=== PATIENT | female | born 1970 | race Caucasian/White ===

== ENCOUNTER 2023-03-05 09:24 | Outpatient (OUT) | payer OTHER, SELFPAY ==
--- NOTE | 2023-03-05 09:29 | US_ITS ---
The [address] [address] Patient Name: MIRIAM DERAS MRN: [id number] date: 1970 Sex: F Assigned Patient Location: US Current Patient Location: US Accession/Order Number: [id number] Exam Date: 03/05/2023 09:30 Report Date: 03/05/2023 10:25 At the request of: DIOGO LUX Procedure: US thyroid EXAMINATION: US thyroid HISTORY: papillary microcarcinoma of thyroid C73 COMPARISON: No relevant comparison available. TECHNIQUE: Sonographic images of the thyroid gland were obtained. FINDINGS: No residual or recurrent thyroid tissue is observed in the right thyroid fossa consistent with the patient's prior thyroidectomy. Area of soft tissue in the left thyroid fossa measuring 0.8 0.9 x 0.6 cm possibly residual or recurrent thyroid tissue Identified in the right thyroid fossa is a normal size normal morphology lymph node measuring 1.9 x 1.1 x 0.5 cm Identified in the left thyroid fossa is a normal size normal morphology lymph node measuring 1.3 x 0.7 x 0.5 cm. US/US thyroid IMPRESSION: No significant nodule or mass. Likely recurrent/residual left thyroid tissue Electronically authenticated by: JEMMA ARAUZ Date: 03/05/2023 10:25
== END 2023-03-05 09:25 | disposition home or self-care (01) ==
LOC: US 09:24
PROVIDERS: Visit Provider Otolaryngology
DX: C73 Malignant neoplasm of thyroid gland (principal)
CPT/HCPCS: 76536

== ENCOUNTER 2023-03-12 10:29 | Outpatient (OUT) | payer OTHER, SELFPAY ==
--- OUTSIDE RECORDS SUMMARY | 2023-03-12 10:36 | XMS_ITS | CCD ---
Author Name Unknown Address [address] [place] [address] Organization [facility] Care Team Providers Care Solutions Engineer Name Role Phone House DO, Sr Selvin Julien Primary Care Provider FREDERICK, DR HERNÁNDEZ Primary Care Unavailable DIAB, SHIRA Admitting Unavailable DIAB, SHIRA Attending Unavailable ROSALBA, DEMETRIA Consulting Unavailable DIAB, SHIRA Consulting Unavailable TIMMIS, DR LIND Admitting Unavailable TIMMIS, DR LIND Attending Unavailable HOUSE, DR HERNÁNDEZ Primary Care Unavailable TIMMIS, DR LIND Consulting Unavailable WEST, DR JEMMA De Souza Consulting Unavailable TIMMIS, DR LIND Admitting Unavailable TIMMIS, DR LIND Attending Unavailable HOUSE, DR HERNÁNDEZ Primary Care Unavailable TIMMIS, DR LIND Consulting Unavailable TIMMIS, DR LIND Admitting Unavailable TIMMIS, DR LIND Attending Unavailable HOUSE, DR HERNÁNDEZ Primary Care Unavailable TIMMIS, DR LIND Consulting Unavailable WEST, DR JEMMA De Souza Consulting Unavailable TIMMIS, DR LIND Admitting Unavailable TIMMIS, DR LIND Attending Unavailable HOUSE, DR HERNÁNDEZ Primary Care Unavailable TIMMIS, DR LIND Consulting Unavailable TIMMIS, DR LIND Admitting Unavailable TIMMIS, DR LIND Attending Unavailable HOUSE, DR HERNÁNDEZ Primary Care Unavailable TIMMIS, DR LIND Consulting Unavailable WEST, DR JEMMA De Souza Consulting Unavailable TIMMIS, DR LIND Admitting Unavailable TIMMIS, DR LIND Attending Unavailable HOUSE, DR HERNÁNDEZ Primary Care Unavailable TIMMIS, DR LIND Consulting Unavailable House Sr., Selvin SMITH Primary Care Provider BRIAN COTTRELL Referring Unavailable HOUSE SELVIN MARTINEZ Primary Care Unavailable VIGESAABRIAN Referring Unavailable HOUSE SELVIN MARTINEZ Primary Care Unavailable HOUSE SRSELVIN Primary Care Unavailable KITTY HAIRSTON Attending Unavailable Allergies Allergy Classification Reported Allergen(s) Allergy Type Date of Onset Reaction(s) Facility (1 source) Acetaminophen / oxyCODONE Drug Allergy 10-20-19 17 [facility] (1 source) Adhesive bandage Drug allergy (disorder) 07-31-19 21 [facility] (1 source) bee venom Drug allergy (disorder) [facility] (1 source) Lymecycline Drug Allergy [facility] (1 source) Penicillin Drug Allergy [facility] (3 sources) Acetaminophen / oxyCODONE Drug Allergy 10-20-19 17 Nausea And Vomiting [facility] [employer] (3 sources) Penicillins Propensity to adverse reactions to drug 03-29-19 19 Rash [facility] [employer] Work Phone: (3 sources) Sulfamethoxazole / Trimethoprim Drug Allergy 03-29-19 19 Hives [facility] [employer] Phone: Medications Current Medications Medication Drug Class(es) Dates Sig (Normalized) Sig (Original) acetaminophen 250 mg / aspirin 250 mg / caffeine 65 mg oral tablet (4 sources) Platelet Aggregation Inhibitor, Nonsteroidal Anti-inflammatory Drug, Central Nervous System Stimulant, Methylxanthine take 1 tablet by mouth every six hours as needed for headache aspirin-acetaminop hen-caffeine (EXCEDRIN MIGRAINE) 250-250-65 MG per tablet Take 1 tablet by mouth every 6 hours as needed for Headaches 0 Active ascorbic acid 500 mg oral capsule (3 sources) Vitamin C take 1 capsule by mouth once daily Ascorbic Acid (VITAMIN C) 500 MG CAPS Take 500 mg by mouth daily 0 Active famotidine 20 mg oral tablet (2 sources) Histamine-2 Receptor Antagonist End: 06-12-2022 take 1 tablet by mouth twice daily famotidine (PEPCID) 20 MG tablet Take 20 mg by mouth 2 times daily 0 06/12/2022 Discontinued (LIST CLEANUP) levothyroxine sodium 0.088 mg oral tablet (1 source) l-Thyroxine End: 06-12-2022 take 1 tablet by mouth once daily levothyroxine (SYNTHROID) 88 MCG tablet Take 1 tablet by mouth Daily 0 06/12/2022 Discontinued (LIST CLEANUP) loratadine 10 mg oral capsule (3 sources) take 1 capsule by mouth once daily loratadine (CLARITIN) 10 MG capsule Take 1 capsule by mouth daily 0 Active LORazepam 0.5 mg oral tablet (3 sources) Benzodiazepine take 1 tablet by mouth three times daily as needed LORazepam (ATIVAN) 0.5 MG tablet Take 1 tablet by mouth 3 times daily as needed. 0 Active Completed/Discontinued Medications Medication Drug Class(es) Dates Sig (Normalized) Sig (Original) iopamidol (ISOVUE-370) 76 % injection 100 mL (1 source) Start: 06-08-2020 End: 06-08-2020 iopamidol (ISOVUE-370) 76 % injection 100 mL potassium chloride 10 meq extended release oral tablet (1 source) Start: 06-12-2022 End: 06-12-2022 potassium chloride (KLOR-CON) extended release tablet 40 mEq Start: 06-12-2022 End: 06-12-2022 potassium chloride (KLOR-CON ) extended release tablet 40 mEq Problems Problem Classification Problem Date Documented Date Episodic/Chronic Anxiety disorders (2 sources) Anxiety state; 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: [Generalized anxiety disorder] Onset: 03-21-2022 Chronic Cancer of thyroid (4 sources) Malignant neoplasm of thyroid gland; 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: [MALIGNANT NEOPLASM OF THYROID GLAND] Onset: 12-05-2021 Chronic Cardiac dysrhythmias (3 sources) Palpitations; 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: [Palpitations] Onset: 07-13-2022 Episodic Complications of surgical procedures or medical care (5 sources) Postprocedural hypothyroidism; 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: [POSTPROCEDURAL HYPOTHYROIDISM] Onset: 09-30-2021 Chronic E Codes: Natural/environment (1 source) Exposure to other specified factors, initial encounter; 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: [EXPOSURE OTHER SPEC FACTORS INITIAL] Onset: 03-21-2022 Episodic Essential hypertension (1 source) Essential hypertension; 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: [Essential (primary) hypertension] Chronic Menopausal disorders (1 source) Hormone replacement therapy; 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: [HORMONE REPLACEMENT THERAPY] Onset: 03-21-2022 Episodic Nonspecific chest pain (5 sources) Atypical chest pain; 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: [Other chest pain] Onset: 06-12-2022 Episodic Other aftercare (1 source) Other correction (current) drug therapy; 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: [OTH GROUP HOME CURRENT DRUG THERAPY] Onset: 03-21-2022 Episodic Other diseases of kidney and ureters (1 source) Cyst of kidney; 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: [Cyst of kidney, acquired] Episodic Other infections; including parasitic (1 source) Personal history of other infectious and parasitic diseases; 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: [History of 2019 novel coronavirus disease (COVID-19)] Episodic Other lower respiratory disease (3 sources) Dyspnea; 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: [Dyspnea, unspecified] Episodic Other lower respiratory disease (1 source) Shortness of breath; 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: [Shortness of breath] Onset: 07-13-2022 Episodic Other non-traumatic joint disorders (3 sources) Pain in left knee; 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: [PAIN IN LEFT KNEE] Onset: 03-19-2022 Episodic Sprains and strains (1 source) Sprain of unspecified site of left knee, initial encounter; 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: [SPRAIN UNS SITE LT KNEE INITIAL] Onset: 03-21-2022 Episodic Thyroid disorders (2 sources) Multinodular goiter; 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: [Nontoxic multinodular goiter] Chronic Results Test Name Value Interpretation Reference Range Facility CARDIAC STRESS TESTon 2022 [place] [address] CARDIAC STRESS TEST PATIENT NAME: JUDY MISHRA : 1970 MED REC NO: [id number] ROOM: ACCOUNT NO: [id number] ADMIT DATE: 07/13/2022 PROVIDER: Jabier Cottrell MD DATE OF STUDY: 07/13/2022 TREADMILL STRESS TEST INDICATION: Chest pain. She exercised 6 minutes and 45 seconds accelerated Bonilla protocol. Her peak heart rate 141, which is 85% maximum heart rate. She achieved 10.5 METs. She had no chest pain or ST depression, no arrhythmias. This was a negative or normal cardiac stress test with no indication of ischemia or angina. JABIER COTTRELL MD [id number] Doc#: [id number] CC: Normal [facility] Brain Natri. Peptideon 06-12 Pro-BNP <36 Normal <300 [facility] Comment on above: Result Comment: An age-independent cutoff point of 300 pg/ml has a 98% negative predictive value excluding acute heart failure. Performed By: #### B MIXER DRIVER, CP, TSHX, TROPI, LIP, CDP, DIME #### [facility] [address] [place] [address] [employer] Operator: Jemma Pierre MD Brain Natriuretic Peptideon 06-12-2022 Natriuretic peptide B (Bld) [Mass/Vol] pg/mL NINF - 300 pg/mL [facility] Comment on above: An age-independent cutoff point of 300 pg/ml has a 98% negative predictive value excluding acute heart failure. CBC with Auto Differentialon 06-12-2022 Absolute Eos # 0.20 [place] [facility] Absolute Lymph # 1.60 [facility] SECO URS [facility] Absolute [place] # 0.40 [facility] RS [facility] Basophils (Bld) [#/Vol] 0.00 10*3/uL [facility] Basophils/100 WBC (Bld) 1 % 0 - 2 % [facility] Differential Type YES [facility] Eosinophils/100 WBC (Bld) 4 % 0 - 5 % [facility] Hematocrit (Bld) [Volume fraction] 44.2 % 36 - 46 % [facility] Hemoglobin (Bld) [Mass/Vol] 14.8 g/dL 12.0 - 16.0 g/dL [facility] Lymphocytes/100 WBC (Bld) 26 % 15 - 40 % [facility] MCH (RBC) [Entitic mass] 29.9 pg 26 - 34 pg [facility] MCHC (RBC) [Mass/Vol] 33.6 g/dL 31 - 37 g/dL [facility] MCV (RBC) [Entitic vol] 89.1 fL 80 - 100 fL [facility] Monocytes/100 WBC (Bld) 6 % 4 - 8 % [facility] Platelet distribution width (Bld) [Ratio] 12.7 % 12.1 - 15.2 % [facility] Platelets (Bld) [#/Vol] 210 10*3/uL [facility] RBC (Bld) [#/Vol] 4.96 10*6/uL 4.0 - 5.2 m/uL [facility] Segmented neutrophils/100 WBC (Bld) 63 % 47 - 75 % [facility] Segs Absolute 3.90 [facility] WBC (Bld) [#/Vol] 6.2 10*3/uL [facility] CBC with Diffon 06-12-2022 Abs. Basophil 0.00 k/uL Normal 0.0-0.2 [facility] Comment on above: Performed By: #### B MIXER DRIVER, CP, TSHX, TROPI, LIP, CDP, DIME #### [facility] [address] [place] [address] [employer] Operator: Jemma Pierre MD Abs.Neutrophil (Seg) 3.90 k/uL Normal 2.5-7.0 [facility] Comment on above: Performed By: #### B MIXER DRIVER, CP, TSHX, TROPI, LIP, CDP, DIME #### [facility] [address] [place] [address] [employer] Operator: Jemma Pierre MD Auto Diff Performed YES Normal [facility] Comment on above: Performed By: #### B MIXER DRIVER, CP, TSHX, TROPI, LIP, CDP, DIME #### [facility] [address] [place] [address] [employer] Operator: Jemma Pierre MD Basophils/100 WBC (Bld) 1 % Normal 0-2 [facility] Comment on above: Performed By: #### B MIXER DRIVER, CP, TSHX, TROPI, LIP, CDP, DIME #### [facility] [address] [place] [id number] [employer] Operator: Jemma Pierre MD Eosinophils (Bld) [#/Vol] 0.20 10*3/uL Normal 0.0-0.4 [facility] Comment on above: Performed By: #### B MIXER DRIVER, CP, TSHX, TROPI, LIP, CDP, DIME #### [facility] [address] [place] [phone] [employer] Operator: Jemma Pierre MD Eosinophils/100 WBC (Bld) 4 % Normal 0-5 [facility] Comment on above: Performed By: #### B MIXER DRIVER, CP, TSHX, TROPI, LIP, CDP, DIME #### [facility] [address] [place] [phone] [employer] Operator: Jemma Pierre MD Erythrocyte distribution width (RBC) [Ratio] 12.7 % Normal 12.1-15.2 [facility] Comment on above: Performed By: #### B MIXER DRIVER, CP, TSHX, TROPI, LIP, CDP, DIME #### [facility] [address] [place] [address] [employer] Operator: Jemma Pierre MD Hematocrit (Bld) [Volume fraction] 44.2 % Normal 36-46 [facility] Comment on above: Performed By: #### B MIXER DRIVER, CP, TSHX, TROPI, LIP, CDP, DIME #### [facility] [address] [place] [phone] [employer] Operator: Jemma Pierre MD Hemoglobin (Bld) [Mass/Vol] 14.8 g/dL Normal 12.0-16.0 [facility] Comment on above: Performed By: #### B MIXER DRIVER, CP, TSHX, TROPI, LIP, CDP, DIME #### [facility] [address] [place] [phone] [employer] Operator: Jemma Pierre MD Lymphocytes (Bld) [#/Vol] 1.60 10*3/uL Normal 1.0-4.8 [facility] Comment on above: Performed By: #### B MIXER DRIVER, CP, TSHX, TROPI, LIP, CDP, DIME #### [facility] [address] [place] [address] [employer] Operator: Jemma Pierre MD Lymphocytes/100 WBC (Bld) 26 % Normal 15-40 [facility] Comment on above: Performed By: #### B MIXER DRIVER, CP, TSHX, TROPI, LIP, CDP, DIME #### [facility] [address] [place] [address] [employer] Operator: Jemma Pierre MD MCH (RBC) [Entitic mass] 29.9 pg Normal 26-34 [facility] Comment on above: Performed By: #### B MIXER DRIVER, CP, TSHX, TROPI, LIP, CDP, DIME #### [facility] [address] [place] [address] [employer] Operator: Jemma Pierre MD MCHC (RBC) [Mass/Vol] 33.6 g/dL Normal 31-37 [facility] Comment on above: Performed By: #### B MIXER DRIVER, CP, TSHX, TROPI, LIP, CDP, DIME #### [facility] [address] [place] [address] [employer] Operator: Jemma Pierre MD MCV (RBC) [Entitic vol] 89.1 fL Normal 80-100 [facility] Comment on above: Performed By: #### B MIXER DRIVER, CP, TSHX, TROPI, LIP, CDP, DIME #### [facility] [address] [place] [address] [employer] Operator: Jemma Pierre MD Monocytes (Bld) [#/Vol] 0.40 10*3/uL Normal 0.0-1.0 [facility] Comment on above: Performed By: #### B MIXER DRIVER, CP, TSHX, TROPI, LIP, CDP, DIME #### [facility] [address] [place] [address] [employer] Operator: Jemma Pierre MD Monocytes/100 WBC (Bld) 6 % Normal 4-8 [facility] Comment on above: Performed By: #### B MIXER DRIVER, CP, TSHX, TROPI, LIP, CDP, DIME #### [facility] [address] [place] [address] [employer] Operator: Jemma Pierre MD Neutrophil (Seg) 63 % Normal 47-75 [facility] Comment on above: Performed By: #### B MIXER DRIVER, CP, TSHX, TROPI, LIP, CDP, DIME #### [facility] [address] [place], [place] [id number] [employer] Operator: Jemma Pierre MD Platelets (Bld) [#/Vol] 210 10*3/uL Normal 140-450 [facility] Comment on above: Performed By: #### B MIXER DRIVER, CP, TSHX, TROPI, LIP, CDP, DIME #### [facility] [address] [place] [address] [employer] Operator: Jemma Pierre MD RBC (Bld) [#/Vol] 4.96 10*6/uL Normal 4.0-5.2 [facility] Comment on above: Performed By: #### B MIXER DRIVER, CP, TSHX, TROPI, LIP, CDP, DIME #### [facility] [address] [place] [address] [employer] Operator: Jemma Pierre MD WBC (Bld) [#/Vol] 6.2 10*3/uL Normal 3.5-11.0 [facility] Comment on above: Performed By: #### B MIXER DRIVER, CP, TSHX, TROPI, LIP, CDP, DIME #### [facility] [address] [place] [address] [employer] Operator: Jemma Pierre MD Comp Metabolic Profon 2022 Albumin [Mass/Vol] 4.5 g/dL Normal 3.5-5.2 [facility] Comment on above: Performed By: #### B MIXER DRIVER, CP, TSHX, TROPI, LIP, CDP, DIME #### [facility] [address] [place] [address] [employer] Operator: Jemma Pierre MD Alkaline Phos 73 U/L Normal 35-104 [facility] Comment on above: Performed By: #### B MIXER DRIVER, CP, TSHX, TROPI, LIP, CDP, DIME #### [facility] [address] [place], [place] [phone] [employer] Operator: Jemma Pierre MD ALT [Catalytic activity/Vol] 17 U/L Normal 5-33 [facility] Comment on above: Performed By: #### B MIXER DRIVER, CP, TSHX, TROPI, LIP, CDP, DIME #### [facility] [address] [place], [place] [phone] [employer] Operator: Jemma Pierre MD Anion gap [Moles/Vol] 10 mmol/L Normal 9-17 [facility] Comment on above: Performed By: #### B MIXER DRIVER, CP, TSHX, TROPI, LIP, CDP, DIME #### [facility] [address] [place], [place] [phone] [employer] Operator: Jemma Pierre MD AST [Catalytic activity/Vol] 16 U/L Normal <32 [facility] Comment on above: Performed By: #### B MIXER DRIVER, CP, TSHX, TROPI, LIP, CDP, DIME #### [facility] [address] [place], [place] [phone] [employer] Operator: Jemma Pierre MD Bilirubin [Mass/Vol] 0.4 mg/dL Normal 0.3-1.2 [facility] Comment on above: Performed By: #### B MIXER DRIVER, CP, TSHX, TROPI, LIP, CDP, DIME #### [facility] [address] [place], [place] [phone] [employer] Operator: Jemma Pierre MD BUN/CRE Ratio 14 Normal 9-20 [facility] Comment on above: Performed By: #### B MIXER DRIVER, CP, TSHX, TROPI, LIP, CDP, DIME #### [facility] [address] [place], [place] [id number] [employer] Operator: Jemma Pierre MD Calcium [Mass/Vol] 9.7 mg/dL Normal 8.6-10.4 [facility] Comment on above: Performed By: #### B MIXER DRIVER, CP, TSHX, TROPI, LIP, CDP, DIME #### [facility] [address] [place] [address] [employer] Operator: Jemma Pierre MD Chloride [Moles/Vol] 103 mmol/L Normal 98-107 [facility] Comment on above: Performed By: #### B MIXER DRIVER, CP, TSHX, TROPI, LIP, CDP, DIME #### [facility] [address] [place] [address] [employer] Operator: Jemma Pierre MD CO2 [Moles/Vol] 27 mmol/L Normal 20-31 [facility] Comment on above: Performed By: #### B MIXER DRIVER, CP, TSHX, TROPI, LIP, CDP, DIME #### [facility] [address] [place] [address] [employer] Operator: Jemma Pierre MD Creatinine [Mass/Vol] 0.69 mg/dL Normal 0.50-0.90 [facility] Comment on above: Performed By: #### B MIXER DRIVER, CP, TSHX, TROPI, LIP, CDP, DIME #### [facility] [address] [place] [address] [employer] Operator: Jemma Pierre MD GFR/1.73 sq M.predicted among non-blacks MDRD (S/P/Bld) [Vol rate/Area] mL/min/{1.73_m2} Normal >60 [facility] Comment on above: Result Comment: These results are not intended for use in patients <18 years of age. eGFR results are calculated without a race factor using the 2020 CKD-EPI equation. Careful clinical correlation is recommended, particularly when comparing to results calculated using previous equations. The CKD-EPI equation is less accurate in patients with extremes of muscle mass, extra-renal metabolism of creatine, excessive creatine ingestion, or following therapy that affects renal tubular secretion. Performed By: #### B MIXER DRIVER, CP, TSHX, TROPI, LIP, CDP, DIME #### [facility] [address] [place] [address] [employer] Operator: Jemma Pierre MD Glucose [Mass/Vol] 92 mg/dL Normal 70-99 [facility] Comment on above: Performed By: #### B MIXER DRIVER, CP, TSHX, TROPI, LIP, CDP, DIME #### [facility] [address] [place], [place] [phone] [employer] Operator: Jemma Pierre MD Potassium [Moles/Vol] 3.4 mmol/L Low 3.7-5.3 [facility] Comment on above: Performed By: #### B MIXER DRIVER, CP, TSHX, TROPI, LIP, CDP, DIME #### [facility] [address] [place] [address] [employer] Operator: Jemma Pierre MD Protein [Mass/Vol] 7.1 g/dL Normal 6.4-8.3 [facility] Comment on above: Performed By: #### B MIXER DRIVER, CP, TSHX, TROPI, LIP, CDP, DIME #### [facility] [address] [place] [address] [employer] Operator: Jemma Pierre MD Sodium [Moles/Vol] 140 mmol/L Normal 135-144 [facility] Comment on above: Performed By: #### B MIXER DRIVER, CP, TSHX, TROPI, LIP, CDP, DIME #### [facility] [address] [place] [address] [employer] Operator: Jemma Pierre MD Urea nitrogen [Mass/Vol] 10 mg/dL Normal 6-20 [facility] Comment on above: Performed By: #### B MIXER DRIVER, CP, TSHX, TROPI, LIP, CDP, DIME #### [facility] [address] [place] [address] [employer] Operator: Jemma Pierre MD Comprehensive Metabolic [facility] 06-12-2022 Albumin [Mass/Vol] 4.5 g/dL 3.5 - 5.2 g/dL [facility] ALP [Catalytic activity/Vol] 73 U/L 35 - 104 U/L [facility] ALT [Catalytic activity/Vol] 17 U/L 5 - 33 U/L [facility] Anion gap [Moles/Vol] 10 mmol/L 9 - 17 mmol/L [facility] AST [Catalytic activity/Vol] 16 U/L NINF - 32 U/L [facility] Bilirubin [Mass/Vol] 0.4 mg/dL 0.3 - 1 .2 mg/dL [facility] Calcium [Mass/Vol] 9.7 mg/dL 8.6 - 10. 4 mg/dL [facility] Chloride [Moles/Vol] 103 mmol/L 98 - 10 7 mmol/L [facility] CO2 [Moles/Vol] 27 mmol/L 20 - 31 mmol/L [facility] Creatinine [Mass/Vol] 0.69 mg/dL 0.50 - 0.90 mg/dL [facility] GFR/1.73 sq M.predicted MDRD (S/P/Bld) [Vol rate/Area] - PINF [facility] Comment on above: These results are not intended for use in patients <18 years of age. eGFR results are calculated without a race factor using the 2020 CKD-EPI equation. Careful clinical correlation is recommended, particularly when comparing to results calculated using previous equations. The CKD-EPI equation is less accurate in patients with extremes of muscle mass, extra-renal metabolism of creatine, excessive creatine ingestion, or following therapy that affects renal tubular secretion. Glucose [Mass/Vol] 92 mg/dL 70 - 99 mg/dL [facility] Interpretation and review of laboratory results Abnormal [facility] Potassium [Moles/Vol] 3.4 mmol/L Low 3.7 - 5.3 mmol/L [facility] Protein [Mass/Vol] 7.1 g/dL 6.4 - 8.3 g/dL [facility] Sodium [Moles/Vol] 140 mmol/L 135 - 144 mmol/L [facility] Urea nitrogen [Mass/Vol] 10 mg/dL 6 - 20 mg/dL [facility] Urea nitrogen/Creatinine (Bld) [Mass ratio] 14 9 - 20 [facility] D-Dimer Teston 06-12-2022 D-Dimer Test 0.40 ug/mL FEU Normal 0.00-0.59 [facility] Comment on above: Result Comment: When combined with a low clinical probability, a D dimer value of <0.50 ug/mL FEU is considered negative for DVT and PE (negative predictive value of 98%, sensitivity of 97%). If this test is not being used to help rule out DVT and PE, then the following reference range should be utilized: 0.00 - 0.59 ug/mL FEU. The D-Dimer assay is intended for use as an aid in the diagnosis of venous thromboembolism (DVT and PE) and the results should be interpreted in conjunction with the patient's medical history, clinical presentation, and other findings. Elevated levels of D-dimer activity can be seen in any state of coagulation activation and is not recommended in patients with therapeutic dose anticoagulant therapy for >24 hours, fibrinolytic therapy within the previous 7 days, trauma or surgery within the previous 4 weeks, disseminated malignancies, aortic aneurysm, sepsis, severe infections, pneumonia, severe skin infections, liver cirrhosis, advanced age, coronary disease, diabetes, and . A very low percentage of patients with DVT may yield D-dimer results below the cutoff of 0.5 ug/mL FEU. This is known to be more prevalent in patients with distal DVT. Performed By: #### B MIXER DRIVER, CP, TSHX, TROPI, LIP, CDP, DIME #### [facility] [address] [place] [address] Timber Sizer Operator: Jemma Pierre MD D-Dimer, Quantitativeon Fibrin D-dimer FEU IA (Bld) [Mass/Vol] 0.40 ug/mL [facility] Comment on above: When combined with a low clinical probability, a D dimer value of <0.50 ug/mL FEU is considered negative for DVT and PE (negative predictive value of 98%, sensitivity of 97%). If this test is not being used to help rule out DVT and PE, then the following reference range should be utilized: 0.00 - 0.59 ug/mL FEU. The D-Dimer assay is intended for use as an aid in the diagnosis of venous thromboembolism (DVT and PE) and the results should be interpreted in conjunction with the patient's medical history, clinical presentation, and other findings. Elevated levels of D-dimer activity can be seen in any state of coagulation activation and is not recommended in patients with therapeutic dose anticoagulant therapy for >24 hours, fibrinolytic therapy within the previous 7 days, trauma or surgery within the previous 4 weeks, disseminated malignancies, aortic aneurysm, sepsis, severe infections, pneumonia, severe skin infections, liver cirrhosis, advanced age, coronary disease, diabetes, and . A very low percentage of patients with DVT may yield D-dimer results below the cutoff of 0.5 ug/mL FEU. This is known to be more prevalent in patients with distal DVT. [facility] Lipaseon 06-12-2022 Lipase [Catalytic activity/Vol] 25 U/L Normal 13-60 [facility] Comment on above: Performed By: #### B MIXER DRIVER, CP, TSHX, TROPI, LIP, CDP, DIME #### [facility] [address] [place] [address] Timber Sizer Operator: Jemma Pierre MD Lipase [Catalytic activity/Vol] 25 U/L 13 - 60 U/L [facility] No Panel Informationon 06-12 [facility] TSH w/reflex to FT4on 2022 Thyroid Stim. Horm. 2.81 uIU/mL Normal 0.30-5.00 [facility] Comment on above: Performed By: #### B MIXER DRIVER, CP, TSHX, TROPI, LIP, CDP, DIME #### [facility] [address] [place] [address] Timber Sizer Operator: Jemma Pierre MD TSH with Reflexon 06-12-2022 TSH Qn 2.81 m[IU]/L [facility] Troponinon 06-12-2022 Troponin, High Sens <6 Normal 0-14 [facility] Comment on above: Result Comment: High Sensitivity Troponin values cannot be compared with other Troponin methodologies. Performed By: #### B MIXER DRIVER, CP, TSHX, TROPI, LIP, CDP, DIME #### [facility] [address] [place] [address] Timber Sizer Operator: Jemma Pierre MD Troponin I.cardiac DL <= 0.01 ng/mL [Mass/Vol] ng/L 0 - 14 ng/L [facility] Comment on above: High Sensitivity Tro ponin values cannot be compared with other Troponin methodologies. [facility] XR CHEST (2 VW)on 06-12-2022 XR CHEST (2 VW) EXAM: Chest x-ray HISTORY: Chest pain COMPARISON: None. TECHNIQUE: Frontal and lateral chest FINDINGS: Vascularity are unremarkable. Lungs are expanded and free of focal infiltrates. There is a linear density in the lingula consistent with platelike atelectasis or scarring. No acute bony abnormality is appreciated. IMPRESSION: 1. Linear area of platelike atelectasis versus scarring in the lingula. 2. Remainder of lung piña are unremarkable. Interpreted by: Jemma Boyd MD Signed by: Jemma Boyd MD 06/12/22 Final result Normal [facility] 1. Linear area of platelike atelectasis versus scarring in the lingula. 2. Remainder of lung piña are unremarkable. [facility] EXAM: Chest x-ray HISTORY: Chest pain COMPARISON: None. TECHNIQUE: Frontal and lateral chest FINDINGS: Vascularity are unremarkable. Lungs are expanded and free of focal infiltrates. There is a linear density in the lingula consistent with platelike atelectasis or scarring. No acute bony abnormality is appreciated. [facility] Jemma Boyd MD - 06/12/2022 EXAM: Chest x-ray HISTORY: Chest pain COMPARISON: None. TECHNIQUE: Frontal and lateral chest FINDINGS: Vascularity are unremarkable. Lungs are expanded and free of focal infiltrates. There is a linear density in the lingula consistent with platelike atelectasis or scarring. No acute bony abnormality is appreciated. IMPRESSION: 1. Linear area of platelike atelectasis versus scarring in the lingula. 2. Remainder of lung piña are unremarkable. [employer] Phone: Radiology Study observation (narrative) [employer] Phone: XR CHEST (2 VW)Ordered By: Sohail Boyd on 06-12-2022 [facility] [employer] Phone: CBC AUTO DIFFon 03-19-2022 BASO # 0.1 103/ul Normal 0.0-0.1 [facility] Comment on above: Performed By: #### C BC #### [facility] [address] [address] [address] Lupillo [place] Basophils/100 WBC (Bld) 0.8 % Normal 0.2-2.0 [facility] Comment on above: Performed By: #### C BC #### [facility] [address] [place] [address] Dr. Lupillo [place] EO # 0.4 103/ul Normal 0.0-0.7 [facility] Comment on above: Performed By: #### C BC #### [facility] [address] [place] [address] Dr. Lupillo [place] Eosinophils/100 WBC (Bld) 5.5 % Normal 0.9-7.0 [facility] Comment on above: Performed By: #### C BC #### [facility] [address] [place] [address] Dr. Lupillo [place] Erythrocyte distribution width (RBC) [Ratio] 13.2 % Normal 11.0-15.0 [facility] Comment on above: Performed By: #### C BC #### [facility] [address] [place] [address] Dr. Lupillo [place] Hematocrit (Bld) [Volume fraction] 45.3 % Normal 36.0-48.0 [facility] Comment on above: Performed By: #### C BC #### [facility] [address] [place] [address] Dr. Lupillo [place] Hemoglobin (Bld) [Mass/Vol] 14.8 g/dL Normal 12.0-16.0 [facility] Comment on above: Performed By: #### C BC #### [facility] [address] [place] [address] Dr. Lupillo [place] IG # 0.02 10e3/ul Normal 0.00-0.03 [facility] Comment on above: Performed By: #### C BC #### [facility] [address] [place] [address] Dr. Lupillo [place] IG % 0.3 % Normal 0.0-0.5 [facility] Comment on above: Performed By: #### C BC #### [facility] [address] [place] [address] Dr. Lupillo [place] LYMPH # 1.4 103/ul Normal 1.2-3.8 [facility] Comment on above: Performed By: #### C BC #### [facility] [address] [place] [address] Dr. Lupillo [place] Lymphocytes/100 WBC (Bld) 22.5 % Normal 20.5-60.0 [facility] Comment on above: Performed By: #### C BC #### [facility] [address] [place] [address] Dr. Lupillo [place] MANUAL DIFF REQ NO Normal [facility] Comment on above: Performed By: #### C BC #### [facility] [address] [place] [address] Dr. Lupillo [place] MCH (RBC) [Entitic mass] 30.0 pg Normal 26.7-34.0 [facility] Comment on above: Performed By: #### C BC #### [facility] [address] [place] [address] Dr. Lupillo [place] MCHC (RBC) [Mass/Vol] 32.7 g/dL Normal 29.9-35.2 [facility] Comment on above: Performed By: #### C BC #### [facility] [address] [place] [address] Dr. Lupillo [place] MCV (RBC) [Entitic vol] 91.9 fL Normal 81.0-99.0 [facility] Comment on above: Performed By: #### C BC #### [facility] [address] [place] [address] Dr. Lupillo [place] MONO # 0.4 103/ul Normal 0.3-0.8 [facility] Comment on above: Performed By: #### C BC #### [facility] [address] [place] [address] Dr. Lupillo [place] Monocytes/100 WBC (Bld) 6.5 % Normal 1.7-12.0 [facility] Comment on above: Performed By: #### C BC #### [facility] [address] [place] [address] Dr. Lupillo [place] NEUT # 4.1 103/ul Normal 1.4-6.5 [facility] Comment on above: Performed By: #### C BC #### [facility] [address] [place] [address] Dr. Lupillo [place] Neutrophils/100 WBC (Bld) 64.4 % Normal 43.0-75.0 [facility] Comment on above: Performed By: #### C BC #### [facility] [address] [place] [address] Dr. Lupillo [place] Platelet mean volume (Bld) [Entitic vol] 12.0 fL Normal 9.5-13.5 [facility] Comment on above: Performed By: #### C BC #### [facility] [address] [place] [address] Dr. Lupillo Birmingham PLT 235 103/ul Normal 150-450 [facility] Comment on above: Performed By: #### C BC #### [facility] [address] [place] [address] Dr. Lupillo [place] RBC 4.93 106/ul Normal 4.20-5.40 [facility] Comment on above: Performed By: #### C BC #### [facility] [address] [place] [address] Dr. Lupillo [place] WBC 6.4 103/ul Normal 4.0-11.0 [facility] Comment on above: Performed By: #### C BC #### [facility] [address] [place] [address] Dr. Lupillo [place] PROF CHEM 8 (BAS METB)on Anion gap [Moles/Vol] 13.9 mmol/L Normal Th e [facility] Comment on above: Performed By: #### B MP #### [facility] [address] [address] [address] Lupillo [place] Calcium [Mass/Vol] 9.4 mg/dL Normal 8.5-10.1 [facility] Comment on above: Performed By: #### B MP #### [facility] [address] [address] [address] Lupillo [place] Chloride [Moles/Vol] 105 mmol/L Normal 98-107 [facility] Comment on above: Performed By: #### B MP #### [facility] [address] [address] [address] Lupillo [place] CO2 [Moles/Vol] 28.2 mmol/L Normal 21.0-32.0 [facility] Comment on above: Performed By: #### B MP #### [facility] [address] [address] [address] Lupillo [place] Creatinine [Mass/Vol] 0.66 mg/dL Normal 0.55-1.02 [facility] Comment on above: Performed By: #### B MP #### [facility] [address] [place] [address] Dr. Lupillo [place] EGFR-AF BOTSWANAN >60 Normal >=60 The [facility] Comment on above: Performed By: #### B MP #### [facility] [address] [address] [address] Lupillo [place] EGFR-NON AF BOTSWANAN >60 Normal >=60 [facility] Comment on above: Performed By: #### B MP #### [facility] [address] [address] [address] Lupillo [place] Glucose [Mass/Vol] 101 mg/dL Normal 74-106 [facility] Comment on above: Performed By: #### B MP #### [facility] [address] [place] [address] Dr. Lupillo [place] Potassium [Moles/Vol] 4.1 mmol/L Normal 3.5-5.1 [facility] Comment on above: Performed By: #### B MP #### [facility] [address] [address] [address] Lupillo [place] Sodium [Moles/Vol] 143 mmol/L Normal 136-145 [facility] Comment on above: Performed By: #### B MP #### [facility] [id number] Lupillo [place] Urea nitrogen [Mass/Vol] 13.0 mg/dL Normal 7.0-18.0 [facility] Comment on above: Performed By: #### B MP #### [facility] [address] [address] [address] Lupillo [place] Urea nitrogen/Creatinine [Mass ratio] 19.7 mg/mg Normal [facility] Comment on above: Performed By: #### B MP #### [facility] [address] [address] [address] Lupillo [place] TSHon 03-19-2022 TSH 1.514 uIU/mL Normal 0.358-3.740 [facility] Comment on above: Performed By: #### T SH #### [facility] [address] [address] [address] Lupillo [place] XR KNEE LT 4V or >on 023 XR KNEE LT 4V or > EXAM: XR KNEE LT 4V or > INDICATION: Pain of joint of knee. COMPARISON: None. TECHNIQUE: Left knee, 4 views FINDINGS: No acute fracture or dislocation. The knee joint spaces are intact. No suprapatellar joint effusion. Unremarkable soft tissues. IMPRESSION: No acute left knee abnormality. Electronically authenticated by: DEMETRIA NAVARRETE Date: 2022-03-19 08:31 Normal [facility] US THYROIDon 12-05-2021 US THYROID EXAMINATION: US THYROID HISTORY: Primary malignant neoplasm of thyroid gland COMPARISON: 08/23/2021 TECHNIQUE: Sonographic images of the thyroid gland were obtained. FINDINGS: Remote thyroidectomy No residual right thyroid tissue. 1.5 x 1.2 x 0.6 cm normal size normal morphology lymph node. Remote left thyroidectomy Soft tissue echogenicity in the left thyroid bed measuring 0.8 x 0.7 x 0.7 cm, residual thyroid tissue is favored, stable. Stable normal sized normal morphology lymph node measuring 1.0 x 0.8 x 0.4 cm. IMPRESSION: Bilateral normal sized lymph nodes No new mass Electronically authenticated by: JEMMA ARAUZ Date: 2021-12-05 10:49 Normal [facility] TSHon 09-30-2021 TSH 3.645 uIU/mL Normal 0.358-3.740 [facility] Comment on above: Performed By: #### T SH #### [facility] [address] [place], [place] [address] Dr. Lupillo Birmingham US THYROIDon 08-23-2021 US THYROID EXAMINATION: US THYROID HISTORY: Primary malignant neoplasm of thyroid gland COMPARISON: 04/25/2021 TECHNIQUE: Sonographic images of the thyroid gland were obtained. FINDINGS: No recurrent or residual thyroid tissue identified in the right thyroid fossa Small amount of soft tissue identified in the left thyroid fossa measuring 0.7 x 0.5 to 0.7 cm, grossly stable. Bilateral cervical lymph nodes the largest on the right at the carotid bulb measures 1.9 x 1.1 x 0.5 cm per the largest on the left measures 1.3 x 0.0 0.5 cm. Normal in size and morphology with thickened cortices and hyperechogenic hypervascular hilum IMPRESSION: Stable recurrent or residual thyroid tissue in the left thyroid fossa Bilateral normal sized normal morphology cervical lymph nodes Electronically authenticated by: JEMMA ARAUZ Date: 2021-08-23 13:03 Normal [facility] T3 UPTAKEon 08-19-2021 T3U 31.0 % Normal 30.0-39.0 [facility] Comment on above: Performed By: #### T 3UP, TSH, T4 ####[facility] [id number] [place], [place] [address]NwDr. Lupillo Birmingham T4on 08-19-2021 T4 [Mass/Vol] 11.10 ug/dL Normal 4.80-13.90 [facility] Comment on above: Performed By: #### T 3UP, TSH, T4 #### [facility] [address] [place], [place] [address] Dr. Lupillo Birmingham TSHon 08-19-2021 TSH 6.669 uIU/mL Critically high 0.358-3.740 [facility] Comment on above: Performed By: #### T 3UP, TSH, T4 ####[facility] [address] [place], [place] [address]OuDr. Lupillo Birmingham US THYROIDon 04-25-2021 US THYROID EXAMINATION: US THYROID HISTORY: Primary malignant neoplasm of thyroid gland COMPARISON: 07/30/2020 TECHNIQUE: Sonographic images of the thyroid gland were obtained. FINDINGS: The right thyroid lobe is surgically absent. No focal recurrent or residual tissue The thyroid isthmus is surgically absent. No focal recurrent or residual tissue The left thyroid lobe is surgically absent. 0.7 x 0.6 x 0.9 cm area of hypoechogenicity identified in the left thyroid fossa. IMPRESSION: Soft tissue attenuation in the left thyroid fossa possibly residual or recurrent tissue. The differential diagnosis would include postsurgical change or atypical lymph node Electronically authenticated by: JEMMA ARAUZ Date: 2021-04-25 14:04 Normal [facility] TSHon 04-11-2021 TSH 2.911 uIU/mL Normal 0.470-4.680 [facility] Comment on above: Performed By: #### T SH #### [facility] [address] [place], [place] [address] Dr. Lupillo [place] TSH RANGE SEE BELOW Normal [facility] Comment on above: Result Comment: <0.3 4 UIU/ml HYPERTHYROID 0.34-5.60 UIU/ml EUTHYROID >5.60 UIU/ml HYPOTHYROID Performed By: #### T SH #### [facility] [address] [place], [place] [address] Dr. Lupillo Birmingham Basic Metabolic Panel w/ Ref johnna to MGOrdered By: Stephie Iverson on 06-08-2020 Anion gap [Moles/Vol] 8 mmol/L Low 9 - 17 mmol/L [employer] Phone: Calcium [Mass/Vol] 9.0 mg/dL 8.6 - 10. 4 mg/dL [employer] Phone: Chloride [Moles/Vol] 105 mmol/L 98 - 10 7 mmol/L [employer] Phone: CO2 [Moles/Vol] 24 mmol/L 20 - 31 mmol/L [employer] Phone: Creatinine [Mass/Vol] 0.49 mg/dL Low 0.50 - 0.90 mg/dL [employer] Phone: GFR >60 >60 mL/min [employer] Phone: GFR Non- >60 >60 mL/min [employer] Phone: GFR/1.73 sq M.predicted MDRD (S/P/Bld) [Vol rate/Area] [employer] Phone: Comment on above: Average GFR for 40-4 9 years old: 99 mL/min/1.73sq m Chronic Kidney Disease: <60 mL/min/1.73sq m Kidney failure: <15 mL/min/1.73sq m eGFR calculated using average adult body mass. Additional eGFR calculator available at: http://www.[employer]/multiple_crcl_2012.htm GFR/1.73 sq M.predicted MDRD (S/P/Bld) [Vol rate/Area] NOT REPORTED [employer] Phone: Glucose [Mass/Vol] 107 mg/dL High 70 - 99 mg/dL [employer] Phone: Interpretation and review of laboratory results Abnormal [employer] Phone: Potassium [Moles/Vol] 3.7 mmol/L 3.7 - 5.3 mmol/L [employer] Phone: Sodium [Moles/Vol] 137 mmol/L 135 - 144 mmol/L [employer] Phone: Urea nitrogen (BldV) [Mass/Vol] 11 mg/dL 6 - 20 mg/dL [employer] Phone: Urea nitrogen/Creatinine (Bld) [Mass ratio] 22 High [employer] Phone: CBC Auto DifferentialOrdered By: Stephie Iverson on 06-08-2020 [employer] Eos # 0.30 [employer] [facility] Work Phone: Absolute Immature Granulocyte NOT REPORTED [employer] Work Phone: Absolute Lymph # 1.80 [employer] [facility] Work Phone: Absolute [place] # 0.50 [employer] Work Phone: Basophils (Bld) [#/Vol] 0.00 10*3/uL [employer] Work Phone: Basophils/100 WBC (Bld) 1 % 0 - 2 % [employer] Work Phone: Differential Type YES [employer] Work Phone: Eosinophils/100 WBC (Bld) 5 % 0 - 5 % [employer] Phone: Hematocrit (Bld) [Volume fraction] 42.6 % 36 - 46 % [employer] Work Phone: Hemoglobin.gastrointes tinal spec 1 Ql (Stl) 14.4 g/dL 12.0 - 16.0 g/dL [employer] Work Phone: Immature Granulocytes NOT REPORTED 0 % [employer] Work Phone: Lymphocytes/100 WBC (Bld) 26 % 15 - 40 % [employer] Phone: MCH (RBC) [Entitic mass] 29.6 pg 26 - 34 pg [employer] Work Phone: MCHC (RBC) [Mass/Vol] 33.8 g/dL 31 - 37 g/dL [employer] Work Phone: MCV (RBC) [Entitic vol] 87.6 fL 80 - 100 fL [employer] Work Phone: Monocytes/100 WBC (Bld) 7 % 4 - 8 % [employer] Work Phone: NRBC Automated NOT REPORTED per 100 WBC [employer] Work Phone: Platelet distribution width (Bld) [Ratio] 13.3 % 12.1 - 15.2 % [employer] Phone: Platelet Estimate NOT REPORTED [employer] Phone: Platelet mean volume (Bld) [Entitic vol] NOT REPORTED 6.0 - 12.0 fL [employer] Phone: Platelets (Bld) [#/Vol] 252 10*3/uL [employer] Phone: RBC (Bld) [#/Vol] 4.87 10*6/uL 4.0 - 5.2 m/uL [employer] Phone: RBC (Bld) [#/Vol] NOT REPORTED [employer] Phone: Segmented neutrophils/100 WBC (Bld) 61 % 47 - 75 % [employer] Phone: Segs [employer] 4.40 [employer] Work Phone: WBC (Bld) [#/Vol] 7.0 10*3/uL [employer] Phone: WBC (Bld) [#/Vol] NOT REPORTED [employer] Phone: CTA CHEST W CONTRASTOrdered By: Stephie Iverson on 06-08-2020 1. Negative for pulmonary embolus. 2. Lungs clear. 3. Consider a 6 month follow-up renal ultrasound to evaluate for stability of a 1.7 cm lesion left kidney which overall has a benign appearance, but the Hounsfield attenuation does not allow it to be called a simple cyst on this study alone. It is not highly suspicious. It can be evaluated for stability and echogenicity at the time of a follow-up. 4. Bilateral thyroid nodules and thyromegaly. Consider outpatient thyroid ultrasound. [employer] Phone: EXAMINATION: CTA CHEST W CONTRAST HISTORY: Reason for exam:->shortness of breath COMPARISON: None. TECHNIQUE: CT angiography of the pulmonary arteries following the administration of intravenous contrast. Coronal and sagittal MIP (maximum intensity projection) images were performed. Dose reduction techniques were achieved by using automated exposure control and/or adjustment of mA and/or kV according to patient size and/or use of iterative reconstruction technique. FINDINGS: Good opacification of pulmonary arteries and the aorta. Negative for pulmonary embolus or aortic dissection. The lungs are clear. There is a 2 cm nodule posterior inferior right thyroid lobe and a rim calcified 1.8 cm nodule in the left thyroid lobe. The gland is diffusely mildly enlarged in the portion that is included. A 1.7 cm partially exophytic lesion from the posterior left kidney, superior third, medially has Hounsfield attenuation of 30 Hounsfield units. This cannot be called a simple cyst with certainty on this study alone. The bone windows are normal. Cholecystectomy. [employer] Work Phone: [place], [facility] Incoming Radiant Results From [employer] - 06/08/2020 4:28 PM EDT EXAMINATION: CTA CHEST W CONTRAST HISTORY: Reason for exam:->shortness of breath COMPARISON: None. TECHNIQUE: CT angiography of the pulmonary arteries following the administration of intravenous contrast. Coronal and sagittal MIP (maximum intensity projection) images were performed. Dose reduction techniques were achieved by using automated exposure control and/or adjustment of mA and/or kV according to patient size and/or use of iterative reconstruction technique. FINDINGS: Good opacification of pulmonary arteries and the aorta. Negative for pulmonary embolus or aortic dissection. The lungs are clear. There is a 2 cm nodule posterior inferior right thyroid lobe and a rim calcified 1.8 cm nodule in the left thyroid lobe. The gland is diffusely mildly enlarged in the portion that is included. A 1.7 cm partially exophytic lesion from the posterior left kidney, superior third, medially has Hounsfield attenuation of 30 Hounsfield units. This cannot be called a simple cyst with certainty on this study alone. The bone windows are normal. Cholecystectomy. IMPRESSION: 1. Negative for pulmonary embolus. 2. Lungs clear. 3. Consider a 6 month follow-up renal ultrasound to evaluate for stability of a 1.7 cm lesion left kidney which overall has a benign appearance, but the Hounsfield attenuation does not allow it to be called a simple cyst on this study alone. It is not highly suspicious. It can be evaluated for stability and echogenicity at the time of a follow-up. 4. Bilateral thyroid nodules and thyromegaly. Consider outpatient thyroid ultrasound. [employer] Phone: D-Dimer, QuantitativeOrdered By: Stephie Iverson on 06-08-2020 D-Dimer, Quant 0.61 [employer] Work Phone: Comment on above: When combined with a low clinical probability, a D dimer value of <0.50 mg/L FEU is considered negative for DVT and PE (negative predictive value of 98%, sensitivity of 97%). If this test is not being used to help rule out DVT and PE, then the following reference range should be utilized: 0.00 - 0.59 mg/L FEU. The D-Dimer assay is intended for use as an aid in the diagnosis of venous thromboembolism (DVT and PE) and the results should be interpreted in conjunction with the patient's medical history, clinical presentation, and other findings. Elevated levels of D-dimer activity can be seen in any state of coagulation activation and is not recommended in patients with therapeutic dose anticoagulant therapy for >24 hours, fibrinolytic therapy within the previous 7 days, trauma or surgery within the previous 4 weeks, disseminated malignancies, aortic aneurysm, sepsis, severe infections, pneumonia, severe skin infections, liver cirrhosis, advanced age, coronary disease, diabetes, and . A very low percentage of patients with DVT may yield D-dimer results below the cutoff of 0.5 mg/L FEU. This is known to be more prevalent in patients with distal DVT. Interpretation and review of laboratory results Abnormal Imperator Phone: VL DUP LOWER EXTREMITY VENOU S LEFTOrdered By: Stephie Iverson on 06-08-2020 Paolo, Mhpn Incoming Cardio Results From [facility]/ - 06/08/2020 3:35 PM EDT [facility] Vascular Lower Extremities DVT Study Procedure Patient Name MISHRA Date of Study 06/08/2020 JUDY Yoon Date of 1970 Gender Female Age 50 year(s) Race Room Number 06 Height: 63 inch, 160.02 cm Corporate ID [id number] Weight: 200 pounds, 90.7 kg # Patient Acct [id number] BSA: 1.93 m^2 BMI: 35.43 kg/m^2 # MR # [id number] Project Technician RT Prosper Interpreting Physician Gian Braga Referring Referring Physician Stephie Iverson Nurse Practitioner Procedure Type of Study: Veins: Lower Extremities DVT Study, DUP LOWER EXTREMITY VENOUS LEFT. Indications for Study:Leg Swelling. Patient Status:STAT. Comments:Left leg pain, no injury, since hx of covid 03/2020. Conclusions Summary Negative for DVT left lower extremity and right groin. Signature ---- Electronically signed by RT Prosper(Becky)(M)(CT)([facility])(S onographer) on 06/08/2020 03:09 PM ---- ---- ---- Findings: Right Impression: Left Impression: Right groin scanned for The common femoral, superficial femoral, comparison appears normal. popliteal, tibials, and greater saphenous Duplex scan using B-mode, [place] veins, profunda are patent, compressible scale imaging. Spectral doppler with normal doppler responses. analysis and color flow No evidence for DVT in today's exam. throughout the exam. Duplex scan using B-mode, Worthington scale imaging. Spectral doppler analysis and color flow throughout the exam. Velocities are measured in cm/s ; Diameters are measured in cm Right Lower Extremities DVT Study Measurements Right 2D Measurements + +-- --------+ ----+ + !Location !Visualized!Compress ibility!Thrombosis! + +-- --------+ ----+ + !Common Femoral !Yes !Yes !None ! + +-- --------+ ----+ + Left Lower Extremities DVT Study Measurements Left 2D Measurements + +-- --------+ ----+ + !Location !Visualized!Compress ibility!Thrombosis! + +-- --------+ ----+ + !Common Femoral !Yes !Yes !None ! + +-- --------+ ----+ + !Prox Femoral !Yes !Yes !None ! + +-- --------+ ----+ + !Mid Femoral !Yes !Yes !None ! + +-- --------+ ----+ + !Dist Femoral !Yes !Yes !None ! + +-- --------+ ----+ + !Deep Femoral !Yes !Yes !None ! + +-- --------+ ----+ + !Popliteal !Yes !Yes !None ! + +-- --------+ ----+ + !Sapheno Femoral Junction !Yes !Yes !None ! + +-- --------+ ----+ + !PTV !Yes !Yes !None ! + +-- --------+ ----+ + !Peroneal !Yes !Yes !None ! + +-- --------+ ----+ + !Gastroc !Yes !Yes !None ! + +-- --------+ ----+ + !GSV Thigh !Yes !Yes !None ! + +-- --------+ ----+ + !GSV Knee !Yes !Yes !None ! + +-- --------+ ----+ + !GSV Ankle !Yes !Yes !None ! + +-- --------+ ----+ + !SSV !Yes !Yes !None ! + +-- --------+ ----+ + Left Doppler Measurements + --------+------+---- --+ + !Location !Signal!Reflux!Reflu x (msec) ! + --------+------+---- --+ + !Common Femoral !Phasic!No ! ! + --------+------+---- --+ + !Prox Femoral !Phasic!No ! ! + --------+------+---- --+ + !Popliteal !Phasic!No ! ! + --------+------+---- --+ + Imperator Phone: [email or web address] 05-27-2018 OVS Visit (SP) Office ([place]) JUDY MISHRA ([id number]) 1970 F Date Time Provider Department 05/27/18 8:20 AM RISA YOON During your visit today, we recorded the following information about you: Pulse Respiration Blood pressure Weight 71/minute 18/minute 117/58 89 kg Height 1.626 m Risa Yoon MD 05/27/2018 7:46 PM Signed Gynecologic Oncology [facility] Post-Op Visit Re: Judy Mishra [facility]#: [id number] 05/27/2018 PROBLEM: Judy Mishra returns to the office today for postop visit. SURGERY AND DATE: 05/09/2018 - Dilation and curettage, exam under anasthsia?and diagnostic hysteroscopy PATHOLOGY: FINAL DIAGNOSIS Endometrium, curettings - Disordered proliferative endometrium suggestive of benign endometrial polyp. SUBJECTIVE/INTERVAL HISTORY: Judy Mishra reports that she feels well. No fever or chills. No shortness of breath, cough, or chest pain. No incisional redness, swelling, or drainage. Patient reports that her appetite is good. No abdominal pain, nausea, vomiting, diarrhea, or constipation. No dysuria, gross hematuria, urinary frequency, urinary urgency, or incontinence. Her ECOG performance status is zero (fully active, able to carry on all pre-disease performance without restriction). OBJECTIVE: VITALS: BP 117/58 Pulse 71 Resp 18 Ht 5' 4 (1.63m) Wt 196 lb 4.8 oz (89.0kg) SpO2 99% BMI 33.68 kg/(m2). HEENT: Normocephalic, atraumatic, mucus membranes moist and no lesions LUNGS: Normal efforts. ASSESSMENT: 48 yr old woman s/p D/C who is here follow up PLAN: - Pathology benign - Follow up with benign for management of heavy cycle - RTC as needed Risa Yoon MD A letter and a copy of this office note were sent to: Noah Woods, [address] [place] [address] CC: Selvin Mack Sr, MD (PCP) Referring Provider: SELF [200] Allergies As of Date: 05/27/2018 Noted Allergy Reaction BACTRIM (SULFAMETHOXAZOLE-TR IMETH*03/29/2018 4 - Hives PENICILLINS 03/29/2018 16 - Unknown PERCOCET (OXYCODONE-ACETAMINO PHEN)03/29/2018 11 - Vomiting Date Reviewed: 05/27/2018 Reviewed by: Risa Yoon - Fully Assessed Reason for Visit: Surgical Followup [104] Primary Visit Diagnosis:Postoperat layo state [Z98.890] Prescriptions as of 05/27/2018 Sig: IBUPROFEN 600 MG TABLET Take 1 tablet by mouth every * ACETAMINOPHEN 325 MG TABLET Take 2 tablets by mouth every* LORAZEPAM 0.5 MG TABLET Take by mouth three times nunu* VITAMIN C ORAL Take by mouth. SURGICAL LUBRICANT JELLY TOPI* For MRI Female Pelvis, MRI de* VENTOLIN HFA 90 MCG/ACTUATION* PANTOPRAZOLE 40 MG TABLET,DEL* DICYCLOMINE 20 MG TABLET Take 20 mg by mouth as needed. Problem List As Of Date: 05/27/2018 (None) Encounter Status:Closed by RISA YOON MD on 05/27/18 Normal [facility] PROGRESSon 05-23-2018 PROGRESS HNO ID: [id number] Author: Risa Yoon Service: ? Author Type: Physician Type: Progress Notes Filed: 05/27/2018 7:46 PM Note Text: Gynecologic Oncology [facility] Post-Op Visit Re: Judy Mishra [facility]#: [id number] 05/27/2018 PROBLEM: Judy Mishra returns to the office today for postop visit. SURGERY AND DATE: 05/09/2018 - Dilation and curettage, exam under anasthsia?and diagnostic hysteroscopy PATHOLOGY: FINAL DIAGNOSIS Endometrium, curettings - Disordered proliferative endometrium suggestive of benign endometrial polyp. SUBJECTIVE/INTERVAL HISTORY: Judy Mishra reports that she feels well. No fever or chills. No shortness of breath, cough, or chest pain. No incisional redness, swelling, or drainage. Patient reports that her appetite is good. No abdominal pain, nausea, vomiting, diarrhea, or constipation. No dysuria, gross hematuria, urinary frequency, urinary urgency, or incontinence. Her ECOG performance status is zero (fully active, able to carry on all pre-disease performance without restriction). OBJECTIVE: VITALS: BP 117/58 Pulse 71 Resp 18 Ht 5' 4 (1.63m) Wt 196 lb 4.8 oz (89.0kg) SpO2 99% BMI 33.68 kg/(m2). HEENT: Normocephalic, atraumatic, mucus membranes moist and no lesions LUNGS: Normal efforts. ASSESSMENT: 48 yr old woman s/p D/C who is here follow up PLAN: - Pathology benign - Follow up with benign for management of heavy cycle - RTC as needed Risa Yoon MD A letter and a copy of this office note were sent to: Noah Woods, DO [address] [place] [address] [place] [address] CC: Selvin Mack Sr, MD (PCP) Normal [facility] ANES Kj 05-09-2018 ANES POST HNO ID: [id number] Author: Constantin Gomez Service: Anesthesiology Author Type: Anesthesiologist Type: Anesthesia PostOp Filed: 05/09/2018 11:50 AM Note Text: POST ANESTHESIA EVALUATION NOTE SERVICE DATE: 05/09/2018 SERVICE TIME: 1030 : 1970 Vitals: 05/09/18 0608 05/09/18 0851 05/09/18 0930 05/09/18 1010 Temp: 36.7 ?C (98.1 ?F) 36.1 ?C (97 ?F) 36.3 ?C (97.3 ?F) 36.4 ?C (97.5 ?F) 05/09/18 0915 05/09/18 0930 05/09/18 0945 05/09/18 1010 BP: 112/67 110/68 107/65 107/58 05/09/18 0915 05/09/18 0930 05/09/18 0945 05/09/18 1010 Pulse: 74 85 71 70 05/09/18 0915 05/09/18 0930 05/09/18 0945 05/09/18 1010 Resp: 14 20 14 16 05/09/18 0915 05/09/18 0930 05/09/18 0945 05/09/18 1010 SpO2: 97% 96% 96% 97% Validated Vital Signs: Yes POST ANES STATUS: No apparent anesthetic complications. The patient is appropriately hydrated with stable respiratory and cardiovascular status. Patient has safe and adequate airway control. The patient has appropriate pain relief and no significant post operative nausea or vomiting. The patient has achieved baseline mental status. Intra-Operative Events: No Significant Anesthesia Events Further assessment by Anesthesia Service: None Other Remarks: SIGNATURE: Constantin Gomez MD PATIENT NAME: Judy Mishra DATE: May 09, 2018 TIME: 11:50 AM PAGER/CONTACT #: [phone] [facility] BRIEF OP NOTon 05-09-2018 BRIEF OP NOT HNO ID: [id number] Author: Carissa Liang (Fel) Service: Gynecology Oncology Author Type: Fellow Type: Brief Op Note Filed: 05/09/2018 8:29 AM Note Text: BRIEF OP NOTE LOG ID: [id number] Surgery/Procedure Date: 05/09/2018 Incision/Procedure Start Time: 8:11 AM Incision Close/Procedure End Time: 8:26 AM Surgeon(s)/Procedura list(s) and Cane Weigher Helper(s): Surgeon(s) and Role: * Risa Yoon - Primary * Krys Mueller - Resident - Assisting * Carissa Liang (Fel) - Fellow Procedure(s): Hysteroscopy and DANDC Anesthesia: Choice - Anesthesia Consult Findings: Polypoid tissue removed. Posterior uterine fibroid, submucosal Estimated Blood Loss: 5 mls Specimens: Specimen ID Type Site Comments Sent To [address] Pathology Routine Complications: None Pre-Op/Pre-Procedure Diagnosis: Endometrial mass Post-Op/Post-Procedu re Diagnosis: Endometrial mass SIGNATURE: Carissa Liang MD PATIENT NAME: Judy Mishra DATE: May 09, 2018 TIME: 8:28 AM PAGER/CONTACT #: [phone] [facility] NURSING PROGon 05-09-2018 NURSING PROG HNO ID: [id number] Author: Opal Oswald (Wheel Braider) Service: Pharmacy Author Type: ? Type: Nursing Progress Note Filed: 05/09/2018 9:20 AM Note Text: ELECTRICAL ELECTRONICS TECHNICIAN BEDSIDE DELIVERY SURVEY 1. Patient to use [facility] Bedside Delivery - NO prefer own pharmacy 2. If fax, patient would like us to fax prescriptions to Pharmacy of choice a. Pharmacy: b. Location: c. Phone: 3. Insurance card on file - NO 4. Credit card for payment - NO PRESCRIPTIONS WERE E-SCRIPTED TO LOCAL [facility]. [facility] NURSING PROG HNO ID: [id number] Author: Pallavi BatesRn) Jodee RN Service: ? Author Type: Registered Nurse Type: Nursing Progress Note Filed: 05/09/2018 6:13 AM Note Text: PRE OP LEARNING ASSESSMENT PROCEDURE/SURGERY: DANDC, hyseteroscopy READINESS TO LEARN COGNITIVE ABILITY: Alert and oriented MOTIVATION TO LEARN: Eager Interested FAMILY SUPPORT: High - Very involved in pt care PATIENT LEARNS BEST BY: Multiple Methods FACTORS AFFECTING LEARNING: None PHYSICAL LIMITATIONS AFFECTING LEARNING: None Electronically Signed By: Pallavi Ellsworth RN In Department: HOSP MAIN M023 [facility] NURSING PROG HNO ID: [id number] Author: Pallavi BatesRn) MERY Ellsworth Service: ? Author Type: Registered Nurse Type: Nursing Progress Note Filed: 05/09/2018 5:46 AM Note Text: Dr. Yoon paged for updated HANDP - [id number], OR 8, Judy Mishra, patient's HANDP needs heart and lung sounds. Thank you, Trudy [phone] [facility] OPERATIVE NOon 05-09-2018 OPERATIVE NO HNO ID: [id number] Author: Risa Yoon Service: Gynecology Oncology Author Type: Physician Type: Operative Report Filed: 05/12/2018 10:21 PM Note Text: OPERATIVE/PROCEDURE REPORT LOG ID: [id number] SURGERY/PROCEDURE DATE: 05/09/2018 INCISION/PROCEDURE START TIME: 8:11 AM INCISION CLOSE/PROCEDURE END TIME: 8:29 AM SURGEON(S)/PROCEDURA LIST(S) AND VICE PRESIDENT NETWORK(S): Surgeon(s) and Role: * Risa Yoon - Primary * Krys Mueller - Resident - Assisting * Carissa Liang (Fel) - Fellow No Additional Staff SURGEON(S)/PROCEDURA LIST(S) AND VICE PRESIDENT NETWORK(S): Surgeon(s) and Role: * Risa Yoon - Primary * Yudi Copeland MD - Resident - Assisting No Additional Staff ? SURGERY/PROCEDURE(S) : Dilation and curettage, exam under anasthsia?and diagnostic hysteroscopy ? ANESTHESIA: General ? FINDINGS:? Normal vagina and cervix. Hysteroscopic findings c/w posterior fibroid and no polyp after the D/C ? ? Operative Procedure: The patient was taken to the operating room and was placed on the operating room table, general anesthesia with endotracheal intubation was initiated, and oral gastric tube was placed, she was then placed in dorsal lithotomy position, attention was made to avoid any pressure injuries, I evaluated the ankle and hip joints bilaterally after positioning the lower extremity, there was adequate mobility of the joints and no evidence of pressure on the femoral or common peroneal nerves. She was then prepped and draped in a normal sterile fashion and a combs catheter was inserted. Exam under anesthesia was performed?with above findings.?Then the attention was directed to the [facility]. A speculum was placed in the vagina, the cervix was identified, and?the anterior lip was?grasped with single tooth tenaculum. Then?then the os was dilated and?the cervix was dilated and the endometrial curette was used to sample and obtained endometrial curette. Polyp forceps was used and small polyp was removed. Hemostasis was excellent. The a diagnostic hysteroscopy was done using flexible hysteroscope, no polyp was noted and posterior fibroid was noted. Then the?tenaculum was removed, hemostasis was secured and speculum was removed. ? The patient tolerated the procedure well and was transferred to the recovery room after extubation. ?? Pre-Op/Pre-Procedure Diagnosis: ?Endometrial polyp vs fibroid and irregular vaginal bleeding ?? Post-Op/Post-Procedu re Diagnosis: Same ? Estimated Blood Loss:?20 mls ?? SPECIMENS: Endometrial curette ?? Implantable Devices:?None ?? Drains:?None ?? Complications: None ? PARTICIPATION IN SURGERY/PROCEDURE: I performed the procedure with assistance.? SIGNATURE: Risa Yoon MD PATIENT NAME: Judy Mishra DATE: May 12, 2018 TIME: 10:18 PM PAGER/CONTACT #: [facility] PT EDon 05-09-2018 PT ED HNO ID: [id number] Author: Marissa (Rn) MERY Ferreira Service: Nursing Author Type: Registered Nurse Type: Patient Education Filed: 05/09/2018 10:16 AM Note Text: PATIENT EDUCATION TOPIC: PROCEDURE / SURGERY: Procedure/Surgery: PATIENT NAME: Judy Mishra PATIENT LOCATION: [place] [address] READINESS TO LEARN COGNITIVE ABILITY: Alert and oriented MOTIVATION TO LEARN: Eager FAMILY SUPPORT: High - Very involved in pt care INSTRUCTION PROVIDED TO: Patient and family member PATIENT LEARNS BEST BY: Multiple methods FACTORS AFFECTING LEARNING: None PHYSICAL LIMITATIONS AFFECTING LEARNING: None LEARNING RESPONSE DIAGNOSIS: ADULT: Well Adult PATIENT/FAMILY RESPONSE: Verbalizes understanding of: MEDICAL REGIMEN-Importance of following prescribed medical regimen POST-OPERATIVE INSTRUCTIONS-Correct actions to take to reduce postoperative complications POST-PROCEDURE INSTRUCTIONS-Correct actions to take to reduce post procedure complications METHOD OF INSTRUCTION: Written instruction - handouts Verbal instruction FOLLOW-UP PLAN: Patient instructed to call with any further issues Follow-up with Primary Care Contact information given. INSTRUCTIONAL AIDS USED: NA SUPPLEMENTAL MATERIAL PROVIDED TO PATIENT: None REFERRAL (RECOMMENDATION): None Electronically Signed By: Marissa Ferreira RN [facility] SURGICAL PATHOLOGYon 019 SURGICAL PATHOLOGY Specimen originated from [facility] Specimen #: [id number] Submitting Physician: RISA YOON MD FINAL DIAGNOSIS Endometrium, curettings - Disordered proliferative endometrium suggestive of benign endometrial polyp. ACV/dss 05/13/2018 Niles Geller M.D. (Electronic Signature) SPECIMEN SUBMITTED A: [facility] CLINICAL DATA ENDOMETRIAL MASS UTERINE BLEEDING GROSS DESCRIPTION A. Received in formalin on Telfa gauze are multiple red-brown, soft feathery segments of tissue aggregating to 2.5 x 2.0 x 0.3 cm. Totally submitted in one cassette. Gross examination performed at [facility], [address] [place] [address] 05/09/2018 4:54:51 PM Date of Report: 05/14/2018 Date of Procedure: 05/09/2018 Date of Receipt: 05/09/2018 Submitted by: RISA YOON MD Location: 2 Diagnostic interpretation performed at [facility], [address] [place] [address]. CLIA Number: [id number] Normal [facility] CNNURSEon 05-08-2018 CNNURSE Nurse Visit (REAGAN) JUDY MISHRA ([id number]) 1970 F Date Time Provider Department 05/08/18 8:00 AM ANIMAL CYTOLOGIST ONC NURSE DIPTI KIRK During your visit today, we recorded the following information about you: Tono Giraldo LPN, KEARA 05/09/2018 4:47 PM Signed DATE OF SERVICE: 05/08/2018 PROBLEM: Judy Mishra presents for pre-op teaching. PRE-OP DIAGNOSIS: Abnormal uterine bleeding SCHEDULED SURGERY AND DATE: 05/09/2018 - DANDC and possible hysteroscopy PRIMARY SURGEON: Risa Yoon MD NURSING PREOP ASSESSMENT: Fevers, chills, cough, or nasal congestion: No Vaginal itching, burning, discharge, or odor: No Pain with urination, frequency, urgency, cloudy or foul smelling urine: No If yes to any of the above then MD notified: Not Applicable ADVANCED CARE PLANNING: Does the patient have an advanced directive: No Does [facility] have a copy of the patient's advanced directive: No Was advanced directive given to the patient: Yes PATIENT LEARNING ASSESSMENT: Individual patient/family learning needs evaluated and addressed: Yes Cognitive ability: Alert and oriented Motivation to learn: Eager Factors affecting learning: None Physical limitations affecting learning: None Patient learns best by: Individual Instruction Written Instruction - Hand-outs Verbal Instruction Multiple Methods Method of instruction: Individual instruction Written instruction - handouts Verbal instruction Instructions provided to: Patient via telephone. Written material provided prior to education appointment. Family support: Unable to assess - Family not present PRE- AND POST-OPERATIVE TEACHING Pre-operative teaching and supplemental material provided and reviewed with patient: Your Surgical Guide Book Map Written pre-op and post-op instructions Hibiclens soap: given to patient prior to preop teaching appointment Pre-operative instructions provided and reviewed with patient/family: No eating, drinking, or smoking after midnight prior to surgery unless otherwise directed No alcohol the day before surgery Medications as prescribed by anesthesia, internal medicine, surgeon, or MIXER DRIVER Stop NSAIDs, Aspirin (ASA), vitamins, herbal supplements, herbal teas, and diet pills 7-10 days prior to surgery OK to take tylenol prn pain unless otherwise directed by physician Call surgery coordinators if any other questions about surgery date or pre-op appointments Bowel prep instructions: None needed Day of surgery instructions provided and reviewed with patient/family: Arrival time (call surgical coordinators on the office day prior to surgery for verification) No jewelry, body piercing, makeup, contacts, lotions, nail cymraes on fingers, or anything in hair on arrival to surgery Wear low healed shoes and loose fitting clothing Leave all valuables at home or with a family member Directions to [facility] and the [facility] Parking/parking validation on the day prior to surgery Admission/check in (desk P-20 or J1-1) Holding area Placement of IV Surgical positioning Family waiting area Surgical recovery room Post-operative instructions provided and reviewed with patient/family: SEE PATIENT INSTRUCTION SECTION FOR DETAILS. ACTIVITY - No heavy lifting (>5-10 lbs), no pushing/pulling, OK to climb stairs DRIVING - No driving for 3 weeks unless prior approval from MD, OK to ride in a car. DIET - Advance diet as tolerated and as ordered by MD, drink 8 glasses of water a day, eat a diet high in protein and fiber unless otherwise directed by MD. CATHETER - Will be inserted during surgery, you may go home with a catheter for 7-10 days and will have to come back to the office for a voiding trial, UTI symptoms reviewed and patient instructed to notify MD of any of these symptoms. INCISION CARE - Keep incision clean and dry, viral to be removed 7-10 days after surgery, steristrips do not need to be removed by MD BATHING - OK to shower after surgery unless otherwise directed by MD, no tub baths. PAIN MEDICATION - IV pain medication after surgery, IV HVAC MECHANICAL ENGINEER if ordered by MD, discharged home with a prescription for PO pain medication, pain management after surgery, side effects of pain medication (including constipation, dizziness, drowsiness, and medication interactions). VAGINAL CARE - Pelvic rest x6 weeks unless otherwise directed by MD. DVT PROPHYLAXIS - Early ambulation, SCDs, injectable anticoagulants (heparin, lovenox, etc) RESPIRATORY - Incentive spirometer, coughing/deep breathing exercises, ambulation. RETURN TO WORK - As directed by physician, please send any FMLA papers to physician's receptionist secretary. SYMPTOMS TO NOTIFY MD - Fever, chills, nausea, vomiting, increased or severe pain, heavy vaginal bleeding, foul smelling vaginal drainage, pain or swelling in extremities. URGENT SYMPTOMS - Call 911 or go to ER if any shortness of breath, difficulty breathing, or chest pain. HOW TO CONTACT PHYSICIAN - Physician's office phone number given to patient, if after hours patient instructed to call profiler operator and ask for information support project manager ham facer onc resident. SEAN program offered to patient: Yes Additional teaching as indicated by patient/family learning needs. PATIENT LEARNING EVALUATION AND FOLLOW UP PLAN: Patient and/or family express understanding of upcoming surgery, pre-operative preparation, the operative process, and post-operative instructions. Follow up plan: Complete - No need for follow-up Patient has a post-op appointment scheduled: Yes Referral (recommentation): None Educator: Tono Giraldo LPN [facility] Tono Giraldo LPN, KEARA 05/08/2018 7:38 AM Signed GYNECOLOGY PHYSICIAN CONTACT INFORMATION Surgery Scheduling Office General Gynecology Gynecologic Oncology Dr. Kenia Long Dr. Shira Jackson Dr. Girma Moon Dr. Osman Yoon Dr. Shayy Landry Dr. Dimitris Nazario Dr. Helene Arias Dr. Judy Garcia Dr. Matthias Zeng Gynecology Nurse Practitioner Yudi Mejía, FAISAL Air Quality Engineer Oncology Nurse Practitioners: Opal Delcid, FAISAL Phan, SUPERSONIC ENGINEER Yolanda Momin, SUPERSONIC ENGINEER Nithya Terrell, SUPERSONIC ENGINEER Urogynecology Nighat Burr, FAISAL Mcdonnell Kiesha Curry, FAISAL Callahan Dr. Tavo Ortega Dr. Ashley Martínez Fertility Dr. Girma Llamas Dr. Annia Wang Dr. Etienne Tatum Urogynecology Nurse Practitioner: Dr. Natalie Jeter Bruna Lester, FAISAL Zelaya, FAISAL [place], SUPERSONIC ENGINEER Fertility Nurse Practitioners: Yudi Higuera, FAISAL Post, FAISAL After 4:30 pm or on holidays or weekends, call: or . Ask the profiler operator to page the ?ham facer information support project manager.' PRE-OPERATIVE CHECKLIST: PATIENT INSTRUCTIONS PRIOR TO SURGERYOur guidelines have changed, so please read these instructions carefully. Your surgery may be cancelled if you do not follow these instructions. MY ARRIVAL TIME IS: _ PATIENTS WITH DELAYED STOMACH EMPTYING: I have been instructed not to have anything to eat or drink after midnight prior to my surgery (this includes no gum, mints, smoking). No alcohol the day before or day of surgery. PATIENTS WITHOUT DELAYED STOMACH EMPTYING: I have been instructed not to have any solid food to eat after midnight prior to my surgery (this includes no gum, mints, smoking). I am allowed to drink small amounts (up to 12 oz) of clear liquids up until 2 hours prior to my ARRIVAL TIME. Clear liquids include water, fruit juices without pulp, carbonated beverages (i.e. scotty shreya), electrolyte beverages (i.e. Gatorade), clear tea and black coffee, clear broth, popsicles and jello. (No milk). No alcohol the day before or day of surgery. I will bring this binder to all pre and post-operative appointments AND day of surgery. MEDICATION STOPPAGE: I will not wear jewelry, body piercing(s), makeup, nail cymraes, hairpins, or contacts on the day of surgery. I am to leave valuables and money at home or with family members. Unless my surgeon tells me differently, I will STOP THESE MEDICATIONS 7 DAYS PRIOR TO SURGERY: (Motrin/Ibuprofen/Na proxen/Aleve/Advil), Aspirin, vitamin E, herbal medications, diet pills, and nlya-hdj-lwyrqjh medications. Tylenol (acetaminophen) is okay. If I am prescribed inhalers for breathing, I will use them and bring them to the hospital. Medication(s) to be taken on the morning of surgery with a few sips of water: If I am taking any of the following blood thinning medications ? Aspirin, clopidogrel (Plavix), ticagrelor (Brilinta), prasugrel (Efficient), ticlodipine (Ticlid), warfarin (Coumadin), dibigatran (Pradaxa) or rivaroxaban (Xarelto) - I will discuss whether or not I should stop them before surgery with my Surgeon. Discuss medication changes with your manager epic or primary care physician as well. If I stopped taking my blood-thinning medication, I will ask the surgeon when to resume taking it. If I am an outpatient, a responsible person will drive me home and it was suggested that someone stay with me for 24 hours. I understand that a agribusiness internship or cabdriver is NOT a responsible caregiver. Patients with diabetes, I will not take my morning diabetes medication (pills) on the morning of surgery. If I am on insulin, someone has gone over those instructions with me for the morning of surgery. I understand if my surgery is delayed, I will notify the check in desk that I have diabetes. See the ?Diabetic Guidelines Before Surgery? in the patient education section. If I have Obstructive Sleep Apnea and am on a CPAP/BiPAP machine, I will bring my mask, tubing and machine with me on the day of surgery. To find out my arrival time for surgery, I must call my surgical supply assistant after 2pm the day before surgery. Pain management education material found in Your Surgical Guide was reviewed with me. Preoperative instructions given by: ANIMAL CYTOLOGIST PREOP INSTRUCTIONS PRE-OPERATIVE CHECKLIST ? See Pre-Operative Checklist (either attached or in Your Surgical Guide Book) THE DAY OF SURGERY/CHECK IN ? Report to DESK P20 located in the surgery center (unless otherwise instructed to go to J1-1). A map is located in Your Surgical Guide Book. INFECTION PREVENTION ? Please notify your doctor if you have any signs of an infection (i.e. fever, severe cough, nasal congestion, pain with urination, abnormal vaginal discharge, etc). ? Your surgeon will let you know if a bowel prep is needed before your surgery. If so, please see the attached instructions. ? Shower the night before surgery AND the morning of surgery with Hibiclens (provided by your surgeon). If you are allergic to Hibiclens or unable to obtain the Hibiclens, please wash with antibacterial soap. Wash your body from the neck down, focusing on your abdomen, belly button and external genitalia. Do not forget to scrub any skin folds and creases. ? No lotions, oils, creams, or powders after your shower. Underarm deodorant is okay. ? No shaving (abdominal or pubic hair) or douching the day before surgery. ? You may be asked to apply an antiseptic solution called Chlorhexidine Gluconate (CHG) which will be provided to you on arrival to the preop area. ? Hand washing is extremely important in preventing infection (for both you as the patient and for the caregivers). HOSPITALIZATION ? Before you leave the hospital, you typically need to be able to eat/drink, urinate, and have your pain controlled with oral medication. Your surgeon or other members of your surgeon?s team will discuss any other specific medical issues related to your discharge with you. ? See Your Surgical Guide Book for information on pain management. ? Your surgeon may order intermittent compression sleeves. These are ?massaging leg pumps? to help prevent blood clots after surgery. See Your Surgical Guide Book for more information. ? It is also very important that you walk as soon as possible and as frequently as possible after surgery. This will help decrease your risk of blood clots, exercise your lungs and speed up your recovery after surgery. ? If you are admitted to the hospital overnight, you will be given an incentive spirometer, which is a breathing machine that will help make sure that you are taking deep breaths and expanding your lungs while in the hospital. See Your Surgical Guide Book for more information. [facility] ? At the [facility], we have a multidisciplinary team of caregivers that includes fellows, residents, nurse practitioners (oxygen therapist), physician assistants (PAs), clinical nurse specialists (CNSs), nurses, medical assistants (MAs), patient care nursing assistants (PCNAs), social workers, embedded case manager and many others. We all have different roles and responsibilities but we are all here to help you. OUTPATIENT SURGERY POST-OP INSTRUCTIONS POST-OP INSTRUCTIONS ? You must have a responsible adult drive you home and stay with you for the first 24 hours. ? Do not drive a car or drink any alcohol for 24 hours after surgery. ? You may have mild nausea, a sore throat or raspy voice for a few days. ? Do not put anything in the vagina for 4 weeks after surgery unless otherwise advised by your doctor. ? It is normal to have some drainage or a small amount of vaginal bleeding after surgery which may last for several weeks following your surgery. ? Wash your hands frequently, especially before touching your incision (if you have one), after using the restroom, and before eating. WHEN TO CALL YOUR DOCTOR: ? Fever (>100.4?F or 38.0?C) or chills. ? Incision problems such as redness, warmth, swelling, or foul smelling drainage. ? Severe nausea or persistent vomiting. ? Bright red vaginal bleeding (soaking >1 pad/hour) or foul smelling vaginal drainage. ? Severe pain not relieved with pain medication. ? Pain and swelling in your legs, especially if it is only on one side and not the other. ? Pain with urination, cloudy urine, or foul smelling urine. ? Or if you have any other problems or questions. ? CALL 911 or go to the ED if any shortness of breath, difficulty breathing, or chest pain. HYSTEROSCOPY PREOP INSTRUCTIONS PREOP ? Medications to stop at least 7 days before surgery: Aspirin, over the counter pain medications (i.e. motrin, aleve, advil, etc), vitamins, supplements, herbal medications. ? If you are taking any control pills, hormones or blood thinners (i.e. coumadin, plavix, etc) please discuss with your doctor to see if these need to be stopped before surgery. ? You may take Tylenol (aka acetaminophen) for pain. ? Please notify your doctor if you have any signs of an infection (i.e. fever, severe cough, nasal congestion, pain with urination, abnormal vaginal discharge, etc). THE DAY BEFORE SURGERY ? Please call for your arrival time between 2:00 - 4:00pm on the prior to surgery. Phone number: or ext [phone]. ? No alcohol on the day before surgery. ? Please take a shower the night before surgery and the morning of surgery. Use an antibacterial soap (i.e. Dial) and wash your entire body with special emphasis on your abdomen, belly button, and external genitalia. ? Do not shave the day before your surgery. THE DAY OF SURGERY ? Report to DESK P20 (unless instructed to go to J1-1). Map in surgical guide book. ? If you were instructed to take your medication on the day of surgery you may do so with a small sip of water. ? Do not wear any jewelry, nail cymraes, makeup, lotions, contact lenses, or anything in your hair. POST-OP INSTRUCTIONS ? You must have a responsible adult drive you home and stay with you for the first 24 hours. ? Do not drive a car or drink any alcohol for 24 hours after surgery. ? You may have mild nausea, a sore throat or raspy voice for a few days. ? Nothing in the vagina for 1 week after surgery unless otherwise instructed by your doctor. ? You may shower and/or take a bath after surgery unless otherwise instructed by your doctor. ? You may resume exercise 48 hours after surgery as tolerated. WHEN TO CALL YOUR DOCTOR: ? Fever (>100.4?F) or chills. ? Incision redness or foul smelling drainage. ? Severe nausea or persistent vomiting. ? Bright red vaginal bleeding heavier than a normal period or foul smelling vaginal drainage. ? Severe pain not relieved with pain medication. ? Pain and swelling in your legs, especially if it is only on one side and not the other. ? Pain with urination, cloudy urine, or foul smelling urine. ? Or if you have any other problems or questions. CALL 911 OR GO TO THE ER IF YOU HAVE: Any shortness of breath or chest pain. Referring Provider: SELF [[id number]] Allergies As of Date: 05/08/2018 Noted Allergy Reaction BACTRIM (SULFAMETHOXAZOLE-TR IMETH*03/29/2018 4 - Hives PENICILLINS 03/29/2018 16 - Unknown PERCOCET (OXYCODONE-ACETAMINO PHEN)03/29/2018 11 - Vomiting Date Reviewed: 05/08/2018 Reviewed by: Risa Yoon - Fully Assessed Reason for Visit: Pre-Op Teaching [134] Primary Visit Diagnosis:Educationa l circumstances [Z55.9] Prescriptions as of 05/08/2018 Sig: LORAZEPAM 0.5 MG TABLET Take by mouth three times nunu* VITAMIN C ORAL Take by mouth. VENTOLIN HFA 90 MCG/ACTUATION* PANTOPRAZOLE 40 MG TABLET,DEL* SURGICAL LUBRICANT JELLY TOPI* For MRI Female Pelvis, MRI de* DICYCLOMINE 20 MG TABLET Take 20 mg by mouth as needed. Problem List As Of Date: 05/08/2018 (None) Other instructions from your clinician: GYNECOLOGY PHYSICIAN CONTACT INFORMATION Surgery Scheduling Office General Gynecology Gynecologic Oncology Dr. Kenia Long Dr. Shira Jackson Dr. Girma Moon Dr. Osman Yoon Dr. Shayy Landry Dr. Dimitris Nazario Dr. Helene Arias Dr. Judy Garcia Dr. Matthias Zeng Gynecology Nurse Practitioner Yudi Mejía, SUPERSONIC ENGINEER Air Quality Engineer Oncology Nurse Practitioners: Opal Delcid, FAISAL Phan, FAISAL Momin, FAISAL Terrell, SUPERSONIC ENGINEER Urogynecology Nighat Burr, [facility] Dr. Stephie Mcdonnell Kiesha Curry, [facility] Dr. Trudy Callahan Dr. Tavo Ortega Dr. Ashley Mart[facility] Dr. Girma Llamas Dr. Annia Wang Dr. Etienne Tatum Urogynecology Nurse Practitioner: Dr. Natalie Jeter Bruna Lester, FAISAL Zelaya, FAISAL [place], SUPERSONIC ENGINEER Fertility Nurse Practitioners: Yudi Higuera, FAISAL Post, SUPERSONIC ENGINEER After 4:30 pm or on holidays or weekends, call: or . Ask the profiler operator to page the ?ham facer information support project manager.' PRE-OPERATIVE CHECKLIST: PATIENT INSTRUCTIONS PRIOR TO SURGERYOur guidelines have changed, so please read these instructions carefully. Your surgery may be cancelled if you do not follow these instructions. MY ARRIVAL TIME IS: _ PATIENTS WITH DELAYED STOMACH EMPTYING: I have been instructed not to have anything to eat or drink after midnight prior to my surgery (this includes no gum, mints, smoking). No alcohol the day before or day of surgery. PATIENTS WITHOUT DELAYED STOMACH EMPTYING: I have been instructed not to have any solid food to eat after midnight prior to my surgery (this includes no gum, mints, smoking). I am allowed to drink small amounts (up to 12 oz) of clear liquids up until 2 hours prior to my ARRIVAL TIME. Clear liquids include water, fruit juices without pulp, carbonated beverages (i.e. scotty shreya), electrolyte beverages (i.e. Gatorade), clear tea and black coffee, clear broth, popsicles and jello. (No milk). No alcohol the day before or day of surgery. I will bring this binder to all pre and post-operative appointments AND day of surgery. MEDICATION STOPPAGE: I will not wear jewelry, body piercing(s), makeup, nail cymraes, hairpins, or contacts on the day of surgery. I am to leave valuables and money at home or with family members. Unless my surgeon tells me differently, I will STOP THESE MEDICATIONS 7 DAYS PRIOR TO SURGERY: (Motrin/Ibuprofen/Na proxen/Aleve/Advil), Aspirin, vitamin E, herbal medications, diet pills, and lptm-ows-oatvcpz medications. Tylenol (acetaminophen) is okay. If I am prescribed inhalers for breathing, I will use them and bring them to the hospital. Medication(s) to be taken on the morning of surgery with a few sips of water: If I am taking any of the following blood thinning medications ? Aspirin, clopidogrel (Plavix), ticagrelor (Brilinta), prasugrel (Efficient), ticlodipine (Ticlid), warfarin (Coumadin), dibigatran (Pradaxa) or rivaroxaban (Xarelto) - I will discuss whether or not I should stop them before surgery with my Surgeon. Discuss medication changes with your manager epic or primary care physician as well. If I stopped taking my blood-thinning medication, I will ask the surgeon when to resume taking it. If I am an outpatient, a responsible person will drive me home and it was suggested that someone stay with me for 24 hours. I understand that a agribusiness internship or cabdriver is NOT a responsible caregiver. Patients with diabetes, I will not take my morning diabetes medication (pills) on the morning of surgery. If I am on insulin, someone has gone over those instructions with me for the morning of surgery. I understand if my surgery is delayed, I will notify the check in desk that I have diabetes. See the ?Diabetic Guidelines Before Surgery? in the patient education section. If I have Obstructive Sleep Apnea and am on a CPAP/BiPAP machine, I will bring my mask, tubing and machine with me on the day of surgery. To find out my arrival time for surgery, I must call my surgical supply assistant after 2pm the day before surgery. Pain management education material found in Your Surgical Guide was reviewed with me. Preoperative instructions given by: ANIMAL CYTOLOGIST PREOP INSTRUCTIONS PRE-OPERATIVE CHECKLIST ? See Pre-Operative Checklist (either attached or in Your Surgical Guide Book) THE DAY OF SURGERY/CHECK IN ? Report to DESK P20 located in the surgery center (unless otherwise instructed to go to J-1). A map is located in Your Surgical Guide Book. INFECTION PREVENTION ? Please notify your doctor if you have any signs of an infection (i.e. fever, severe cough, nasal congestion, pain with urination, abnormal vaginal discharge, etc). ? Your surgeon will let you know if a bowel prep is needed before your surgery. If so, please see the attached instructions. ? Shower the night before surgery AND the morning of surgery with Hibiclens (provided by your surgeon). If you are allergic to Hibiclens or unable to obtain the Hibiclens, please wash with antibacterial soap. Wash your body from the neck down, focusing on your abdomen, belly button and external genitalia. Do not forget to scrub any skin folds and creases. ? No lotions, oils, creams, or powders after your shower. Underarm deodorant is okay. ? No shaving (abdominal or pubic hair) or douching the day before surgery. ? You may be asked to apply an antiseptic solution called Chlorhexidine Gluconate (CHG) which will be provided to you on arrival to the preop area. ? Hand washing is extremely important in preventing infection (for both you as the patient and for the caregivers). HOSPITALIZATION ? Before you leave the hospital, you typically need to be able to eat/drink, urinate, and have your pain controlled with oral medication. Your surgeon or other members of your surgeon?s team will discuss any other specific medical issues related to your discharge with you. ? See Your Surgical Guide Book for information on pain management. ? Your surgeon may order intermittent compression sleeves. These are ?massaging leg pumps? to help prevent blood clots after surgery. See Your Surgical Guide Book for more information. ? It is also very important that you walk as soon as possible and as frequently as possible after surgery. This will help decrease your risk of blood clots, exercise your lungs and speed up your recovery after surgery. ? If you are admitted to the hospital overnight, you will be given an incentive spirometer, which is a breathing machine that will help make sure that you are taking deep breaths and expanding your lungs while in the hospital. See Your Surgical Guide Book for more information. [facility] ? At the [facility], we have a multidisciplinary team of caregivers that includes fellows, residents, nurse practitioners (oxygen therapist), physician assistants (PAs), clinical nurse specialists (CNSs), nurses, medical assistants (MAs), patient care nursing assistants (PCNAs), social workers, embedded case manager and many others. We all have different roles and responsibilities but we are all here to help you. OUTPATIENT SURGERY POST-OP INSTRUCTIONS POST-OP INSTRUCTIONS ? You must have a responsible adult drive you home and stay with you for the first 24 hours. ? Do not drive a car or drink any alcohol for 24 hours after surgery. ? You may have mild nausea, a sore throat or raspy voice for a few days. ? Do not put anything in the vagina for 4 weeks after surgery unless otherwise advised by your doctor. ? It is normal to have some drainage or a small amount of vaginal bleeding after surgery which may last for several weeks following your surgery. ? Wash your hands frequently, especially before touching your incision (if you have one), after using the restroom, and before eating. WHEN TO CALL YOUR DOCTOR: ? Fever (>100.4?F or 38.0?C) or chills. ? Incision problems such as redness, warmth, swelling, or foul smelling drainage. ? Severe nausea or persistent vomiting. ? Bright red vaginal bleeding (soaking >1 pad/hour) or foul smelling vaginal drainage. ? Severe pain not relieved with pain medication. ? Pain and swelling in your legs, especially if it is only on one side and not the other. ? Pain with urination, cloudy urine, or foul smelling urine. ? Or if you have any other problems or questions. ? CALL 911 or go to the ED if any shortness of breath, difficulty breathing, or chest pain. HYSTEROSCOPY PREOP INSTRUCTIONS PREOP ? Medications to stop at least 7 days before surgery: Aspirin, over the counter pain medications (i.e. motrin, aleve, advil, etc), vitamins, supplements, herbal medications. ? If you are taking any control pills, hormones or blood thinners (i.e. coumadin, plavix, etc) please discuss with your doctor to see if these need to be stopped before surgery. ? You may take Tylenol (aka acetaminophen) for pain. ? Please notify your doctor if you have any signs of an infection (i.e. fever, severe cough, nasal congestion, pain with urination, abnormal vaginal discharge, etc). THE DAY BEFORE SURGERY ? Please call for your arrival time between 2:00 - 4:00pm on the prior to surgery. Phone number: or ext [phone]. ? No alcohol on the day before surgery. ? Please take a shower the night before surgery and the morning of surgery. Use an antibacterial soap (i.e. Dial) and wash your entire body with special emphasis on your abdomen, belly button, and external genitalia. ? Do not shave the day before your surgery. THE DAY OF SURGERY ? Report to DESK P20 (unless instructed to go to J1-1). Map in surgical guide book. ? If you were instructed to take your medication on the day of surgery you may do so with a small sip of water. ? Do not wear any jewelry, nail cymraes, makeup, lotions, contact lenses, or anything in your hair. POST-OP INSTRUCTIONS ? You must have a responsible adult drive you home and stay with you for the first 24 hours. ? Do not drive a car or drink any alcohol for 24 hours after surgery. ? You may have mild nausea, a sore throat or raspy voice for a few days. ? Nothing in the vagina for 1 week after surgery unless otherwise instructed by your doctor. ? You may shower and/or take a bath after surgery unless otherwise instructed by your doctor. ? You may resume exercise 48 hours after surgery as tolerated. WHEN TO CALL YOUR DOCTOR: ? Fever (>100.4?F) or chills. ? Incision redness or foul smelling drainage. ? Severe nausea or persistent vomiting. ? Bright red vaginal bleeding heavier than a normal period or foul smelling vaginal drainage. ? Severe pain not relieved with pain medication. ? Pain and swelling in your legs, especially if it is only on one side and not the other. ? Pain with urination, cloudy urine, or foul smelling urine. ? Or if you have any other problems or questions. CALL 911 OR GO TO THE ER IF YOU HAVE: Any shortness of breath or chest pain. Encounter Status:Closed by TONO GIRALDO on 05/09/18 [facility] PROGRESSon 05-08-2018 PROGRESS HNO ID: [id number] Author: Tono Hernandez (Photoengraving Machine Operator/Tender) KEARA Giradlo Service: ? Author Type: LICENSED NURSE Type: Progress Notes Filed: 05/09/2018 4:47 PM Note Text: DATE OF SERVICE: 05/08/2018 PROBLEM: Judy Mishra presents for pre-op teaching. PRE-OP DIAGNOSIS: Abnormal uterine bleeding SCHEDULED SURGERY AND DATE: 05/09/2018 - [facility] and possible hysteroscopy PRIMARY SURGEON: Risa Yoon MD NURSING PREOP ASSESSMENT: Fevers, chills, cough, or nasal congestion: No Vaginal itching, burning, discharge, or odor: No Pain with urination, frequency, urgency, cloudy or foul smelling urine: No If yes to any of the above then MD notified: Not Applicable ADVANCED CARE PLANNING: Does the patient have an advanced directive: No Does [facility] have a copy of the patient's advanced directive: No Was advanced directive given to the patient: Yes PATIENT LEARNING ASSESSMENT: Individual patient/family learning needs evaluated and addressed: Yes Cognitive ability: Alert and oriented Motivation to learn: Eager Factors affecting learning: None Physical limitations affecting learning: None Patient learns best by: Individual Instruction Written Instruction - Hand-outs Verbal Instruction Multiple Methods Method of instruction: Individual instruction Written instruction - handouts Verbal instruction Instructions provided to: Patient via telephone. Written material provided prior to education appointment. Family support: Unable to assess - Family not present PRE- AND POST-OPERATIVE TEACHING Pre-operative teaching and supplemental material provided and reviewed with patient: Your Surgical Guide Book Map Written pre-op and post-op instructions Hibiclens soap: given to patient prior to preop teaching appointment Pre-operative instructions provided and reviewed with patient/family: No eating, drinking, or smoking after midnight prior to surgery unless otherwise directed No alcohol the day before surgery Medications as prescribed by anesthesia, internal medicine, surgeon, or MIXER DRIVER Stop NSAIDs, Aspirin (ASA), vitamins, herbal supplements, herbal teas, and diet pills 7-10 days prior to surgery OK to take tylenol prn pain unless otherwise directed by physician Call surgery coordinators if any other questions about surgery date or pre-op appointments Bowel prep instructions: None needed Day of surgery instructions provided and reviewed with patient/family: Arrival time (call surgical coordinators on the office day prior to surgery for verification) No jewelry, body piercing, makeup, contacts, lotions, nail cymraes on fingers, or anything in hair on arrival to surgery Wear low healed shoes and loose fitting clothing Leave all valuables at home or with a family member Directions to [facility] [place] [facility] and the [facility] Parking/parking validation on the day prior to surgery Admission/check in (desk P-20 or J1-1) Holding area Placement of IV Surgical positioning Family waiting area Surgical recovery room Post-operative instructions provided and reviewed with patient/family: SEE PATIENT INSTRUCTION SECTION FOR DETAILS. ACTIVITY - No heavy lifting (>5-10 lbs), no pushing/pulling, OK to climb stairs DRIVING - No driving for 3 weeks unless prior approval from , OK to ride in a car. DIET - Advance diet as tolerated and as ordered by MD, drink 8 glasses of water a day, eat a diet high in protein and fiber unless otherwise directed by MD. CATHETER - Will be inserted during surgery, you may go home with a catheter for 7-10 days and will have to come back to the office for a voiding trial, UTI symptoms reviewed and patient instructed to notify MD of any of these symptoms. INCISION CARE - Keep incision clean and dry, viral to be removed 7-10 days after surgery, steristrips do not need to be removed by MD BATHING - OK to shower after surgery unless otherwise directed by MD, no tub baths. PAIN MEDICATION - IV pain medication after surgery, IV HVAC MECHANICAL ENGINEER if ordered by MD, discharged home with a prescription for PO pain medication, pain management after surgery, side effects of pain medication (including constipation, dizziness, drowsiness, and medication interactions). VAGINAL CARE - Pelvic rest x6 weeks unless otherwise directed by MD. DVT PROPHYLAXIS - Early ambulation, SCDs, injectable anticoagulants (heparin, lovenox, etc) RESPIRATORY - Incentive spirometer, coughing/deep breathing exercises, ambulation. RETURN TO WORK - As directed by physician, please send any FMLA papers to physician's receptionist secretary. SYMPTOMS TO NOTIFY MD - Fever, chills, nausea, vomiting, increased or severe pain, heavy vaginal bleeding, foul smelling vaginal drainage, pain or swelling in extremities. URGENT SYMPTOMS - Call 911 or go to ER if any shortness of breath, difficulty breathing, or chest pain. HOW TO CONTACT PHYSICIAN - Physician's office phone number given to patient, if after hours patient instructed to call profiler operator and ask for information support project manager ham facer onc resident. SEAN program offered to patient: Yes Additional teaching as indicated by patient/family learning needs. PATIENT LEARNING EVALUATION AND FOLLOW UP PLAN: Patient and/or family express understanding of upcoming surgery, pre-operative preparation, the operative process, and post-operative instructions. Follow up plan: Complete - No need for follow-up Patient has a post-op appointment scheduled: Yes Referral (recommentation): None Educator: Tono Giraldo LPN [facility] [place] Normal [facility] Basic Metabolic Panlon 05-06 Anion gap [Moles/Vol] 7 mmol/L Low 9-18 [facility] Comment on above: Performed By: #### C BCDIF, BMP #### [facility] [place] [facility] [address] [place], [place] [address] Calcium [Mass/Vol] 8.7 mg/dL Normal 8.5-10.2 [facility] Comment on above: Performed By: #### C BCDIF, BMP #### [facility] [place] [facility] [address] [place], [place] [address] Chloride [Moles/Vol] 107 mmol/L High 97-105 [facility] Comment on above: Performed By: #### C BCDIF, BMP #### [facility] [address] [place] [address] CO2 [Moles/Vol] 28 mmol/L Normal 22-30 [facility] Comment on above: Performed By: #### C BCDIF, BMP #### [facility] [address] [place] [phone] Creatinine [Mass/Vol] 0.68 mg/dL Normal 0.58-0.96 [facility] Comment on above: Performed By: #### C BCDIF, BMP #### [place] [address] [place] [phone] eGFR- Amer. >60 Normal [facility] Comment on above: Performed By: #### C BCDIF, BMP #### [place] [address] [place] [phone] GFR/1.73 sq M predicted among non-blacks MDRD (S/P/Bld) [Vol rate/Area] mL/min/{1.73_m2} Normal [facility] Comment on above: Result Comment: eGFR (Estimated GFR) Units of measure: mL/min/1.73 meters squared eGFR is derived from the reexpressed MDRD Study equation using the following parameters: serum creatinine, age, gender and race. The creatinine assay has been calibrated to be traceable to IDMS. An eGFR <60 mL/min/1.73m2 for >3 months is consistent with chronic kidney disease. Refer to KDOQI guidelines for clinical interpretation. In patients with unstable renal function, e.g. those with acute kidney injury, the eGFR may not accurately reflect actual GFR. Performed By: #### C BCDIF, BMP #### [facility] [address] [place] [phone] Glucose [Mass/Vol] 105 mg/dL High 74-99 [facility] Comment on above: Result Comment: The [place] Diabetes Association (ADA) provides guidance for cutoff values for fasting glucose and random glucose. The ADA defines fasting as no caloric intake for at least 8 hours. Fasting plasma glucose results between 100 to 125 mg/dL indicate increased risk for diabetes (prediabetes). Fasting plasma glucose results greater than or equal to 126 mg/dL meet the criteria for diagnosis of diabetes. In the absence of unequivocal hyperglycemia, results should be confirmed by repeat testing. In a patient with classic symptoms of hyperglycemia or hyperglycemic crisis, random plasma glucose results greater than or equal to 200 mg/dL meet the criteria for diagnosis of diabetes. Reference: Standards of Medical Care in Diabetes 2016, [place] [employer] Association. Diabetes Care. 2016.39(Suppl 1). Performed By: #### Naldo IBARRA BMP #### [place] [address] [place] [address] Potassium [Moles/Vol] 4.1 mmol/L Normal 3.7-5.1 [facility] Comment on above: Performed By: #### Naldo IBARRA BMP #### [place] [phone] Sodium [Moles/Vol] 142 mmol/L Normal 136-144 [facility] Comment on above: Performed By: #### Naldo IBARRA BMP #### [place] [address] Urea nitrogen [Mass/Vol] 7 mg/dL Normal 7-21 [facility] Comment on above: Performed By: #### Naldo IBARRA BMP #### [place] [address] CBC and Differentialon 05-06 Abs Baso 0.04 k/uL Normal <0.11 [facility] Comment on above: Performed By: #### Naldo IBARRA BMP #### [place] [address] Abs P[place] 0.47 k/uL Normal <0.87 [facility] Comment on above: Performed By: #### Naldo IBARRA BMP #### [address], [place] [address] Abs Neut 3.78 k/uL Normal 1.45-7.50 [facility] Comment on above: Performed By: #### C FRED, BMP #### [place] [address] [place], [place] [address] Absolute nRBC <0.01 Normal <0.01 [facility] Comment on above: Performed By: #### C FRED, BMP #### [place] [address] Basophils/100 WBC (Bld) 0.6 % Normal [facility] Comment on above: Performed By: #### C FRED, BMP #### [place] [address] DTYPE Auto Diff Normal [facility] Comment on above: Performed By: #### C FRED, BMP #### [place] [address] Eosinophils (Bld) [#/Vol] 0.25 10*3/uL Normal <0.46 [facility] Comment on above: Performed By: #### C FRED, BMP #### [address] [address] Eosinophils/100 WBC (Bld) 3.9 % Normal [facility] Comment on above: Performed By: #### C FRED, BMP #### [address] [address] Erythrocyte distribution width (RBC) [Ratio] 12.7 % Normal 11.5-15.0 [facility] Comment on above: Performed By: #### C BCCYNTHIA, BMP #### [address] [address] Hematocrit (Bld) [Volume fraction] 40.6 % Normal 36.0-46.0 [facility] Comment on above: Performed By: #### C BCDIF, BMP #### [place] [address] [place], [place] [address] Hemoglobin (Bld) [Mass/Vol] 13.6 g/dL Normal 11.5-15.5 [facility] Comment on above: Performed By: #### C BCDIF, BMP #### [place] [address] [place], [place] [address] Lymphocytes (Bld) [#/Vol] 1.78 10*3/uL Normal 1.00-4.00 [facility] Comment on above: Performed By: #### C BCDIF, BMP #### [address] [address] Lymphocytes/100 WBC (Bld) 28.1 % Normal [facility] Comment on above: Performed By: #### C BCDIF, BMP #### [place] [address] MCH (RBC) [Entitic mass] 28.6 pG Normal 26.0-34.0 [facility] Comment on above: Performed By: #### C BCDIF, BMP #### [address] [address] MCHC (RBC) [Mass/Vol] 33.5 g/dL Normal 30.5-36.0 [facility] Comment on above: Performed By: #### C BCDIF, BMP #### [place] [address] [place], [place] [address] MCV (RBC) [Entitic vol] 85.3 fL Normal 80.0-100.0 [facility] Comment on above: Performed By: #### C BCDIF, BMP #### [place] [address] [place], [place] [address] Monocytes/100 WBC (Bld) 7.4 % Normal [facility] Comment on above: Performed By: #### C BCDIF, BMP #### [place] [address] [place], [place] [address] Neutrophils/100 WBC (Bld) 60.0 % Normal [facility] Comment on above: Performed By: #### Naldo IBARRA, BMP #### [place] [address] [place], [place] [address] NRBCs 0.0 /100 WBC Normal 0 [facility] Comment on above: Performed By: #### Naldo IBARRA, BMP #### [place] [address] [place] [address] Platelet mean volume (Bld) [Entitic vol] 12.3 fL Normal 9.0-12.7 [facility] Comment on above: Performed By: #### Naldo IBARRA, BMP #### [place] [address] Platelets (Bld) [#/Vol] 217 10*3/uL Normal 150-400 [facility] Comment on above: Performed By: #### Naldo IBARRA, BMP #### [place] [address] [place] [address] RBC (Bld) [#/Vol] 4.76 10*6/uL Normal 3.90-5.20 [facility] Comment on above: Performed By: #### Naldo IBARRA, BMP #### [place] [address] [place] [address] WBC (Bld) [#/Vol] 6.33 10*3/uL Normal 3.70-11.00 [facility] Comment on above: Performed By: #### Naldo IBARRA, BMP #### [place] [address] [place] [id number] CNOVSPon 05-06-2018 CNOVSP Visit (SP) Office ([place]) JUDY MISHRA ([id number]) 1970 F Date Time Provider Department 05/06/18 9:45 AM RISA YOON During your visit today, we recorded the following information about you: Pulse Respiration Blood pressure Weight 70/minute 18/minute 128/64 88.7 kg Height 1.6 m Risa Yoon MD 05/08/2018 4:15 PM Signed Gynecologic Oncology [facility] Follow up Re: Judy Mishra [facility]#: [id number] 05/06/2018 Gynecologic Oncology [facility] Follow up visit Re: Judy Mishra [facility]#: [id number] 05/06/2018 PROBLEM: Judy Mishra returns to the office today to review workup for uterine mass/polyp and AUB. IMAGIN04/29/2018 - MRI PELVIS IMPRESSION IMPRESSION: 1.3 x 1 x 1.1 cm soft tissue mass protruding into the endometrial cavity at the fundus on the right side suggestive of polyp or tumor. Further clinical correlation/evaluati on is recommended. Adenomyosis of the uterus. Numerous nabothian cysts. PROCEDURE: 03/08/2018 - OP REPORT PATHOLOGY: 03/08/2018 - REPORT PRIOR IMAGIN01/24/2018 - PELVIC US 01/17/2018 - CT A/P LABS: No results found for: CA125 HEALTH MAINTENANCE: Last pap: 02/2018 - negative Last mammogram: 2013 approx Last colonoscopy: NA SUBJECTIVE/INTERVAL HISTORY: Judy Mishra reports that she feels well. No vaginal bleeding or discharge. No shortness of breath, cough, or chest pain. No abdominal pain, nausea, vomiting, diarrhea, or constipation. No dysuria, gross hematuria, urinary frequency, urinary urgency, or incontinence. Her ECOG performance status is zero (fully active, able to carry on all pre-disease performance without restriction). OBJECTIVE: VITALS: BP 128/64 Pulse 70 Resp 18 Ht 160 cm (5' 3 ) Wt 88.7 kg (195 lb 9.6 oz) BMI 34.65 kg/m? GENERAL: alert, oriented, pleasant and cooperative. HEENT: Normocephalic, atraumatic, mucus membranes moist and no lesions. LUNGS: Normal efforts ASSESSMENT: 48 yr old woman with endometrial mass/polyp, irregular menses s/p D/C c/w benign polyp and scant non-poyp PLAN: We discussed the result of her MRI, the plan was made to proceed with D/C, possible hysteroscopy, we discussed rationale, risks and benefits, she elected to proceed and consent signed - will schedule for surgery Total face to face time 25 minutes and more that 50% spent on counseling the patient and coordinating her care. Risa Yoon MD A letter and a copy of this office note were sent to: [facility] [address] [place] [address] CC: Selvin Mack Sr, MD (PCP) Risa Yoon MD 05/08/2018 4:15 PM Signed PREOP CLEARANCE Date of Surgery: TBD Planned Surgery/Procedure: DANDC with possible hysteroscopy Indication for Planned Surgery / Procedure: thickened endometrium, endometrial mass See HANDP above. Patient is Able to Perform the Following Physical Activity: Climb a flight of stairs or walk up a hill (5.50 METs) Do heavy work around the house, such as scrubbing floors, lifting or moving heavy furniture (8.00 METs) Patient's functional class is I based on self-reported physical activity. Significant Anesthesia Considerations: Postop nausea/vomiting and used scopalmine patch and that was helpful. Patient has the following medical comorbidities which might affect the perioperative course: - No medical conditions. CARDIAC: Patient is at optimal cardiac condition for scheduled surgery / procedure. PULMONARY: Patient is at optimal Pulmonary status for scheduled surgery / procedure. Patient is optimally prepared for surgery pending labs Patient Instructions: As per patient instructions section. General Preoperative/Medicat ion/Fasting Instructions I have discussed the above recommendations with the patient in detail, in jaclyn and lay terms, and provided a written summary of instructions as needed. We have discussed that no surgery is without risk, but that the goal of preoperative assessment is to optimize that risk, and that was clearly understood by the patient. I have given ample opportunity for the patient to ask questions, and answered all questions to their stated satisfaction. Yolanda Momin APRN.SUPERSONIC ENGINEER 05/06/2018 11:04 AM Signed GYNECOLOGY PHYSICIAN CONTACT INFORMATION Surgery Scheduling Office General Gynecology Gynecologic Oncology Dr. Kenia Long Dr. Shira Jackson Dr. Girma Moon Dr. Osman Yoon Dr. Shayy Landry Dr. Dimitris Nazario Dr. Helene Arias Dr. Judy Garcia Dr. Matthias Zeng Gynecology Nurse Practitioner Yudi Mejía, SUPERSONIC ENGINEER Air Quality Engineer Oncology Nurse Practitioners: Opal Delcid, FAISAL Phan, FAISAL Momin, FAISAL Terrell, SUPERSONIC ENGINEER Urogynecology Nighat Burr, [facility] Dr. Stephie Mcdonnell Kiesha Curry, [facility] Dr. Trudy Callahan Dr. Tavo Orteag Dr. Ashley Martínez Fertility Dr. Giram Llamas Dr. Annia Wang Dr. Etienne Tatum Urogynecology Nurse Practitioner: Dr. Natalie Jeter Bruna Lester, FAISAL Zelaya, FAISAL [place], SUPERSONIC ENGINEER Fertility Nurse Practitioners: Yudi Higuera, FAISAL Post, SUPERSONIC ENGINEER After 4:30 pm or on holidays or weekends, call: or . Ask the profiler operator to page the ?ham facer information support project manager.' PRE-OPERATIVE CHECKLIST: PATIENT INSTRUCTIONS PRIOR TO SURGERYOur guidelines have changed, so please read these instructions carefully. Your surgery may be cancelled if you do not follow these instructions. MY ARRIVAL TIME IS: _ PATIENTS WITH DELAYED STOMACH EMPTYING: I have been instructed not to have anything to eat or drink after midnight prior to my surgery (this includes no gum, mints, smoking). No alcohol the day before or day of surgery. PATIENTS WITHOUT DELAYED STOMACH EMPTYING: I have been instructed not to have any solid food to eat after midnight prior to my surgery (this includes no gum, mints, smoking). I am allowed to drink small amounts (up to 12 oz) of clear liquids up until 2 hours prior to my ARRIVAL TIME. Clear liquids include water, fruit juices without pulp, carbonated beverages (i.e. scotty shreya), electrolyte beverages (i.e. Gatorade), clear tea and black coffee, clear broth, popsicles and jello. (No milk). No alcohol the day before or day of surgery. I will bring this binder to all pre and post-operative appointments AND day of surgery. MEDICATION STOPPAGE: I will not wear jewelry, body piercing(s), makeup, nail cymraes, hairpins, or contacts on the day of surgery. I am to leave valuables and money at home or with family members. Unless my surgeon tells me differently, I will STOP THESE MEDICATIONS 7 DAYS PRIOR TO SURGERY: (Motrin/Ibuprofen/Na proxen/Aleve/Advil), Aspirin, vitamin E, herbal medications, diet pills, and wbrb-qnz-nkykrip medications. Tylenol (acetaminophen) is okay. If I am prescribed inhalers for breathing, I will use them and bring them to the hospital. Medication(s) to be taken on the morning of surgery with a few sips of water: If I am taking any of the following blood thinning medications ? Aspirin, clopidogrel (Plavix), ticagrelor (Brilinta), prasugrel (Efficient), ticlodipine (Ticlid), warfarin (Coumadin), dibigatran (Pradaxa) or rivaroxaban (Xarelto) - I will discuss whether or not I should stop them before surgery with my Surgeon. Discuss medication changes with your manager epic or primary care physician as well. If I stopped taking my blood-thinning medication, I will ask the surgeon when to resume taking it. If I am an outpatient, a responsible person will drive me home and it was suggested that someone stay with me for 24 hours. I understand that a agribusiness internship or cabdriver is NOT a responsible caregiver. Patients with diabetes, I will not take my morning diabetes medication (pills) on the morning of surgery. If I am on insulin, someone has gone over those instructions with me for the morning of surgery. I understand if my surgery is delayed, I will notify the check in desk that I have diabetes. See the ?Diabetic Guidelines Before Surgery? in the patient education section. If I have Obstructive Sleep Apnea and am on a CPAP/BiPAP machine, I will bring my mask, tubing and machine with me on the day of surgery. To find out my arrival time for surgery, I must call my surgical supply assistant after 2pm the day before surgery. Pain management education material found in Your Surgical Guide was reviewed with me. Preoperative instructions given by: ANIMAL CYTOLOGIST PREOP INSTRUCTIONS PRE-OPERATIVE CHECKLIST ? See Pre-Operative Checklist (either attached or in Your Surgical Guide Book) THE DAY OF SURGERY/CHECK IN ? Report to DESK P20 located in the surgery center (unless otherwise instructed to go to J1-1). A map is located in Your Surgical Guide Book. INFECTION PREVENTION ? Please notify your doctor if you have any signs of an infection (i.e. fever, severe cough, nasal congestion, pain with urination, abnormal vaginal discharge, etc). ? Your surgeon will let you know if a bowel prep is needed before your surgery. If so, please see the attached instructions. ? Shower the night before surgery AND the morning of surgery with Hibiclens (provided by your surgeon). If you are allergic to Hibiclens or unable to obtain the Hibiclens, please wash with antibacterial soap. Wash your body from the neck down, focusing on your abdomen, belly button and external genitalia. Do not forget to scrub any skin folds and creases. ? No lotions, oils, creams, or powders after your shower. Underarm deodorant is okay. ? No shaving (abdominal or pubic hair) or douching the day before surgery. ? You may be asked to apply an antiseptic solution called Chlorhexidine Gluconate (CHG) which will be provided to you on arrival to the preop area. ? Hand washing is extremely important in preventing infection (for both you as the patient and for the caregivers). HOSPITALIZATION ? Before you leave the hospital, you typically need to be able to eat/drink, urinate, and have your pain controlled with oral medication. Your surgeon or other members of your surgeon?s team will discuss any other specific medical issues related to your discharge with you. ? See Your Surgical Guide Book for information on pain management. ? Your surgeon may order intermittent compression sleeves. These are ?massaging leg pumps? to help prevent blood clots after surgery. See Your Surgical Guide Book for more information. ? It is also very important that you walk as soon as possible and as frequently as possible after surgery. This will help decrease your risk of blood clots, exercise your lungs and speed up your recovery after surgery. ? If you are admitted to the hospital overnight, you will be given an incentive spirometer, which is a breathing machine that will help make sure that you are taking deep breaths and expanding your lungs while in the hospital. See Your Surgical Guide Book for more information. [facility] ? At the [facility] [place] [facility], we have a multidisciplinary team of caregivers that includes fellows, residents, nurse practitioners (oxygen therapist), physician assistants (PAs), clinical nurse specialists (CNSs), nurses, medical assistants (MAs), patient care nursing assistants (PCNAs), social workers, embedded case manager and many others. We all have different roles and responsibilities but we are all here to help you. Referring Provider: RISA YOON [[id number]] Allergies As of Date: 05/06/2018 Noted Allergy Reaction BACTRIM (SULFAMETHOXAZOLE-TR IMETH*03/29/2018 4 - Hives PENICILLINS 03/29/2018 16 - Unknown PERCOCET (OXYCODONE-ACETAMINO PHEN)03/29/2018 11 - Vomiting Date Reviewed: 05/06/2018 Reviewed by: Calista Marquez - Fully Assessed Reason for Visit: Follow Up [171] Primary Visit Diagnosis:Abnormal uterine bleeding [N93.9] Other Visit Diagnoses:Endometria l mass [N94.89] Preoperative examination [Z01.818] Preop examination [Z01.818] Order(s):SURGICAL REQUEST - ELECTIVE [[id number]] Order #: [id number]: 1 BASIC METABOLIC PNL [SQBMP] Order #: [id number] FUTURE CBC + DIFF [SQCBCDIF] Order #: [id number] FUTURE REFER FOR ADMIT INTERVIEW [[id number]] Order #: [id number] [facility] [[id number]] Order #: [id number] CONSULT TO PATIENT EDUCATION [[id number]] Order #: [id number]: 1 Prescriptions as of 05/06/2018 Sig: LORAZEPAM 0.5 MG TABLET Take by mouth three times nunu* VITAMIN C ORAL Take by mouth. VENTOLIN HFA 90 MCG/ACTUATION* PANTOPRAZOLE 40 MG TABLET,DEL* DICYCLOMINE 20 MG TABLET Take 20 mg by mouth as needed. SURGICAL LUBRICANT JELLY TOPI* For MRI Female Pelvis, MRI de* Problem List As Of Date: 05/06/2018 (None) Other instructions from your clinician: GYNECOLOGY PHYSICIAN CONTACT INFORMATION Surgery Scheduling Office General Gynecology Gynecologic Oncology Dr. Kenia Long Dr. Shira Jackson Dr. Girma Moon Dr. Osman Yoon Dr. Shayy Landry Dr. Dimitris Nazario Dr. Helene Arias Dr. Judy Garcia Dr. Matthias Zeng Gynecology Nurse Practitioner Yudi Mejía, FAISAL Air Quality Engineer Oncology Nurse Practitioners: Opal Delcid, FAISAL Phan, SUPERSONIC ENGINEER Yolanda Momin, SUPERSONIC ENGINEER Nithya Terrell, SUPERSONIC ENGINEER Urogynecology Nighat Burr, SUPERSONIC ENGINEER Dr. Stephie Mcdonnell Kiesha Curry, FAISAL Callahan Dr. Tavo Ortega Dr. Ashley Martínez Fertility Dr. Girma Llamas Dr. Annia Wang Dr. Etienne Tatum Urogynecology Nurse Practitioner: Dr. Natalie Jeter Bruna Lester, FAISAL Zelaya, FAISAL [place], FAISAL Fertility Nurse Practitioners: Yudi Higuera, FAISAL Post, FAISAL After 4:30 pm or on holidays or weekends, call: or . Ask the profiler operator to page the ?ham facer information support project manager.' PRE-OPERATIVE CHECKLIST: PATIENT INSTRUCTIONS PRIOR TO SURGERYOur guidelines have changed, so please read these instructions carefully. Your surgery may be cancelled if you do not follow these instructions. MY ARRIVAL TIME IS: _ PATIENTS WITH DELAYED STOMACH EMPTYING: I have been instructed not to have anything to eat or drink after midnight prior to my surgery (this includes no gum, mints, smoking). No alcohol the day before or day of surgery. PATIENTS WITHOUT DELAYED STOMACH EMPTYING: I have been instructed not to have any solid food to eat after midnight prior to my surgery (this includes no gum, mints, smoking). I am allowed to drink small amounts (up to 12 oz) of clear liquids up until 2 hours prior to my ARRIVAL TIME. Clear liquids include water, fruit juices without pulp, carbonated beverages (i.e. scotty shreya), electrolyte beverages (i.e. Gatorade), clear tea and black coffee, clear broth, popsicles and jello. (No milk). No alcohol the day before or day of surgery. I will bring this binder to all pre and post-operative appointments AND day of surgery. MEDICATION STOPPAGE: I will not wear jewelry, body piercing(s), makeup, nail cymraes, hairpins, or contacts on the day of surgery. I am to leave valuables and money at home or with family members. Unless my surgeon tells me differently, I will STOP THESE MEDICATIONS 7 DAYS PRIOR TO SURGERY: (Motrin/Ibuprofen/Na proxen/Aleve/Advil), Aspirin, vitamin E, herbal medications, diet pills, and iuhr-vou-dqucalp medications. Tylenol (acetaminophen) is okay. If I am prescribed inhalers for breathing, I will use them and bring them to the hospital. Medication(s) to be taken on the morning of surgery with a few sips of water: If I am taking any of the following blood thinning medications ? Aspirin, clopidogrel (Plavix), ticagrelor (Brilinta), prasugrel (Efficient), ticlodipine (Ticlid), warfarin (Coumadin), dibigatran (Pradaxa) or rivaroxaban (Xarelto) - I will discuss whether or not I should stop them before surgery with my Surgeon. Discuss medication changes with your manager epic or primary care physician as well. If I stopped taking my blood-thinning medication, I will ask the surgeon when to resume taking it. If I am an outpatient, a responsible person will drive me home and it was suggested that someone stay with me for 24 hours. I understand that a agribusiness internship or cabdriver is NOT a responsible caregiver. Patients with diabetes, I will not take my morning diabetes medication (pills) on the morning of surgery. If I am on insulin, someone has gone over those instructions with me for the morning of surgery. I understand if my surgery is delayed, I will notify the check in desk that I have diabetes. See the ?Diabetic Guidelines Before Surgery? in the patient education section. If I have Obstructive Sleep Apnea and am on a CPAP/BiPAP machine, I will bring my mask, tubing and machine with me on the day of surgery. To find out my arrival time for surgery, I must call my surgical supply assistant after 2pm the day before surgery. Pain management education material found in Your Surgical Guide was reviewed with me. Preoperative instructions given by: ANIMAL CYTOLOGIST PREOP INSTRUCTIONS PRE-OPERATIVE CHECKLIST ? See Pre-Operative Checklist (either attached or in Your Surgical Guide Book) THE DAY OF SURGERY/CHECK IN ? Report to DESK P20 located in the surgery center (unless otherwise instructed to go to J1-1). A map is located in Your Surgical Guide Book. INFECTION PREVENTION ? Please notify your doctor if you have any signs of an infection (i.e. fever, severe cough, nasal congestion, pain with urination, abnormal vaginal discharge, etc). ? Your surgeon will let you know if a bowel prep is needed before your surgery. If so, please see the attached instructions. ? Shower the night before surgery AND the morning of surgery with Hibiclens (provided by your surgeon). If you are allergic to Hibiclens or unable to obtain the Hibiclens, please wash with antibacterial soap. Wash your body from the neck down, focusing on your abdomen, belly button and external genitalia. Do not forget to scrub any skin folds and creases. ? No lotions, oils, creams, or powders after your shower. Underarm deodorant is okay. ? No shaving (abdominal or pubic hair) or douching the day before surgery. ? You may be asked to apply an antiseptic solution called Chlorhexidine Gluconate (CHG) which will be provided to you on arrival to the preop area. ? Hand washing is extremely important in preventing infection (for both you as the patient and for the caregivers). HOSPITALIZATION ? Before you leave the hospital, you typically need to be able to eat/drink, urinate, and have your pain controlled with oral medication. Your surgeon or other members of your surgeon?s team will discuss any other specific medical issues related to your discharge with you. ? See Your Surgical Guide Book for information on pain management. ? Your surgeon may order intermittent compression sleeves. These are ?massaging leg pumps? to help prevent blood clots after surgery. See Your Surgical Guide Book for more information. ? It is also very important that you walk as soon as possible and as frequently as possible after surgery. This will help decrease your risk of blood clots, exercise your lungs and speed up your recovery after surgery. ? If you are admitted to the hospital overnight, you will be given an incentive spirometer, which is a breathing machine that will help make sure that you are taking deep breaths and expanding your lungs while in the hospital. See Your Surgical Guide Book for more information. [facility] TEAM ? At the [facility], we have a multidisciplinary team of caregivers that includes fellows, residents, nurse practitioners (oxygen therapist), physician assistants (PAs), clinical nurse specialists (CNSs), nurses, medical assistants (MAs), patient care nursing assistants (PCNAs), social workers, embedded case manager and many others. We all have different roles and responsibilities but we are all here to help you. Encounter Status:Closed by RISA YOON MD on 05/08/18 [facility] HOSP 05-06-2018 HOSP Patient:Lacie Mishra MRN: Height:5' 3 (1.6 m) Weight:190 lb (86.183 kg) Outpatient Medications as of 05/09/18: LORazepam (ATIVAN) 0.5 mg tab ascorbic acid (VITAMIN C ORAL) Surgical Lubricant Jelly gel VENTOLIN HFA 90 mcg/actuation inhaler pantoprazole DR (PROTONIX) 40 mg tablet dicyclomine (BENTYL) 20 mg tablet Admission/Clinic Administered Medications as of 05/09/18: lidocaine (PF) 10 mg/mL (1 %) 1-2 mg injection (XYLOCAINE) lactated ringers infusion Problem List: No problem list on file for this patient. Allergies: Bactrim [Sulfamethoxazole-Tr imethoprim] Penicillins Percocet [Oxycodone-Acetamino phen] Date Verified: 05/09/18 Lab Values Lab Value Units Date High Low POTA* 4.1 mmol/L 05/06/2018 5.1 3.7 MARICRUZ* 40.6 % 05/06/2018 46.0 36.0 Progress Notes (ANIMAL CYTOLOGIST ONC MAIN CA 4): Tono Giraldo LPN, RUBBER GOODS ASSEMBLER 05/08/2018 8:38 AM Sign at close encounter DATE OF SERVICE: 05/08/2018 PROBLEM: Judy Mishra presents for pre-op teaching. PRE-OP DIAGNOSIS: Abnormal uterine bleeding SCHEDULED SURGERY AND DATE: 05/09/2018 - [facility] and possible hysteroscopy PRIMARY SURGEON: Risa Yoon MD NURSING PREOP ASSESSMENT: Fevers, chills, cough, or nasal congestion: No Vaginal itching, burning, discharge, or odor: No Pain with urination, frequency, urgency, cloudy or foul smelling urine: No If yes to any of the above then MD notified: Not Applicable ADVANCED CARE PLANNING: Does the patient have an advanced directive: No Does [facility] have a copy of the patient's advanced directive: No Was advanced directive given to the patient: Yes PATIENT LEARNING ASSESSMENT: Individual patient/family learning needs evaluated and addressed: Yes Cognitive ability: Alert and oriented Motivation to learn: Eager Factors affecting learning: None Physical limitations affecting learning: None Patient learns best by: Individual Instruction Written Instruction - Hand-outs Verbal Instruction Multiple Methods Method of instruction: Individual instruction Written instruction - handouts Verbal instruction Instructions provided to: Patient via telephone. Written material provided prior to education appointment. Family support: Unable to assess - Family not present PRE- AND POST-OPERATIVE TEACHING Pre-operative teaching and supplemental material provided and reviewed with patient: Your Surgical Guide Book Map Written pre-op and post-op instructions Hibiclens soap: given to patient prior to preop teaching appointment Pre-operative instructions provided and reviewed with patient/family: No eating, drinking, or smoking after midnight prior to surgery unless otherwise directed No alcohol the day before surgery Medications as prescribed by anesthesia, internal medicine, surgeon, or MIXER DRIVER Stop NSAIDs, Aspirin (ASA), vitamins, herbal supplements, herbal teas, and diet pills 7-10 days prior to surgery OK to take tylenol prn pain unless otherwise directed by physician Call surgery coordinators if any other questions about surgery date or pre-op appointments Bowel prep instructions: None needed Day of surgery instructions provided and reviewed with patient/family: Arrival time (call surgical coordinators on the office day prior to surgery for verification) No jewelry, body piercing, makeup, contacts, lotions, nail cymraes on fingers, or anything in hair on arrival to surgery Wear low healed shoes and loose fitting clothing Leave all valuables at home or with a family member Directions to [facility] and the [facility] Parking/parking validation on the day prior to surgery Admission/check in (desk P-20 or J1-1) Holding area Placement of IV Surgical positioning Family waiting area Surgical recovery room Post-operative instructions provided and reviewed with patient/family: SEE PATIENT INSTRUCTION SECTION FOR DETAILS. ACTIVITY - No heavy lifting (>5-10 lbs), no pushing/pulling, OK to climb stairs DRIVING - No driving for 3 weeks unless prior approval from MD, OK to ride in a car. DIET - Advance diet as tolerated and as ordered by MD, drink 8 glasses of water a day, eat a diet high in protein and fiber unless otherwise directed by MD. CATHETER - Will be inserted during surgery, you may go home with a catheter for 7-10 days and will have to come back to the office for a voiding trial, UTI symptoms reviewed and patient instructed to notify MD of any of these symptoms. INCISION CARE - Keep incision clean and dry, viral to be removed 7-10 days after surgery, steristrips do not need to be removed by MD BATHING - OK to shower after surgery unless otherwise directed by MD, no tub baths. PAIN MEDICATION - IV pain medication after surgery, IV HVAC MECHANICAL ENGINEER if ordered by MD, discharged home with a prescription for PO pain medication, pain management after surgery, side effects of pain medication (including constipation, dizziness, drowsiness, and medication interactions). VAGINAL CARE - Pelvic rest x6 weeks unless otherwise directed by MD. DVT PROPHYLAXIS - Early ambulation, SCDs, injectable anticoagulants (heparin, lovenox, etc) RESPIRATORY - Incentive spirometer, coughing/deep breathing exercises, ambulation. RETURN TO WORK - As directed by physician, please send any FMLA papers to physician's receptionist secretary. SYMPTOMS TO NOTIFY MD - Fever, chills, nausea, vomiting, increased or severe pain, heavy vaginal bleeding, foul smelling vaginal drainage, pain or swelling in extremities. URGENT SYMPTOMS - Call 911 or go to ER if any shortness of breath, difficulty breathing, or chest pain. HOW TO CONTACT PHYSICIAN - Physician's office phone number given to patient, if after hours patient instructed to call profiler operator and ask for information support project manager ham facer onc resident. SEAN program offered to patient: Yes Additional teaching as indicated by patient/family learning needs. PATIENT LEARNING EVALUATION AND FOLLOW UP PLAN: Patient and/or family express understanding of upcoming surgery, pre-operative preparation, the operative process, and post-operative instructions. Follow up plan: Complete - No need for follow-up Patient has a post-op appointment scheduled: Yes Referral (recommentation): None Educator: Tono Giraldo LPN [facility] Tono Giraldo LPN, KEARA 05/08/2018 7:38 AM Signed GYNECOLOGY PHYSICIAN CONTACT INFORMATION Surgery Scheduling Office General Gynecology Gynecologic Oncology Dr. Kenia Long Dr. Shira Jackson Dr. Girma Moon Dr. Osman Yoon Dr. Shayy Landry Dr. Dimitris Nazario Dr. Helene Arias Dr. Judy Garcia Dr. Matthias Zeng Gynecology Nurse Practitioner Yudi Mejía, SUPERSONIC ENGINEER Air Quality Engineer Oncology Nurse Practitioners: Opal Delcid, SUPERSONIC ENGINEER Gertrude Phan, SUPERSONIC ENGINEER Yolanda Momin, SUPERSONIC ENGINEER Nithya Terrell, [facility] Urogynecology Nighat Burr, [facility] Dr. Stephie Mcdonnell Kiesha Curry, [facility] Dr. Trudy Callahan Dr. Tavo Ortega Dr. Ashley Martínez Fertility Dr. Girma Llamas Dr. Annia Wang Dr. Etienne Tatum Urogynecology Nurse Practitioner: Dr. Natalie Jeter Bruna Lester, SUPERSONIC ENGINEER Lizeth Zelaya, SUPERSONIC ENGINEER Madison Canada, [facility] Fertility Nurse Practitioners: Yudi Higuera, FAISAL Post, SUPERSONIC ENGINEER After 4:30 pm or on holidays or weekends, call: or . Ask the profiler operator to page the ?ham facer information support project manager.' PRE-OPERATIVE CHECKLIST: PATIENT INSTRUCTIONS PRIOR TO SURGERYOur guidelines have changed, so please read these instructions carefully. Your surgery may be cancelled if you do not follow these instructions. MY ARRIVAL TIME IS: _ PATIENTS WITH DELAYED STOMACH EMPTYING: I have been instructed not to have anything to eat or drink after midnight prior to my surgery (this includes no gum, mints, smoking). No alcohol the day before or day of surgery. PATIENTS WITHOUT DELAYED STOMACH EMPTYING: I have been instructed not to have any solid food to eat after midnight prior to my surgery (this includes no gum, mints, smoking). I am allowed to drink small amounts (up to 12 oz) of clear liquids up until 2 hours prior to my ARRIVAL TIME. Clear liquids include water, fruit juices without pulp, carbonated beverages (i.e. scotty shreya), electrolyte beverages (i.e. Gatorade), clear tea and black coffee, clear broth, popsicles and jello. (No milk). No alcohol the day before or day of surgery. I will bring this binder to all pre and post-operative appointments AND day of surgery. MEDICATION STOPPAGE: I will not wear jewelry, body piercing(s), makeup, nail cymraes, hairpins, or contacts on the day of surgery. I am to leave valuables and money at home or with family members. Unless my surgeon tells me differently, I will STOP THESE MEDICATIONS 7 DAYS PRIOR TO SURGERY: (Motrin/Ibuprofen/Na proxen/Aleve/Advil), Aspirin, vitamin E, herbal medications, diet pills, and [id number] medications. Tylenol (acetaminophen) is okay. If I am prescribed inhalers for breathing, I will use them and bring them to the hospital. Medication(s) to be taken on the morning of surgery with a few sips of water: If I am taking any of the following blood thinning medications ? Aspirin, clopidogrel (Plavix), ticagrelor (Brilinta), prasugrel (Efficient), ticlodipine (Ticlid), warfarin (Coumadin), dibigatran (Pradaxa) or rivaroxaban (Xarelto) - I will discuss whether or not I should stop them before surgery with my Surgeon. Discuss medication changes with your manager epic or primary care physician as well. If I stopped taking my blood-thinning medication, I will ask the surgeon when to resume taking it. If I am an outpatient, a responsible person will drive me home and it was suggested that someone stay with me for 24 hours. I understand that a agribusiness internship or cabdriver is NOT a responsible caregiver. Patients with diabetes, I will not take my morning diabetes medication (pills) on the morning of surgery. If I am on insulin, someone has gone over those instructions with me for the morning of surgery. I understand if my surgery is delayed, I will notify the check in desk that I have diabetes. See the ?Diabetic Guidelines Before Surgery? in the patient education section. If I have Obstructive Sleep Apnea and am on a CPAP/BiPAP machine, I will bring my mask, tubing and machine with me on the day of surgery. To find out my arrival time for surgery, I must call my surgical supply assistant after 2pm the day before surgery. Pain management education material found in Your Surgical Guide was reviewed with me. Preoperative instructions given by: ANIMAL CYTOLOGIST PREOP INSTRUCTIONS PRE-OPERATIVE CHECKLIST ? See Pre-Operative Checklist (either attached or in Your Surgical Guide Book) THE DAY OF SURGERY/CHECK IN ? Report to DESK P20 located in the surgery center (unless otherwise instructed to go to J1-1). A map is located in Your Surgical Guide Book. INFECTION PREVENTION ? Please notify your doctor if you have any signs of an infection (i.e. fever, severe cough, nasal congestion, pain with urination, abnormal vaginal discharge, etc). ? Your surgeon will let you know if a bowel prep is needed before your surgery. If so, please see the attached instructions. ? Shower the night before surgery AND the morning of surgery with Hibiclens (provided by your surgeon). If you are allergic to Hibiclens or unable to obtain the Hibiclens, please wash with antibacterial soap. Wash your body from the neck down, focusing on your abdomen, belly button and external genitalia. Do not forget to scrub any skin folds and creases. ? No lotions, oils, creams, or powders after your shower. Underarm deodorant is okay. ? No shaving (abdominal or pubic hair) or douching the day before surgery. ? You may be asked to apply an antiseptic solution called Chlorhexidine Gluconate (CHG) which will be provided to you on arrival to the preop area. ? Hand washing is extremely important in preventing infection (for both you as the patient and for the caregivers). HOSPITALIZATION ? Before you leave the hospital, you typically need to be able to eat/drink, urinate, and have your pain controlled with oral medication. Your surgeon or other members of your surgeon?s team will discuss any other specific medical issues related to your discharge with you. ? See Your Surgical Guide Book for information on pain management. ? Your surgeon may order intermittent compression sleeves. These are ?massaging leg pumps? to help prevent blood clots after surgery. See Your Surgical Guide Book for more information. ? It is also very important that you walk as soon as possible and as frequently as possible after surgery. This will help decrease your risk of blood clots, exercise your lungs and speed up your recovery after surgery. ? If you are admitted to the hospital overnight, you will be given an incentive spirometer, which is a breathing machine that will help make sure that you are taking deep breaths and expanding your lungs while in the hospital. See Your Surgical Guide Book for more information. [facility] ? At the [facility], we have a multidisciplinary team of caregivers that includes fellows, residents, nurse practitioners (oxygen therapist), physician assistants (PAs), clinical nurse specialists (CNSs), nurses, medical assistants (MAs), patient care nursing assistants (PCNAs), social workers, embedded case manager and many others. We all have different roles and responsibilities but we are all here to help you. OUTPATIENT SURGERY POST-OP INSTRUCTIONS POST-OP INSTRUCTIONS ? You must have a responsible adult drive you home and stay with you for the first 24 hours. ? Do not drive a car or drink any alcohol for 24 hours after surgery. ? You may have mild nausea, a sore throat or raspy voice for a few days. ? Do not put anything in the vagina for 4 weeks after surgery unless otherwise advised by your doctor. ? It is normal to have some drainage or a small amount of vaginal bleeding after surgery which may last for several weeks following your surgery. ? Wash your hands frequently, especially before touching your incision (if you have one), after using the restroom, and before eating. WHEN TO CALL YOUR DOCTOR: ? Fever (>100.4?F or 38.0?C) or chills. ? Incision problems such as redness, warmth, swelling, or foul smelling drainage. ? Severe nausea or persistent vomiting. ? Bright red vaginal bleeding (soaking >1 pad/hour) or foul smelling vaginal drainage. ? Severe pain not relieved with pain medication. ? Pain and swelling in your legs, especially if it is only on one side and not the other. ? Pain with urination, cloudy urine, or foul smelling urine. ? Or if you have any other problems or questions. ? CALL 911 or go to the ED if any shortness of breath, difficulty breathing, or chest pain. HYSTEROSCOPY PREOP INSTRUCTIONS PREOP ? Medications to stop at least 7 days before surgery: Aspirin, over the counter pain medications (i.e. motrin, aleve, advil, etc), vitamins, supplements, herbal medications. ? If you are taking any control pills, hormones or blood thinners (i.e. coumadin, plavix, etc) please discuss with your doctor to see if these need to be stopped before surgery. ? You may take Tylenol (aka acetaminophen) for pain. ? Please notify your doctor if you have any signs of an infection (i.e. fever, severe cough, nasal congestion, pain with urination, abnormal vaginal discharge, etc). THE DAY BEFORE SURGERY ? Please call for your arrival time between 2:00 - 4:00pm on the day prior to surgery. Phone number: or ext [phone]. ? No alcohol on the day before surgery. ? Please take a shower the night before surgery and the morning of surgery. Use an antibacterial soap (i.e. Dial) and wash your entire body with special emphasis on your abdomen, belly button, and external genitalia. ? Do not shave the day before your surgery. THE DAY OF SURGERY ? Report to DESK P20 (unless instructed to go to J1-1). Map in surgical guide book. ? If you were instructed to take your medication on the day of surgery you may do so with a small sip of water. ? Do not wear any jewelry, nail cymraes, makeup, lotions, contact lenses, or anything in your hair. POST-OP INSTRUCTIONS ? You must have a responsible adult drive you home and stay with you for the first 24 hours. ? Do not drive a car or drink any alcohol for 24 hours after surgery. ? You may have mild nausea, a sore throat or raspy voice for a few days. ? Nothing in the vagina for 1 week after surgery unless otherwise instructed by your doctor. ? You may shower and/or take a bath after surgery unless otherwise instructed by your doctor. ? You may resume exercise 48 hours after surgery as tolerated. WHEN TO CALL YOUR DOCTOR: ? Fever (>100.4?F) or chills. ? Incision redness or foul smelling drainage. ? Severe nausea or persistent vomiting. ? Bright red vaginal bleeding heavier than a normal period or foul smelling vaginal drainage. ? Severe pain not relieved with pain medication. ? Pain and swelling in your legs, especially if it is only on one side and not the other. ? Pain with urination, cloudy urine, or foul smelling urine. ? Or if you have any other problems or questions. CALL 911 OR GO TO THE ER IF YOU HAVE: Any shortness of breath or chest pain. Progress Notes ([facility] DEPT): [facility] Hq Provider 05/06/2018 10:42 AM Unsigned Crab Fisherman [employer] ONLINE PATIENT REPORT Special Client Bus Driver: Pati Kaur Completion Time: 00:08 Location: [facility] Surgical Service: OIL TANKER CAPTAIN Age: 48 yrs Height: 160 cm Weight: 86 kgs Body Mass Index : 34, moderate obesity HealthQuest Score: 3 CARDIOVASCULAR SYSTEM METS = 5 to 7 Moderately decreased functional class (HQS:2) Past cardiac studies performed - EKG PULMONARY SYSTEM No pulmonary disease type Excessive fatigue despite adequate sleep Consider low risk of DEEP (HQS:2) ENDOCRINE SYSTEM No concerns noted in this section. NEUROLOGICAL SYSTEM No concerns noted in this section. URINARY AND REPRODUCTION SYSTEM Rule out possible (HQS:3) GASTROINTESTINAL SYSTEM History of GERD (HQS:2) BLOOD AND COAGULATION Daily ASA/NSAID use ANESTHETIC ISSUES Patient has: - Dentures History of previous anesthesia History of significant nausea and/or vomiting with anesthesia History of motion sickness Moderate risk of PONV Patient states that they have an allergy to penicillin or a penicillin-like drug Inadequate post-operative pain control in the past at home - Consider Acute Pain Management Consult (HQS:2) End of Report Yolanda Momin APRN.CNP 05/06/2018 2:38 PM Signed [facility] reviewed. There are no changes, cleared at OV today Yolanda Momin APRN.CNP [facility] PROGRESSon 05-06-2018 PROGRESS HNO ID: [id number] Author: Yolanda Momin Service: ? Author Type: Nurse Practitioner Type: Progress Notes Filed: 05/06/2018 2:38 PM Note Text: [facility] reviewed. There are no changes, cleared at OV today Yolanda Momin APRN.CNP [facility] PROGRESS HNO ID: [id number] Author: Risa Yoon Service: ? Author Type: Physician Type: Progress Notes Filed: 05/08/2018 4:15 PM Note Text: PREOP CLEARANCE Date of Surgery: TBD Planned Surgery/Procedure: DANDC with possible hysteroscopy Indication for Planned Surgery / Procedure: thickened endometrium, endometrial mass See HANDP above. Patient is Able to Perform the Following Physical Activity: Climb a flight of stairs or walk up a hill (5.50 METs) Do heavy work around the house, such as scrubbing floors, lifting or moving heavy furniture (8.00 METs) Patient's functional class is I based on self-reported physical activity. Significant Anesthesia Considerations: Postop nausea/vomiting and used scopalmine patch and that was helpful. Patient has the following medical comorbidities which might affect the perioperative course: - No medical conditions. CARDIAC: Patient is at optimal cardiac condition for scheduled surgery / procedure. PULMONARY: Patient is at optimal Pulmonary status for scheduled surgery / procedure. Patient is optimally prepared for surgery pending labs Patient Instructions: As per patient instructions section. General Preoperative/Medicat ion/Fasting Instructions I have discussed the above recommendations with the patient in detail, in jaclyn and lay terms, and provided a written summary of instructions as needed. We have discussed that no surgery is without risk, but that the goal of preoperative assessment is to optimize that risk, and that was clearly understood by the patient. I have given ample opportunity for the patient to ask questions, and answered all questions to their stated satisfaction. [facility] MRI FEMALE PELVIS WO/W IVCON on 04-29-2018 MRI FEMALE PELVIS WO/W IVCON * * *Final Report* * * DATE OF EXAM: Apr 29 2018 9:21AM BRM [id number] - MRI FEMALE PELVIS WO/W IVCON / PROCEDURE REASON: Abnormal uterine bleeding * * * * Physician Interpretation * * * * HISTORY: abnormal uterine bleeding, fibroids vs mass outside c 01/17/18, outside us 01/24/18 MRI of the PELVIS: TECHNIQUE: Fast spin echo T2 weighted pulse sequences are performed in axial, coronal, and sagittal planes. T2 weighted pulse sequences with 3-D volume acquisition in thin axial plane are also performed. Additional diffusion-weighted, in and out of phases T1 weighted axial images are also obtained. VIBE pulse sequences are also performed prior to and after intravenous administration of 19 cc Dotarem gadolinium contrast at 0 second and 180 seconds in axial and sagittal planes. RESULTS: Uterus: Size: 11.2 x 5.2 x 6.6 cm Orientation: Anteverted Configuration: conventional Endometrium: Maximum width measures 10 mm. 1.3 x 1 x 1.1 cm in the endometrial cavity, series 601:19 and 801: 22. Following intravenous contrast, there is homogeneous enhancement suggestive of polyp or tumor. Junctional zone: Maximum thickness: 14 mm. Homogeneous T2 hypointense signal. Tiny cystic area at the thickened junctional zone, series 801:23, compatible with adenomyosis Cervix: Numerous nabothian cysts, largest cyst 1.6 cm Leiomyomas: none Adenomyomas: None Ovaries: - Right ovary: 2.6 x 2.2 x 2.6 cm with tiny follicles and 1.6 cm dominant follicle. - Left ovary: 2 x 1.8 x 2.1 cm. Endometriosis: None Pelvis free fluid: None Lymph nodes: No lymph nodes enlarged by size criteria Bones:Normal marrow signal. Urinary tract: No hydronephrosis in the visualized kidneys. The visualized urinary bladder and urethra show no obvious abnormality. Other: No obvious abnormality in the visualized bowel loops. IMPRESSION: 1.3 x 1 x 1.1 cm soft tissue mass protruding into the endometrial cavity at the fundus on the right side suggestive of polyp or tumor. Further clinical correlation/evaluati on is recommended. Adenomyosis of the uterus. Numerous nabothian cysts. Rubber Engraver: SHAVONNE Transcribe Date/Time: Apr 29 2018 9:56A Dictated by : JEFFREY DUNN MD This examination was interpreted and the report reviewed and electronically signed by: JEFFREY DUNN MD on Apr 29 2018 2:47PM EST [id number] [facility] PROGRESSon 04-29-2018 PROGRESS HNO ID: [id number] Author: Lavonne Garcia Rt Service: ? Author Type: ? Type: Progress Notes Filed: 04/29/2018 9:53 AM Note Text: Radiology Service Progress Note DATE OF SERVICE: April 29, 2018 TIME: 9:50 AM PATIENT IDENTITY VERIFICATION COMPLETED USING TWO (2) METHODS: Patient confirmed name verbally and Date of . PATIENT GENDER DATA: Female. status: : No status: NO. PATIENT RELEVANT IMPLANT DATA REVIEWED: Yes dentures, contacts ALLERGIES: Reviewed and unchanged CONTRAST ALLERGY: NO. EXAM: MRI - CONTRAST TYPE: GROUP II PERIPHERAL IV DATA: Ambulatory: A peripheral IV was started in the Right antecubital site with a Angio cath: 22 gauge. RADIOLOGY DEPARTMENT: MR; Exam(s) Completed: Body: Female Pelvis 19cc dotarem SIGNATURE:Lavonne Garcia A.A.S.,RT (R) (CT)(MR) PATIENT NAME: Judy Mishra DATE: April 29, 2018 TIME: 9:50 AM [facility] PROGRESSon 04-24-2018 PROGRESS HNO ID: [id number] Author: Risa Yoon Service: ? Author Type: Physician Type: Progress Notes Filed: 05/08/2018 4:15 PM Note Text: Gynecologic Oncology [facility] Follow up Re: Judy Mishra CCF#: [id number] 05/06/2018 Gynecologic Oncology [facility] Follow up visit Re: Judy Mishra CCF#: [id number] 05/06/2018 PROBLEM: Judy Mishra returns to the office today to review workup for uterine mass/polyp and AUB. IMAGIN04/29/2018 - MRI PELVIS IMPRESSION IMPRESSION: 1.3 x 1 x 1.1 cm soft tissue mass protruding into the endometrial cavity at the fundus on the right side suggestive of polyp or tumor. Further clinical correlation/evaluati on is recommended. Adenomyosis of the uterus. Numerous nabothian cysts. PROCEDURE: 03/08/2018 - OP REPORT PATHOLOGY: 03/08/2018 - REPORT PRIOR IMAGIN01/24/2018 - PELVIC US 01/17/2018 - CT A/P LABS: No results found for: CA125 HEALTH MAINTENANCE: Last pap: 02/2018 - negative Last mammogram: 2013 approx Last colonoscopy: NA SUBJECTIVE/INTERVAL HISTORY: Judy Mishra reports that she feels well. No vaginal bleeding or discharge. No shortness of breath, cough, or chest pain. No abdominal pain, nausea, vomiting, diarrhea, or constipation. No dysuria, gross hematuria, urinary frequency, urinary urgency, or incontinence. Her ECOG performance status is zero (fully active, able to carry on all pre-disease performance without restriction). OBJECTIVE: VITALS: BP 128/64 Pulse 70 Resp 18 Ht 160 cm (5' 3 ) Wt 88.7 kg (195 lb 9.6 oz) BMI 34.65 kg/m? GENERAL: alert, oriented, pleasant and cooperative. HEENT: Normocephalic, atraumatic, mucus membranes moist and no lesions. LUNGS: Normal efforts ASSESSMENT: 48 yr old woman with endometrial mass/polyp, irregular menses s/p D/C c/w benign polyp and scant non-poyp PLAN: We discussed the result of her MRI, the plan was made to proceed with D/C, possible hysteroscopy, we discussed rationale, risks and benefits, she elected to proceed and consent signed - will schedule for surgery Total face to face time 25 minutes and more that 50% spent on counseling the patient and coordinating her care. Risa Yoon MD A letter and a copy of this office note were sent to: Noah Woods, [address] [place] [address] CC: Selvin Mack Sr, MD (PCP) [facility] SURGICAL PATHOLOGYon 019 SURGICAL PATHOLOGY Specimen #: [id number]* Submitting Physician: RISA YOON MD FINAL DIAGNOSIS Consultation from [facility], [place], [place] ([id number], 8 H&E-stained slides labeled A, B, C, 03/11/2018): Endometrium, curettings (A) - Benign endometrial polyp of the isthmus type. Endometrium, curettings (B) - Benign endometrial and endocervical epithelium. Umbilical hernia sac, excision (C) - Benign fibroadipose tissue with focal mesothelial lining, consistent with hernia sac. BY/dcr 04/03/2018 Kaushik Benavides M.D. Ph.D. (Electronic Signature) SPECIMEN SUBMITTED A: 8 SLIDES ([id number]) CLINICAL DATA None provided. Date of Report: 04/04/2018 Date of Procedure: 04/01/2018 Date of Receipt: 04/02/2018 Submitted by: RISA YOON MD Location: [facility] Diagnostic interpretation performed at [facility], [address] [place] [address]. [facility] CNOVSPon 03-29-2018 CNOVSP Visit (SP) Office ([facility]) RENEE MISHRAHANIE ([id number]) 1970 F Date Time Provider Department 03/29/18 10:00 AM RISA YOON During your visit today, we recorded the following information about you: Temperature Pulse Respiration Blood pressure 98 degrees 70/minute 16/minute 141/78 Weight Height 86.2 kg 1.62 m Risa Yoon MD 04/05/2018 1:47 PM Signed Gynecologic Oncology [facility] [place] Consultation Re: Judy Mishra F#: [id number] 03/29/[address] Woods for an opinion regarding uterine mass. My final recommendations will be communicated back to the requesting physician by way of shared Medical record or letter to requesting physician via US mail. Dear Noah Woods: Thank you for referring Judy for consultation. Briefly, she is a 48 year old female who has a past medical history of Abdominal fullness; Abdominal hernia; Acute pain in female pelvis; Endometrial mass; Enlarged uterus; Irregular menses; and Thickened endometrium. She has a past surgical history that includes dANDc (03/18/2018); cholecystectomy hx (11/04/2017); anesth, section (1995, 1996); and laproscopy, biopsy small intestine. She presents today for evaluation and management of uterine mass, patient sent d/t desire of definitve treatment with hysterectomy. PROCEDURE: 03/08/2018 - OP REPORT PATHOLOGY: 03/08/2018 - REPORT IMAGIN01/24/2018 - PELVIC US 01/17/2018 - CT A/P LABS: No results found for: CA125 HEALTH MAINTENANCE: Last pap: 02/2018 - negative Last mammogram: Last colonoscopy: HISTORIES: PAST GYNECOLOGIC HISTORY: Obstetric History T0 L0 SAB0 TAB0 Ectopic0 Multiple0 Live Births0 LMP: No LMP recorded. Hormonal contraceptives: History of abnormal pap: No. PAST MEDICAL HISTORY Diagnosis Date - Abdominal fullness - Abdominal hernia - Acute pain in female pelvis - Endometrial mass - Enlarged uterus - Irregular menses - Thickened endometrium PAST SURGICAL HISTORY Procedure Laterality Date - ANESTH, SECTION 1995, 1996 - CHOLECYSTECTOMY HX 11/04/2017 - DANDC 03/18/2018 S/P, hysterscopy w/ myosure - LAPROSCOPY, BIOPSY SMALL INTESTINE FAMILY HISTORY Problem Relation Age of Onset - Stroke Father Family history of breast, ovarian, uterine or colon cancer: No Family history of VTE: No SOCIAL HISTORY Social History Substance Use Topics - Smoking status: Never Smoker - Smokeless tobacco: Not on file - Alcohol use Not on file Marital Status: REVIEW OF SYSTEMS: GENERAL: No recent weight loss, fever, chills, malaise or fatigue. HEENT: No changes in hearing or vision, frequent or severe headaches, nose bleeds or other nasal problems. NECK: No lumps, goiter, pain, significant neck swelling, or difficulty swallowing. RESPIRATORY: No shortness of breath, cough, wheezing, recent pneumonia (within last 6 weeks) or recent URI (within 2 weeks). CARDIOVASCULAR: No angina with activity or at rest, lower extremity edema, or palpitations. No recent MO (within 6 months), cardiac stent, cardiac surgery, gangrene, or PVD. No history of hypertension. BREAST: No breast lumps, skin changes, nipple discharge, or adenopathy. GI: No abdominal pain, nausea, vomiting, diarrhea, or constipation. No prior history of esophageal varicies or ascites. Patient denies drinking >2 alcoholic beverages a day. : No dysuria, gross hematuria, urinary frequency, urinary urgency, or incontinence. No history of renal failure, dialysis, or recent UTI (<6 weeks). MUSCULOSKELETAL: No muscle weakness or joint pain. SKIN: No skin lesions, rashes, or itching. PSYCH: No sleep disturbances, depression, bipolar disorder, drug dependency/history of drug dependency, or recent psychosocial stressors. HEMATOLOGY/LYMPHOLOG Y: No prolonged bleeding, bruising easily, swollen nodes, or anemia. No prior history of a blood clot or clotting disorder. No prior history of a bleeding disorder. Not on chronic anticoagulant/platel et medications. ENDOCRINE: No cold or heat intolerance, polyuria, polydipsia, polyphagia, goiter, hot flashes or night sweats. No prior diagnosis of diabetes or thyroid disorder. No chronic steroid use. NEURO: No history of paralysis, stroke/TIA, seizures, tremors, syncope, or paresthesias. ECOG performance status is zero (fully active, able to carry on all pre-disease performance without restriction) OBJECTIVE: VITALS: There were no vitals taken for this visit. GENERAL: Patient is a well developed, well nourished female. She is alert, oriented, pleasant and cooperative. SKIN: Color, texture, turgor normal. No rashes or lesions. HEENT: Normocephalic, atraumatic, mucus membranes moist and no lesions NECK: Supple, no adenopathy; thyroid symmetric, normal size, no bruits LUNGS: Clear to auscultation bilaterally. HEART: Regular rate and rhythm, no murmurs. BACK: No CVA tenderness or gross deformities. BREAST: deferred exam ABDOMEN: Abdomen soft, non-tender, no hepatosplenomegaly. Senior Hr Business Partner for exam: Was present PROCEDURES: None ASSESSMENT: 48 yr old woman with endometrial mass/polyp, irregular menses s/p D/C c/w benign polyp and scant non-poyp PLAN: We discussed the result of her scans and pathology. Her pathology showed benign polyp but scant non-polyp endometrial tissue - Will obtain pelvic MRI - See me after the MRI Total face to face time 60 minutes and more that 50% spent on counseling the patient and coordinating her care. Thank you for referring her for gynecologic oncology consultation. I will be in touch with you regarding her findings. Sincerely, Risa Yoon MD A letter and a copy of this office note were sent to: Noah Woods DO [address] [place] [address] [place] [address] CC: Selvin Mack Sr, MD (PCP) Referring Provider: NOAH WOODS [[id number]] Allergies As of Date: 03/29/2018 Noted Allergy Reaction BACTRIM (SULFAMETHOXAZOLE-TR IMETH*03/29/2018 4 - Hives PENICILLINS 03/29/2018 16 - Unknown PERCOCET (OXYCODONE-ACETAMINO PHEN)03/29/2018 11 - Vomiting Date Reviewed: 03/29/2018 Reviewed by: Angela Guallpa - Fully Assessed Reason for Visit: Uterine mass [Other] Cmt: New patient consultation Primary Visit Diagnosis:Abnormal uterine bleeding [N93.9] Other Visit Diagnosis:Endometria l mass [N94.89] Order(s):OUTSIDE SURG PATH SLIDE REVIEW [[id number]] Order #: [id number] MRI FEMALE PELVIS WO/W IVCON [[id number]] Order #: [id number] FUTURE [] iv contrast (will be provided with radiology test)MRI Female Pelvis Inject, intravenously, once for 1 dose. No IV access, insert saline lock prior to the beginning of sedation, infusion, injection of imaging exam. Discontinue saline lock post exam. If Pt has a central line or IVAD, may access for administration according to line specific nursing protocol. Once exam is complete flush line and de-access according to line specific nursing protocol in the MR contrast administration guidelines link.Disp: 1 EachRfl: 0 Surgical Lubricant Jelly gelFor MRI Female Pelvis, MRI department to provide. Administer intra-vaginal Surgilube immediately prior the MRI procedure (total amount to patient toleranace).Disp: 1 gRfl: 0 Follow-up and Disposition History Recorded Prescriptions as of 03/29/2018 Sig: TYLENOL COLD DAY-NIGHT PACK O* Take by mouth. LORAZEPAM 0.5 MG TABLET Take by mouth three times nunu* VITAMIN C ORAL Take by mouth. VENTOLIN HFA 90 MCG/ACTUATION* PANTOPRAZOLE 40 MG TABLET,DEL* IV CONTRAST (RADIOLOGY PROCED* MRI Female Pelvis Inject, int* SURGICAL LUBRICANT JELLY TOPI* For MRI Female Pelvis, MRI de* TRAMADOL 50 MG TABLET DICYCLOMINE 20 MG TABLET Take 20 mg by mouth as needed. Problem List As Of Date: 03/29/2018 (None) Encounter Status:Closed by RISA YOON MD on 04/05/18 [facility] PROGRESSon 03-28-2018 PROGRESS HNO ID: [id number] Author: hCristi Terrell Service: (none) Author Type: Nurse Practitioner Type: Progress Notes Filed: 03/28/2018 3:02 PM Note Text: Chart prepped for upcoming appt with Dr. Yoon. Christi Terrell APRN.SUPERSONIC ENGINEER [facility] PROGRESS HNO ID: [id number] Author: Risa Yoon Service: (none) Author Type: Physician Type: Progress Notes Filed: 04/05/2018 1:47 PM Note Text: Gynecologic Oncology [facility] [place] Consultation Re: Judy Mishra CCF#: [id number] 03/29/[address] Woods for an opinion regarding uterine mass. My final recommendations will be communicated back to the requesting physician by way of shared Medical record or letter to requesting physician via US mail. Dear Noah Woods: Thank you for referring Judy for consultation. Briefly, she is a 48 year old female who has a past medical history of Abdominal fullness; Abdominal hernia; Acute pain in female pelvis; Endometrial mass; Enlarged uterus; Irregular menses; and Thickened endometrium. She has a past surgical history that includes dANDc (03/18/2018); cholecystectomy hx (11/04/2017); anesth, section (1996); and laproscopy, biopsy small intestine. She presents today for evaluation and management of uterine mass, patient sent d/t desire of definitve treatment with hysterectomy. PROCEDURE: 03/08/2018 - OP REPORT PATHOLOGY: 03/08/2018 - REPORT IMAGIN01/24/2018 - PELVIC US 01/17/2018 - CT A/P LABS: No results found for: CA125 HEALTH MAINTENANCE: Last pap: 02/2018 - negative Last mammogram: Last colonoscopy: HISTORIES: PAST GYNECOLOGIC HISTORY: Obstetric History T0 L0 SAB0 TAB0 Ectopic0 Multiple0 Live Births0 LMP: No LMP recorded. Hormonal contraceptives: History of abnormal pap: No. PAST MEDICAL HISTORY Diagnosis Date - Abdominal fullness - Abdominal hernia - Acute pain in female pelvis - Endometrial mass - Enlarged uterus - Irregular menses - Thickened endometrium PAST SURGICAL HISTORY Procedure Laterality Date - ANESTH, SECTION 1995, 1996 - CHOLECYSTECTOMY HX 11/04/2017 - DANDC 03/18/2018 S/P, hysterscopy w/ myosure - LAPROSCOPY, BIOPSY SMALL INTESTINE FAMILY HISTORY Problem Relation Age of Onset - Stroke Father Family history of breast, ovarian, uterine or colon cancer: No Family history of VTE: No SOCIAL HISTORY Social History Substance Use Topics - Smoking status: Never Smoker - Smokeless tobacco: Not on file - Alcohol use Not on file Marital Status: REVIEW OF SYSTEMS: GENERAL: No recent weight loss, fever, chills, malaise or fatigue. HEENT: No changes in hearing or vision, frequent or severe headaches, nose bleeds or other nasal problems. NECK: No lumps, goiter, pain, significant neck swelling, or difficulty swallowing. RESPIRATORY: No shortness of breath, cough, wheezing, recent pneumonia (within last 6 weeks) or recent URI (within 2 weeks). CARDIOVASCULAR: No angina with activity or at rest, lower extremity edema, or palpitations. No recent MO (within 6 months), cardiac stent, cardiac surgery, gangrene, or PVD. No history of hypertension. BREAST: No breast lumps, skin changes, nipple discharge, or adenopathy. GI: No abdominal pain, nausea, vomiting, diarrhea, or constipation. No prior history of esophageal varicies or ascites. Patient denies drinking >2 alcoholic beverages a day. : No dysuria, gross hematuria, urinary frequency, urinary urgency, or incontinence. No history of renal failure, dialysis, or recent UTI (<6 weeks). MUSCULOSKELETAL: No muscle weakness or joint pain. SKIN: No skin lesions, rashes, or itching. PSYCH: No sleep disturbances, depression, bipolar disorder, drug dependency/history of drug dependency, or recent psychosocial stressors. HEMATOLOGY/LYMPHOLOG Y: No prolonged bleeding, bruising easily, swollen nodes, or anemia. No prior history of a blood clot or clotting disorder. No prior history of a bleeding disorder. Not on chronic anticoagulant/platel et medications. ENDOCRINE: No cold or heat intolerance, polyuria, polydipsia, polyphagia, goiter, hot flashes or night sweats. No prior diagnosis of diabetes or thyroid disorder. No chronic steroid use. NEURO: No history of paralysis, stroke/TIA, seizures, tremors, syncope, or paresthesias. ECOG performance status is zero (fully active, able to carry on all pre-disease performance without restriction) OBJECTIVE: VITALS: There were no vitals taken for this visit. GENERAL: Patient is a well developed, well nourished female. She is alert, oriented, pleasant and cooperative. SKIN: Color, texture, turgor normal. No rashes or lesions. HEENT: Normocephalic, atraumatic, mucus membranes moist and no lesions NECK: Supple, no adenopathy; thyroid symmetric, normal size, no bruits LUNGS: Clear to auscultation bilaterally. HEART: Regular rate and rhythm, no murmurs. BACK: No CVA tenderness or gross deformities. BREAST: deferred exam ABDOMEN: Abdomen soft, non-tender, no hepatosplenomegaly. Senior Hr Business Partner for exam: Was present PROCEDURES: None ASSESSMENT: 48 yr old woman with endometrial mass/polyp, irregular menses s/p D/C c/w benign polyp and scant non-poyp PLAN: We discussed the result of her scans and pathology. Her pathology showed benign polyp but scant non-polyp endometrial tissue - Will obtain pelvic MRI - See me after the MRI Total face to face time 60 minutes and more that 50% spent on counseling the patient and coordinating her care. Thank you for referring her for gynecologic oncology consultation. I will be in touch with you regarding her findings. Sincerely, Risa Yoon MD A letter and a copy of this office note were sent to: Noah Woods, [address] [place] [address] CC: Selvin Mack Sr, MD (PCP) [facility] US-US PELVIS TRANSVAG IMPORT on 01-24-2018 US-US PELVIS TRANSVAG IMPORT Images were obtained outside of [facility] [id number] CN [facility] CT-CT ABD/PELVIS W CON IMPOR Ton 01-17-2018 CT-CT ABD/PELVIS W CON IMPORT Images were obtained outside of [facility] [id number] [facility] Vital Signs Date Time Vital Sign Value Performing Clinician Faci jose 06-12-2022 11:17-0400 Diastolic blood pressure 88 mm[Hg] Kitty Hairston MD Work Phone: [facility] 06-12-2022 11:17-0400 Heart rate 71 /min Kitty Hairston MD Work Phone: [facility] 06-12-2022 11:17-0400 Respiratory rate 23 /min Kitty [facility]irston MD [facility] 06-12-2022 11:17-0400 SaO2% (BldA) [Mass fraction] 97 % Kitty Hairston MD Work [facility] 06-12-2022 11:17-0400 Systolic blood pressure 110 mm[Hg] Kitty Hairston MD [facility] 06-12-2022 10:17-0400 Body height 160 cm Kitty Hairston MD [facility] 06-12-2022 10:17-0400 Body mass index (BMI) [Ratio] 34.37 kg/m2 Kitty Hairston MD Work [facility] 06-12-2022 10:17-0400 Body temperature 98.4 [degF] Kitty Hairston MD [facility] 06-12-2022 10:17-0400 Body weight 88 kg Kitty Hairston MD [facility] 06-08-2020 13:52-0400 Body temperature 98.01 [degF] Stephie Iverson MD Work Phone: [employer] Work Phone: 06-08-2020 13:52-0400 Body weight 90.49 kg Stephie Iverson MD Work Phone: [employer] Work Phone: 06-08-2020 13:52-0400 Diastolic blood pressure 71 mm[Hg] Stephie Iverson MD Work Phone: [facility] Work Phone: 06-08-2020 13:52-0400 Heart rate 85 /min Stephie Iverson MD Work Phone: [facility] Work Phone: 06-08-2020 13:52-0400 Respiratory rate 16 /min Stephie Iverson MD Work Phone: [facility] Work Phone: 06-08-2020 13:52-0400 SaO2% (BldA) [Mass fraction] 98 % Stephie Iverson MD Work Phone: [facility] Work Phone: 06-08-2020 13:52-0400 Systolic blood pressure 154 mm[Hg] Stephie Iverson MD Work Phone: [facility] Work Phone: Encounters Encounter Date Encounter Type Care Provider Facility Start: 07-13-2022 End: 07[facility]14[facility] [facility] Start: 07-13-2022 End: 07-13-2022 Subsequent hospital visit by physician [facility] Comment on above: SOB (shortness of br eath); Palpitations; Chest pain, unspecified type Start: 06-12-2022 End: 06-12-2022 Emergency department patient visit SELVIN MACK [facility] Start: 06-12-2022 End: 06-12-2022 Emergency department patient visit Kitty Hairston MD Work Phone: [facility] ED Comment on above: Atypical chest pain (Primary Dx) Start: 03-19-2022 End: 03-19-[address] SELVIN MACK Facility:[facility] Start: 12-05-2021 End: 12-06-[address] DIOGO LUX Facility:[facility] Start: 09-30-2021 End: 10-01-[address] DIOGO LUX Facility:[facility] Start: 08-23-2021 End: 08-24-[address] DIOGO LUX Facility:[facility] Start: 08-19-2021 End: 08-20-[address] DIOGO LUX Facility:[facility] Start: 04-25-2021 End: 04-26-[address] DIOGO LUX Facility:[facility] Start: 04-11-2021 End: 04-12-[address] DIOGO LUX Facility:[facility] Start: 06-08-2020 End: 06-08-2020 Emergency department patient visit Stephie Iverson MD Work Phone: [facility] ED Comment on above: Dyspnea, unspecified type (Primary Dx); Anxiety state; History of 2019 novel coronavirus disease (COVID-19); Multiple thyroid nodules; Renal cyst, left; Essential hypertension; Thyromegaly Procedures Date Procedure Procedure Detail Performing Clinician Start: 06-12-2022 Radiologic exam ches t 2 views Kitty Hairston MD Work Phone: Start: 06-12-2022 Comprehensive metabo lic panel Kitty Hairston MD Work Phone: Start: 06-12-2022 Ecg routine ecg w/le ast 12 lds w/i&r Kitty Hairston MD Work Phone: Start: 06-08-2020 Ct angiography chest w/contrast/noncontrast Stephie Iverson MD Work Phone: Start: 06-08-2020 Dup-scan xtr veins unilateral/limited study Stephie Iverson MD Work Phone: Start: 06-08-2020 BASIC METABOLIC PANE L W/ REFLEX TO MG FOR LOW K Stephie Iverson MD Work Phone: Start: 06-08-2020 Fibrin dgradj produc ts d-dimer quantitative Stephie Iverson MD Work Phone: Plan of Treatment Date Care Activity Detail Author Start: 09-12-2022 Influenza vaccination Flu vaccine (S sunil Ended) [facility] [employer] Start: 02-22-2022 Screening for malignant neoplasm of breast Breast cancer screen [facility] Start: 02-22-2022 Shingles vaccine (1 of 2) Shingles vaccine (1 of 2) [facility] [employer] Start: 10-13-2020 Influenza vaccination Flu vaccine (S sunil Ended) [facility] Work Phone: Start: 02-22-2017 Screening for malignant neoplasm of colon [facility] Start: [facility]: 02-22-1993 Screening for malignant neoplasm of cervix Cervical cancer screen [employer] Phone: Start: 02-22-1991 DTaP/Tdap/Td vaccine (1 - Tdap) DTaP/Tdap/Td vaccine (1 - Tdap) [facility] [employer] Start: 02-22-1990 Hepatitis C screening Hepatitis C sc reen [facility] [employer] Start: 1988 COVID-19 Vaccine (1) COVID-19 Vaccin e (1) [employer] Phone: Start: 02-22-1987 HIV screening HIV screen [facility] Start: 1984 Depression Screen Depression Screen [facility] Start: 1972 COVID-19 Vaccine (#1) COVID-19 Vacci ne (#1) [facility] Start: 1972 Hepatitis C screening Hepatitis C [facility] [place] [facility] Phone: Dup-scan xtr veins complete bilateral study [facility] Ordered: 06/08/2020 [facility] Phone: Comment on above: Ordered: 06/08/2020 End: 07-13-2022 ECHO Complete 2D W Doppler W Color ECHO Complete 2D W Doppler W Color Echocardiography Routine SOB (shortness of breath) Palpitations Chest pain, unspecified type 1 Occurrences starting 07/13/2022 until 07/13/2022 [facility] Phone: Comment on above: 1 Occurrences starti ng 07/13/2022 until 07/13/2022 EKG 12 Lead EKG 12 Lead ECG Routine 06/12/2022 10:27 AM EDT [facility] Phone: End: 07-13-2022 Exercise stress test study CARDIAC STRESS TEST EXERCISE ONLY [facility] Routine SOB (shortness of breath) Palpitations Chest pain, unspecified type 1 Occurrences starting 07/13/2022 until 07/13/2022 [facility] Phone: Comment on above: 1 Occurrences starti ng 07/13/2022 until 07/13/2022 Payers Date Payer Category Payer Unknown [id number] 2.16.84 [id number] 1972 Unknown [id number] 2.16.84 [id number] 1972 Unknown [id number] 2.16.84 [id number] 1972 Unknown [id number] 2.16.84 [id number] 1972 Unknown [id number] 2.16.84 [id number] 1972 Unknown [id number] 2.16.84 [id number] 1972 Unknown [id number] 2.16.84 [id number] 1972 Unknown [id number] 2.16.8 [id number] 1972 Unknown [id number] 2.16.8 [id number] 1972 Unknown [id number] 2.16.8 [id number] 1959 Unknown [id number]. [id number] Social History Date Type Detail Facility Start: 06-08-2020 Tobacco smoking status INIS Never sm oker [facility] Start: 06-08-2020 Tobacco use and exposure Never used [facility] Start: 1970 Sex Assigned At Not on file [employer] Phone: Exposure to SARS-CoV -2 (event) Not sure [facility] Start: 06-12-2022 History SDOH Alcohol Frequency 1 [facility] Phone: Start: 06-12-2022 History SDOH Alcohol Std Drinks 0 [facility] Phone: Hospital Discharge instructions 06-12-2022 Discharge InstructionsAttachments Note Date & Type Note Facility 06-12-2022 Hospital Discharg e instructions Kitty Hairston MD - 06/12/2022 11:50 AM EDT Monitor for worsening pain shortness of breath or other problems. Call your primary care doctor for close follow-up. Referred to cardiology for further evaluation. The following attachments cannot be sent through Care Everywhere.Chest Pain (Citizen Of [place])documented in this encounter SHIRA RADFORD [employer] Phone: Clinical Note 06-08-2020 Note Date & Type Note Facility [facility] Procedure Patient Name MISHRA Date of Study 06/08/2020 JUDY Yoon Date of 1970 Gender Female Age 50 year(s) Race Room Number 06 Height: 63 inch, 160.02 cm Corporate ID [id number] Weight: 200 pounds, 90.7 kg # Patient Acct [id number] BSA: 1.93 m^2 BMI: 35.43 kg/m^2 # MR # [id number] Project Technician RT Prosper Interpreting Physician Gian Braga Referring Referring Physician Stephie Iverson Nurse Practitioner Procedure Type of Study: Veins: Lower Extremities DVT Study, DUP LOWER EXTREMITY VENOUS LEFT. Indications for Study:Leg Swelling. Patient Status:STAT. Comments:Left leg pain, no injury, since hx of covid 03/2020. Conclusions Summary Negative for DVT left lower extremity and right groin. Signature Findings: Right Impression: Left Impression: Right groin scanned for The common femoral, superficial femoral, comparison appears normal. popliteal, tibials, and greater saphenous Duplex scan using B-mode, [place] veins, profunda are patent, compressible scale imaging. Spectral doppler with normal doppler responses. analysis and color flow No evidence for DVT in today's exam. throughout the exam. Duplex scan using B-mode, [place] scale imaging. Spectral doppler analysis and color flow throughout the exam. Velocities are measured in cm/s ; Diameters are measured in cm Right Lower Extremities DVT Study Measurements Right 2D Measurements + +- ---------+ + + !Location !Visualized!Compressibility!Thrombosis! + +- ---------+ + + !Common Femoral !Yes !Yes !None ! + +- ---------+ + + Left Lower Extremities DVT Study Measurements Left 2D Measurements + +- ---------+ + + !Location !Visualized!Compressibility!Thrombosis! + +- ---------+ + + !Common Femoral !Yes !Yes !None ! + +- ---------+ + + !Prox Femoral !Yes !Yes !None ! + +- ---------+ + + !Mid Femoral !Yes !Yes !None ! + +- ---------+ + + !Dist Femoral !Yes !Yes !None ! + +- ---------+ + + !Deep Femoral !Yes !Yes !None ! + +- ---------+ + + !Popliteal !Yes !Yes !None ! + +- ---------+ + + !Sapheno Femoral Junction !Yes !Yes !None ! + +- ---------+ + + !PTV !Yes !Yes !None ! + +- ---------+ + + !Peroneal !Yes !Yes !None ! + +- ---------+ + + !Gastroc !Yes !Yes !None ! + +- ---------+ + + !GSV Thigh !Yes !Yes !None ! + +- ---------+ + + !GSV Knee !Yes !Yes !None ! + +- ---------+ + + !GSV Ankle !Yes !Yes !None ! + +- ---------+ + + !SSV !Yes !Yes !None ! + (more content not included)... [facility] Work Phone: Evaluation note Note Date & Type Note Facility Evaluation note Diagnosis Dyspnea, unspecified type- Primary Anxiety state Anxiety state, unspecified History of 2019 novel coronavirus disease (COVID-19) Multiple thyroid nodules Nontoxic multinodular goiter Renal cyst, left Unspecified congenital cystic kidney disease Essential hypertension Unspecified essential hypertension Thyromegaly Goiter, unspecified documented in this encounter [employer] Phone: Evaluation note Note Date & Type Note Facility Evaluation note Diagnosis Atypical chest pain- Primary Other chest pain documented in this encounter [facility] Phone: Evaluation note Note Date & Type Note Facility Evaluation note Diagnosis SOB (shortness of breath) Shortness of breath Palpitations Chest pain, unspecified type documented in this encounter [facility] Phone: Hospital Discharge instructions Attachments Note Date & Type Note Facility Hospital Discharge instructions The following attachments cannot be sent through Care Everywhere.Anxiety Disorders: General Info (Citizen Of [place])SOB (Shortness of Breath) (Citizen Of [place])Thyroid Nodules (Citizen Of [place])Hypertension: General Info (Citizen Of [place])Goiter (Citizen Of [place])documented in this encounter [employer] Phone: Summary Purpose Family History No Family History Records FoundNo Family History Records FoundNo Family History Records Found Advance Directives No Advanced Directives Records FoundNo Advanced Directives Records FoundNo Advanced Directives Records Found Reason for Referral Specialty Diagnoses / Procedures Referred By Contac t Referred To Contact Cardiology Diagnoses SOB (shortness of breath) Palpitations Chest pain, unspecified type Procedures CARDIAC STRESS TEST EXERCISE ONLY Brian Cottrell MD [address] [place] [id number] Referral ID Status Reason Start Date Expiration Date V isits Requested Visits Authorized [id number] Not Required - RTA 06/13/2022 06/13/2023 1 1 Specialty Diagnoses / Procedures Referred By Contac t Referred To Contact Cardiology Diagnoses SOB (shortness of breath) Palpitations Chest pain, unspecified type Procedures ECHO Complete 2D W Doppler W Color Brian Cottrell MD [address] [place] [id number] Referral ID Status Reason Start Date Expiration Date V isits Requested Visits Authorized [id number] Not Required - RTA 06/13/2022 06/13/2023 1 1 Additional Source Comments INFORMATION SOURCE (unrecogn ized section and content) DATE CREATED AUTHOR 11/23/2018 [facility] DATE CREATED AUTHOR AUTHOR'S ORGANIZ ATION 03/21/2022 [facility] DATE CREATED AUTHOR AUTHOR'S ORGANIZ ATION 07/22/2022 Angela stanton Reason for Visit (unrecogniz ed section and content) Reason Comments Shortness of Breath Pt states that she h as been SOB, episodes of heart racing , and left leg pain since having COVID in Mar. Reason Comments Chest Pain Pt has been having c hest pain for months Specialty Diagnoses / Procedures Referred By Contac t Referred To Contact Cardiology Diagnoses SOB (shortness of breath) Palpitations Chest pain, unspecified type Procedures CARDIAC STRESS TEST EXERCISE ONLY Brian Cottrell MD [address] [place] [address] Referral ID Status Reason Start Date Expiration Date V isits Requested Visits Authorized [id number] Not Required - RTA 06/13/2022 06/13/2023 1 1 Specialty Diagnoses / Procedures Referred By Contac t Referred To Contact Cardiology Diagnoses SOB (shortness of breath) Palpitations Chest pain, unspecified type Procedures ECHO Complete 2D W Doppler W Color Brian Cottrell MD [address] [place] [address] Referral ID Status Reason Start Date Expiration Date V isits Requested Visits Authorized [id number] Not Required - RTA 06/13/2022 06/13/2023 1 1 Scheduled Active and Recently Administ ered Medications (unrecognized section and content) Medication Order 06/10/2022 06/11/2022 06/12/2022 potassium chloride (KLOR-CON) extended release tablet 40 mEq (COMPLETED) 40 mEq, Oral, ONCE, 1 dose, On 06/12/22 at 1115, Do not crush or break. 1111 (Given - Provid er: Richard Pires RN) Care Teams (unrecognized sec tion and content) Solutions Engineer Relationship Specialty Start Date End Date Selvin Mack Sr., DO [address] [place] [address] PCP - General Family Medicine 06/08/20 Solutions Engineer Relationship Specialty Start Date End Date Selvin Mack Sr., DO [address] [place] [address] PCP - General Family Medicine 06/08/20 FOR RECORDS PERTAINING TO PATIENTS WHO ARE OR HAVE BEEN ENROLLED IN A CHEMICAL DEPENDENCY/SUBSTANCEABUSE PROGRAM, SOME INFORMATION MAY BE OMITTED. This clinical summary was aggregated from multiple sources. Caution should be exercised in using it in the provision of clinical care. This summary normalizes information from multiple sources, and as a consequence, information in this document may materially change the coding, format and clinical context of patient data. In addition, data may be omitted in some cases. CLINICAL DECISIONS SHOULD BE BASED ON THE PRIMARY CLINICAL RECORDS. [employer] provides no warranty or guarantee of the accuracy or completeness of information in this document.
[2023-03-23 04:07] LABS: Thyroglobulin (TG-RIA) <2.0 ng/mL (.)
== END 2023-03-12 10:30 | disposition home or self-care (01) ==
LOC: LAB 10:33
PROVIDERS: Visit Provider Otolaryngology
DX: C73 Malignant neoplasm of thyroid gland (principal)
CPT/HCPCS: 36415; 84432; 84443

== ENCOUNTER 2023-09-19 12:36 | Outpatient (OUT) | payer OTHER, SELFPAY ==
--- OUTSIDE RECORDS SUMMARY | 2023-09-19 12:45 | XMS_ITS | CCD ---
Author Organization [facility] Care Team Providers Care Bible Teacher Name Role Phone House , Sr Selvin Julien Primary Care Provider FREDERICK, [...] Care Unavailable TIMMIS, DR LIND Consulting Unavailable [place] Sr., Selvin SMITH Primary Care Provider Unavailable Primary Care Provider Unavailabl e ZHENMISDIOGO Attending Unavailable TIMMIS, DIOGO Andrade Attending Unavailable Augustina WARRENN - SURVEY RESEARCHERJosé Miguel Primary Care Provide r Augustina PALMA - José Miguel MALONE Primary Care Provide r HOUSE SR, SELVIN P Primary Care Unavailable VIGESAA, BRIAN S Referring Unavailable AUGUSTINA, JOSÉ MIGUEL Primary Care Unavailable SARAH FREY Attending Unavailable DIAB Otf [id number] JARRED Attendi ng Unavailable HOUSE SR, SELVIN P Primary Care Unavailable VIGESAA, BRIAN S Referring Unavailable HOUSE SR, SELVIN P Primary Care Unavailable AUGUSTINA, JOSÉ MIGUEL Referring Unavailable AUGUSTINA, JOSÉ MIGUEL Primary Care Unavailable AUGUSTINA, JOSÉ MIGUEL Referring Unavailable AUGUSTINA, JOSÉ MIGUEL Attending Unavailable AUGUSTINA, JOSÉ MIGUEL Primary Care Unavailable MARKELL SOTO Attending Unavailable AUGUSTINA, JOSÉ MIGUEL Primary Care Unavailable Allergies Allergy Classification Reported Allergen(s) Allergy Type Date of Onset Reaction(s) Facility (1 source) Acetaminophen / oxyCODONE Drug Allergy 10-20-19 17 [facility] (1 source) Adhesive bandage Drug allergy (disorder) 07-31-19 21 [facility] (1 source) bee venom Drug allergy (disorder) [facility] (4 sources) Lymecycline Drug Allergy 10-20-19 23 Rash [facility] (1 source) Penicillin Drug Allergy [facility] (9 sources) Acetaminophen / oxyCODONE Drug Allergy 10-20-19 17 Nausea And [facility]iting, GI [facility] Penicillins Propensity to adverse reactions to drug 03-29-19 19 [facility] Work Phone: (9 sources) Sulfamethoxazole / Trimethoprim Drug Allergy 03-29-19 19 Hives [facility] Work Phone: (3 sources) Honey bee venom Propensity to adverse reactions 10-20-19 23 [facility] Work Phone: (3 sources) Lymecycline Propensity to adverse reactions 10-20-19 23 [facility] (3 sources) Penicillins Drug Intolerance 03-29-19 19 Rash, Unknown [facility] (6 sources) Wound Dressing Adhesive Drug Intolerance 07-31-19 21 Other (See Comments) [facility] (3 sources) bee venom Propensity to adverse reactions to drug 10-20-19 23 Anaphylaxis [facility] Work Phone: (3 sources) Penicillin G Drug Allergy 10-20-19 23 Rash [facility] Work Phone: (3 sources) Silicone adhesive tape Propensity to adverse reactions to drug 07-31-19 21 Other (See Comments) [facility] Medications Current Medications Medication Drug Class(es) Dates Sig (Normalized) Sig (Original) acetaminophen 250 mg / aspirin 250 mg / caffeine 65 mg oral tablet (4 sources) Platelet Aggregation Inhibitor, Nonsteroidal Anti-inflammatory Drug, Central Nervous System Stimulant, Methylxanthine take 1 tablet by mouth every six hours as needed for headache aspirin-acetaminoph en-caffeine (EXCEDRIN MIGRAINE) 250-250-65 MG per tablet Take 1 tablet by mouth every 6 hours as needed for Headaches 0 Active ascorbic acid 500 mg oral capsule (9 sources) Vitamin C take 1 capsule by mouth once daily Ascorbic Acid (VITAMIN C) 500 MG CAPS Take 500 mg by mouth daily 0 Active cholecalciferol 0.05 mg oral tablet (3 sources) Vitamin D Cholecalciferol (VITAMIN D3) 50 MCG (1999 UT) TABS Take by mouth 0 Active Choline (3 sources) take 550 mg by mouth once daily CHOLINE BITARTRATE PO Take 550 mg by mouth daily 0 Active [id number] 0.3 ml EPINEPHrine 1 mg/ml auto-injector (3 sources) alpha-Adrenergic Agonist, beta-Adrenergic Agonist, Catecholamine Start: 03-19-2023 EPINEPHrine (EPIPEN) 0.3 MG/0.3ML SOAJ injection Indications: Allergy to honey bee venom Use as directed for allergic reaction 2 each 2 03/19/2023 Active famotidine 20 mg oral tablet (2 sources) Histamine-2 Receptor Antagonist End: 06-12-2022 take 1 tablet by mouth twice daily famotidine (PEPCID) 20 MG tablet Take 20 mg by mouth 2 times daily 0 06/12/2022 Discontinued (LIST CLEANUP) levothyroxine sodium 0.088 mg oral tablet (7 sources) l-Thyroxine Start: 10-02-2022 take 1 tablet by mouth once daily in the morning levothyroxine (SYNTHROID) 88 MCG tablet TAKE ONE TABLET BY MOUTH ONCE DAILY ON AN EMPTY STOMACH IN THE MORNING 0 10/02/2022 Active End: 06-12-2022 take 1 tablet by mouth once daily levothyroxine (SYNTHROID) 88 MCG tablet Take 1 tablet by mouth Daily 0 06/12/2022 Discontinued (LIST CLEANUP) loratadine 10 mg oral capsule (6 sources) take 1 capsule by mouth in the morning Loratadine 10 MG capsule Take 1 capsule by mouth in the morning. 0 Active LORazepam 0.5 mg oral tablet (8 sources) Benzodiazepine Start: 03-19-2023 End: 04-03-2023 take 1 tablet by mouth every eight hours as needed for anxiety LORazepam (ATIVAN) 0.5 MG tablet Indications: Other mixed anxiety disorders Take 1 tablet by mouth every 8 hours as needed for Anxiety for up to 15 days. Max Daily Amount: 1.5 mg 45 tablet 0 03/19/2023 04/03/2023 Active take 1 tablet by marianna th three times daily as needed LORazepam (Ativan) 0.5 MG tablet Take 1 tablet by mouth 3 (three) times a day as needed 0 Active Magnesium (1 source) magnesium (MAGNESIUM-OXIDE) 250 MG TABS tablet Take 480 mg by mouth daily 0 Active magnesium oxide 250 mg oral tablet (2 sources) magnesium (MAGNESIUM-OXIDE) 250 MG TABS tablet Take 480 mg by mouth daily 0 Active 2 ml ondansetron 2 mg/ml injection (1 source) Serotonin-3 Receptor Antagonist Start: 07-01-19 24 ondansetron (ZOFRAN) injection 4 mg pantoprazole 40 mg delayed release oral tablet (3 sources) Proton Pump Inhibitor Start: 10-20-19 23 take 1 tablet by mouth before mealtime pantoprazole (ProtoNix) 40 MG EC tablet Take 40 mg by mouth in the morning. Take before meals. 0 10/19/2022 Active Probiotic Product (PROBIOTIC ADVANCED PO) (3 sources) Probiotic Produc t (PROBIOTIC ADVANCED PO) Probiotic 0 Active Probiotic Product (PROBIOTIC BLEND PO) (3 sources) Probiotic Produc t (PROBIOTIC BLEND PO) Probiotic 0 Active valerian root extract 250 mg oral capsule (3 sources) VALERIAN ROOT PO Take 250 mg by mouth 0 Active Zinc Sulfate (3 sources) Zinc Sulfate (ZI NC 15 PO) Take by mouth Calcium 120mg, zinc 15mg 0 Active Completed/Discontinued Medications Medication Drug Class(es) Dates Sig (Normalized) Sig (Original) cefdinir 300 mg oral capsule (3 sources) Cephalosporin Antibacterial End: 03-20-2023 take 1 capsule by mouth in the morning cefdinir (Omnicef) 300 MG capsule Take 300 mg by mouth in the morning and 300 mg before bedtime. 0 03/20/2023 Discontinued (Therapy completed) iopamidol (ISOVUE-370) 76 % injection 100 mL (1 source) Start: 06-08-2020 End: 06-08-2020 iopamidol (ISOVUE-370) 76 % injection 100 mL iopamidol (ISOVUE-370) 76 % injection 75 mL (1 source) Start: 07-01-2023 End: 07-01-2023 iopamidol (ISOVUE-370) 76 % injection 75 mL potassium chloride 10 meq extended release oral tablet (1 source) Start: 06-12-2022 End: 06-12-2022 potassium chloride (KLOR-CON) extended release tablet 40 mEq Start: 06-12-2022 End: 06-12-2022 potassium chloride (KLOR-CON ) extended release tablet 40 mEq 50 ml sodium chloride 9 mg/m l injection (1 source) Start: 07-01-2023 End: 07-02-2023 sodium chloride 0.9 % bolus 500 mL Problems Active Problems Problem Classification Problem Date Documented Date Episodic/Chronic Anxiety disorders (5 sources) Anxiety state; 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: [Generalized anxiety disorder] Onset: 03-21-2022 Chronic Cancer of thyroid (15 sources) Malignant neoplasm of thyroid gland; 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] Onset: 12-05-2021 Chronic Complications of surgical procedures or medical care (11 sources) Postprocedural hypothyroidism; 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: [Postoperative hypothyroidism] Onset: 09-30-2021 Resolved: 03-06-2023 Chronic E Codes: Fall (2 sources) Fall; 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: [Unspecified fall, initial encounter] Onset: 07-02-2023 07-02-2023 Episodic E Codes: Natural/environment (1 source) Exposure to other specified factors, initial encounter; 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: [EXPOSURE OTHER SPEC FACTORS INITIAL] Onset: 03-21-2022 Episodic Esophageal disorders (6 sources) Laryngopharyngeal reflux; 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: [Gastro-esophageal reflux disease without esophagitis] Onset: 03-06-2023 03-06-2023 Chronic Essential hypertension (1 source) Essential hypertension; 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: [Essential (primary) hypertension] Chronic Inflammation; infection of eye (except that caused by tuberculosis or sexually transmitteddisease) (1 source) Unspecified acute conjunctivitis, unspecified eye; 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: [Unspecified acute conjunctivitis, unspecified eye] Onset: 08-31-2023 Episodic Other aftercare (1 source) Other terminal make up operator (current) drug therapy; 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: [OTH RESIDENTIAL CURRENT DRUG THERAPY] Onset: 03-21-2022 Episodic Other diseases of kidney and ureters (1 source) Cyst of kidney; 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: [Cyst of kidney, acquired] Episodic Other infections; including parasitic (1 source) Personal history of other infectious and parasitic diseases; 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: [History of 2019 novel coronavirus disease (COVID-19)] Episodic Sprains and strains (6 sources) Sprain of unspecified site of left knee, initial encounter; 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: [Sprain of left knee] Onset: 03-21-2022 03-19-2023 Episodic Thyroid disorders (11 sources) Multinodular goiter; 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: [Nontoxic multinodular goiter] Onset: 03-06-2023 Resolved: 03-06-2023 Chronic Past or Other Problems Problem Classification Problem Date Documented Da te Episodic/Chronic Abdominal pain (2 sources) Right upper quadrant pain; 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: [Right upper quadrant pain] Onset: 03-21-2023 03-21-2023 Episodic Cardiac dysrhythmias (6 sources) Palpitations; 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: [Palpitations] Onset: 07-13-2022 Episodic Gastritis and duodenitis (1 source) Acute gastritis without bleeding; 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: [Acute gastritis without bleeding] Onset: 10-19-2022 Episodic Menopausal disorders (4 sources) Hormone replacement therapy; 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: [Drug therapy status] Onset: 03-21-2022 03-19-2023 Episodic Nonspecific chest pain (7 sources) Atypical chest pain; 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: [Other chest pain] Onset: 07-13-2022 Episodic Other aftercare (3 sources) Long-term current use of drug therapy; 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: [Other group home (current) drug therapy] Onset: 03-21-2022 03-19-2023 Episodic Other lower respiratory disease (6 sources) Dyspnea; 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: [Dyspnea, unspecified] Onset: 03-19-2023 Episodic Other lower respiratory disease (1 source) Shortness of breath; 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: [Shortness of breath] Onset: 07-13-2022 Episodic Other non-traumatic joint disorders (6 sources) Pain in left knee; 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: [Pain in joint, lower leg] Onset: 03-19-2022 Episodic Results Test Name Value Interpretation Reference Range Facility CT COMPARISON OF OUTSIDE KEMAL MSon 07-05-2023 CT COMPARISON OF OUTSIDE FILMS RADRPT There is no result for this study. This is a placeholder for comparison films only. Final result Normal [facility] CT COMPARISON OF OUTSIDE FILMS RADRPT There is no result for this study. This is a placeholder for comparison films only. Final result Normal [facility] CT ABDOMEN PELVIS W IV CONTR Cindy 07-02-2023 CT ABDOMEN PELVIS W IV CONTRAST EXAMINATION: CT ABDOMEN PELVIS W IV CONTRAST, 07/01/2023 11:04 PM EDT HISTORY: trauma . Fall off of a swing yesterday. Increasing back pain. COMPARISON: CT lumbar spine, 07/01/[address] abdomen pelvis, 01/17/2018. TECHNIQUE: CT scan of the abdomen and pelvis was performed using IV contrast. Sagittal and coronal reconstructions are provided. CT dose reduction technique was used, including Automated Exposure Control. FINDINGS: CT ABDOMEN: There is mild left basilar linear atelectasis. The lung bases are otherwise clear. Imaged heart is unremarkable. Cholecystectomy clips are noted with no biliary ductal dilatation. No acute solid organ injury is seen. The liver, pancreas, spleen, adrenal glands and right kidney are unremarkable. There is a 3.8 cm cortical cyst in the posterior left kidney. The left kidney is otherwise unremarkable. The stomach, small bowel, aorta and IVC appear normal. There is a fat-containing midline supraumbilical ventral hernia with a fat-containing umbilical hernia. CT PELVIS: No acute pelvic organ injury is seen. The appendix, pelvic small bowel loops, colon and urinary bladder are unremarkable. Prior hysterectomy is noted. No inflammatory fat stranding, free fluid, loculated fluid or free air is seen in the abdomen or pelvis. No acute osseous abnormality or suspicious bony lesion is seen. IMPRESSION: 1. No acute traumatic change or other acute diagnostic abnormality in the abdomen or pelvis. 2. Prior cholecystectomy and hysterectomy. 3. Fat-containing midline supraumbilical and umbilical hernias. Interpreted by: Rc Ramos MD Signed by: Rc Ramos MD 07/02/23 Final result Normal [facility] CT Abdomen and Pelvis W cont rast Parminder 07-02-2023 1. No acute traumatic change or other acute diagnostic abnormality in the abdomen or pelvis. 2. Prior cholecystectomy and hysterectomy. 3. Fat-containing midline supraumbilical and umbilical hernias. [facility] RIS CONSOL[facility] EXAMINATION: CT ABDOMEN PELVIS W IV CONTRAST, 07/01/2023 11:04 PM EDT HISTORY: trauma . Fall off of a swing yesterday. Increasing back pain. COMPARISON: CT lumbar spine, 07/01/[address] abdomen pelvis, 01/17/2018. TECHNIQUE: CT scan of the abdomen and pelvis was performed using IV contrast. Sagittal and coronal reconstructions are provided. CT dose reduction technique was used, including Automated Exposure Control. FINDINGS: CT ABDOMEN: There is mild left basilar linear atelectasis. The lung bases are otherwise clear. Imaged heart is unremarkable. Cholecystectomy clips are noted with no biliary ductal dilatation. No acute solid organ injury is seen. The liver, pancreas, spleen, adrenal glands and right kidney are unremarkable. There is a 3.8 cm cortical cyst in the posterior left kidney. The left kidney is otherwise unremarkable. The stomach, small bowel, aorta and IVC appear normal. There is a fat-containing midline supraumbilical ventral hernia with a fat-containing umbilical hernia. CT PELVIS: No acute pelvic organ injury is seen. The appendix, pelvic small bowel loops, colon and urinary bladder are unremarkable. Prior hysterectomy is noted. No inflammatory fat stranding, free fluid, loculated fluid or free air is seen in the abdomen or pelvis. No acute osseous abnormality or suspicious bony lesion is seen. [facility] Rc Ramos MD - 07/02/2023 EXAMINATION: CT ABDOMEN PELVIS W IV CONTRAST, 07/01/2023 11:04 PM EDT HISTORY: trauma . Fall off of a swing yesterday. Increasing back pain. COMPARISON: CT lumbar spine, 07/01/[address] abdomen pelvis, 01/17/2018. TECHNIQUE: CT scan of the abdomen and pelvis was performed using IV contrast. Sagittal and coronal reconstructions are provided. CT dose reduction technique was used, including Automated Exposure Control. FINDINGS: CT ABDOMEN: There is mild left basilar linear atelectasis. The lung bases are otherwise clear. Imaged heart is unremarkable. Cholecystectomy clips are noted with no biliary ductal dilatation. No acute solid organ injury is seen. The liver, pancreas, spleen, adrenal glands and right kidney are unremarkable. There is a 3.8 cm cortical cyst in the posterior left kidney. The left kidney is otherwise unremarkable. The stomach, small bowel, aorta and IVC appear normal. There is a fat-containing midline supraumbilical ventral hernia with a fat-containing umbilical hernia. CT PELVIS: No acute pelvic organ injury is seen. The appendix, pelvic small bowel loops, colon and urinary bladder are unremarkable. Prior hysterectomy is noted. No inflammatory fat stranding, free fluid, loculated fluid or free air is seen in the abdomen or pelvis. No acute osseous abnormality or suspicious bony lesion is seen. IMPRESSION: 1. No acute traumatic change or other acute diagnostic abnormality in the abdomen or pelvis. 2. Prior cholecystectomy and hysterectomy. 3. Fat-containing midline supraumbilical and umbilical hernias. [facility] Abdomen and Pelvis W cont rast IVOrdered By: Rc Ramos on 07-02-2023 [facility] Work Phone: CT LUMBAR SPINE WO CONTRASTo n 07-02-2023 CT LUMBAR SPINE WO CONTRAST EXAMINATION: CT LUMBAR SPINE WO CONTRAST, 07/01/2023 11:08 PM EDT HISTORY: The patient is a 53-year-old female, fall COMPARISON: None. TECHNIQUE: CT images were obtained through the lumbar spine without intravenous contrast and reformatted in 2 dimensions. Dose reduction techniques were achieved by using automated exposure control and/or adjustment of mA and/or kV according to patient size and/or use of iterative reconstruction technique. FINDINGS: The axial images demonstrate no fractures or cortical discontinuities throughout the lumbar spine. The sacroiliac joints are maintained. Incidentally noted is a left renal cyst. The coronal and sagittal reformatted images demonstrate no fractures or loss of vertebral body height throughout the lumbar spine. There is no malalignment or disc space narrowing. The soft tissue images demonstrate no evidence of disc herniations or central canal stenosis throughout the lumbar spine. IMPRESSION: This is a negative CT scan of the lumbar spine with no fractures or loss of vertebral body height. Interpreted by: Carter Suggs MD Signed by: Carter Suggs MD 07/02/23 Final result Normal [facility] CT Lumbar spine WO contrasto n 07-02-2023 This is a negative CT scan of the lumbar spine with no fractures or loss of vertebral body height. [facility] CONSOLID[facility] EXAMINATION: CT LUMBAR SPINE WO CONTRAST, 07/01/2023 11:08 PM EDT HISTORY: The patient is a 53-year-old female, fall COMPARISON: None. TECHNIQUE: CT images were obtained through the lumbar spine without intravenous contrast and reformatted in 2 dimensions. Dose reduction techniques were achieved by using automated exposure control and/or adjustment of mA and/or kV according to patient size and/or use of iterative reconstruction technique. FINDINGS: The axial images demonstrate no fractures or cortical discontinuities throughout the lumbar spine. The sacroiliac joints are maintained. Incidentally noted is a left renal cyst. The coronal and sagittal reformatted images demonstrate no fractures or loss of vertebral body height throughout the lumbar spine. There is no malalignment or disc space narrowing. The soft tissue images demonstrate no evidence of disc herniations or central canal stenosis throughout the lumbar spine. [facility] Carter Suggs MD - 07/02/2023 EXAMINATION: CT LUMBAR SPINE WO CONTRAST, 07/01/2023 11:08 PM EDT HISTORY: The patient is a 53-year-old female, fall COMPARISON: None. TECHNIQUE: CT images were obtained through the lumbar spine without intravenous contrast and reformatted in 2 dimensions. Dose reduction techniques were achieved by using automated exposure control and/or adjustment of mA and/or kV according to patient size and/or use of iterative reconstruction technique. FINDINGS: The axial images demonstrate no fractures or cortical discontinuities throughout the lumbar spine. The sacroiliac joints are maintained. Incidentally noted is a left renal cyst. The coronal and sagittal reformatted images demonstrate no fractures or loss of vertebral body height throughout the lumbar spine. There is no malalignment or disc space narrowing. The soft tissue images demonstrate no evidence of disc herniations or central canal stenosis throughout the lumbar spine. IMPRESSION: This is a negative CT scan of the lumbar spine with no fractures or loss of vertebral body height. [facility] CT Lumbar spine WO contrastO rdered By: Carter Suggs on 07-02-2023 [facility] Work Phone: CT Abdomen and Pelvis W cont rast Parminder 07-01-2023 Radiology Study observation (narrative) [facility] CT Lumbar spine WO contrasto n 07-01-2023 Radiology Study observation (narrative) [facility] CBC with Auto Differentialon 03-21-2023 Basophils (Bld) [#/Vol] 0.0 10*3/uL [facility] Basophils/100 WBC (Bld) 1 % 0 - 1 % [facility] Eosinophils Absolute 0.1 [facility] Eosinophils/100 WBC (Bld) 3 % 0 - 5 % [facility] Erythrocyte distribution width (RBC) [Ratio] 12.5 % 11.5 - 14.5 % [facility] Hematocrit (Bld) [Volume fraction] 44.9 % 36.0 - 47.0 % [facility] Hemoglobin (Bld) [Mass/Vol] 15.0 g/dL 12.0 - 16.0 g/dL [facility] Interpretation and review of laboratory results Abnormal [facility] Lymphocytes Absolute 1.5 [facility] Lymphocytes/100 WBC (Bld) 30 % 20 - 40 % [facility] MCH (RBC) [Entitic mass] 29.6 pg 27.0 - 35.0 pg [place] MCHC (RBC) [Mass/Vol] 33.4 g/dL 32.0 - 36.0 g/dL [facility] MCV (RBC) [Entitic vol] 88.6 fL 80.0 - 100.0 fL [facility] Monocytes Absolute 0.3 [facility] T Monocytes/100 WBC (Bld) 6 % 1 - 15 % [facility] Neutrophils Absolute 3.1 [facility] Neutrophils/100 WBC (Bld) 60 % 50 - 70 % [facility] Platelet mean volume (Bld) [Entitic vol] 12.9 fL High 9.4 - 12.3 fL [facility] Platelets (Bld) [#/Vol] 201 10*3/uL [place] RBC (Bld) [#/Vol] 5.07 10*6/uL [facility] WBC (Bld) [#/Vol] 5.2 10*3/uL [place] T [facility] Complete Blood Count with Au to Diffon 03-21-2023 BASO# BASO#: 0.0 Normal 0.0-0.1 [facility] Comment on above: Performed By: #### C BCAD, A1C #### [place] [address] Ph. [phone] Basophils/100 WBC (Bld) 1 % Normal 0-1 [facility] Comment on above: Performed By: #### C BCAD, A1C #### [place] [address] Ph. [phone] Eosinophils (Bld) [#/Vol] 0.1 10*3/uL Normal 0.0-0.5 [facility] Comment on above: Performed By: #### C BCAD, A1C #### [place] [address] Ph. [phone] Eosinophils/100 WBC (Bld) 3 % Normal 0-5 [facility] Comment on above: Performed By: #### C BCAD, A1C #### [place] [address] Ph. [phone] Erythrocyte distribution width (RBC) [Ratio] 12.5 % Normal 11.5-14.5 [facility] Comment on above: Performed By: #### C BCAD, A1C #### [place] [address] Ph. [phone] Hematocrit (Bld) [Volume fraction] 44.9 % Normal 36.0-47.0 [facility] Comment on above: Performed By: #### C BCAD, A1C #### [place] [address] Ph. [phone] Hemoglobin (Bld) [Mass/Vol] 15 g/dL Normal 12.0-16.0 [facility] Comment on above: Performed By: #### C BCAD, A1C #### [place] [address] Ph. [phone] Lymphocytes (Bld) [#/Vol] 1.5 10*3/uL Normal 1.0-4.0 [facility] Comment on above: Performed By: #### C BCAD, A1C #### [place] [id number] Ph. [phone] Lymphocytes/100 WBC (Bld) 30 % Normal 20-40 [facility] Comment on above: Performed By: #### C BCAD, A1C #### [address] [address] Ph. [phone] MCH (RBC) [Entitic mass] 29.6 pg Normal 27.0-35.0 [facility] Comment on above: Performed By: #### C BCAD, A1C #### [place] [id number] Ph. [phone] MCHC (RBC) [Mass/Vol] 33.4 g/dL Normal 32.0-36.0 [facility] Comment on above: Performed By: #### C BCAD, A1C #### [place] [address] Ph. [phone] MCV (RBC) [Entitic vol] 88.6 fL Normal 80.0-100.0 [facility] Comment on above: Performed By: #### C BCAD, A1C #### [address] [address] Ph. [phone] Monocytes (Bld) [#/Vol] 0.3 10*3/uL Normal 0.3-1.0 [facility] Comment on above: Performed By: #### C BCAD, A1C #### [place] [id number] Ph. [phone] Monocytes/100 WBC (Bld) 6 % Normal 1-15 [facility] [facility] Comment on above: Performed By: #### C BCAD, A1C #### [address] [address] Ph. [phone] Neutrophils (Bld) [#/Vol] 3.1 10*3/uL Normal 1.8-7.7 [facility] Comment on above: Performed By: #### C BCAD, A1C #### [address] [address] Ph. [phone] Neutrophils/100 WBC (Bld) 60 % Normal 50-70 [facility] Comment on above: Performed By: #### C BCAD, A1C #### [address] [address] Ph. [phone] Platelet mean volume (Bld) [Entitic vol] 12.9 fL High 9.4-12.3 [facility] Comment on above: Performed By: #### C BCAD, A1C #### [address] [address] Ph. [phone] Platelets (Bld) [#/Vol] 201 10*3/uL Normal 150-450 [facility] Comment on above: Performed By: #### C BCAD, A1C #### [address] [address] Ph. [phone] RBC (Bld) [#/Vol] 5.07 10*6/uL Normal 4.20-5.40 [facility] Comment on above: Performed By: #### C BCAD, A1C #### [address] [address] Ph. [phone] WBC (Bld) [#/Vol] 5.2 10*3/uL Normal 3.7-11.0 [facility] Comment on above: Performed By: #### C BCAD, A1C #### [address] [address] Ph. [phone] Comprehensive Metabolic Pane simba 03-21-2023 Albumin [Mass/Vol] 4.3 g/dL Normal 3.5-5.0 [facility] Comment on above: Performed By: #### L IPD, PHOS, CMP #### [address] [address] Ph. [phone] ALP [Catalytic activity/Vol] 72 U/L Normal 38-126 [facility] Comment on above: Performed By: #### L IPD, PHOS, CMP #### [address] [address] Ph. [phone] ALT [Catalytic activity/Vol] 40 U/L High 0-35 [facility] Comment on above: Performed By: #### L IPD, PHOS, CMP #### [place] [address] Ph. [phone] AST [Catalytic activity/Vol] 30 U/L Normal 14-36 [facility] Comment on above: Performed By: #### L IPD, PHOS, CMP #### [place] [id number] Ph. [phone] Bilirubin [Mass/Vol] 0.8 mg/dL Normal 0.2-1.3 [facility] Comment on above: Performed By: #### L IPD, PHOS, CMP #### [place] [address] Ph. [phone] Calcium [Mass/Vol] 9.5 mg/dL Normal 8.4-10.2 [facility] Comment on above: Performed By: #### L IPD, PHOS, CMP #### [place] [address] Ph. [phone] Chloride [Moles/Vol] 108 mmol/L High 98-107 [facility] Comment on above: Performed By: #### L IPD, PHOS, CMP #### [place] [id number] Ph. [phone] CO2 [Moles/Vol] 22 mmol/L Normal 22-32 [facility] Comment on above: Performed By: #### L IPD, PHOS, CMP #### [place] [address] Ph. [phone] Creatinine [Mass/Vol] 0.62 mg/dL Normal 0.52-1.04 [facility] Comment on above: Performed By: #### L KAREEN LUU CMP #### [place] [id number] Ph. [phone] GFR/1.73 sq M.predicted among non-blacks MDRD (S/P/Bld) [Vol rate/Area] 108 mL/min/{1.73_m2} Normal >60 [facility] Comment on above: Result Comment: GFR calculated using CKD-EPI (2020) formula.\X0D0A\Stage 1 Kidney damage (e.g., protein in the urine) with normal GFR >=90\X0D0A\Stage 2 Kidney damage with mild decrease in GFR 60-89\X0D0A\Stage 3a Moderate decrease in GFR 45-59\X0D0A\Stage 3b Moderate decrease in GFR 30-44\X0D0A\Stage 4 Severe reduction in GFR 15-29\X0D0A\Stage 5 Kidney failure <15 Performed By: #### L KAREEN LUU CMP #### [place] [address] Ph. [phone] Glucose [Mass/Vol] 92 mg/dL Normal 65-100 [facility] Comment on above: Performed By: #### L KAREEN LUU CMP #### [place] [address] Ph. [phone] Potassium [Moles/Vol] 3.9 mmol/L Normal 3.6-5.0 [facility] Comment on above: Performed By: #### L KAREEN LUU, CMP #### [place] [address] Ph. [phone] Protein [Mass/Vol] 7.8 g/dL Normal 6.3-8.2 [facility] Comment on above: Performed By: #### L KAREEN LUU, CMP #### [facility] [address] [place] [address] Ph. [phone] Sodium [Moles/Vol] 141 mmol/L Normal 135-145 [facility] Comment on above: Performed By: #### L IPD PHOS, CMP #### [address] [address] Ph. [phone] Urea nitrogen [Mass/Vol] 10 mg/dL Normal 7-17 [facility] Comment on above: Performed By: #### L IPD, PHOS, CMP #### [address] [address] Ph. [phone] Albumin [Mass/Vol] 4.3 g/dL 3.5 - 5.0 g/dL [facility] ALP (Bld) [Catalytic activity/Vol] 72 U/L 38 - 126 U/L [facility] ALT [Catalytic activity/Vol] 40 U/L High 0 - 35 U/L [facility] AST [Catalytic activity/Vol] 30 U/L 14 - 36 U/L [facility] Bilirubin [Mass/Vol] 0.8 mg/dL 0.2 - 1 .3 mg/dL [facility] Calcium [Mass/Vol] 9.5 mg/dL 8.4 - 10. 2 mg/dL [facility] Chloride [Moles/Vol] 108 mmol/L High [facility] CO2 [Moles/Vol] 22 mmol/L [facility] Creatinine [Mass/Vol] 0.62 mg/dL 0.52 - 1.04 mg/dL [facility] GFR, Estimated 108 - PINF [facility] Comment on above: GFR calculated using CKD-EPI (2020) formula. Stage 1 Kidney damage (e.g., protein in the urine) with normal GFR >=90 Stage 2 Kidney damage with mild decrease in GFR 60-89 Stage 3a Moderate decrease in GFR 45-59 Stage 3b Moderate decrease in GFR 30-44 Stage 4 Severe reduction in GFR 15-29 Stage 5 Kidney failure <15 Glucose [Mass/Vol] 92 mg/dL 65 - 100 mg/dL [facility] Potassium [Moles/Vol] 3.9 mmol/L [facility] Protein [Mass/Vol] 7.8 g/dL 6.3 - 8.2 g/dL [facility] Sodium [Moles/Vol] 141 mmol/L [facility] Urea nitrogen (BldV) [Mass/Vol] 10 mg/dL 7 - 17 mg/dL [facility] Hemoglobin A1Con 03-21-2023 EAG 113 mg/dL Normal [facility] Comment on above: Result Comment: Pascale mated Average Glucose is a caluculated value from Hemoglobin A1C and is key account representative of the average blood glucose level in the last 2-3 month period. Performed By: #### C BCAD, A1C #### [place] [address] Ph. [phone] HbA1c (Bld) [Mass fraction] 5.6 % Normal 4.0-5.6 [facility] Comment on above: Result Comment: [place] Diabetes Association guidelines indicate that patients with HgbA1C in the range of 5.7-6.4% are at increased risk for development of diabetes, and intervention by lifestyle modification may be beneficial. HgbA1C greater than or equal to 6.5% is considered diagnostic of diabetes.\X0D0A\X0D0A\Hemoglobin A1c should not be used in patients with homozygous sickle cell trait, hemolytic anemia, or other hemolytic diseases and recent significant or chronic blood loss or blood transfusions. Alternative forms of testing such as glycated serum protein or glycated albumin should be considered for these patients. Performed By: #### C BCAD, A1C #### [place] [address] Ph. [phone] Glucose [Mass/Vol] 113 mg/dL [facility] Comment on above: Estimated Average Glucose is a caluculated value from Hemoglobin A1C and is key account representative of the average blood glucose level in the last 2-3 month period. HbA1c (Bld) [Mass fraction] 5.6 % 4.0 - 5.6 % [facility] Comment on above: [place] Diabetes Association guidelines indicate that patients with HgbA1C in the range of 5.7-6.4% are at increased risk for development of diabetes, and intervention by lifestyle modification may be beneficial. HgbA1C greater than or equal to 6.5% is considered diagnostic of diabetes. Hemoglobin A1c should not be used in patients with homozygous sickle cell trait, hemolytic anemia, or other hemolytic diseases and recent significant or chronic blood loss or blood transfusions. Alternative forms of testing such as glycated serum protein or glycated albumin should be considered for these patients. [facility] Lipid Panelon 03-21-2023 Cholesterol [Mass/Vol] 196 mg/dL Normal 100-200 [facility] Comment on above: Order Comment: Is Pa tient Fasting?/# of Hours->8 Result Comment: <200 mg/dL is recommended cholesterol level. Performed By: #### L IPD PHOS, CMP #### [place] [address] Ph. [phone] Cholesterol in HDL [Mass/Vol] 55 mg/dL Low >60 [facility] Comment on above: Order Comment: Is Pa tient Fasting?/# of Hours->8 Performed By: #### L IPD, PHOS, CMP #### [place] [address] Ph. [phone] Cholesterol in LDL [Mass/Vol] 127 mg/dL High 20-100 [facility] Comment on above: Order Comment: Is Pa tient Fasting?/# of Hours->8 Performed By: #### L IPD PHOS, CMP #### [address] [address] Ph. [phone] Cholesterol.total/Chol esterol in HDL [Mass ratio] 4 {ratio} Normal 1-5 [facility] Comment on above: Order Comment: Is Pa tient Fasting?/# of Hours->8 Performed By: #### L IPD, PHOS, CMP #### [place] [address] Ph. [phone] Triglyceride [Mass/Vol] 69 mg/dL Normal 10-150 [facility] Comment on above: Order Comment: Is Pa tient Fasting?/# of Hours->8 Performed By: #### L IPD, PHOS, CMP #### [place] [address] Ph. [phone] Cholesterol [Mass/Vol] 196 mg/dL 100 - 200 mg/dL [facility] Comment on above: <200 mg/dL is recommended cholesterol level. Cholesterol in HDL [Mass/Vol] 55 mg/dL Low 60 - PINF mg/dL [facility] Cholesterol in LDL [Mass/Vol] 127 mg/dL High 20 - 100 mg/dL [facility] CHOLESTEROL/HDL RELATIVE RISK 4 [facility] Triglyceride [Mass/Vol] 69 mg/dL 10 - 150 mg/dL [facility] Is Patient Fasting?/# of Hours->[address] [facility] No Panel Informationon 03-21 Interpretation and review of laboratory results Abnormal [facility] Phosphoruson 03-21-2023 Phosphate [Mass/Vol] 3.5 mg/dL Normal 2.5-4.5 [facility] Comment on above: Performed By: #### L BELL, PHOS, CMP #### [address] [phone] Phosphate [Mass/Vol] 3.5 mg/dL 2.5 - 4 .5 mg/dL [facility] US GALLBLADDER RUQon 024 US GALLBLADDER RUQ RADRPT EXAM: US GALLBLADDER RUQ HISTORY: 53 years old Female presenting with right upper quadrant pain. TECHNIQUE: Ultrasound of the right upper quadrant abdomen. COMPARISON: Correlated with CT scan 01/17/2018 FINDINGS: Liver: Liver demonstrates normal size with diffuse increased echogenicity and decreased penetration consistent with hepatic steatosis. No focal suspicious hepatic lesion identified. Gallbladder: The gallbladder surgically absent. Common bile duct: Normal in diameter, measuring 0.5cm. Right kidney: Normal in size and echogenicity measuring 9.8 cm. No hydronephrosis or renal calculus. Miscellaneous:None. Report electronically signed by: Dr. David Bhatt IMPRESSION: 1. Hepatic steatosis without focal suspicious hepatic lesion. 2. Cholecystectomy. Interpreted by: David Bhatt MD Signed by: David Bhatt MD 03/21/23 Final result Normal [facility] US Gallbladderon 03-21-2023 1. Hepatic steatosis without focal suspicious hepatic lesion. 2. Cholecystectomy. [facility] RIS CONSOLIDATED EXAM: US GALLBLADDER RUQ HISTORY: 53 years old Female presenting with right upper quadrant pain. TECHNIQUE: Ultrasound of the right upper quadrant abdomen. COMPARISON: Correlated with CT scan 01/17/2018 FINDINGS: Liver: Liver demonstrates normal size with diffuse increased echogenicity and decreased penetration consistent with hepatic steatosis. No focal suspicious hepatic lesion identified. Gallbladder: The gallbladder surgically absent. Common bile duct: Normal in diameter, measuring 0.5cm. Right kidney: Normal in size and echogenicity measuring 9.8 cm. No hydronephrosis or renal calculus. Miscellaneous:None. Report electronically signed by: Dr. David Bhatt [facility] David Bhatt MD - 03/21/2023 EXAM: US GALLBLADDER RUQ HISTORY: 53 years old Female presenting with right upper quadrant pain. TECHNIQUE: Ultrasound of the right upper quadrant abdomen. COMPARISON: Correlated with CT scan 01/17/2018 FINDINGS: Liver: Liver demonstrates normal size with diffuse increased echogenicity and decreased penetration consistent with hepatic steatosis. No focal suspicious hepatic lesion identified. Gallbladder: The gallbladder surgically absent. Common bile duct: Normal in diameter, measuring 0.5cm. Right kidney: Normal in size and echogenicity measuring 9.8 cm. No hydronephrosis or renal calculus. Miscellaneous:None. Report electronically signed by: Dr. David Bhatt IMPRESSION: 1. Hepatic steatosis without focal suspicious hepatic lesion. 2. Cholecystectomy. [facility] Work Phone: Radiology Study observation (narrative) [facility] Work Phone: GallbladderOrdered By: Paola Bhatt on 03-21-2023 [facility] Work Phone: Urinalysis with Reflex to Cu ltureon 03-21-2023 BACTERIA, URINE Trace [facility] Bilirubin, Urine Negative Negative [facility] Blood, Urine Negative Negative [facility] Clarity, UA Clear [facility] Color (U) Light yellow [facility] Culture Indicated? No [facility] T Glucose, Ur Negative Negative mg/dL [facility] Interpretation and review of laboratory results Abnormal [facility] Ketones Ql (U) Trace Abnormal Negative mg/dL [facility] Leukocyte esterase Test strip Ql (U) Negative Negative [facility] MUCUS, URINE None Seen [facility] Nitrate, UA Negative Negative [facility] pH (U) 7.0 [pH] 5.0 - 7.0 [facility] Protein, Ur (gm/dL) Negative Negative mg/dL [facility] RBC, UA Rare #/HPF [facility] Specific [place], Urine 1.015 1.005 - 1.030 [facility] Squam Epithel, UA None Seen #/LPF [facility] Urobilinogen, Urine 0.2 E.U./dL NINF [facility] WBC, UA None Seen #/HPF [facility] SPECIFY(EX-CATH,MIDS TREAM,CYSTO,ETC)?->m id [facility] Urinalysis, Complete reflex to cultureon 03-21-2023 BACT Trace Normal [facility] Comment on above: Order Comment: SPECI FY(EX-CATH,MIDSTREAM,CYSTO,ETC)?->mid Performed By: #### U COMP/WRCX #### [place] [address] Ph. [phone] CULTIND No Normal [facility] Comment on above: Order Comment: SPECI FY(EX-CATH,MIDSTREAM,CYSTO,ETC)?->mid Performed By: #### U COMP/WRCX #### [place] [address] Ph. [phone] MUCS None Seen Normal [facility] Comment on above: Order Comment: SPECI FY(EX-CATH,MIDSTREAM,CYSTO,ETC)?->mid Performed By: #### U COMP/WRCX #### [place] [address] Ph. [phone] SQEPI None Seen Normal [facility] Comment on above: Order Comment: SPECI FY(EX-CATH,MIDSTREAM,CYSTO,ETC)?->mid Performed By: #### U COMP/WRCX #### [place] [address] Ph. [phone] UBIL Negative Normal Negative [facility] Comment on above: Order Comment: SPECI FY(EX-CATH,MIDSTREAM,CYSTO,ETC)?->mid Performed By: #### U COMP/WRCX #### [place] [address] Ph. [phone] UBLO Negative Normal Negative [facility] Comment on above: Order Comment: SPECI FY(EX-CATH,MIDSTREAM,CYSTO,ETC)?->mid Performed By: #### U COMP/WRCX #### [place] [address] Ph. [phone] UCLAR Clear Normal [facility] Comment on above: Order Comment: SPECI FY(EX-CATH,MIDSTREAM,CYSTO,ETC)?->mid Performed By: #### U COMP/WRCX #### [place] [address] Ph. [phone] UCOL Light yellow Normal [facility] Comment on above: Order Comment: SPECI FY(EX-CATH,MIDSTREAM,CYSTO,ETC)?->mid Performed By: #### U COMP/WRCX #### [place] [address] Ph. [phone] UGLU Negative Normal Negative [facility] Comment on above: Order Comment: SPECI FY(EX-CATH,MIDSTREAM,CYSTO,ETC)?->mid Performed By: #### U COMP/WRCX #### [place] [address] Ph. [phone] UKET Trace Abnormal Negative [facility] Comment on above: Order Comment: SPECI FY(EX-CATH,MIDSTREAM,CYSTO,ETC)?->mid Performed By: #### U COMP/WRCX #### [place] [address] Ph. [phone] ULEU Negative Normal Negative [facility] Comment on above: Order Comment: SPECI FY(EX-CATH,MIDSTREAM,CYSTO,ETC)?->mid Performed By: #### U COMP/WRCX #### [address] [phone] UNIT Negative Normal Negative [facility] Comment on above: Order Comment: SPECI FY(EX-CATH,MIDSTREAM,CYSTO,ETC)?->mid Performed By: #### U COMP/WRCX #### [address] [phone] UPH 7.0 Normal 5.0-7.0 [facility] Comment on above: Order Comment: SPECI FY(EX-CATH,MIDSTREAM,CYSTO,ETC)?->mid Performed By: #### U COMP/WRCX #### [address] [phone] UPRO Negative Normal Negative [facility] Comment on above: Order Comment: SPECI FY(EX-CATH,MIDSTREAM,CYSTO,ETC)?->mid Performed By: #### U COMP/WRCX #### [address] [phone] URBC Rare Normal [facility] Comment on above: Order Comment: SPECI FY(EX-CATH,MIDSTREAM,CYSTO,ETC)?->mid Performed By: #### U COMP/WRCX #### [address] [phone] USG 1.015 Normal 1.005-1.030 [facility] Comment on above: Order Comment: SPECI FY(EX-CATH,MIDSTREAM,CYSTO,ETC)?->mid Performed By: #### U COMP/WRCX #### [place] [address] Ph. [phone] UURO 0.2 E.U./dL Normal <2.0 [facility] Comment on above: Order Comment: SPECI FY(EX-CATH,MIDSTREAM,CYSTO,ETC)?->mid Performed By: #### U COMP/WRCX #### [place] [id number] Ph. [phone] UWBC None Seen Normal [facility] Comment on above: Order Comment: SPECI FY(EX-CATH,MIDSTREAM,CYSTO,ETC)?->mid Performed By: #### U COMP/WRCX #### [place] [id number] Ph. [phone] CBC with Diffon 10-19-2022 Abs. Basophil Normal 0.0-0.2 [facility] Comment on above: Performed By: #### L IP, CP, CDP, TROPI #### [facility] [address] [place] [address] [employer]andy Maker Helper: Jemma Pierre MD Abs.Imm.Granulocyte Normal 0.00-0.[address] [facility] Comment on above: Performed By: #### L IP, CP, CDP, TROPI #### [facility] [address] [place] [address] [employer]andy Maker Helper: Jemma Pierre MD Abs.Neutrophil (Seg) 3.36 k/uL Normal 2.5-7.0 [facility] Comment on above: Performed By: #### L IP, CP, CDP, TROPI #### [facility] [address] [place] [address] [employer]andy Maker Helper: Jemma Pierre MD Basophil Normal 0-[address] [facility] Comment on above: Performed By: #### L IP, CP, CDP, TROPI #### [facility] [address] [place] [address] [employer]andy Maker Helper: Jemma Pierre MD Eosinophils (Bld) [#/Vol] 0.12 10*3/uL Normal 0.0-0.[address] [facility] Comment on above: Performed By: #### L IP, CP, CDP, TROPI #### [facility] [address] [place], [place] [id number] [employer] Helper: Jemma Pierre MD Eosinophils/100 WBC (Bld) 2 % Normal 0-[address] [facility] Comment on above: Performed By: #### L IP, CP, CDP, TROPI #### [facility] [address] [place] [address] [employer]andy Maker Helper: Jemma Pierre MD Immature Granulocyte Normal 0 [facility] Comment on above: Performed By: #### L IP, CP, CDP, TROPI #### [facility] [address] [place] [address] [employer]andy Maker Helper: Jemma Pierre MD Lymphocytes (Bld) [#/Vol] 2.07 10*3/uL Normal 1.0-4.[address] [facility] Comment on above: Performed By: #### L IP, CP, CDP, TROPI #### [facility] [address] [place] [address] [employer]andy Maker Helper: Jemma Pierre MD Lymphocytes/100 WBC (Bld) 34 % Normal 15-[address] [facility] Comment on above: Performed By: #### L IP, CP, CDP, TROPI #### [facility] [address] [place] [address] Candy Maker Helper: Jemma Pierre MD Monocytes (Bld) [#/Vol] 0.55 10*3/uL Normal 0.0-1.[address] [facility] Comment on above: Performed By: #### L IP, CP, CDP, TROPI #### [facility] [address] [place] [address] Candy Maker Helper: Jemma Pierre MD Monocytes/100 WBC (Bld) 9 % High 4-[address] [facility] Comment on above: Performed By: #### L IP, CP, CDP, TROPI #### [facility] [address] [place], [place] [id number] Candy Maker Helper: Jemma Pierre MD Morphology Rodrick (Bld) [Interp] Manual Differential Performed Normal [facility] Comment on above: Performed By: #### L IP, CP, CDP, TROPI #### [facility] [address] [place], [place] [id number] Candy Maker Helper: Jemma Pierre MD Neutrophil (Seg) 55 % Normal 47-75 [facility] Comment on above: Performed By: #### L IP, CP, CDP, TROPI #### [facility] [address] [place] [address] Candy Maker Helper: Jemma Pierre MD Erythrocyte distribution width (RBC) [Ratio] 12.8 % Normal 12.1-15.[address] [facility] Comment on above: Performed By: #### L IP, CP, CDP, TROPI #### [facility] [address] [place], [place] [id number] Candy Maker Helper: Jemma Pierre MD Hematocrit (Bld) [Volume fraction] 42.7 % Normal 36-[address] [facility] Comment on above: Performed By: #### L IP, CP, CDP, TROPI #### [facility] [address] [place], [place] [id number] [employer]andy Maker Helper: Jemma Pierre MD Hemoglobin (Bld) [Mass/Vol] 14.6 g/dL Normal 12.0-16.[address] [facility] Comment on above: Performed By: #### L IP, CP, CDP, TROPI #### [facility] [address] [place], [place] [id number] Candy Maker Helper: Jemma Pierre MD MCH (RBC) [Entitic mass] 30.1 pg Normal 26-[address] [facility] Comment on above: Performed By: #### L IP, CP, CDP, TROPI #### [facility] [address] [place], [place] [id number] [phone] Candy Maker Helper: Jemma Pierre MD MCHC (RBC) [Mass/Vol] 34.1 g/dL Normal 31-37 [facility] Comment on above: Performed By: #### L IP, CP, CDP, TROPI #### [facility] [address] [place] [address] ([phone] Candy Maker Helper: Jemma Pierre MD MCV (RBC) [Entitic vol] 88.4 fL Normal 80-[address] [facility] Comment on above: Performed By: #### L IP, CP, CDP, TROPI #### [facility] [address] [place] [address] ([phone] Candy Maker Helper: Jemma Pierre MD Platelets (Bld) [#/Vol] 209 10*3/uL Normal 140-[address] [facility] Comment on above: Performed By: #### L IP, CP, CDP, TROPI #### [facility] [address] [place] [address] ([phone] Candy Maker Helper: Jemma Pierre MD RBC (Bld) [#/Vol] 4.84 10*6/uL Normal 4.0-5.[address] [facility] Comment on above: Performed By: #### L IP, CP, CDP, TROPI #### [facility] [address] [place] [address] ([phone] Candy Maker Helper: Jemma Pierre MD WBC (Bld) [#/Vol] 6.1 10*3/uL Normal 3.5-11.[address] [facility] Comment on above: Performed By: #### L IP, CP, CDP, TROPI #### [facility] [address] [place] [address] ([phone] Candy Maker Helper: Jemma Pierre MD Comp Metabolic Profon 2022 Albumin [Mass/Vol] 4.4 g/dL Normal 3.5-5.[address] [facility] Comment on above: Performed By: #### L IP, CP, CDP, TROPI #### [facility] [address] [place] [address] Candy Maker Helper: Jemma Pierre MD Alkaline Phos 77 U/L Normal 35-104 [facility] Comment on above: Performed By: #### L IP, CP, CDP, TROPI #### [facility] [address] [place], [place] [id number] Candy Maker Helper: Jemma Pierre MD ALT [Catalytic activity/Vol] 36 U/L High 5-[address] [facility] Comment on above: Performed By: #### L IP, CP, CDP, TROPI #### [facility] [address] [place] [address] Candy Maker Helper: Jemma Pierre MD Anion gap [Moles/Vol] 13 mmol/L Normal 9-17 [facility] Comment on above: Performed By: #### L IP, CP, CDP, TROPI #### [facility] [address] [place], [place] [phone] Candy Maker Helper: Jemma Pierre MD AST [Catalytic activity/Vol] 24 U/L Normal <[address] [facility] Comment on above: Performed By: #### L IP, CP, CDP, TROPI #### [facility] [address] [place] [address] Candy Maker Helper: Jemma Pierre MD Bilirubin [Mass/Vol] 0.6 mg/dL Normal 0.3-1.2 [facility] Comment on above: Performed By: #### L IP, CP, CDP, TROPI #### [facility] [address] [place], [place] [id number] Candy Maker Helper: Jemma Pierre MD BUN/CRE Ratio 20 Normal 9-20 [facility] Comment on above: Performed By: #### L IP, CP, CDP, TROPI #### [facility] [address] [place], [place] [phone] Candy Maker Helper: Jemma Pierre MD Calcium [Mass/Vol] 9.6 mg/dL Normal 8.6-10.[address] [facility] Comment on above: Performed By: #### L IP, CP, CDP, TROPI #### [facility] [address] [place] [address] Candy Maker Helper: Jemma Pierre MD Chloride [Moles/Vol] 106 mmol/L Normal 98-107 [facility] Comment on above: Performed By: #### L IP, CP, CDP, TROPI #### [facility] [address] [place] [address] Candy Maker Helper: Jemma Pierre MD CO2 [Moles/Vol] 22 mmol/L Normal 20-31 [facility] Comment on above: Performed By: #### L IP, CP, CDP, TROPI #### [facility] [address] [place] [address] Candy Maker Helper: Jemma Pierre MD Creatinine [Mass/Vol] 0.6 mg/dL Normal 0.5-0.9 [facility] Comment on above: Performed By: #### L IP, CP, CDP, TROPI #### [facility] [address] [place] [address] Candy Maker Helper: Jemma Pierre MD GFR/1.73 sq M.predicted among non-blacks MDRD (S/P/Bld) [Vol rate/Area] mL/min/{1.73_m2} Normal >[address] [facility] Comment on above: Result Comment: These [...] affects renal tubular secretion. Performed By: #### L IP, CP, CDP, TROPI #### [facility] [address] [place] [address] Candy Maker Helper: Jemma Pierre MD Glucose [Mass/Vol] 98 mg/dL Normal 70-[address] [facility] Comment on above: Performed By: #### L IP, CP, CDP, TROPI #### [facility] [address] [place] [address] Candy Maker Helper: Jemma Pierre MD Potassium [Moles/Vol] 3.9 mmol/L Normal 3.7-5.3 [facility] Comment on above: Performed By: #### L IP, CP, CDP, TROPI #### [facility] [address] [place] [address] Candy Maker Helper: Jemma Pierre MD Protein [Mass/Vol] 7.2 g/dL Normal 6.4-8.[address] [facility] Comment on above: Performed By: #### L IP, CP, CDP, TROPI #### [facility] [address] [place] [address] Candy Maker Helper: Jemma Pierre MD Sodium [Moles/Vol] 141 mmol/L Normal 135-[address] [facility] Comment on above: Performed By: #### L IP, CP, CDP, TROPI #### [facility] [address] [place], [place] [phone] Candy Maker Helper: Jemma Pierre MD Urea nitrogen [Mass/Vol] 12 mg/dL Normal 6-[address] [facility] Comment on above: Performed By: #### L IP, CP, CDP, TROPI #### [facility] [address] [place] [address] Candy Maker Helper: Jemma Pierre MD Lipaseon 10-19-2022 Lipase [Catalytic activity/Vol] 29 U/L Normal 13-[address] [facility] Comment on above: Performed By: #### L IP, CP, CDP, TROPI #### [facility] [address] [place], [place] [id number] Candy Maker Helper: Jemma Pierre MD Troponinon 10-19-2022 Troponin, High Sens <6 Normal 0-[address] [facility] Comment on above: Result Comment: High Sensitivity Troponin values cannot be compared with other Troponin methodologies. Performed By: #### L IP, CP, CDP, TROPI #### [facility] [address] [place], [place] [phone] Candy Maker Helper: Jemma Pierre MD Urinalysis, Routineon 2022 Bilirubin, SemiQt,Ur Negative Normal NEG [facility] Comment on above: Performed By: #### U A #### [facility] [address] [place], [place] [phone] Candy Maker Helper: Jemma Pierre MD Blood, Urine Negative Normal NEG [facility] Comment on above: Performed By: #### U A #### [facility] [address] [place], [place] [phone] Candy Maker Helper: Jemma Pierre MD Clarity (U) Clear Normal CLEAR [facility] Comment on above: Performed By: #### U A #### [facility] [address] [place], [place] [id number] Candy Maker Helper: Jemma Pierre MD Color (U) Yellow Normal YEL [facility] Comment on above: Performed By: #### U A #### [facility] [address] [place], [place] [id number] Candy Maker Helper: Jemma Pierre MD Comment Normal [facility] Comment on above: Performed By: #### U A #### [facility] [address] [place], [place] [phone] Candy Maker Helper: Jemma Pierre MD Glucose Ql (U) Negative Normal NEG [facility] Comment on above: Performed By: #### U A #### [facility] [address] [place] [address] Candy Maker Helper: Jemma Pierre MD Ketones Ql (U) Negative Normal NEG [facility] Comment on above: Performed By: #### U A #### [facility] [address] [place], [place] [id number] Candy Maker Helper: Jemma Pierre MD Leukocyte esterase Test strip Ql (U) Negative Normal NEG [facility] Comment on above: Performed By: #### U A #### [facility] [address] [place], [place] [id number] Candy Maker Helper: Jemma Pierre MD Nitrite,Ur Negative Normal NEG [facility] Comment on above: Performed By: #### U A #### [facility] [address] [place] [address] Candy Maker Helper: Jemma Pierre MD PH,Ur 8.0 Normal 5.0-8.[address] [facility] Comment on above: Performed By: #### U A #### [facility] [address] [place], [place] [phone] Candy Maker Helper: Jemma Pierre MD Protein Ql (U) Negative Normal NEG [facility] Comment on above: Performed By: #### U A #### [facility] [address] [place], [place] [id number] Candy Maker Helper: Jemma Pierre MD Spec. [place],Ur 1.010 Normal 1.005-1.030 [facility] Comment on above: Performed By: #### U A #### [facility] [address] [place] [address] Candy Maker Helper: Jemma Pierre MD Urobilinogen,Ur Normal Normal 0.0-1.0 [facility] Comment on above: Performed By: #### U A #### [facility] [address] [place] [address] Candy Maker Helper: Jemma Pierre MD CARDIAC STRESS TESTon 2022 CARDIAC STRESS TEST [facility] [address] [place] [address] CARDIAC STRESS TEST PATIENT NAME: JUDY MISHRA : 1970 MED REC NO: [id number] ROOM: ACCOUNT NO: [id number] ADMIT DATE: 07/13/2022 PROVIDER: Jabier Cottrell MD [...] of ischemia or angina. JABIER COTTRELL MD /[id number] Doc#: [id number] CC: Normal [facility] Brain Natriuretic Peptideon 06-12-2022 Natriuretic peptide B (Bld) [Mass/Vol] pg/mL NINF - 300 pg/mL [facility] Comment on above: An age-independent cutoff point of 300 pg/ml has a 98% negative predictive value excluding acute heart failure. CBC with Auto Differentialon 06-12-2022 Absolute Eos # 0.20 [place] [facility] Absolute Lymph # 1.60 [facility] URS [facility] Absolute [place] # 0.40 [facility] RS [facility] Basophils (Bld) [#/Vol] 0.00 10*3/uL [facility] Basophils/100 WBC (Bld) 1 % 0 - 2 % [facility] Differential Type YES [facility] Eosinophils/100 WBC (Bld) 4 % 0 - 5 % [facility] Hematocrit (Bld) [Volume fraction] 44.2 % 36 - 46 % [facility] Hemoglobin (Bld) [Mass/Vol] 14.8 g/dL 12.0 - 16.0 g/dL [facility] Lymphocytes/100 WBC (Bld) 26 % 15 - 40 % [facility] MCH (RBC) [Entitic mass] 29.9 pg 26 - 34 pg [facility] MCHC (RBC) [Mass/Vol] 33.6 g/dL 31 - 37 g/dL [facility] MCV (RBC) [Entitic vol] 89.1 fL 80 - 100 fL [facility] Monocytes/100 WBC (Bld) 6 % 4 - 8 % [facility] Platelet distribution width (Bld) [Ratio] 12.7 % 12.1 - 15.2 % [facility] Platelets (Bld) [#/Vol] 210 10*3/uL [facility] RBC (Bld) [#/Vol] 4.96 10*6/uL 4.0 - 5.2 m/uL [facility] Segmented neutrophils/100 WBC (Bld) 63 % 47 - 75 % [facility] Segs Absolute 3.90 [facility] WBC (Bld) [#/Vol] 6.2 10*3/uL [facility] Comprehensive Metabolic Pane simba 06-12-2022 Albumin [Mass/Vol] 4.5 g/dL 3.5 - 5.2 g/dL [facility] ALP [Catalytic activity/Vol] 73 U/L 35 - 104 U/L [facility] ALT [Catalytic activity/Vol] 17 U/L 5 - 33 U/L [facility] Anion gap [Moles/Vol] 10 mmol/L 9 - 17 mmol/L [facility] AST [Catalytic activity/Vol] 16 U/L NINF - 32 U/L [facility] Bilirubin [Mass/Vol] 0.4 mg/dL 0.3 - 1 .2 mg/dL [facility] Calcium [Mass/Vol] 9.7 mg/dL 8.6 - 10. 4 mg/dL [facility] Chloride [Moles/Vol] 103 mmol/L 98 - 10 7 mmol/L [facility] CO2 [Moles/Vol] 27 mmol/L 20 - 31 mmol/L [facility] Creatinine [Mass/Vol] 0.69 mg/dL 0.50 - 0.90 mg/dL [facility] GFR/1.73 sq M.predicted MDRD (S/P/Bld) [Vol rate/Area] - PINF [facility] Comment on above: These results are [...] [Mass/Vol] 92 mg/dL 70 - 99 mg/dL [facility] Interpretation and review of laboratory results Abnormal [facility] Potassium [Moles/Vol] 3.4 mmol/L Low 3.7 - 5.3 mmol/L [facility] [employer] Protein [Mass/Vol] 7.1 g/dL 6.4 - 8.3 g/dL [facility] [employer] Sodium [Moles/Vol] 140 mmol/L 135 - 144 mmol/L [facility] Urea nitrogen [Mass/Vol] 10 mg/dL 6 - 20 mg/dL [facility] Urea nitrogen/Creatinine (Bld) [Mass ratio] 14 9 - 20 [facility] D-Dimer, Quantitativeon 05-0 Fibrin D-dimer FEU IA (Bld) [Mass/Vol] 0.40 ug/mL [facility] Comment on above: When combined with [...] more prevalent in patients with distal DVT. [facility] [employer] Lipaseon 06-12-2022 Lipase [Catalytic activity/Vol] 25 U/L 13 - 60 U/L [facility] No Panel Informationon 06-12 [facility] TSH with Reflexon 06-12-2022 TSH Qn 2.81 m[IU]/L [facility] Troponinon 06-12-2022 Troponin I.cardiac DL <= 0.01 ng/mL [Mass/Vol] ng/L 0 - 14 ng/L [facility] Comment on above: High Sensitivity Tro ponin values cannot be compared with other Troponin methodologies. [facility] XR CHEST (2 VW)on 06-12-2022 1. Linear area of platelike atelectasis versus scarring in the lingula. 2. Remainder of lung piña are unremarkable. [facility] EXAM: Chest x-ray HISTORY: Chest pain COMPARISON: None. TECHNIQUE: Frontal and lateral chest FINDINGS: Vascularity are unremarkable. Lungs are expanded and free of focal infiltrates. There is a linear density in the lingula consistent with platelike atelectasis or scarring. No acute bony abnormality is appreciated. [facility] Jemma Boyd MD - 06/12/2022 EXAM: [...] 2. Remainder of lung piña are unremarkable. [facility] Work Phone: Radiology Study observation (narrative) [facility] Work Phone: XR CHEST (2 VW)Ordered By: Sohail Boyd on 06-12-2022 [employer] Work Phone: CBC AUTO DIFFon 03-19-2022 BASO # 0.1 103/ul Normal 0.0-0.1 [facility] Comment on above: Performed By: #### C BC #### [facility] [address] [address] [address] Lupillo [place] Basophils/100 WBC (Bld) 0.8 % Normal 0.2-2.0 [facility] Comment on above: Performed By: #### C BC #### [facility] [address] [address] [address] Lupillo [place] EO # 0.4 103/ul Normal 0.0-0.7 [facility] Comment on above: Performed By: #### C BC #### [facility] [address] [place] [address] Dr. Lupillo [place] Eosinophils/100 WBC (Bld) 5.5 % Normal 0.9-7.0 [facility] Comment on above: Performed By: #### C BC #### [facility] [address] [address] [address] Lupillo [place] Erythrocyte distribution width (RBC) [Ratio] 13.2 % Normal 11.0-15.0 [facility] Comment on above: Performed By: #### C BC #### [facility] [address] [place] [address] Dr. Lupillo [place] Hematocrit (Bld) [Volume fraction] 45.3 % Normal 36.0-48.0 [facility] Comment on above: Performed By: #### C BC #### [facility] [address] [address] [address] Lupillo [place] Hemoglobin (Bld) [Mass/Vol] 14.8 g/dL Normal 12.0-16.0 [facility] Comment on above: Performed By: #### C BC #### [facility] [address] [place] [address] Dr. Lupillo [place] IG # 0.02 10e3/ul Normal 0.00-0.03 [facility] Comment on above: Performed By: #### C BC #### [facility] [address] [place] [address] Dr. Lupillo [place] IG % 0.3 % Normal 0.0-0.5 [facility] Comment on above: Performed By: #### C BC #### [facility] [address] [place] [address] Dr. Lupillo [place] LYMPH # 1.4 103/ul Normal 1.2-3.8 [facility] Comment on above: Performed By: #### C BC #### [facility] [address] [place] [address] Dr. Lupillo [place] Lymphocytes/100 WBC (Bld) 22.5 % Normal 20.5-60.0 [facility] Comment on above: Performed By: #### C BC #### [facility] [address] [place] [address] Dr. Lupillo [place] MANUAL DIFF REQ NO Normal [facility] Comment on above: Performed By: #### C BC #### [facility] [address] [place] [address] Dr. Lupillo [place] MCH (RBC) [Entitic mass] 30.0 pg Normal 26.7-34.0 [facility] Comment on above: Performed By: #### C BC #### [facility] [address] [place] [address] Dr. Lupillo [place] MCHC (RBC) [Mass/Vol] 32.7 g/dL Normal 29.9-35.2 [facility] Comment on above: Performed By: #### C BC #### [facility] [address] [place] [address] Dr. Lupillo [place] MCV (RBC) [Entitic vol] 91.9 fL Normal 81.0-99.0 [facility] Comment on above: Performed By: #### C BC #### [facility] [address] [place] [address] Dr. Lupillo [place] MONO # 0.4 103/ul Normal 0.3-0.8 [facility] Comment on above: Performed By: #### C BC #### [facility] [address] [place] [address] Dr. Lupillo [place] Monocytes/100 WBC (Bld) 6.5 % Normal 1.7-12.0 [facility] Comment on above: Performed By: #### C BC #### [facility] [address] [place] [address] Dr. Lupillo [place] NEUT # 4.1 103/ul Normal 1.4-6.5 [facility] Comment on above: Performed By: #### C BC #### [facility] [address] [place] [address] Dr. Lupillo [place] Neutrophils/100 WBC (Bld) 64.4 % Normal 43.0-75.0 [facility] Comment on above: Performed By: #### C BC #### [facility] [address] [place] [address] Dr. uLpillo [place] Platelet mean volume (Bld) [Entitic vol] 12.0 fL Normal 9.5-13.5 [facility] Comment on above: Performed By: #### C BC #### [facility] [address] [place] [address] Dr. Lupillo [place] PLT 235 103/ul Normal 150-450 [facility] Comment on above: Performed By: #### C BC #### [facility] [address] [place] [address] Dr. Lupillo [place] RBC 4.93 106/ul Normal 4.20-5.40 [facility] Comment on above: Performed By: #### C BC #### [facility] [address] [place] [address] Dr. Lupillo [place] WBC 6.4 103/ul Normal 4.0-11.0 [facility] Comment on above: Performed By: #### C BC #### [facility] [address] [place] [address] Dr. Lupillo [place] PROF CHEM 8 (BAS METB)on Anion gap [Moles/Vol] 13.9 mmol/L Normal [facility] Comment on above: Performed By: #### B MP #### [facility] [address] [address] [address] Lupillo [place] Calcium [Mass/Vol] 9.4 mg/dL Normal 8.5-10.1 [facility] Comment on above: Performed By: #### B MP #### [facility] [address] [address] [address] Lupillo [place] Chloride [Moles/Vol] 105 mmol/L Normal 98-107 [facility] Comment on above: Performed By: #### B MP #### [facility] [address] [address] [address] Lupillo [place] CO2 [Moles/Vol] 28.2 mmol/L Normal 21.0-32.0 [facility] Comment on above: Performed By: #### B MP #### [facility] [address] [place] [address] Dr. Lupillo [place] Creatinine [Mass/Vol] 0.66 mg/dL Normal 0.55-1.02 [facility] Comment on above: Performed By: #### B MP #### [facility] [address] [address] [address] Lupillo [place] EGFR-AF POLISH >60 Normal >=60 [facility] Comment on above: Performed By: #### B MP #### [facility] [address] [address] [address] Lupillo [place] EGFR-NON AF POLISH >60 Normal >=60 [facility] Comment on above: Performed By: #### B MP #### [facility] [address] [address] [address] Lupillo [place] Glucose [Mass/Vol] 101 mg/dL Normal 74-106 [facility] Comment on above: Performed By: #### B MP #### [facility] [address] [address] [address] Lupillo [place] Potassium [Moles/Vol] 4.1 mmol/L Normal 3.5-5.1 [facility] Comment on above: Performed By: #### B MP #### [facility] [address] [address] [address] Lupillo [place] Sodium [Moles/Vol] 143 mmol/L Normal 136-145 [facility] Comment on above: Performed By: #### B MP #### [facility] [address] [address] [address] Lupillo [place] Urea nitrogen [Mass/Vol] 13.0 mg/dL Normal 7.0-18.0 [facility] Comment on above: Performed By: #### B MP #### [facility] [address] [address] [address] Lupillo [place] Urea nitrogen/Creatinine [Mass ratio] 19.7 mg/mg Normal [facility] Comment on above: Performed By: #### B MP #### [facility] [address] [place] [address] Dr. Lupillo [place] TSHon 03-19-2022 TSH 1.514 uIU/mL Normal 0.358-3.740 [facility] Comment on above: Performed By: #### T SH #### [facility] [address] [place] [address] Dr. Lupillo [place] XR KNEE LT 4V [...] by: DEMETRIA NAVARRETE Date: 2022-03-19 08:31 Normal [facility] US THYROIDon 12-05-2021 US THYROID EXAMINATION: US [...] JEMMA ARAUZ Date: 2021-12-05 10:49 Normal [facility] TSHon 09-30-2021 TSH 3.645 uIU/mL Normal 0.358-3.740 [facility] Comment on above: Performed By: #### T SH #### [facility] [address] [place] [address] Dr. Lupillo [place] US THYROIDon 08-23-2021 US [...] JEMMA ARAUZ Date: 2021-08-23 13:03 Normal [facility] T3 UPTAKEon 08-19-2021 T3U 31.0 % Normal 30.0-39.0 [facility] Comment on above: Performed By: #### T 3UP, TSH, T4 ####[facility] [address] [address]Dr. Lupillo [place] T4on 08-19-2021 T4 [Mass/Vol] 11.10 ug/dL Normal 4.80-13.90 [facility] Comment on above: Performed By: #### T 3UP, TSH, T4 #### [facility] [address] [address] [address] Lupillo [place] TSHon 08-19-2021 TSH 6.669 uIU/mL Critically high 0.358-3.740 [facility] Comment on above: Performed By: #### T 3UP, TSH, T4 ####[facility] [address] [place], [place] [address]BdDr. Lupillo [place] US THYROIDon 04-25-2021 US THYROID [...] JEMMA ARAUZ Date: 2021-04-25 14:04 Normal [facility] TSHon 04-11-2021 TSH 2.911 uIU/mL Normal 0.470-4.680 [facility] Comment on above: Performed By: #### T SH #### [facility] [address] [place] [address] Dr. Lupillo [place] TSH RANGE SEE BELOW Normal [facility] Comment on above: Result Comment: <0.3 4 UIU/ml HYPERTHYROID 0.34-5.60 UIU/ml EUTHYROID >5.60 UIU/ml HYPOTHYROID Performed By: #### T SH #### [facility] [address] [place] [address] Dr. Lupillo [place] Basic Metabolic Panel w/ Ref johnna to MGOrdered By: Stephie Iverson on 06-08-2020 Anion gap [Moles/Vol] 8 mmol/L Low 9 - 17 mmol/L [employer] Phone: Calcium [Mass/Vol] 9.0 mg/dL 8.6 - 10. 4 mg/dL [employer] Phone: Chloride [Moles/Vol] 105 mmol/L 98 - 10 7 mmol/L [employer] Phone: CO2 [Moles/Vol] 24 mmol/L 20 - 31 mmol/L [employer] Phone: Creatinine [Mass/Vol] 0.49 mg/dL Low 0.50 - 0.90 mg/dL [employer] Phone: GFR >60 >60 mL/min [employer] Phone: GFR Non- >60 >60 mL/min [employer] Phone: GFR/1.73 sq M.predicted MDRD (S/P/Bld) [Vol rate/Area] [employer] Phone: Comment on above: Average GFR for 40-4 9 years old: 99 mL/min/1.73sq m Chronic Kidney Disease: <60 mL/min/1.73sq m Kidney failure: <15 mL/min/1.73sq m eGFR calculated using average adult body mass. Additional eGFR calculator available at: http://www.Genius.com/multiple_crcl_2012.htm GFR/1.73 sq M.predicted MDRD (S/P/Bld) [Vol rate/Area] NOT REPORTED [employer] Phone: Glucose [Mass/Vol] 107 mg/dL High 70 - 99 mg/dL [employer] Phone: Interpretation and review of laboratory results Abnormal [employer] Phone: Potassium [Moles/Vol] 3.7 mmol/L 3.7 - 5.3 mmol/L [employer] Phone: Sodium [Moles/Vol] 137 mmol/L 135 - 144 mmol/L [employer] Phone: Urea nitrogen (BldV) [Mass/Vol] 11 mg/dL 6 - 20 mg/dL [employer] Phone: Urea nitrogen/Creatinine (Bld) [Mass ratio] 22 High [employer] Phone: CBC Auto DifferentialOrdered By: Stephie Iverson on 06-08-2020 Absolute Eos # 0.30 [employer] Phone: Absolute Immature Granulocyte NOT REPORTED [employer] Phone: Absolute Lymph # 1.80 [employer] [facility] Work Phone: Absolute [place] # 0.50 [employer] [facility] Work Phone: Basophils (Bld) [#/Vol] 0.00 10*3/uL [employer] Work Phone: Basophils/100 WBC (Bld) 1 % 0 - 2 % [employer] Work Phone: Differential Type YES No.1 [employer] Work Phone: Eosinophils/100 WBC (Bld) 5 % 0 - 5 % [employer] Phone: Hematocrit (Bld) [Volume fraction] 42.6 % 36 - 46 % [employer] Phone: Hemoglobin.gastrointes tinal spec 1 Ql (Stl) 14.4 g/dL 12.0 - 16.0 g/dL [employer] Work Phone: Immature Granulocytes NOT REPORTED 0 % [employer] Work Phone: Lymphocytes/100 WBC (Bld) 26 % 15 - 40 % [employer] Phone: MCH (RBC) [Entitic mass] 29.6 pg 26 - 34 pg [employer] Work Phone: MCHC (RBC) [Mass/Vol] 33.8 g/dL 31 - 37 g/dL [employer] Work Phone: MCV (RBC) [Entitic vol] 87.6 fL 80 - 100 fL [employer] Work Phone: Monocytes/100 WBC (Bld) 7 % 4 - 8 % [employer] Work Phone: NRBC Automated NOT REPORTED per 100 WBC No.1 [employer] Work Phone: Platelet distribution width (Bld) [Ratio] 13.3 % 12.1 - 15.2 % [employer] Phone: Platelet Estimate NOT REPORTED [employer] Phone: Platelet mean volume (Bld) [Entitic vol] NOT REPORTED 6.0 - 12.0 fL [employer] Phone: Platelets (Bld) [#/Vol] 252 10*3/uL [employer] Phone: RBC (Bld) [#/Vol] 4.87 10*6/uL 4.0 - 5.2 m/uL [employer] Phone: RBC (Bld) [#/Vol] NOT REPORTED [employer] Phone: Segmented neutrophils/100 WBC (Bld) 61 % 47 - 75 % [employer] Phone: Segs Absolute 4.40 [employer] Work Phone: WBC (Bld) [#/Vol] 7.0 10*3/uL [employer] Phone: WBC (Bld) [#/Vol] NOT REPORTED [employer] Phone: CTA CHEST W CONTRASTOrdered By: Stephie [...] nodules and thyromegaly. Consider outpatient thyroid ultrasound. [employer] Phone: EXAMINATION: CTA CHEST W CONTRAST HISTORY: [...] alone. The bone windows are normal. Cholecystectomy. [employer] Phone: Paolo, [facility] Incoming Radiant Results From [employer] - 06/08/2020 4:28 PM EDT EXAMINATION: CTA [...] nodules and thyromegaly. Consider outpatient thyroid ultrasound. [facility] [employer] Work Phone: D-Dimer, QuantitativeOrdered By: Stephie Iverson on 06-08-2020 D-Dimer, Quant 0.61 High [facility] [employer] Phone: Comment on above: When combined with [...] Interpretation and review of laboratory results Abnormal [employer] Work Phone: VL DUP LOWER EXTREMITY VENOU S LEFTOrdered By: Stephie Iverson on 06-08-2020 Paolo, pn Incoming Cardio Results From [facility]/ - 06/08/2020 3:35 PM EDT [facility] Vascular Lower Extremities DVT Study Procedure Patient Name MISHRA Date of Study 06/08/2020 JUDY Yoon Date of 1970 Gender Female Age 50 year(s) Race Room Number 06 Height: 63 inch, 160.02 cm Corporate ID [id number] Weight: 200 pounds, 90.7 kg # Patient Acct [id number] BSA: 1.93 m^2 BMI: 35.43 kg/m^2 # MR # [id number] Trust Evaluation Supervisor Carrie Haines, Interpreting Physician Gian Braga Referring Referring Physician Stephie Iverson Nurse Practitioner Procedure Type of Study: Veins: Lower Extremities DVT Study, DUP LOWER EXTREMITY VENOUS LEFT. Indications for Study:Leg Swelling. Patient Status:STAT. Comments:Left leg pain, no injury, since hx of covid 03/2020. Conclusions Summary Negative for DVT left lower extremity and right groin. Signature ---- Electronically signed by RT Prosper(Becky)(Otf)(DEMIAN)([facility])(S onographer) on 06/08/2020 03:09 PM ---- ---- [...] !Phasic!No ! ! + --------+------+---- --+ + [employer] Phone: CNOVSPon 05-27-2018 OVS Visit (SP) Office (EV[place]) JUDY MISHRA ([id number]) 1970 F Date Time Provider Department 05/27/18 8:20 AM RISA YOON During your visit today, we recorded the following information about you: Pulse Respiration Blood pressure Weight 71/minute 18/minute 117/58 89 kg Height 1.626 m Risa Yoon MD 05/27/2018 7:46 PM Signed Gynecologic Oncology [facility] Post-Op Visit Re: Judy Mishra [facility]#: [id number] 05/27/2018 PROBLEM: Judy Mishra returns to the [...] note were sent to: Noah Woods, DO [address] [place] [address] [place] [address] CC: Selvin Mack Sr, MD (PCP) Referring [...] by RISA YOON MD on 05/27/18 Normal [facility] PROGRESSon 05-23-2018 PROGRESS HNO ID: [id number] Author: Risa Yoon Service: ? Author Type: Physician Type: Progress Notes Filed: 05/27/2018 7:46 PM Note Text: Gynecologic Oncology [facility] Post-Op Visit Re: Judy Mishra [facility]#: [id number] 05/27/2018 PROBLEM: Judy Mishra returns to the [...] note were sent to: Noah Woods, DO [address] [place] [address] [place] [address] CC: Selvin Mack Sr, MD (PCP) Normal [facility] ANES Kj 05-09-2018 ANES POST HNO ID: [id number] Author: Constantin Gomez Service: Anesthesiology Author Type: [...] 09, 2018 TIME: 11:50 AM PAGER/CONTACT #: [id number] [facility] BRIEF OP NOTon 05-09-2018 BRIEF OP NOT HNO ID: [id number] Author: Carissa Liang (Fel) Service: Gynecology Oncology Author Type: Fellow Type: Brief Op Note Filed: 05/09/2018 8:29 AM Note Text: BRIEF OP NOTE LOG ID: [id number] Surgery/Procedure Date: 05/09/2018 Incision/Procedure Start Time: 8:11 AM Incision Close/Procedure End Time: 8:26 AM Surgeon(s)/Procedura list(s) and Registered Nurse First Assistant(s): Surgeon(s) and Role: * Risa Yoon - Primary * Krys Mueller - Resident - Assisting * Carissa Liang (Fel) - Fellow Procedure(s): Hysteroscopy and DANDC Anesthesia: Choice - Anesthesia Consult Findings: Polypoid tissue removed. Posterior uterine fibroid, submucosal Estimated Blood Loss: 5 mls Specimens: Specimen ID Type Site Comments Sent To path 1 Tissue [facility] Pathology Routine Complications: None Pre-Op/Pre-Procedure Diagnosis: Endometrial mass Post-Op/Post-Procedu re Diagnosis: Endometrial mass SIGNATURE: Carissa Liang MD PATIENT NAME: Judy Mishra DATE: May 09, 2018 TIME: 8:28 AM PAGER/CONTACT #: [id number] [facility] NURSING PROGon 05-09-2018 NURSING PROG HNO ID: [id number] Author: Opal Oswald (Cotton Expert) Service: Pharmacy Author Type: ? Type: Nursing Progress Note Filed: 05/09/2018 9:20 AM Note Text: ED CASE MANAGER BEDSIDE DELIVERY SURVEY 1. Patient to use [facility] Bedside Delivery - NO prefer own pharmacy 2. If fax, patient would like us to fax prescriptions to Pharmacy of choice a. Pharmacy: b. Location: c. Phone: 3. Insurance card on file - NO 4. Credit card for payment - NO PRESCRIPTIONS WERE E-SCRIPTED TO [facility]. Normal [facility] NURSING PROG HNO ID: [id number] Author: Pallavi Ellsworth RN Service: ? Author Type: Registered Nurse [...] Ellsworth RN In Department: HOSP MAIN M023 Normal [facility] NURSING PROG HNO ID: [id number] Author: Pallavi Ellsworth RN Service: ? Author Type: Registered Nurse Type: Nursing Progress Note Filed: 05/09/2018 5:46 AM Note Text: Dr. Yoon paged for updated HANDP - M23-38, OR 8, Judy Mishra, patient's HANDP needs heart and lung sounds. Thank you, Trudy [phone] [facility] OPERATIVE NOon 05-09-2018 OPERATIVE NO HNO ID: [id number] Author: Risa Yoon Service: Gynecology Oncology Author Type: Physician Type: Operative Report Filed: 05/12/2018 10:21 PM Note Text: OPERATIVE/PROCEDURE REPORT LOG ID: [id number] SURGERY/PROCEDURE DATE: 05/09/2018 INCISION/PROCEDURE START TIME: 8:11 AM INCISION CLOSE/PROCEDURE END TIME: 8:29 AM SURGEON(S)/PROCEDURA LIST(S) AND FUSION ANALYST(S): Surgeon(s) and Role: * Risa Yoon - Primary * Krys (Res) Ervin - Resident - Assisting * Carissa Desir) Garth - Fellow No Additional Staff SURGEON(S)/PROCEDURA LIST(S) AND FUSION ANALYST(S): Surgeon(s) and Role: * Risa Yoon - Primary * Yudi (Res) MD Min - Resident - Assisting No Additional Staff [...] findings.?Then the attention was directed to the [facility]. A speculum was placed in the vagina, [...] 12, 2018 TIME: 10:18 PM PAGER/CONTACT #: [facility] PT EDon 05-09-2018 PT ED HNO ID: [id number] Author: Marissa (Rn) MERY Ferreira Service: Nursing Author Type: Registered Nurse Type: Patient Education Filed: 05/09/2018 10:16 AM Note Text: PATIENT EDUCATION TOPIC: PROCEDURE / SURGERY: Procedure/Surgery: PATIENT NAME: Judy Mishra PATIENT LOCATION: [place] [address] READINESS TO LEARN COGNITIVE ABILITY: Alert and [...] None Electronically Signed By: Marissa Ferreira RN Normal [facility] SURGICAL PATHOLOGYon 019 SURGICAL PATHOLOGY Specimen originated from [facility] Specimen #: [id number] Submitting Physician: RISA YOON MD FINAL DIAGNOSIS Endometrium, curettings - Disordered proliferative endometrium suggestive of benign endometrial polyp. ACV/dss 05/13/2018 Niles Geller M.D. (Electronic Signature) SPECIMEN SUBMITTED A: [facility] CLINICAL DATA ENDOMETRIAL MASS UTERINE BLEEDING GROSS DESCRIPTION A. Received in formalin on Telfa gauze are multiple red-brown, soft feathery segments of tissue aggregating to 2.5 x 2.0 x 0.3 cm. Totally submitted in one cassette. Gross examination performed at [facility], [address] [place] [address] 05/09/2018 4:54:51 PM Date of Report: 05/14/2018 Date of Procedure: 05/09/2018 Date of Receipt: 05/09/2018 Submitted by: RISA YOON MD Location: 2 Diagnostic interpretation performed at [facility], [address] [place] [address]. 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 NURSE DIPTI KIRK During your visit today, we recorded the following information about you: Tono Giraldo LPN, PROGRAM AIDE 05/09/2018 4:47 PM Signed DATE OF SERVICE: [...] patient have an advanced directive: No Does [facility] have a copy of the patient's [...] prescribed by anesthesia, internal medicine, surgeon, or FLAT FINISHER Stop NSAIDs, Aspirin (ASA), vitamins, herbal supplements, [...] jewelry, body piercing, makeup, contacts, lotions, nail bahraini on fingers, or anything in hair on arrival to surgery Wear low healed shoes and loose fitting clothing Leave all valuables at home or with a family member Directions to [facility] and the [facility] Parking/parking validation on the day prior to [...] - IV pain medication after surgery, IV PRIVACY ANALYST if ordered by MD, discharged home with [...] please send any FMLA papers to physician's guidance secretary. SYMPTOMS TO NOTIFY MD - Fever, [...] if after hours patient instructed to call electric freight car operator and ask for aircraft electronics technical officer bass singer onc resident. SEAN program offered to patient: [...] None Educator: Tono Giraldo LPN [facility] Tono Rasheedshane Giraldo LPN, PROGRAM AIDE 05/08/2018 7:38 AM Signed GYNECOLOGY PHYSICIAN CONTACT INFORMATION Surgery Scheduling Office General Gynecology Gynecologic Oncology Dr. Kenia Long Dr. Shira Jackson Dr. Girma Moon Dr. Osman Yoon Dr. Shayy Landry Dr. Dimitris Nazario Dr. Helene Arias Dr. Judy Garcia Dr. Matthias Zeng Gynecology Nurse Practitioner Yudi Mejía, FAISAL Field Test Engineer Oncology Nurse Practitioners: Opal Delcid, FAISAL Phan, FAISAL Momin, FAISAL Terrell, SURVEY RESEARCHER Urogynecology Nighat Burr, FAISAL Mcdonnell Kiesha Curry, FAISAL Callahan Dr. Tavo Ortega Dr. Ashley Martínez Fertility Dr. Girma Llamas Dr. Annia Wang Dr. Etienne Tatum Urogynecology Nurse Practitioner: Dr. Natalie Jeter Bruna Lester, SURVEY RESEARCHER Lizeth Zelaya, SURVEY RESEARCHER Madison [place], SURVEY RESEARCHER Fertility Nurse Practitioners: Yudi Higuera, FAISAL Post, FAISAL After 4:30 pm or on holidays or weekends, call: or . Ask the electric freight car operator to page the ?bass singer aircraft electronics technical officer.' PRE-OPERATIVE CHECKLIST: PATIENT INSTRUCTIONS PRIOR TO SURGERYOur [...] not wear jewelry, body piercing(s), makeup, nail bahraini, hairpins, or contacts on the day of surgery. I am to leave valuables and money at home or with family members. Unless my surgeon tells me differently, I will STOP THESE MEDICATIONS 7 DAYS PRIOR TO SURGERY: (Motrin/Ibuprofen/Na proxen/Aleve/Advil), Aspirin, vitamin E, herbal medications, diet pills, and mgla-zfv-bauvljw medications. Tylenol (acetaminophen) is okay. If I [...] my Surgeon. Discuss medication changes with your electric motor assembler and tester or primary care physician as well. If I stopped taking my blood-thinning medication, I will ask the surgeon when to resume taking it. If I am an outpatient, a responsible person will drive me home and it was suggested that someone stay with me for 24 hours. I understand that a oracle business intelligence developer or cabdriver is NOT a responsible caregiver. [...] time for surgery, I must call my rn medical surgical after 2pm the day before surgery. Pain management education material found in Your Surgical Guide was reviewed with me. Preoperative instructions given by: HAIRSPRING TRUER PREOP INSTRUCTIONS PRE-OPERATIVE CHECKLIST ? See Pre-Operative [...] Your Surgical Guide Book for more information. [facility] TEAM ? At the [facility], we have a multidisciplinary team of caregivers that includes fellows, residents, nurse practitioners (freelance graphic designer), physician assistants (PAs), clinical nurse specialists (CNSs), nurses, medical assistants (MAs), patient care nursing assistants (PCNAs), social workers, rn field case manager and many others. We all [...] prior to surgery. Phone number: or ext [phone]. ? No alcohol on the day before [...] ? Do not wear any jewelry, nail bahraini, makeup, lotions, contact lenses, or anything in [...] Matthias Zeng Gynecology Nurse Practitioner Yudi Mejía, SURVEY RESEARCHER Field Test Engineer Oncology Nurse Practitioners: Opal Delcid, SURVEY RESEARCHER Gertrude Phan, SURVEY RESEARCHER Yolanda Momin, SURVEY RESEARCHER Nithya Terrell, SURVEY RESEARCHER Urogynecology Nighat Burr, [facility] Dr. Stephie Mcdonnell Kiesha Curry, [facility] Dr. Trudy Callahan Dr. Tavo Ortega Dr. Ashley Martínez Fertility Dr. Girma Llamas Dr. Annia Wang Dr. Etienne Tatum Urogynecology Nurse Practitioner: Dr. Natalie Jeter Bruna Lester, SURVEY RESEARCHER Lizeth Zelaya, SURVEY RESEARCHER Madison Canada, [facility] Fertility Nurse Practitioners: Yudi Higuera, FAISAL Post, SURVEY RESEARCHER After 4:30 pm or on holidays or weekends, call: or . Ask the electric freight car operator to page the ?bass singer aircraft electronics technical officer.' PRE-OPERATIVE CHECKLIST: PATIENT INSTRUCTIONS PRIOR TO SURGERYOur [...] juices without pulp, carbonated beverages (i.e. scotty hsreya), electrolyte beverages (i.e. Gatorade), clear tea and black coffee, clear broth, popsicles and jello. (No milk). No alcohol the day before or day of surgery. I will bring this binder to all pre and post-operative appointments AND day of surgery. MEDICATION STOPPAGE: I will not wear jewelry, body piercing(s), makeup, nail bahraini, hairpins, or contacts on the day of surgery. I am to leave valuables and money at home or with family members. Unless my surgeon tells me differently, I will STOP THESE MEDICATIONS 7 DAYS PRIOR TO SURGERY: (Motrin/Ibuprofen/Na proxen/Aleve/Advil), Aspirin, vitamin E, herbal medications, diet pills, and rhfl-rew-jdgfshi medications. Tylenol (acetaminophen) is okay. If I [...] my Surgeon. Discuss medication changes with your electric motor assembler and tester or primary care physician as well. If I stopped taking my blood-thinning medication, I will ask the surgeon when to resume taking it. If I am an outpatient, a responsible person will drive me home and it was suggested that someone stay with me for 24 hours. I understand that a oracle business intelligence developer or cabdriver is NOT a responsible caregiver. [...] time for surgery, I must call my rn medical surgical after 2pm the day before surgery. Pain management education material found in Your Surgical Guide was reviewed with me. Preoperative instructions given by: HAIRSPRING TRUER PREOP INSTRUCTIONS PRE-OPERATIVE CHECKLIST ? See Pre-Operative [...] Your Surgical Guide Book for more information. [facility] TEAM ? At the [facility], we have a multidisciplinary team of caregivers that includes fellows, residents, nurse practitioners (freelance graphic designer), physician assistants (PAs), clinical nurse specialists (CNSs), nurses, medical assistants (MAs), patient care nursing assistants (PCNAs), social workers, rn field case manager and many others. We all [...] ? Do not wear any jewelry, nail bahraini, makeup, lotions, contact lenses, or anything in [...] Encounter Status:Closed by TONO GIRALDO on 05/09/18 Normal [facility] PROGRESSon 05-08-2018 PROGRESS HNO ID: [id number] Author: Tono Hernandez ([facility]) KEARA Giraldo Service: ? Author Type: LICENSED NURSE Type: [...] patient have an advanced directive: No Does [facility] have a copy of the patient's [...] prescribed by anesthesia, internal medicine, surgeon, or FLAT FINISHER Stop NSAIDs, Aspirin (ASA), vitamins, herbal supplements, [...] jewelry, body piercing, makeup, contacts, lotions, nail bahraini on fingers, or anything in hair on arrival to surgery Wear low healed shoes and loose fitting clothing Leave all valuables at home or with a family member Directions to [facility] and the [facility] Parking/parking validation on the day prior to [...] - IV pain medication after surgery, IV PRIVACY ANALYST if ordered by MD, discharged home with [...] please send any FMLA papers to physician's guidance secretary. SYMPTOMS TO NOTIFY MD - Fever, [...] if after hours patient instructed to call electric freight car operator and ask for aircraft electronics technical officer bass singer onc resident. SEAN program offered to patient: [...] None Educator: Tono Giraldo LPN [facility] Normal [facility] Basic Metabolic Panlon 05-06 Anion gap [Moles/Vol] 7 mmol/L Low 9-18 [facility] Comment on above: Performed By: #### C FRED BMP #### [facility] [place] [address] [place], [place] [address] Calcium [Mass/Vol] 8.7 mg/dL Normal 8.5-10.2 [facility] Comment on above: Performed By: #### C FRED BMP #### [facility] [place] [address] [place], [place] [address] Chloride [Moles/Vol] 107 mmol/L High 97-105 [facility] [place] [facility] Comment on above: Performed By: #### C BCCYNTHIA BMP #### [facility] [place] [address] [place] [address] CO2 [Moles/Vol] 28 mmol/L Normal 22-30 [facility] Comment on above: Performed By: #### C FRED, LE #### [facility] [address] [place] [address] Creatinine [Mass/Vol] 0.68 mg/dL Normal 0.58-0.96 [facility] Comment on above: Performed By: #### C FRED, BMP #### [facility] [address] [place] [address] eGFR- Amer. >60 Normal [facility] Comment on above: Performed By: #### C FRED, BMP #### [facility] [address] [place] [address] GFR/1.73 sq M predicted among non-blacks MDRD (S/P/Bld) [Vol rate/Area] mL/min/{1.73_m2} Normal [facility] Comment on above: Result Comment: eGFR (Estimated [...] reflect actual GFR. Performed By: #### C FRED, BMP #### [facility] [address] [place] [id number] Glucose [Mass/Vol] 105 mg/dL High 74-99 [facility] Comment on above: Result Comment: The [place] Diabetes Association (ADA) provides guidance for cutoff [...] Standards of Medical Care in Diabetes 2016, [place] [employer] Association. Diabetes Care. 2016.39(Suppl 1). Performed By: #### C FRED, BMP #### [facility] [address] [place], [place] [address] Potassium [Moles/Vol] 4.1 mmol/L Normal 3.7-5.1 [facility] Comment on above: Performed By: #### Naldo IBARRA, BMP #### [address] [address] Sodium [Moles/Vol] 142 mmol/L Normal 136-144 [facility] Comment on above: Performed By: #### Naldo IBARRA, BMP #### [place] [address] [place], [place] [address] Urea nitrogen [Mass/Vol] 7 mg/dL Normal 7-21 [facility] Comment on above: Performed By: #### Naldo IBARRA, BMP #### [address] [address] CBC and Differentialon 05-06 Abs Baso 0.04 k/uL Normal <0.11 [facility] Comment on above: Performed By: #### C FRED, BMP #### [place] [address] [place], [place] [address] Abs [place] 0.47 k/uL Normal <0.87 [facility] Comment on above: Performed By: #### Naldo IBARRA, BMP #### [place] [address] [place], [place] [address] Abs Neut 3.78 k/uL Normal 1.45-7.50 [facility] Comment on above: Performed By: #### C BCDIF, BMP #### [facility] [place] [address] [place] [address] Absolute nRBC <0.01 Normal <0.01 [facility] Comment on above: Performed By: #### C BCDIF, BMP #### [facility] [place] [place] [id number] Basophils/100 WBC (Bld) 0.6 % Normal [facility] Comment on above: Performed By: #### C BCDIF, BMP #### [facility] [place] [place] [id number] DTYPE Auto Diff Normal [facility] Comment on above: Performed By: #### C BCDIF, BMP #### [place] [address] [place] [phone] Eosinophils (Bld) [#/Vol] 0.25 10*3/uL Normal <0.46 [facility] Comment on above: Performed By: #### C BCDIF, BMP #### [facility] [address] [address] Eosinophils/100 WBC (Bld) 3.9 % Normal [facility] Comment on above: Performed By: #### C BCDIF, BMP #### [facility] [address] [place] [phone] Erythrocyte distribution width (RBC) [Ratio] 12.7 % Normal 11.5-15.0 [facility] Comment on above: Performed By: #### C BCDIF, BMP #### [facility] [address] [place] [phone] Hematocrit (Bld) [Volume fraction] 40.6 % Normal 36.0-46.0 [facility] Comment on above: Performed By: #### C BCDIF, BMP #### [facility] [address] [place], [place] [address] Hemoglobin (Bld) [Mass/Vol] 13.6 g/dL Normal 11.5-15.5 [facility] Comment on above: Performed By: #### C BCDIF, BMP #### [place] [address] [place], [place] [address] Lymphocytes (Bld) [#/Vol] 1.78 10*3/uL Normal 1.00-4.00 [facility] Comment on above: Performed By: #### C BCDIF, BMP #### [place] [address] [place], [place] [address] Lymphocytes/100 WBC (Bld) 28.1 % Normal [facility] Comment on above: Performed By: #### C BCDIF, BMP #### [address] [address] MCH (RBC) [Entitic mass] 28.6 pG Normal 26.0-34.0 [facility] Comment on above: Performed By: #### C BCDIF, BMP #### [address] [address] MCHC (RBC) [Mass/Vol] 33.5 g/dL Normal 30.5-36.0 [facility] Comment on above: Performed By: #### C BCDIF, BMP #### [address] [address] MCV (RBC) [Entitic vol] 85.3 fL Normal 80.0-100.0 [facility] Comment on above: Performed By: #### C BCDIF, BMP #### [place] [address] [place], [place] [address] Monocytes/100 WBC (Bld) 7.4 % Normal [facility] Comment on above: Performed By: #### C BCDIF, BMP #### [place] [address] [place], [place] [address] Neutrophils/100 WBC (Bld) 60.0 % Normal [facility] Comment on above: Performed By: #### Naldo IBARRA BMP #### [place] [address] [place] [address] NRBCs 0.0 /100 WBC Normal 0 [facility] Comment on above: Performed By: #### Naldo IBARRA, BMP #### [place] [address] [place] [address] Platelet mean volume (Bld) [Entitic vol] 12.3 fL Normal 9.0-12.7 [facility] Comment on above: Performed By: #### Naldo IBARRA BMP #### [place] [address] [place] [address] Platelets (Bld) [#/Vol] 217 10*3/uL Normal 150-400 [facility] Comment on above: Performed By: #### Naldo IBARRA, BMP #### [place] [address] RBC (Bld) [#/Vol] 4.76 10*6/uL Normal 3.90-5.20 [facility] Comment on above: Performed By: #### Naldo IBARRA, BMP #### [place] [address] WBC (Bld) [#/Vol] 6.33 10*3/uL Normal 3.70-11.00 [facility] Comment on above: Performed By: #### Naldo IBARRA, BMP #### [place] [id number] CNOVSAdair 05-06-2018 CNOVS Visit (SP) Office (REAGAN) JUDY MISHRA ([id number]) 1970 F Date Time Provider Department 05/06/18 9:45 AM RISA YOON During your visit today, we recorded the following information about you: Pulse Respiration Blood pressure Weight 70/minute 18/minute 128/64 88.7 kg Height 1.6 m Risa Yoon MD 05/08/2018 4:15 PM Signed Gynecologic Oncology [facility] Follow up Re: Judy Mishra [facility]#: [id number] 05/06/2018 Gynecologic Oncology [facility] Follow up visit Re: Judy Mishra [facility]#: [id number] 05/06/2018 PROBLEM: Judy Mishra returns to the [...] office note were sent to: Noah Woods [address] [place] [address] CC: Selvin Mack Sr, MD (PCP) Risa [...] questions to their stated satisfaction. Yolanda Momin APRN.FAISAL 05/06/2018 11:04 AM Signed GYNECOLOGY PHYSICIAN CONTACT INFORMATION Surgery Scheduling Office General Gynecology Gynecologic Oncology Dr. Kenia Long Dr. Shira Jackson Dr. Girma Moon Dr. Osman Yoon Dr. Shayy Landry Dr. Dimitris Nazario Dr. Helene Arias Dr. Judy Garcia Dr. Matthias Zeng Gynecology Nurse Practitioner Yudi Mejía, SURVEY RESEARCHER Field Test Engineer Oncology Nurse Practitioners: Opal Delcid, FAISAL Phan, FAISAL Momin, FAISAL Terrell, SURVEY RESEARCHER Urogynecology Nighat Burr, [facility] Dr. Stephie Mcdonnell Kiesha Curry, [facility] Dr. Trudy Callahan Dr. Tavo Ortega Dr. Ashley Martínez Fertility Dr. Girma Llamas Dr. Annia Wang Dr. Etienne Tatum Urogynecology Nurse Practitioner: Dr. Natalie Jeter Bruna Lester, SURVEY RESEARCHER Lizeth Zelaya, SURVEY RESEARCHER [place], [facility] Fertility Nurse Practitioners: Yudi iHguera, FAISAL Post, SURVEY RESEARCHER After 4:30 pm or on holidays or weekends, call: or . Ask the electric freight car operator to page the ?bass singer aircraft electronics technical officer.' PRE-OPERATIVE CHECKLIST: PATIENT INSTRUCTIONS PRIOR TO SURGERYOur [...] not wear jewelry, body piercing(s), makeup, nail bahraini, hairpins, or contacts on the day of surgery. I am to leave valuables and money at home or with family members. Unless my surgeon tells me differently, I will STOP THESE MEDICATIONS 7 DAYS PRIOR TO SURGERY: (Motrin/Ibuprofen/Na proxen/Aleve/Advil), Aspirin, vitamin E, herbal medications, diet pills, and weap-rqx-dbhsqth medications. Tylenol (acetaminophen) is okay. If I [...] my Surgeon. Discuss medication changes with your electric motor assembler and tester or primary care physician as well. If I stopped taking my blood-thinning medication, I will ask the surgeon when to resume taking it. If I am an outpatient, a responsible person will drive me home and it was suggested that someone stay with me for 24 hours. I understand that a oracle business intelligence developer or cabdriver is NOT a responsible caregiver. [...] time for surgery, I must call my rn medical surgical after 2pm the day before surgery. Pain management education material found in Your Surgical Guide was reviewed with me. Preoperative instructions given by: HAIRSPRING TRUER PREOP INSTRUCTIONS PRE-OPERATIVE CHECKLIST ? See Pre-Operative [...] Your Surgical Guide Book for more information. [facility] TEAM ? At the [facility], we have a multidisciplinary team of caregivers that includes fellows, residents, nurse practitioners (freelance graphic designer), physician assistants (PAs), clinical nurse specialists (CNSs), nurses, medical assistants (MAs), patient care nursing assistants (PCNAs), social workers, rn field case manager and many others. We all have different roles and responsibilities but we are all here to help you. Referring Provider: RISA YOON [[id number]] Allergies As of Date: 05/06/2018 Noted Allergy Reaction BACTRIM (SULFAMETHOXAZOLE-TR IMETH*03/29/2018 4 - Hives PENICILLINS 03/29/2018 16 - Unknown PERCOCET (OXYCODONE-ACETAMINO PHEN)03/29/2018 11 - Vomiting Date Reviewed: 05/06/2018 Reviewed by: Calista Marquez - Fully Assessed Reason for Visit: Follow Up [171] Primary Visit Diagnosis:Abnormal uterine bleeding [N93.9] Other Visit Diagnoses:Endometria l mass [N94.89] Preoperative examination [Z01.818] Preop examination [Z01.818] Order(s):SURGICAL REQUEST - ELECTIVE [[id number]] Order #: [id number]: 1 BASIC METABOLIC PNL [SQBMP] Order #: [id number] FUTURE CBC + DIFF [SQCBCDIF] Order #: [id number] FUTURE REFER FOR ADMIT INTERVIEW [[id number]] Order #: [id number] [facility] [[id number]] Order #: [id number] CONSULT TO PATIENT EDUCATION [[id number]] Order #: [id number]: 1 Prescriptions as of 05/06/2018 Sig: LORAZEPAM [...] Zeng Gynecology Nurse Practitioner Yudi Mejía, FAISAL Field Test Engineer Oncology Nurse Practitioners: Opal Delcid, SURVEY RESEARCHER Gertrude Phan, SURVEY RESEARCHER Yolnada Momin, SURVEY RESEARCHER Nithya Terrell, SURVEY RESEARCHER Urogynecology Nighat Burr, FAISAL Mcdonnell Kiesha Curry, [facility] Dr. Trudy Callahan Dr. Tavo Ortega Dr. Ashley Martínez Fertility Dr. Girma Llamas Dr. Annia Wang Dr. Etienne Tatum Urogynecology Nurse Practitioner: Dr. Natalie Jeter Bruna Lester, FAISAL Zelaya FAISAL [place], FAISAL Fertility Nurse Practitioners: Yudi Higuera, FAISAL Post CNP After 4:30 pm or on holidays or weekends, call: or . Ask the electric freight car operator to page the ?bass singer aircraft electronics technical officer.' PRE-OPERATIVE CHECKLIST: PATIENT INSTRUCTIONS PRIOR TO SURGERYOur [...] not wear jewelry, body piercing(s), makeup, nail bahraini, hairpins, or contacts on the day of surgery. I am to leave valuables and money at home or with family members. Unless my surgeon tells me differently, I will STOP THESE MEDICATIONS 7 DAYS PRIOR TO SURGERY: (Motrin/Ibuprofen/Na proxen/Aleve/Advil), Aspirin, vitamin E, herbal medications, diet pills, and ivfa-dtm-ustjnjc medications. Tylenol (acetaminophen) is okay. If I [...] my Surgeon. Discuss medication changes with your electric motor assembler and tester or primary care physician as well. If I stopped taking my blood-thinning medication, I will ask the surgeon when to resume taking it. If I am an outpatient, a responsible person will drive me home and it was suggested that someone stay with me for 24 hours. I understand that a oracle business intelligence developer or cabdriver is NOT a responsible caregiver. [...] time for surgery, I must call my rn medical surgical after 2pm the day before surgery. Pain management education material found in Your Surgical Guide was reviewed with me. Preoperative instructions given by: HAIRSPRING TRUER PREOP INSTRUCTIONS PRE-OPERATIVE CHECKLIST ? See Pre-Operative [...] Your Surgical Guide Book for more information. [facility] TEAM ? At the [facility], we have a multidisciplinary team of caregivers that includes fellows, residents, nurse practitioners (freelance graphic designer), physician assistants (PAs), clinical nurse specialists (CNSs), nurses, medical assistants (MAs), patient care nursing assistants (PCNAs), social workers, rn field case manager and many others. We all have different roles and responsibilities but we are all here to help you. Encounter Status:Closed by RISA YOON MD on 05/08/18 [facility] HOSP 05-06-2018 HOSP Patient:Lacie Mishra MRN: [...] 40.6 % 05/06/2018 46.0 36.0 Progress Notes (HAIRSPRING TRUER ONC MAIN CA 4): Tono Giraldo LPN, PROGRAM AIDE 05/08/2018 8:38 AM Sign at close encounter DATE OF SERVICE: 05/08/2018 PROBLEM: Judy Mishra presents for pre-op teaching. PRE-OP DIAGNOSIS: Abnormal uterine bleeding SCHEDULED SURGERY AND DATE: 05/09/2018 - [facility] and possible hysteroscopy PRIMARY SURGEON: Risa Yoon MD NURSING PREOP ASSESSMENT: Fevers, chills, cough, or nasal congestion: No Vaginal itching, burning, discharge, or odor: No Pain with urination, frequency, urgency, cloudy or foul smelling urine: No If yes to any of the above then MD notified: Not Applicable ADVANCED CARE PLANNING: Does the patient have an advanced directive: No Does [facility] have a copy of the patient's [...] prescribed by anesthesia, internal medicine, surgeon, or FLAT FINISHER Stop NSAIDs, Aspirin (ASA), vitamins, herbal supplements, [...] jewelry, body piercing, makeup, contacts, lotions, nail bahraini on fingers, or anything in hair on arrival to surgery Wear low healed shoes and loose fitting clothing Leave all valuables at home or with a family member Directions to [facility] and [facility] Parking/parking validation on the day prior to [...] - IV pain medication after surgery, IV PRIVACY ANALYST if ordered by MD, discharged home with [...] please send any FMLA papers to physician's guidance secretary. SYMPTOMS TO NOTIFY MD - Fever, [...] if after hours patient instructed to call electric freight car operator and ask for aircraft electronics technical officer bass singer onc resident. SEAN program offered to patient: [...] None Educator: Tono Giraldo LPN [facility] Tono Giraldo LPN, KEARA 05/08/2018 7:38 AM Signed GYNECOLOGY PHYSICIAN CONTACT INFORMATION Surgery Scheduling Office General Gynecology Gynecologic Oncology Dr. Kenia Long Dr. Shira Jackson Dr. Girma Moon Dr. Osman Yoon Dr. Shayy Landry Dr. Dimitris Nazario Dr. Helene Arias Dr. Judy Garcia Dr. Matthias Zeng Gynecology Nurse Practitioner Yudi Mejía [facility] Field Test Engineer Oncology Nurse Practitioners: Opal Delcid, SURVEY RESEARCHER Gertrude Phan, SURVEY RESEARCHER Yolanda Momin, SURVEY RESEARCHER Nithya Terrell, SURVEY RESEARCHER Urogynecology Nighat Burr, SURVEY RESEARCHER Dr. Stephie Mcdonnell Kiesha Curry, [facility] Dr. Trudy Callahan Dr. Tavo Ortega Dr. Ashley Martínez Fertility Dr. Girma Llamas Dr. Annia Wang Dr. Etienne Tatum Urogynecology Nurse Practitioner: Dr. Natalie Jeter [phone] Bruna Lester, SURVEY RESEARCHER Lizeth Zelaya, SURVEY RESEARCHER [place], SURVEY RESEARCHER Fertility Nurse Practitioners: Yudi Higuera, FAISAL Post, SURVEY RESEARCHER After 4:30 pm or on holidays or weekends, call: or . Ask the electric freight car operator to page the ?bass singer aircraft electronics technical officer.' PRE-OPERATIVE CHECKLIST: PATIENT INSTRUCTIONS PRIOR TO SURGERYOur [...] not wear jewelry, body piercing(s), makeup, nail bahraini, hairpins, or contacts on the day of surgery. I am to leave valuables and money at home or with family members. Unless my surgeon tells me differently, I will STOP THESE MEDICATIONS 7 DAYS PRIOR TO SURGERY: (Motrin/Ibuprofen/Na proxen/Aleve/Advil), Aspirin, vitamin E, herbal medications, diet pills, and rhol-uxl-xqfzfot medications. Tylenol (acetaminophen) is okay. If I [...] my Surgeon. Discuss medication changes with your electric motor assembler and tester or primary care physician as well. If I stopped taking my blood-thinning medication, I will ask the surgeon when to resume taking it. If I am an outpatient, a responsible person will drive me home and it was suggested that someone stay with me for 24 hours. I understand that a oracle business intelligence developer or cabdriver is NOT a responsible caregiver. [...] time for surgery, I must call my rn medical surgical after 2pm the day before surgery. Pain management education material found in Your Surgical Guide was reviewed with me. Preoperative instructions given by: HAIRSPRING TRUER PREOP INSTRUCTIONS PRE-OPERATIVE CHECKLIST ? See Pre-Operative [...] Your Surgical Guide Book for more information. [facility] TEAM ? At the [facility], we have a multidisciplinary team of caregivers that includes fellows, residents, nurse practitioners (freelance graphic designer), physician assistants (PAs), clinical nurse specialists (CNSs), nurses, medical assistants (MAs), patient care nursing assistants (PCNAs), social workers, rn field case manager and many others. We all [...] prior to surgery. Phone number: or ext [phone]. ? No alcohol on the day before [...] ? Do not wear any jewelry, nail bahraini, makeup, lotions, contact lenses, or anything in [...] of breath or chest pain. Progress Notes ([facility] DEPT): Ccf Hq Provider 05/06/2018 10:42 AM Unsigned [employer] ONLINE PATIENT REPORT Pharmacist In Charge: Pati Kaur Completion Time: 00:08 Location: [facility] Surgical Service: DRILL DOCTOR Age: 48 yrs Height: 160 cm Weight: [...] Yolanda Momin APRN.CNP 05/06/2018 2:38 PM Signed [facility] reviewed. There are no changes, cleared at OV today Yolanda Momin APRN.CNP [facility] PROGRESSon 05-06-2018 PROGRESS HNO ID: [id number] Author: Yolanda Momin Service: ? Author Type: Nurse Practitioner Type: Progress Notes Filed: 05/06/2018 2:38 PM Note Text: [facility] reviewed. There are no changes, cleared at OV today Yolanda Momin APRN.CNP [facility] PROGRESS HNO ID: [id number] Author: Risa Yoon Service: ? Author Type: [...] all questions to their stated satisfaction. [facility] MRI FEMALE PELVIS WO/W IVCON on 04-29-2018 [...] Adenomyosis of the uterus. Numerous nabothian cysts. Strip Polisher: SHAVONNE Transcribe Date/Time: Apr 29 2018 9:56A Dictated by : JEFFREY DUNN MD This examination was interpreted and the report reviewed and electronically signed by: JEFFREY DUNN MD on Apr 29 2018 2:47PM EST [id number] [facility] PROGRESSon 04-29-2018 PROGRESS HNO ID: [id number] Author: Lavonne Garcia Rt Service: ? Author [...] April 29, 2018 TIME: 9:50 AM [facility] PROGRESSon 04-24-2018 PROGRESS HNO ID: [id number] Author: Risa Yoon Service: ? Author Type: Physician Type: Progress Notes Filed: 05/08/2018 4:15 PM Note Text: Gynecologic Oncology [facility] Follow up Re: Judy Mishra CCF#: [id number] 05/06/2018 Gynecologic Oncology [facility] Follow up visit Re: Judy Mishra CCF#: [id number] 05/06/2018 PROBLEM: Judy Mishra returns to the [...] office note were sent to: Noah Woods [address] [place] [address] CC: Selvin Mack Sr, MD (PCP) [facility] SURGICAL PATHOLOGYon 019 SURGICAL PATHOLOGY Specimen #: [id number]* Submitting Physician: RISA YOON MD FINAL DIAGNOSIS Consultation from [facility], [place], [place] ([id number], 8 H&E-stained slides labeled A, B, C, 03/11/2018): Endometrium, curettings (A) - Benign endometrial polyp of the isthmus type. Endometrium, curettings (B) - Benign endometrial and endocervical epithelium. Umbilical hernia sac, excision (C) - Benign fibroadipose tissue with focal mesothelial lining, consistent with hernia sac. BY/dcr 04/03/2018 Kaushik Benavides M.D. Ph.D. (Electronic Signature) SPECIMEN SUBMITTED A: 8 SLIDES ([id number]) CLINICAL DATA None provided. Date of Report: 04/04/2018 Date of Procedure: 04/01/2018 Date of Receipt: 04/02/2018 Submitted by: RISA YOON MD Location: [facility] Diagnostic interpretation performed at [facility], [facility] [address], [place] [id number]. [facility] CNOVSPon 03-29-2018 CNOVSP Visit (SP) Office ([facility]) JUDY MISHRA ([id number]) 1970 F Date Time Provider Department 03/29/18 10:00 AM RISA YOON During your visit today, we recorded the following information about you: Temperature Pulse Respiration Blood pressure 98 degrees 70/minute 16/minute 141/78 Weight Height 86.2 kg 1.62 m Risa Yoon MD 04/05/2018 1:47 PM Signed Gynecologic Oncology [facility] [place] Consultation Re: Judy Mishra CCF#: [id number] 03/29/[address] Woods for [...] exam ABDOMEN: Abdomen soft, non-tender, no hepatosplenomegaly. Dry House Wheeler for exam: Was present PROCEDURES: None ASSESSMENT: [...] office note were sent to: Noah Woods [address] [place] [address] CC: Selvin Mack Sr, MD (PCP) Referring Provider: NOAH WOODS [[id number]] Allergies As of Date: 03/29/2018 Noted Allergy Reaction BACTRIM (SULFAMETHOXAZOLE-TR IMETH*03/29/2018 4 - Hives PENICILLINS 03/29/2018 16 - Unknown PERCOCET (OXYCODONE-ACETAMINO PHEN)03/29/2018 11 - Vomiting Date Reviewed: 03/29/2018 Reviewed by: Angela Guallpa - Fully Assessed Reason for Visit: Uterine mass [Other] Cmt: New patient consultation Primary Visit Diagnosis:Abnormal uterine bleeding [N93.9] Other Visit Diagnosis:Endometria l mass [N94.89] Order(s):OUTSIDE SURG PATH SLIDE REVIEW [[id number]] Order #: [id number] MRI FEMALE PELVIS WO/W IVCON [[id number]] Order #: [id number] FUTURE [] iv contrast (will be provided [...] Status:Closed by RISA YOON MD on 04/05/18 [facility] PROGRESSon 03-28-2018 PROGRESS HNO ID: [id number] Author: Christi Terrell Service: (none) Author Type: Nurse Practitioner Type: Progress Notes Filed: 03/28/2018 3:02 PM Note Text: Chart prepped for upcoming appt with Dr. Yoon. Christi Terrell, DIABETES EDUCATOR.SURVEY RESEARCHER [facility] PROGRESS HNO ID: [id number] Author: Risa Yoon Service: (none) Author Type: Physician Type: Progress Notes Filed: 04/05/2018 1:47 PM Note Text: Gynecologic Oncology [facility] Consultation Re: Judy Mishra CCF#: [id number] 03/29/[address] Woods for [...] HISTORY Procedure Laterality Date - ANESTH, SECTION 1996 - CHOLECYSTECTOMY HX 11/04/2017 - DANDC [...] exam ABDOMEN: Abdomen soft, non-tender, no hepatosplenomegaly. Dry House Wheeler for exam: Was present PROCEDURES: None ASSESSMENT: [...] office note were sent to: Noah Woods, [address] [place] [address] CC: Selvin Mack Sr, MD (PCP) [facility] US-US PELVIS TRANSVAG IMPORT on 01-24-2018 US-US PELVIS TRANSVAG IMPORT Images were obtained outside of [facility] [id number] CN [facility] CT-CT ABD/PELVIS W CON IMPOR Ton 01-17-2018 CT-CT ABD/PELVIS W CON IMPORT Images were obtained outside of [facility] [id number] CN [facility] Vital Signs Date Time Vital Sign Value Performing Clinician Facility 07-02-2023 00:34-0400 SaO2% (BldA) [Mass fraction] 99 % Sarah Frey MD Work Phone: [facility] 07-01-2023 22:23-0400 Body height 160 cm Sarah Frey MD Work Phone: [facility] 07-01-2023 22:23-0400 Body mass index (BMI) [Ratio] 36.14 kg/m2 Sarah Frey MD Work Phone: [facility] 07-01-2023 22:23-0400 Body temperature 98.29 [degF] Sarah Frey MD Work Phone: [facility] 07-01-2023 22:23-0400 Body weight 92.53 kg Sarah Frey MD Work Phone: [facility] 07-01-2023 22:23-0400 Diastolic blood pressure 74 mm[Hg] Sarah Frey MD Work Phone: [facility] 07-01-2023 22:23-0400 Heart rate 73 /min Sarah Frey MD Work Phone: [facility] 07-01-2023 22:23-0400 Respiratory rate 20 /min Sarah Frey MD Work Phone: [facility] 07-01-2023 22:23-0400 Systolic blood pressure 122 mm[Hg] Sarah Frey MD Work Phone: [facility] 03-20-2023 15:15-0500 Body height 160 cm Diogo Lux MD Work Phone: [facility] 03-20-2023 15:15-0500 Body mass index (BMI) [Ratio] 35.07 kg/m2 Diogo Lux MD Work Phone: [facility] 03-20-2023 15:15-0500 Body weight 89.81 kg Diogo Lux MD Work Phone: [facility] 03-20-2023 15:15-0500 Diastolic blood pressure 78 mm[Hg] Diogo Lux MD Work Phone: [facility] 03-20-2023 15:15-0500 Systolic blood pressure 123 mm[Hg] Diogo Lux MD Work Phone: [facility] 06-12-2022 11:17-0400 Diastolic blood pressure 88 mm[Hg] Qasim Hairston MD Work Phone: [employer] 06-12-2022 11:17-0400 Heart rate 71 /min Qasim Hairston MD Work Phone: [facility] [employer] 06-12-2022 11:17-0400 Respiratory rate 23 /min Qasim Hairston MD Work Phone: [facility] [employer] 06-12-2022 11:17-0400 SaO2% (BldA) [Mass fraction] 97 % Qasim Hairston MD Work Phone: [facility] [employer] 06-12-2022 11:17-0400 Systolic blood pressure 110 mm[Hg] Qasim Hairston MD Work Phone: [facility] [employer] 06-12-2022 10:17-0400 Body height 160 cm Qasim Hairston MD Work Phone: [facility] [employer] 06-12-2022 10:17-0400 Body mass index (BMI) [Ratio] 34.37 kg/m2 Qasim Hairston MD Work Phone: [facility] [employer] 06-12-2022 10:17-0400 Body temperature 98.4 [degF] Qasim [facility]irston MD [facility] [employer] 06-12-2022 10:17-0400 Body weight 88 kg Qasim Hairston MD Work Phone: [facility] [employer] 06-08-2020 13:52-0400 Body temperature 98.01 [degF] Stephie Iverson MD Work Phone: [employer] Work Phone: 06-08-2020 13:52-0400 Body weight 90.49 kg Stephie Iverson MD Work Phone: [employer] Work Phone: 06-08-2020 13:52-0400 Diastolic blood pressure 71 mm[Hg] Stephie Iverson MD Work Phone: [employer] Work Phone: 06-08-2020 13:52-0400 Heart rate 85 /min Stephie Iverson MD Work Phone: [employer] Work Phone: 06-08-2020 13:52-0400 Respiratory rate 16 /min [facility] Work Phone: 06-08-2020 13:52-0400 SaO2% (BldA) [Mass fraction] 98 % Stephie Iverson MD Work Phone: [facility] [employer] Work Phone: 06-08-2020 13:52-0400 Systolic blood pressure 154 mm[Hg] Stephie Iverson MD Work Phone: [facility] [employer] Work Phone: Encounters Encounter Date Encounter Type Care Provider Facility Start: 08-31-2023 End: 08-31-2023 Emergency department patient visit MARKELL [facility] Start: 07-02-2023 End: 07-02-2023 Emergency department patient visit [facility] Start: 07-01-2023 End: 07-02-2023 Emergency department patient visit Sarah rFey MD Work Phone: [facility] ED Comment on above: Back strain, initial encounter (Primary Dx); Fall, initial encounter Start: 03-21-2023 ambulatory [facility] Start: 03-21-2023 Encounter for genera l adult medical examination with abnormal findings [facility] Start: 03-21-2023 End: 03-21-2023 Patient encounter status José Miguel Augustina DIABETES EDUCATOR - SURVEY RESEARCHER Work Phone: [facility] Start: 03-21-2023 End: 03-23-2023 Subsequent hospital visit by physician José Miguel Jackman DIABETES EDUCATOR - SURVEY RESEARCHER Work Phone: [facility] Comment on above: Encounter for preven tative adult health care exam with abnormal findings Right upper quadrant pain Start: 03-20-2023 End: 03-20-2023 ambulatory [facility] Not Available Start: 03-20-2023 End: 03-20-2023 Office outpatient visit 25 minutes Diogo Lux MD Work Phone: [facility] Comment on above: 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) Start: 03-20-2023 Chart abstracting Diogo wheatley MD Work Phone: [facility] Start: 03-12-2023 End: 03-12-2023 ambulatory [facility] Not Available Start: 10-19-2022 End: 10-19-2022 Emergency department patient visit Otf DAMON~[id number] [facility] Start: 07-13-2022 End: 07-14-2022 ambulatory BRIAN COTTRELL [facility] Start: 07-13-2022 End: 07-13-2022 Subsequent hospital visit by physician [facility] Comment on above: SOB (shortness of br eath); Palpitations; Chest pain, unspecified type Start: 06-12-2022 End: 06-12-2022 Emergency department patient visit Qasim Hairston MD Work Phone: [facility] ED Comment on above: Atypical chest [...] patient visit Stephie Iverson MD Work Phone: [facility] ED Comment on above: Dyspnea, unspecified type (Primary Dx); Anxiety state; History of 2019 novel coronavirus disease (COVID-19); Multiple thyroid nodules; Renal cyst, left; Essential hypertension; Thyromegaly Procedures Date Procedure Procedure Detail Performing Clinician Start: 07-01-2023 Ct lumbar spine w/o contrast material Sarah Frey MD Work Phone: Start: 07-01-2023 Ct abdomen & pelvis w/contrast material Sarah Frey MD Work Phone: Start: 03-21-2023 Us abdominal real ti me w/image limited José Miguel Jackman [facility] Work Phone: Start: 03-21-2023 Urnls dip stick/tabl et rgnt auto w/o microscopy José Miguel Jackman [facility] Work Phone: Start: 03-21-2023 Comprehensive metabo lic panel José Miguel Jackman [facility] Work Phone: Start: 03-21-2023 Lipid panel José Miguel roque [facility] Work Phone: Start: 06-12-2022 Radiologic exam ches t 2 views Qasim Hairston MD Work Phone: Start: 06-12-2022 Comprehensive metabo lic panel Qasim Hairston MD Work Phone: Start: 06-12-2022 Ecg routine ecg w/le ast 12 lds w/i&r Qasim Hairston MD Work Phone: Start: 06-08-2020 Ct [...] Treatment Date Care Activity Detail Author Start: 03-21-2028 Lipid panel Lipids [facility] Start: 10-10-2023 End: 10-10-2023 Patient encounter procedure 10/10/2023 8:00 AM EDT Office Visit [facility] [address] [facility] [address] [place] [id number] Diogo Lux MD [address] [facility] [address] [place] [address] [facility] Start: 09-18-2023 End: 09-18-2023 Patient encounter procedure 09/18/2023 8:00 AM EDT Office Visit [facility] [address] [place] [address] José Miguel Jackman APRN [facility] [address] [place] [address] 6 mo [facility] Comment on above: 6 mo Start: 09-13-2023 Influenza vaccination Flu vaccine (S sunil Ended) [employer] Start: 03-20-2023 End: 03-20-2023 Patient encounter procedure 03/20/2023 3:30 PM EST Office Visit [facility] [address] [facility] [address] [place] [address] Diogo Lux MD [address] [facility] [address] [place] [address] [facility] Start: 09-12-2022 Influenza vaccination [facility] Start: 02-22-2022 Screening for malignant neoplasm of breast Breast cancer screen [facility] Start: 02-22-2022 Shingles vaccine (1 of 2) Shingles vaccine (1 of 2) [facility] Start: 10-13-2020 Influenza vaccination Flu vaccine (S sunil Ended) [employer] Work Phone: Start: 02-22-2017 Screening for malignant neoplasm of colon [facility] Start: 2012 Lipid panel [facility] [employer] Start: 02-22-1993 Screening for malignant neoplasm of cervix Cervical cancer screen [employer] Phone: Start: 02-22-1991 DTaP/Tdap/Td vaccine (1 - Tdap) DTaP/Tdap/Td vaccine (1 - Tdap) [facility] Start: 02-22-1990 Hepatitis C screening Hepatitis C wy tarah [facility] Start: 1988 COVID-19 Vaccine (1) COVID-19 Vaccin e (1) [employer] Phone: Start: 02-22-1987 HIV screening HIV screen [facility] Start: 1984 Depression Screen Depression Screen [facility] Start: 1972 COVID-19 Vaccine (#1) COVID-19 Vacci ne (#1) [facility] Start: 1972 Hepatitis B vaccine (1 of 3 - 3-dose series) Hepatitis B vaccine (1 of 3 - 3-dose series) [facility] Start: 1972 Hepatitis C screening Hepatitis C wy tarah [employer] Phone: Dup-scan xtr veins complete bilateral study VASC[facility] REPORT [facility] Ordered: 06/08/2020 [employer] Phone: Comment on above: Ordered: 06/08/2020 End: 07-13-2022 ECHO Complete 2D W Doppler W Color ECHO Complete 2D W Doppler W Color Echocardiography Routine SOB (shortness of breath) Palpitations Chest pain, unspecified type 1 Occurrences starting 07/13/2022 until 07/13/2022 [employer] Phone: Comment on above: 1 Occurrences starti ng 07/13/2022 until 07/13/2022 EKG 12 Lead EKG 12 Lead ECG Routine 06/12/2022 10:27 AM EDT [employer] Phone: End: 07-13-2022 Exercise stress test study CARDIAC STRESS TEST EXERCISE ONLY [facility] Routine SOB (shortness of breath) Palpitations Chest pain, unspecified type 1 Occurrences starting 07/13/2022 until 07/13/2022 [facility] [employer] Work Phone: Comment on above: 1 Occurrences starti ng 07/13/2022 until 07/13/2022 Payers Date Payer Category Payer Medicaid [facility] MEDICAID [facility] MEDICAID [id number] 2017-Present [address] [place] [address] [id number] 1972 Unknown [id number] [id number] 1972 Unknown [id number] 2.16.840.1.563988.3.579.2.593 1972 Unknown [id number] 2.16.840.1.043702.3.579.2.593 1972 Unknown [id number] 2.16.840.1.266450.3.579.2.593 1972 Unknown [id number] 2.16.840.1.133668.3.579.2.593 1972 Unknown [id number] 2.16.840.1.689384.3.579.2.593 1972 Unknown [id number] 2.16.840.1.583461.3.579.2.593 1972 Unknown [id number] 2.16.840.1.906141.3.579.2.1259 1972 Unknown [id number] 2.16.840.1.946542.3.579.2.1259 1972 Unknown [id number] 2.16.840.1.689412.3.579.2.174 1972 Unknown [id number] 2.16.840.1.803530.3.579.2.174 1972 Unknown [id number] 2.16.840.1.241714.3.579.2.174 1972 Unknown [id number] 2.16.840.1.504603.3.579.2.174 1972 Unknown [id number] 2.16.840.1.160121.3.579.2.754 1972 Unknown [id number] 2.16.840.1.713064.3.579.2.754 1972 Unknown [id number] 2.16.840.1.089999.3.579.2.173 1959 Unknown [id number] [id number].3.6 [id number] Social History Date Type Detail Facility Start: 06-08-2020 End: 10-19-2022 Tobacco smoking status [facility] Never smoker [facility] Start: 06-08-2020 End: 10-19-2022 Tobacco use and exposure Never used [employer] Start: 1970 Sex Assigned At Not on file [employer] Work Phone: Exposure to SARS-CoV -2 (event) Not sure [employer] Start: 06-12-2022 History SDOH Alcohol Frequency 1 [employer] Phone: Start: 06-12-2022 History SDOH Alcohol Std Drinks 0 [employer] Phone: Start: 03-19-2023 End: 03-20-2023 Alcohol intake Ex-drinker (finding) [facility] Start: 03-19-2023 End: 03-20-2023 History of Social function [facility] Start: 03-19-2023 End: 03-20-2023 Tobacco use panel [facility] How often to you hav e a drink containing alcohol? Never [employer] Phone: How many standard dr inks containing alcohol do you have on a typical day? Patient does not drink [employer] Phone: Clinical Notes 06-08-2020 to 03-20-2023 Diogo Lux MD - 03/20/2023 3:30 PM ESTDischarge InstructionsAttachments Note Date & Type Note Facility 03-20-2023 History of Presen t illness Narrative Subjective Patient ID: Judy Mishra is a 53 y.o. female who presents for History Of Thyroidectomy (Lab results). TSH 1.350. Review of Systems All other systems reviewed and are negative. Family History Problem Relation Name Age of Onset No Known Problems Mother Heart failure Father Stroke Father Active Ambulatory Problems Diagnosis Date Noted LPRD (laryngopharyngeal reflux disease) 03/06/2023 Multinodular goiter ([facility]/HCC) 03/06/2023 Papillary microcarcinoma of thyroid ([facility]/HCC) 03/06/2023 Resolved Ambulatory Problems Diagnosis Date Noted Postoperative hypothyroidism ([facility]) 03/06/2023 Thyromegaly ([facility]) 03/06/2023 Past Medical History: Diagnosis Date Anxiety COVID-19 03/2020 Endometriosis Uterine mass Past Surgical History: Procedure Laterality Date SECTION, CLASSIC x 2 CHOLECYSTECTOMY 2016 THYROID SURGERY 08/24/2020 total thyroidectomy, Dr. Lux UMBILICAL HERNIA REPAIR 2016 and 2017 Allergies Allergen Reactions Bee Venom Lymecycline Sulfamethoxazole-Trimethoprim Hives Wound Dressing Adhesive Oxycodone-Acetaminophen Nausea And Vomiting and GI intolerance Other Reaction(s): Unknown Penicillins Rash and Unknown Current Outpatient Medications on File Prior to Visit Medication Sig Dispense Refill Ascorbic Acid (Vitamin C) 500 MG capsule Take 500 mg by mouth in the morning. levothyroxine (Synthroid, Levoxyl) 88 MCG tablet TAKE ONE TABLET BY MOUTH ONCE DAILY ON AN EMPTY STOMACH IN THE MORNING 30 tablet 11 Loratadine 10 MG capsule Take 1 capsule by mouth in the morning. LORazepam (Ativan) 0.5 MG tablet Take 1 tablet by mouth 3 (three) times a day as needed pantoprazole (ProtoNix) 40 MG EC tablet Take 40 mg by mouth in the morning. Take before meals. Probiotic Product (PROBIOTIC BLEND PO) Probiotic [DISCONTINUED] cefdinir (Omnicef) 300 MG capsule Take 300 mg by mouth in the morning and 300 mg before bedtime. No current facility-administered medications on file prior to visit. Objective Last Recorded Vitals Vitals: 03/20/23 1515 BP: 123/78 ENT Physical Exam Constitutional Appearance: patient appears well-developed, well-nourished and well-groomed, Communication/Voice: communication appropriate for developmental age; vocal quality normal; Assessment/Plan Diagnoses and all orders for this visit: Papillary microcarcinoma of thyroid (CMS/HCC) TSH looks good. Thyroglobulin pending. I will contact pt with result, and actions needed, if any. Tentatively plan a repeat US and a thyroglobulin in a year. documented in this encounter [facility] 06-12-2022 Hospital Discharg e instructions Qasim Hairston MD - 06/12/2022 11:50 AM EDT Monitor for worsening pain shortness of breath or other problems. Call your primary care doctor for close follow-up. Referred to cardiology for further evaluation. The following attachments cannot be sent through Care Everywhere.Chest Pain (Bangladeshi)documented in this encounter [employer] Work Phone: 06-08-2020 Note [facility] Lower Extremities DVT Study Procedure Patient Name MISHRA Date of Study 06/08/2020 JUDY Yoon Date of 1970 Gender Female Age 50 year(s) Race Room Number 06 Height: 63 inch, 160.02 cm Corporate ID [id number] Weight: 200 pounds, 90.7 kg # Patient Acct [id number] BSA: 1.93 m^2 BMI: 35.43 kg/m^2 # MR # [id number] Trust Evaluation Supervisor Carrie Haines, RT Interpreting Physician Gian Braga Referring Referring Physician Stephie Iverson Nurse Practitioner Procedure Type of Study: Veins: Lower Extremities DVT Study, DUP LOWER EXTREMITY VENOUS LEFT. Indications for Study:Leg Swelling. Patient Status:STAT. Comments:Left leg pain, no injury, since hx of covid 03/2020. Conclusions Summary Negative for DVT left lower extremity and right groin. Signature ---- Electronically signed by TRELL Cheng (R M))([facility])(Trust Evaluation Supervisor ) on 06/08/2020 03:09 PM ---- ---- ---- [...] DVT Study Measurements Right 2D Measurements + -------+ + ----+ + !Location !Visualized!Compressibility!Th rombosis! + -------+ + ----+ + !Common Femoral !Yes !Yes !None ! + -------+ + ----+ + Left Lower Extremities DVT Study Measurements Left 2D Measurements + -------+ + ----+ + !Location !Visualized!Compressibility!Th rombosis! + -------+ + ----+ + !Common Femoral !Yes !Yes !None ! + -------+ + ----+ + !Prox Femoral !Yes !Yes !None ! + -------+ + ----+ + !Mid Femoral !Yes !Yes !None ! + -------+ + ----+ + !Dist Femoral !Yes !Yes !None ! + -------+ + ----+ + !Deep Femoral !Yes !Yes !None ! + -------+ + ----+ + !Popliteal !Yes !Yes !None ! + -------+ + ----+ + !Sapheno Femoral Junction !Yes !Yes !None ! + -------+ + ----+ + !PTV !Yes !Yes !None ! + -------+ + ----+ + !Peroneal !Yes !Yes !None ! + -------+ + ----+ + !Gastroc !Yes !Yes !None ! + -------+ + ----+ + !GSV Thigh !Yes !Yes !None ! + -------+ + ----+ + !GSV Knee !Yes !Yes !None ! + -------+ + ----+ + !GSV Ankle !Yes !Yes !None ! + -------+ + ----+ + !SSV !Yes !Yes !None ! + (more content not included)... [employer] Phone: Evaluation note Diagnosis Dyspnea, unspecified type- Primary Anxiety state Anxiety state, unspecified History of 2019 novel coronavirus disease (COVID-19) Multiple thyroid nodules Nontoxic multinodular goiter Renal cyst, left Unspecified congenital cystic kidney disease Essential hypertension Unspecified essential hypertension Thyromegaly Goiter, unspecified documented in this encounter [employer] Phone: evaluation note* Diagnosis Atypical chest pain- Primary Other chest pain documented in this encounter [employer] Phone: evaluation note* Diagnosis SOB (shortness of breath) Shortness of breath Palpitations Chest pain, unspecified type documented in this encounter [employer] Phone: evaluation note* Diagnosis Papillary microcarcinoma of thyroid (CMS/HCC)- Primary [facility]* Diagnosis Encounter for preventative adult health care exam with abnormal findings documented in this encounter [employer] Phone: evaluation note* Diagnosis Right upper quadrant pain Abdominal pain, right upper quadrant documented in this encounter [employer] Phone: evaluation note* Diagnosis Back strain, initial encounter- Primary Fall, initial encounter documented in this encounter [facility] Dis[facility]* Attachments The following attachments cannot be sent through Care Everywhere. * Anxiety Disorders: General Info (Bangladeshi) * SOB (Shortness of Breath) (Bangladeshi) * Thyroid Nodules (Bangladeshi) * Hypertension: General Info (Bangladeshi) * Goiter (Bangladeshi) [facility] Phone: Hospital Discharge instructions* Attachments The following attachments cannot be sent through Care Everywhere. * Back: Strain (Bangladeshi) [facility] Purpose Family History No Family History [...] Referral Specialty Diagnoses / Procedures Referred By Kevin t Referred To Contact Cardiology Diagnoses SOB (shortness of breath) Palpitations Chest pain, unspecified type Procedures CARDIAC STRESS TEST EXERCISE ONLY Brian Cottrell MD [address] [place] [address] Referral ID Status Reason Start Date Expiration Date V isits Requested Visits Authorized [id number] Not Required - RTA 06/13/2022 06/13/2023 1 1 Specialty Diagnoses / Procedures Referred By Contac t Referred To Contact Cardiology Diagnoses SOB (shortness of breath) Palpitations Chest pain, unspecified type Procedures ECHO Complete 2D W Doppler W Color Brian Cottrell MD [address] [place] [address] Referral ID Status Reason Start Date Expiration Date V isits Requested Visits Authorized [id number] Not Required - RTA 06/13/2022 06/13/2023 1 1 Specialty Diagnoses / Procedures Referred By Contac t Referred To Contact Radiology Diagnoses Right upper quadrant pain Procedures US GALLBLADDER RUQ José Miguel Jackman, DIABETES EDUCATOR - SURVEY RESEARCHER [address] [place] [address] Referral ID Status Reason Start Date Expiration Date Visits Re quested Visits Authorized [id number] Closed 03/19/2023 03/18/2024 1 1 Additional Source Comments INFORMATION SOURCE (unrecogn ized section and content) DATE CREATED AUTHOR 11/23/2018 [facility] DATE CREATED AUTHOR AUTHOR'S ORGANIZ ATION 03/21/2022 [facility] DATE CREATED AUTHOR AUTHOR'S ORGANIZ ATION 03/21/2023 [facility] DATE CREATED AUTHOR AUTHOR'S ORGANIZ ATION [facility]20[facility] DATE CREATED AUTHOR AUTHOR'S ORGANIZ ATION 07/08/2023 [facility] DATE CREATED AUTHOR AUTHOR'S ORGANIZ ATION [facility]/03/20[facility] Reason for Visit (unrecogniz ed section and [...] STRESS TEST EXERCISE ONLY Brian Cottrell MD [address] [place] [address] Referral ID Status Reason Start Date Expiration Date V isits Requested Visits Authorized [id number] Not Required - RTA 06/13/2022 06/13/2023 1 1 Specialty Diagnoses / Procedures Referred By Contac t Referred To Contact Cardiology Diagnoses SOB (shortness of breath) Palpitations Chest pain, unspecified type Procedures ECHO Complete 2D W Doppler W Color Brian Cottrell MD [address] [place] [address] Referral ID Status Reason Start Date Expiration Date V isits Requested Visits Authorized [id number] Not Required - RTA 06/13/2022 06/13/2023 1 1 Reason Comments History Of Thyroidectomy Lab results Specialty Diagnoses / Procedures Referred By Contac t Referred To Contact Radiology Diagnoses Right upper quadrant pain Procedures US GALLBLADDER RUQ José Miguel Jackman, DIABETES EDUCATOR - SURVEY RESEARCHER [address] [place] [address] Referral ID Status Reason Start Date Expiration Date Visits Re quested Visits Authorized [id number] Closed 03/19/2023 03/18/2024 1 1 Reason Comments Back Pain Fall Pt states she was on a hammock swing when it broke and she fell. Lower back pain and R upper and lower abd pain. Scheduled Active and Recently Administ ered Medications (unrecognized section and content) Medication Order 06/10/2022 06/11/2022 06/12/2022 potassium chloride (KLOR-CON) extended release tablet 40 mEq (COMPLETED) 40 mEq, Oral, ONCE, 1 dose, On Sun06/12/22 at 1115, Do not crush or break. 1111 (Given - Provid er: Richard Pires RN) Scheduled Medication Order 06/30/2023 07/01/2023 07/02/2023 sodium chloride 0.9 % bolus 500 mL (COMPLETED) 500 mL (5.41 mL/kg), IntraVENous, at 1,000 mL/hr, Administer over 0.5 Hours, ONCE, On 07/01/23 at 2245, For 1 dose 2254 (New Bag - Provider: Radha Garcia, RN) 0044 (Stopped - Provider: Analilia Parsons RN) PRN Medication Order 06/30/2023 07/01/2023 07/02/2023 iopamidol (ISOVUE-370) 76 % injection 75 mL (COMPLETED) 75 mL, IntraVENous, IMG ONCE PRN, 1 dose, Starting on 07/01/23 at 2239, Until Discontinued, Other 2303 (Given - Provider: Zoltan Jack) ondansetron (ZOFRAN) injection 4 mg 4 mg, IntraVENous, EVERY 1 HOUR PRN, 2 doses, Starting on 07/01/23 at 2235, Until Discontinued, Nausea, Vomiting 2251 (Given - Provider: Radha Garcia, MERY) Care Teams (unrecognized sec tion and content) Bible Teacher Relationship Specialty Start Date End Date Selvin Mack Sr., DO [address] [place] [address] PCP - General Family Medicine 06/08/20 Bible Teacher Relationship Specialty Start Date End Date Selvin Mack Sr., DO [address] [place] [address] PCP - General Family Medicine 06/08/20 Bible Teacher Relationship Specialty Start Date End Date José Miguel Jackman APRN - SURVEY RESEARCHER [address] [place] [address] PCP - General Nurse Practitioner 03/19/23 Bible Teacher Relationship Specialty Start Date End Date José Miguel Jackman APRN - SURVEY RESEARCHER [address] [place] [address] PCP - General Nurse Practitioner 03/19/23 Bible Teacher Relationship Specialty Start Date End Date José Miguel Jackman APRN - SURVEY RESEARCHER [address] [place] [address] PCP - General Nurse Practitioner 03/19/23 FOR RECORDS PERTAINING TO PATIENTS WHO ARE [...] BE BASED ON THE PRIMARY CLINICAL RECORDS. [employer] [facility]. provides no warranty or guarantee of the accuracy or completeness of information in this document.
--- NOTE | 2023-09-19 12:47 | US_ITS ---
The [address] [address] Patient Name: MIRIAM DERAS MRN: [id number] date: 1970 Sex: F Assigned Patient Location: US Current Patient Location: Accession/Order Number: [id number] Exam Date: 09/19/2023 12:50 Report Date: 09/20/2023 07:23 At the request of: DIOGO LUX Procedure: US thyroid EXAMINATION: US thyroid HISTORY: Thyroid Nodule COMPARISON: 03/05/2023 TECHNIQUE: Sonographic images of the thyroid gland were obtained. FINDINGS: The right thyroid gland is surgically absent. Normal size normal morphology lymph node measuring 1.1 x 1.7 x 0.4 cm. Area of soft tissue identified in the left thyroid bed measuring 0.7 x 0.6 x 0.4 cm, grossly stable. Residual or recurrent tissue favored. Normal size normal morphology lymph node on the left measuring 1.0 x 0.5 x 0.9 cm. US/US thyroid IMPRESSION: Bilateral normal size normal morphology lymph nodes Stable soft tissue in the left thyroid bed, scar versus residual/recurrent thyroid tissue Electronically authenticated by: JEMMA ARAUZ Date: 09/20/2023 07:23
== END 2023-09-19 12:37 | disposition home or self-care (01) ==
LOC: US 12:36
PROVIDERS: Visit Provider Otolaryngology
DX: E04.1 Nontoxic single thyroid nodule (principal); C73 Malignant neoplasm of thyroid gland
CPT/HCPCS: 36415; 76536; 84432; 84443

== ENCOUNTER 2024-02-22 09:09 | Outpatient (OUT) | payer OTHER, SELFPAY ==
--- OUTSIDE RECORDS SUMMARY | 2024-02-22 09:32 | XMS_ITS | CCD ---
Author Organization [facility] ion [facility] Care Team Providers Care Solderer Barrel Ribs Name Role Phone House , Sr Selvin [...] Care Unavailable TIMMIS, DR LIND Consulting Unavailable Elm Mott Sr., Selvin SMITH Primary Care Provider Unavailable Primary Care Provider Unavaildestini Jackman APRN - José Miguel MALONE Primary Care Provide r José Miguel Blanco APRN, CNP Primary Care Provide r SELVIN MACK SR Primary Care Unavailable BRIAN COTTRELL Referring Unavailable AUGUSTINA, JOSÉ MIGUEL Primary Care Unavailable SARAH FREY Attending Unavailable DIAB Otf KAMARA~[id number] JARRED Attendi ng Unavailable HOUSE SR, SELVIN P Primary Care Unavailable FERNANDAESBRIAN OCHOA S Referring Unavailable HOUSE SR, SELVIN P Primary Care Unavailable AUGUSTINA, JOSÉ MIGUEL Referring Unavailable AUGUSTINA, JOSÉ MIGUEL Primary Care Unavailable AUGUSTINA, JOSÉ MIGUEL Referring Unavailable AUGUSTINA, JOSÉ MIGUEL Attending Unavailable AUGUSTINA, JOSÉ MIGUEL Primary Care Unavailable MARKELL SOTO Attending Unavailable AUGUSTINA, JOSÉ MIGUEL Primary Care Unavailable TIMMISDIOGO H Attending Unavailable TIMMIS, DIOGO H Attending Unavailable TIMMIS, DIOGO H Attending Unavailable GOTTERFRIED, JOSÉ MIGUEL Referring Unavailable Allergies Allergy Classification Reported Allergen(s) Allergy Type Date of Onset Reaction(s) Facility (1 source) Acetaminophen / oxyCODONE Drug Allergy 10-20-19 17 [facility] [place] Repository (1 source) Adhesive bandage Drug allergy (disorder) 07-31-19 21 [facility] [place] Repository (1 source) bee venom Drug allergy (disorder) [facility] [place] Repository (4 sources) Lymecycline Drug Allergy 10-20-19 23 Rash [facility] [place] Repository (1 source) Penicillin Drug Allergy [facility] [place] Repository (9 sources) Acetaminophen / oxyCODONE Drug Allergy 10-20-19 17 Nausea And Vomiting, GI intolerance [facility] (6 sources) Penicillins Propensity to adverse reactions to drug 03-29-19 19 Rash [facility] Work Phone: (9 sources) Sulfamethoxazole / Trimethoprim Drug Allergy 03-29-19 19 Hives [facility] Work Phone: (3 sources) Honey bee venom Propensity to adverse reactions 10-20-19 23 [facility] Work Phone: (3 sources) Lymecycline Propensity to adverse reactions 10-20-19 23 [facility] (3 sources) Penicillins Drug Intolerance 03-29-19 19 Rash, Unknown [facility] (6 sources) Wound Dressing Adhesive Drug Intolerance 07-31-19 21 Other (See Comments) [facility] (3 sources) bee venom Propensity to adverse reactions to drug 10-20-19 23 Anaphylaxis [facility] Work Phone: (3 sources) Penicillin G Drug Allergy 10-20-19 23 [facility] Work Phone: (3 sources) Silicone adhesive tape Propensity to adverse reactions to drug 07-31-19 21 Other (See Comments) [facility] Medications Current Medications Medication Drug Class(es) Dates [...] 550 mg by mouth daily 0 Active [id number] 0.3 ml EPINEPHrine 1 mg/ml auto-injector (3 [...] 08-31-2023 Episodic Other aftercare (1 source) Other intermediate project manager (current) drug therapy; 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: [OTH NURSING HOME CURRENT DRUG THERAPY] Onset: 03-21-2022 Episodic [...] current use of drug therapy; 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: [Other [facility] (current) drug therapy] Onset: 03-21-2022 03-19-2023 Episodic Other lower respiratory disease (6 sources) Dyspnea; 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: [Dyspnea, unspecified] Onset: 03-19-2023 Episodic Other lower respiratory disease (1 source) Shortness of breath; 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: [Shortness of breath] Onset: 06-01-2023 Episodic Other non-traumatic joint disorders (6 sources) Pain in left knee; 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: [Pain in joint, lower leg] Onset: 03-19-2022 Episodic Results Test Name Value Interpretation Reference Range Facility CT COMPARISON OF OUTSIDE KEMAL MSon 07-05-2023 CT COMPARISON OF OUTSIDE FILMS RADRPT There is no result for this study. This is a placeholder for comparison films only. Final result Normal [facility] CT COMPARISON OF OUTSIDE FILMS RADRPT There is no result for this study. This is a placeholder for comparison films only. Final result Normal [facility] CT ABDOMEN PELVIS W IV CONTR Cindy [...] Rc Ramos MD 07/02/[address] [facility] CT Abdomen and Pelvis W cont rast Parminder 07-02-2023 1. No acute traumatic change or other acute diagnostic abnormality in the abdomen or pelvis. 2. Prior cholecystectomy and hysterectomy. 3. Fat-containing midline supraumbilical and umbilical hernias. [facility] EXAMINATION: CT ABDOMEN PELVIS W IV [...] abnormality or suspicious bony lesion is seen. [facility] Rc Ramos MD - 07/02/2023 EXAMINATION: [...] 3. Fat-containing midline supraumbilical and umbilical hernias. [facility] CT Abdomen and Pelvis W cont rast IVOrdered By: Rc Ramos on 07-02-2023 [facility] Work Phone: CT LUMBAR SPINE WO CONTRASTo [...] Carter Suggs MD 07/02/[address] [facility] CT Lumbar spine WO contrasto n 07-02-2023 This is a negative CT scan of the lumbar spine with no fractures or loss of vertebral body height. [facility] EXAMINATION: CT LUMBAR SPINE WO CONTRAST, [...] central canal stenosis throughout the lumbar spine. [facility] Carter Suggs MD - 07/02/2023 EXAMINATION: CT [...] fractures or loss of vertebral body height. [facility] CT Lumbar spine WO contrastO rdered By: Carter Suggs on 07-02-2023 [facility] Work Phone: CT Abdomen and Pelvis W cont rast Parminder 07-01-2023 Radiology Study observation (narrative) [facility] CT Lumbar spine WO contrasto n 07-01-2023 Radiology Study observation (narrative) [facility] CBC with Auto Differentialon 03-21-2023 Basophils (Bld) [...] [Mass/Vol] 15.0 g/dL 12.0 - 16.0 g/dL [facility] Interpretation and review of laboratory results [...] Diffon 03-21-2023 BASO# BASO#: 0.0 Normal 0.0-0.1 [facility] Comment on above: Performed By: #### C BCAD, A1C #### [place] [id number] Ph. [phone] Basophils/100 WBC (Bld) 1 % Normal 0-1 [facility] Comment on above: Performed By: #### C BCAD, A1C #### [place] [address] Ph. [phone] Eosinophils (Bld) [#/Vol] 0.1 10*3/uL Normal 0.0-0.5 [facility] Comment on above: Performed By: #### C BCAD, A1C #### [place] [address] Ph. [phone] Eosinophils/100 WBC (Bld) 3 % Normal 0-5 [facility] Comment on above: Performed By: #### C BCAD, A1C #### [place] [address] Ph. [phone] Erythrocyte distribution width (RBC) [Ratio] 12.5 % Normal 11.5-14.5 [facility] Comment on above: Performed By: #### C BCAD, A1C #### [place] [address] Ph. [phone] Hematocrit (Bld) [Volume fraction] 44.9 % Normal 36.0-47.0 [facility] Comment on above: Performed By: #### C BCAD, A1C #### [place] [address] Ph. [phone] Hemoglobin (Bld) [Mass/Vol] 15 g/dL Normal 12.0-16.0 [facility] Comment on above: Performed By: #### C BCAD, A1C #### [place] [address] Ph. [phone] Lymphocytes (Bld) [#/Vol] 1.5 10*3/uL Normal 1.0-4.0 [facility] Comment on above: Performed By: #### C BCAD, A1C #### [address] [address] Ph. [phone] Lymphocytes/100 WBC (Bld) 30 % Normal 20-40 [facility] Comment on above: Performed By: #### C BCAD, A1C #### [address] [address] Ph. [phone] MCH (RBC) [Entitic mass] 29.6 pg Normal 27.0-35.0 [facility] Comment on above: Performed By: #### C BCAD, A1C #### [place] [address] Ph. [phone] MCHC (RBC) [Mass/Vol] 33.4 g/dL Normal 32.0-36.0 [facility] Comment on above: Performed By: #### C BCAD, A1C #### [place] [id number] Ph. [phone] MCV (RBC) [Entitic vol] 88.6 fL Normal 80.0-100.0 [facility] Comment on above: Performed By: #### C BCAD, A1C #### [address] [address] Ph. [phone] Monocytes (Bld) [#/Vol] 0.3 10*3/uL Normal 0.3-1.0 [facility] Comment on above: Performed By: #### C BCAD, A1C #### [address] [address] Ph. [phone] Monocytes/100 WBC (Bld) 6 % Normal 1-15 [facility] Comment on above: Performed By: #### C BCAD, A1C #### [address] [address] Ph. [phone] Neutrophils (Bld) [#/Vol] 3.1 10*3/uL Normal 1.8-7.7 [facility] Comment on above: Performed By: #### C BCAD, A1C #### [address] [address] Ph. [phone] Neutrophils/100 WBC (Bld) 60 % Normal 50-70 [facility] Comment on above: Performed By: #### C BCAD, A1C #### [address] [address] Ph. [phone] Platelet mean volume (Bld) [Entitic vol] 12.9 fL High 9.4-12.3 [facility] Comment on above: Performed By: #### C BCAD, A1C #### [address] [address] Ph. [phone] Platelets (Bld) [#/Vol] 201 10*3/uL Normal 150-450 [facility] Comment on above: Performed By: #### C BCAD, A1C #### [address] [address] Ph. [phone] RBC (Bld) [#/Vol] 5.07 10*6/uL Normal 4.20-5.40 [facility] Comment on above: Performed By: #### C BCAD, A1C #### [address] [address] Ph. [phone] WBC (Bld) [#/Vol] 5.2 10*3/uL Normal 3.7-11.0 [facility] Comment on above: Performed By: #### C BCAD, A1C #### [address] [address] Ph. [phone] Comprehensive Metabolic Pane simba 03-21-2023 Albumin [Mass/Vol] 4.3 g/dL Normal 3.5-5.0 [facility] Comment on above: Performed By: #### L IPD, PHOS, CMP #### [place] [id number] Ph. [phone] ALP [Catalytic activity/Vol] 72 U/L Normal 38-126 [facility] Comment on above: Performed By: #### L IPD, PHOS, CMP #### [place] [id number] Ph. [phone] ALT [Catalytic activity/Vol] 40 U/L High 0-35 [facility] Comment on above: Performed By: #### L IPD, PHOS, CMP #### [place] [address] Ph. [phone] AST [Catalytic activity/Vol] 30 U/L Normal 14-36 [facility] Comment on above: Performed By: #### L IPD, PHOS, CMP #### [place] [address] Ph. [phone] Bilirubin [Mass/Vol] 0.8 mg/dL Normal 0.2-1.3 [facility] Comment on above: Performed By: #### L IPD, PHOS, CMP #### [place] [address] Ph. [phone] Calcium [Mass/Vol] 9.5 mg/dL Normal 8.4-10.2 [facility] Comment on above: Performed By: #### L IPD, PHOS, CMP #### [place] [address] Ph. [phone] Chloride [Moles/Vol] 108 mmol/L High 98-107 [facility] Comment on above: Performed By: #### L IPD, PHOS, CMP #### [place] [id number] Ph. [phone] CO2 [Moles/Vol] 22 mmol/L Normal 22-32 [facility] Comment on above: Performed By: #### L IPD, PHOS, CMP #### [address] [address] Ph. [phone] Creatinine [Mass/Vol] 0.62 mg/dL Normal 0.52-1.04 [facility] Comment on above: Performed By: #### L KAREEN LUU CMP #### [address] [address] Ph. [phone] GFR/1.73 sq M.predicted among non-blacks MDRD (S/P/Bld) [Vol rate/Area] 108 mL/min/{1.73_m2} Normal >60 [facility] Comment on above: Result Comment: GFR calculated using CKD-EPI (2020) formula.\X0D0A\Stage 1 Kidney damage (e.g., protein in the urine) with normal GFR >=90\X0D0A\Stage 2 Kidney damage with mild decrease in GFR 60-89\X0D0A\Stage 3a Moderate decrease in GFR 45-59\X0D0A\Stage 3b Moderate decrease in GFR 30-44\X0D0A\Stage 4 Severe reduction in GFR 15-29\X0D0A\Stage 5 Kidney failure <15 Performed By: #### L KAREEN LUU CMP #### [address] [address] Ph. [phone] Glucose [Mass/Vol] 92 mg/dL Normal 65-100 [facility] Comment on above: Performed By: #### L KAREEN LUU CMP #### [address] [address] Ph. [phone] Potassium [Moles/Vol] 3.9 mmol/L Normal 3.6-5.0 [facility] Comment on above: Performed By: #### L KAREEN LUU CMP #### [address] [address] Ph. [phone] Protein [Mass/Vol] 7.8 g/dL Normal 6.3-8.2 [facility] Comment on above: Performed By: #### L IPD PHOS, CMP #### [place] [address] Ph. [phone] Sodium [Moles/Vol] 141 mmol/L Normal 135-145 [facility] Comment on above: Performed By: #### L IPD, PHOS, CMP #### [place] [address] Ph. [phone] Urea nitrogen [Mass/Vol] 10 mg/dL Normal 7-17 [facility] Comment on above: Performed By: #### L IPD PHOS, CMP #### [place] [address] Ph. [phone] Albumin [Mass/Vol] 4.3 g/dL 3.5 - 5.0 [...] [Mass/Vol] 7.8 g/dL 6.3 - 8.2 g/dL [facility] Sodium [Moles/Vol] 141 mmol/L [facility] Urea nitrogen (BldV) [Mass/Vol] 10 mg/dL 7 - 17 mg/dL [facility] Hemoglobin A1Con 03-21-2023 EAG 113 mg/dL Normal [facility] Comment on above: Result Comment: Pascale mated Average Glucose is a caluculated value from Hemoglobin A1C and is appeals representative of the average blood glucose level in the last 2-3 month period. Performed By: #### C BCAD, A1C #### [place] [address] Ph. [phone] HbA1c (Bld) [Mass fraction] 5.6 % Normal 4.0-5.6 [facility] Comment on above: Result Comment: Amer ican [...] Performed By: #### C BCAD, A1C #### [place] [address] Ph. [phone] Glucose [Mass/Vol] 113 mg/dL [facility] Comment on above: Estimated Average Glucose is a caluculated value from Hemoglobin A1C and is appeals representative of the average blood glucose level in the last 2-3 month period. HbA1c (Bld) [Mass fraction] 5.6 % 4.0 - 5.6 % [facility] Comment on above: [place] [employer] guidelines indicate that patients with [...] albumin should be considered for these patients. [facility] Lipid Panelon 03-21-2023 Cholesterol [Mass/Vol] 196 mg/dL Normal 100-[address] [facility] Comment on above: Order Comment: Is Pa tient Fasting?/# of Hours->8 Result Comment: <200 mg/dL is recommended cholesterol level. Performed By: #### L BELL PHOS, CMP #### [place] [address] Ph. [phone] Cholesterol in HDL [Mass/Vol] 55 mg/dL Low >60 [facility] Comment on above: Order Comment: Is Pa tient Fasting?/# of Hours->8 Performed By: #### L BELL PHOS, CMP #### [place] [address] Ph. [phone] Cholesterol in LDL [Mass/Vol] 127 mg/dL High 20-100 [facility] Comment on above: Order Comment: Is Pa tient Fasting?/# of Hours->8 Performed By: #### L BELL PHOS, CMP #### [place] [address] Ph. [phone] Cholesterol.total/Chol esterol in HDL [Mass ratio] 4 {ratio} Normal 1-5 [facility] Comment on above: Order Comment: Is Pa tient Fasting?/# of Hours->8 Performed By: #### L IPD PHOS, CMP #### [place] [address] Ph. [phone] Triglyceride [Mass/Vol] 69 mg/dL Normal 10-150 [facility] Comment on above: Order Comment: Is Pa tient Fasting?/# of Hours->8 Performed By: #### L IPD PHOS, CMP #### [address] [address] Ph. [phone] Cholesterol [Mass/Vol] 196 mg/dL 100 - 200 mg/dL [facility] Comment on above: <200 mg/dL is recommended cholesterol level. Cholesterol in HDL [Mass/Vol] 55 mg/dL Low 60 - PINF mg/dL [facility] Cholesterol in LDL [Mass/Vol] 127 mg/dL High 20 - 100 mg/dL [facility] CHOLESTEROL/HDL RELATIVE RISK 4 [facility] Triglyceride [Mass/Vol] 69 mg/dL 10 - 150 mg/dL [facility] Is Patient Fasting?/# of Hours->8 [facility] No Panel Informationon 03-21 Interpretation and review of laboratory results Abnormal [facility] Phosphoruson 03-21-2023 Phosphate [Mass/Vol] 3.5 mg/dL Normal 2.5-4.5 [facility] Comment on above: Performed By: #### KAREEN CENTENO, [facility] #### [address] [address] Ph. [phone] Phosphate [Mass/Vol] 3.5 mg/dL 2.5 - 4 .5 mg/dL [facility] US GALLBLADDER RUQon 024 US [...] David Bhatt MD 03/21/23 Final result Normal [facility] US Gallbladderon 03-21-2023 1. Hepatic steatosis without focal suspicious hepatic lesion. 2. Cholecystectomy. [facility] EXAM: US GALLBLADDER RUQ HISTORY: 53 [...] Report electronically signed by: Dr. David Bhatt [facility] David Bhatt MD - 03/21/2023 EXAM: US [...] without focal suspicious hepatic lesion. 2. Cholecystectomy. [facility] Work Phone: Radiology Study observation (narrative) [facility] Work Phone: US GallbladderOrdered By: Paola Bhatt on 03-21-2023 [facility] Work Phone: Urinalysis with Reflex to Cu [...] pH (U) 7.0 [pH] 5.0 - 7.0 [facility] Protein, Ur (gm/dL) Negative Negative mg/dL [facility] RBC, UA Rare #/HPF [facility] Specific [place], Urine 1.015 1.005 - 1.030 [facility] Squam Epithel, UA None Seen #/LPF [facility] Urobilinogen, Urine 0.2 E.U./dL NINF [facility] WBC, UA None Seen #/HPF [facility] SPECIFY(EX-CATH,MIDS TREAM,CYSTO,ETC)?->m id [facility] Urinalysis, Complete reflex to cultureon 03-21-2023 BACT Trace Normal [facility] Comment on above: Order Comment: SPECI FY(EX-CATH,MIDSTREAM,CYSTO,ETC)?->mid Performed By: #### U COMP/WRCX #### [place] [address] Ph. [phone] CULTIND No Normal [facility] Comment on above: Order Comment: SPECI FY(EX-CATH,MIDSTREAM,CYSTO,ETC)?->mid Performed By: #### U COMP/WRCX #### [place] [address] Ph. [phone] MUCS None Seen Normal [facility] Comment on above: Order Comment: SPECI FY(EX-CATH,MIDSTREAM,CYSTO,ETC)?->mid Performed By: #### U COMP/WRCX #### [place] [address] Ph. [phone] SQEPI None Seen Normal [facility] Comment on above: Order Comment: SPECI FY(EX-CATH,MIDSTREAM,CYSTO,ETC)?->mid Performed By: #### U COMP/WRCX #### [place] [address] Ph. [phone] UBIL Negative Normal Negative [facility] Comment on above: Order Comment: SPECI FY(EX-CATH,MIDSTREAM,CYSTO,ETC)?->mid Performed By: #### U COMP/WRCX #### [place] [address] Ph. [phone] UBLO Negative Normal Negative [facility] Comment on above: Order Comment: SPECI FY(EX-CATH,MIDSTREAM,CYSTO,ETC)?->mid Performed By: #### U COMP/WRCX #### [place] [address] Ph. [phone] UCLAR Clear Normal [facility] Comment on above: Order Comment: SPECI FY(EX-CATH,MIDSTREAM,CYSTO,ETC)?->mid Performed By: #### U COMP/WRCX #### [place] [address] Ph. [phone] UCOL Light yellow Normal [facility] Comment on above: Order Comment: SPECI FY(EX-CATH,MIDSTREAM,CYSTO,ETC)?->mid Performed By: #### U COMP/WRCX #### [place] [address] Ph. [phone] UGLU Negative Normal Negative [facility] Comment on above: Order Comment: SPECI FY(EX-CATH,MIDSTREAM,CYSTO,ETC)?->mid Performed By: #### U COMP/WRCX #### [place] [address] Ph. [phone] UKET Trace Abnormal Negative [facility] Comment on above: Order Comment: SPECI FY(EX-CATH,MIDSTREAM,CYSTO,ETC)?->mid Performed By: #### U COMP/WRCX #### [place] [address] Ph. [phone] ULEU Negative Normal Negative [facility] Comment on above: Order Comment: SPECI FY(EX-CATH,MIDSTREAM,CYSTO,ETC)?->mid Performed By: #### U COMP/WRCX #### [place] [address] Ph. [phone] UNIT Negative Normal Negative [facility] Comment on above: Order Comment: SPECI FY(EX-CATH,MIDSTREAM,CYSTO,ETC)?->mid Performed By: #### U COMP/WRCX #### [place] [address] Ph. [phone] UPH 7.0 Normal 5.0-7.0 [facility] Comment on above: Order Comment: SPECI FY(EX-CATH,MIDSTREAM,CYSTO,ETC)?->mid Performed By: #### U COMP/WRCX #### [place] [address] Ph. [phone] UPRO Negative Normal Negative [facility] Comment on above: Order Comment: SPECI FY(EX-CATH,MIDSTREAM,CYSTO,ETC)?->mid Performed By: #### U COMP/WRCX #### [place] [address] Ph. [phone] URBC Rare Normal [facility] Comment on above: Order Comment: SPECI FY(EX-CATH,MIDSTREAM,CYSTO,ETC)?->mid Performed By: #### U COMP/WRCX #### [place] [address] Ph. [phone] USG 1.015 Normal 1.005-1.030 [facility] Comment on above: Order Comment: SPECI FY(EX-CATH,MIDSTREAM,CYSTO,ETC)?->mid Performed By: #### U COMP/WRCX #### [place] [address] Ph. [phone] UURO 0.2 E.U./dL Normal <2.0 [facility] Comment on above: Order Comment: SPECI FY(EX-CATH,MIDSTREAM,CYSTO,ETC)?->mid Performed By: #### U COMP/WRCX #### [address] [address] Ph. [phone] UWBC None Seen Normal [facility] Comment on above: Order Comment: SPECI FY(EX-CATH,MIDSTREAM,CYSTO,ETC)?->mid Performed By: #### U COMP/WRCX #### [address] [address] Ph. [phone] CBC with Diffon 10-19-2022 Abs. Basophil Normal 0.0-0.2 [facility] Comment on above: Performed By: #### L IP, CP, CDP, TROPI #### [facility] [address] [place] [id number] Finished Metal Repairer: Jemma Pierre MD Abs.Imm.Granulocyte Normal 0.00-0.30 [facility] Comment on above: Performed By: #### L IP, CP, CDP, TROPI #### [facility] [address] [place] [id number] Finished Metal Repairer: Jemma Pierre MD Abs.Neutrophil (Seg) 3.36 k/uL Normal 2.5-7.0 [facility] Comment on above: Performed By: #### L IP, CP, CDP, TROPI #### [facility] [address] [place] [id number] Finished Metal Repairer: Jemma Pierre MD Basophil Normal 0-2 [facility] Comment on above: Performed By: #### L IP, CP, CDP, TROPI #### [facility] [address] [place], [place] [phone] Finished Metal Repairer: Jemma Pierre MD Eosinophils (Bld) [#/Vol] 0.12 10*3/uL Normal 0.0-0.4 [facility] Comment on above: Performed By: #### L IP, CP, CDP, TROPI #### [facility] [address] [place], [place] [id number] Finished Metal Repairer: Jemma Pierre MD Eosinophils/100 WBC (Bld) 2 % Normal 0-5 [facility] Comment on above: Performed By: #### L IP, CP, CDP, TROPI #### [facility] [address] [place] [address] Finished Metal Repairer: Jemma Pierre MD Immature Granulocyte Normal 0 [facility] Comment on above: Performed By: #### L IP, CP, CDP, TROPI #### [facility] [address] [place] [address] Finished Metal Repairer: Jemma Pierre MD Lymphocytes (Bld) [#/Vol] 2.07 10*3/uL Normal 1.0-4.8 [facility] Comment on above: Performed By: #### L IP, CP, CDP, TROPI #### [facility] [address] [place] [address] Finished Metal Repairer: Jemma Pierre MD Lymphocytes/100 WBC (Bld) 34 % Normal 15-40 [facility] Comment on above: Performed By: #### L IP, CP, CDP, TROPI #### [facility] [address] [place] [address] Finished Metal Repairer: Jemma Pierre MD Monocytes (Bld) [#/Vol] 0.55 10*3/uL Normal 0.0-1.0 [facility] Comment on above: Performed By: #### L IP, CP, CDP, TROPI #### [facility] [address] [id number] Finished Metal Repairer: Jemma Pierre MD Monocytes/100 WBC (Bld) 9 % High 4-8 [facility] Comment on above: Performed By: #### L IP, CP, CDP, TROPI #### [facility] [address] [place] [address] Finished Metal Repairer: Jemma Pierre MD Morphology Rodrick (Bld) [Interp] Manual Differential Performed Normal [facility] Comment on above: Performed By: #### L IP, CP, CDP, TROPI #### [facility] [address] [place] [address] Finished Metal Repairer: Jemma Pierre MD Neutrophil (Seg) 55 % Normal 47-75 [facility] Comment on above: Performed By: #### L IP, CP, CDP, TROPI #### [facility] [address] [phone] Finished Metal Repairer: Jemma Pierre MD Erythrocyte distribution width (RBC) [Ratio] 12.8 % Normal 12.1-15.2 [facility] Comment on above: Performed By: #### L IP, CP, CDP, TROPI #### [facility] [address] [place] [address] Finished Metal Repairer: Jemma Pierre MD Hematocrit (Bld) [Volume fraction] 42.7 % Normal 36-46 [facility] Comment on above: Performed By: #### L IP, CP, CDP, TROPI #### [facility] [address] [phone] Finished Metal Repairer: Jemma Pierre MD Hemoglobin (Bld) [Mass/Vol] 14.6 g/dL Normal 12.0-16.0 [facility] Comment on above: Performed By: #### L IP, CP, CDP, TROPI #### [facility] [address] [place] [address] Finished Metal Repairer: Jemma Pierre MD MCH (RBC) [Entitic mass] 30.1 pg Normal 26-34 [facility] Comment on above: Performed By: #### L IP, CP, CDP, TROPI #### [facility] [address] [place], [place] [phone] ([phone]) Finished Metal Repairer: Jemma Pierre MD MCHC (RBC) [Mass/Vol] 34.1 g/dL Normal 31-[address] [facility] Comment on above: Performed By: #### L IP, CP, CDP, TROPI #### [facility] [address] [place], [place] [phone] (163) Finished Metal Repairer: Jemma Pierre MD MCV (RBC) [Entitic vol] 88.4 fL Normal 80-100 [facility] Comment on above: Performed By: #### L IP, CP, CDP, TROPI #### [facility] [address] [place], [place] [phone] ([phone]) Finished Metal Repairer: Jemma Pierer MD Platelets (Bld) [#/Vol] 209 10*3/uL Normal 140-450 [facility] Comment on above: Performed By: #### L IP, CP, CDP, TROPI #### [facility] [address] [place] [address] ([phone]) Finished Metal Repairer: Jemma Pierre MD RBC (Bld) [#/Vol] 4.84 10*6/uL Normal 4.0-5.2 [facility] Comment on above: Performed By: #### L IP, CP, CDP, TROPI #### [facility] [address] [place], [place] [phone] ([phone]) Finished Metal Repairer: Jemma Pierre MD WBC (Bld) [#/Vol] 6.1 10*3/uL Normal 3.5-11.0 [facility] Comment on above: Performed By: #### L IP, CP, CDP, TROPI #### [facility] [address] [place], [place] [phone] ([phone]) Finished Metal Repairer: Jemma Pierre MD Comp Metabolic Profon 2022 Albumin [Mass/Vol] 4.4 g/dL Normal 3.5-5.2 [facility] Comment on above: Performed By: #### L IP, CP, CDP, TROPI #### [facility] [address] [place], [place] [phone] Finished Metal Repairer: Jemma Pierre MD Alkaline Phos 77 U/L Normal 35-104 [facility] Comment on above: Performed By: #### L IP, CP, CDP, TROPI #### [facility] [address] [place], [place] [phone] Finished Metal Repairer: Jemma Pierre MD ALT [Catalytic activity/Vol] 36 U/L High 5-33 [facility] Comment on above: Performed By: #### L IP, CP, CDP, TROPI #### [facility] [address] [place], [place] [phone] Finished Metal Repairer: Jemma Pierre MD Anion gap [Moles/Vol] 13 mmol/L Normal 9-[address] [facility] Comment on above: Performed By: #### L IP, CP, CDP, TROPI #### [facility] [address] [place], [place] [phone] Finished Metal Repairer: Jemma Pierre MD AST [Catalytic activity/Vol] 24 U/L Normal <32 [facility] Comment on above: Performed By: #### L IP, CP, CDP, TROPI #### [facility] [address] [place], [place] [phone] Finished Metal Repairer: Jemma Pierre MD Bilirubin [Mass/Vol] 0.6 mg/dL Normal 0.3-1.2 [facility] Comment on above: Performed By: #### L IP, CP, CDP, TROPI #### [facility] [address] [place], [place] [phone] Finished Metal Repairer: Jemma Pierre MD BUN/CRE Ratio 20 Normal 9-20 [facility] Comment on above: Performed By: #### L IP, CP, CDP, TROPI #### [facility] [address] [place] [address] Finished Metal Repairer: Jemma Pierre MD Calcium [Mass/Vol] 9.6 mg/dL Normal 8.6-10.4 [facility] Comment on above: Performed By: #### L IP, CP, CDP, TROPI #### [facility] [address] [place] [address] Finished Metal Repairer: Jemma Pierre MD Chloride [Moles/Vol] 106 mmol/L Normal 98-107 [facility] Comment on above: Performed By: #### L IP, CP, CDP, TROPI #### [facility] [address] [place] [address] Finished Metal Repairer: Jemma Pierre MD CO2 [Moles/Vol] 22 mmol/L Normal 20-31 [facility] Comment on above: Performed By: #### L IP, CP, CDP, TROPI #### [facility] [address] [place] [address] Finished Metal Repairer: Jemma Pierre MD Creatinine [Mass/Vol] 0.6 mg/dL Normal 0.5-0.[address] [facility] Comment on above: Performed By: #### L IP, CP, CDP, TROPI #### [facility] [address] [place] [address] Finished Metal Repairer: Jemma Pierre MD GFR/1.73 sq M.predicted among non-blacks MDRD (S/P/Bld) [Vol rate/Area] mL/min/{1.73_m2} Normal >60 [facility] Comment on above: Result [...] #### L IP, CP, CDP, TROPI #### [facility] [address] [place], [place] [phone] Finished Metal Repairer: Jemma Pierre MD Glucose [Mass/Vol] 98 mg/dL Normal 70-99 [facility] Comment on above: Performed By: #### L IP, CP, CDP, TROPI #### [facility] [address] [place], [place] [phone] Finished Metal Repairer: Jemma Pierre MD Potassium [Moles/Vol] 3.9 mmol/L Normal 3.7-5.[address] [facility] Comment on above: Performed By: #### L IP, CP, CDP, TROPI #### [facility] [address] [place], [place] [phone] Finished Metal Repairer: Jemma Pierre MD Protein [Mass/Vol] 7.2 g/dL Normal 6.4-8.3 [facility] Comment on above: Performed By: #### L IP, CP, CDP, TROPI #### [facility] [address] [place], [place] [phone] Finished Metal Repairer: Jemma Pierre MD Sodium [Moles/Vol] 141 mmol/L Normal 135-144 [facility] Comment on above: Performed By: #### L IP, CP, CDP, TROPI #### [facility] [address] [place] [address] Finished Metal Repairer: Jemma Pierre MD Urea nitrogen [Mass/Vol] 12 mg/dL Normal 6-20 [facility] Comment on above: Performed By: #### L IP, CP, CDP, TROPI #### [facility] [address] [place], [place] [phone] Finished Metal Repairer: Jemma Pierre MD Lipaseon 10-19-2022 Lipase [Catalytic activity/Vol] 29 U/L Normal 13-60 [facility] Comment on above: Performed By: #### L IP, CP, CDP, TROPI #### [facility] [address] [facility] [place] [phone] Finished Metal Repairer: Jemma Pierre MD Troponinon 10-19-2022 Troponin, High Sens <6 Normal 0-14 [facility] Comment on above: Result Comment: High Sensitivity Troponin values cannot be compared with other Troponin methodologies. Performed By: #### L IP, CP, CDP, TROPI #### [facility] [address] [place] [address] Finished Metal Repairer: Jemma Pierre MD Urinalysis, Routineon 2022 Bilirubin, SemiQt,Ur Negative Normal NEG [facility] Comment on above: Performed By: #### U A #### [facility] [address] [place] [address] Finished Metal Repairer: Jemma Pierre MD Blood, Urine Negative Normal NEG [facility] Comment on above: Performed By: #### U A #### [facility] [address] [place], [place] [phone] Finished Metal Repairer: Jemma Pierre MD Clarity (U) Clear Normal CLEAR [facility] Comment on above: Performed By: #### U A #### [facility] [address] [facility] [place] [address] Finished Metal Repairer: Jemma Pierre MD Color (U) Yellow Normal YEL [facility] Comment on above: Performed By: #### U A #### [facility] [address] [facility] [place] [address] Finished Metal Repairer: Jemma Pierre MD Comment Normal [facility] Comment on above: Performed By: #### U A #### [facility] [address] [facility] [place] [address] Finished Metal Repairer: Jemma Pierre MD Glucose Ql (U) Negative Normal NEG [facility] Comment on above: Performed By: #### U A #### [facility] [address] [place], [place] [phone] Finished Metal Repairer: Jemma Pierre MD Ketones Ql (U) Negative Normal NEG [facility] Comment on above: Performed By: #### U A #### [facility] [address] [place] [address] Finished Metal Repairer: Jemma Pierre MD Leukocyte esterase Test strip Ql (U) Negative Normal NEG [facility] Comment on above: Performed By: #### U A #### [facility] [address] [place] [address] Finished Metal Repairer: Jemma Pierre MD Nitrite,Ur Negative Normal NEG [facility] Comment on above: Performed By: #### U A #### [facility] [address] [place] [address] Finished Metal Repairer: Jemma Pierre MD PH,Ur 8.0 Normal 5.0-8.0 [facility] Comment on above: Performed By: #### U A #### [facility] [address] [place] [address] Finished Metal Repairer: Jemma Pierre MD Protein Ql (U) Negative Normal NEG [facility] Comment on above: Performed By: #### U A #### [facility] [address] [place] [address] Finished Metal Repairer: Jemma Pierre MD Spec. [place],Ur 1.010 Normal 1.005-1.030 [facility] Comment on above: Performed By: #### U A #### [facility] [address] [place] [address] Finished Metal Repairer: Jemma Pierre MD Urobilinogen,Ur Normal Normal 0.0-1.0 [facility] Comment on above: Performed By: #### U A #### [facility] [address] [place] [address] Finished Metal Repairer: Jemma Pierre MD CARDIAC STRESS TESTon 2022 CARDIAC STRESS TEST [facility] [address] [place] [address] CARDIAC STRESS TEST PATIENT NAME: JUDY MISHRA : 1970 MED REC NO: [id number] ROOM: ACCOUNT NO: [id number] ADMIT DATE: 07/13/2022 PROVIDER: Jabier Cottrell MD [...] or angina. JABIER COTTRELL MD [id number] Doc#: [id number] CC: Normal [facility] Brain Natriuretic Peptideon 06-12-2022 Natriuretic peptide B (Bld) [Mass/Vol] pg/mL NINF - 300 pg/mL [facility] Comment on above: An age-independent cutoff point of 300 pg/ml has a 98% negative predictive value excluding acute heart failure. CBC with Auto Differentialon 06-12-2022 Absolute Eos # 0.20 [place] [facility] Absolute Lymph # 1.60 [place] [facility] [facility] Absolute Clarke # 0.40 [facility] Basophils (Bld) [#/Vol] 0.00 10*3/uL [facility] Basophils/100 WBC (Bld) 1 % 0 - 2 % [facility] Differential Type YES [facility] Eosinophils/100 WBC (Bld) 4 % 0 - 5 % [facility] Hematocrit (Bld) [Volume fraction] 44.2 % 36 - 46 % [facility] Hemoglobin (Bld) [Mass/Vol] 14.8 g/dL 12.0 - 16.0 g/dL [facility] Lymphocytes/100 WBC (Bld) 26 % 15 - 40 % [facility] MCH (RBC) [Entitic mass] 29.9 pg 26 - 34 pg [facility] MCHC (RBC) [Mass/Vol] 33.6 g/dL 31 - 37 g/dL B ON [facility] MCV (RBC) [Entitic vol] 89.1 fL 80 - 100 fL [facility] Monocytes/100 WBC (Bld) 6 % 4 - 8 % [facility] Platelet distribution width (Bld) [Ratio] 12.7 % 12.1 - 15.2 % [facility] Platelets (Bld) [#/Vol] 210 10*3/uL [facility] RBC (Bld) [#/Vol] 4.96 10*6/uL 4.0 - 5.2 m/uL [facility] Segmented neutrophils/100 WBC (Bld) 63 % 47 - 75 % [facility] Segs Absolute 3.90 [facility] WBC (Bld) [#/Vol] 6.2 10*3/uL [facility] Comprehensive Metabolic Pane simba 06-12-2022 Albumin [Mass/Vol] 4.5 g/dL 3.5 - 5.2 g/dL [facility] ALP [Catalytic activity/Vol] 73 U/L 35 - 104 U/L [facility] ALT [Catalytic activity/Vol] 17 U/L 5 - 33 U/L [facility] Anion gap [Moles/Vol] 10 mmol/L 9 - 17 mmol/L [facility] AST [Catalytic activity/Vol] 16 U/L NINF - 32 U/L [facility] Bilirubin [Mass/Vol] 0.4 mg/dL 0.3 - 1 .2 mg/dL [facility] Calcium [Mass/Vol] 9.7 mg/dL 8.6 - 10. 4 mg/dL [facility] Chloride [Moles/Vol] 103 mmol/L 98 - 10 7 mmol/L [facility] CO2 [Moles/Vol] 27 mmol/L 20 - 31 mmol/L [facility] Creatinine [Mass/Vol] 0.69 mg/dL 0.50 - 0.90 mg/dL [facility] GFR/1.73 sq M.predicted MDRD (S/P/Bld) [Vol rate/Area] - PINF [facility] Comment on above: These results are not [...] [Mass/Vol] 92 mg/dL 70 - 99 mg/dL [facility] Interpretation and review of laboratory results Abnormal [facility] Potassium [Moles/Vol] 3.4 mmol/L Low 3.7 - 5.3 mmol/L [facility] Protein [Mass/Vol] 7.1 g/dL 6.4 - 8.3 g/dL [facility] Sodium [Moles/Vol] 140 mmol/L 135 - 144 mmol/L [facility] Urea nitrogen [Mass/Vol] 10 mg/dL 6 - 20 mg/dL [facility] Urea nitrogen/Creatinine (Bld) [Mass ratio] 14 9 - 20 [facility] D-Dimer, Quantitativeon 05-0 Fibrin D-dimer FEU IA (Bld) [Mass/Vol] 0.40 ug/mL [facility] Comment on above: When combined with a [...] more prevalent in patients with distal DVT. [facility] Lipaseon 06-12-2022 Lipase [Catalytic activity/Vol] 25 U/L 13 - 60 U/L [facility] No Panel Informationon 06-12 [facility] TSH with Reflexon 06-12-2022 TSH Qn 2.81 m[IU]/L [facility] Troponinon 06-12-2022 Troponin I.cardiac DL <= 0.01 ng/mL [Mass/Vol] ng/L 0 - 14 ng/L [facility] Comment on above: High Sensitivity Tro ponin values cannot be compared with other Troponin methodologies. [facility] XR CHEST (2 VW)on 06-12-2022 1. Linear area of platelike atelectasis versus scarring in the lingula. 2. Remainder of lung piña are unremarkable. [facility] EXAM: Chest x-ray HISTORY: Chest pain COMPARISON: None. TECHNIQUE: Frontal and lateral chest FINDINGS: Vascularity are unremarkable. Lungs are expanded and free of focal infiltrates. There is a linear density in the lingula consistent with platelike atelectasis or scarring. No acute bony abnormality is appreciated. [facility] Jemma Boyd MD - 06/12/2022 EXAM: [...] 2. Remainder of lung piña are unremarkable. [facility] Work Phone: Radiology Study observation (narrative) [facility] [employer] Phone: XR CHEST (2 VW)Ordered By: Sohail Boyd on 06-12-2022 [employer] [facility] Phone: CBC AUTO DIFFon 03-19-2022 BASO # 0.1 103/ul Normal 0.0-0.1 [facility] Comment on above: Performed By: #### C BC #### [facility] [address] [address] [address] Lupillo [place] Basophils/100 WBC (Bld) 0.8 % Normal 0.2-2.0 [facility] Comment on above: Performed By: #### C BC #### [facility] [address] [place] [address] Dr. Lupillo [place] EO # 0.4 103/ul Normal 0.0-0.7 [facility] Comment on above: Performed By: #### C BC #### [facility] [address] [place] [address] Dr. Lupillo [place] Eosinophils/100 WBC (Bld) 5.5 % Normal 0.9-7.0 [facility] Comment on above: Performed By: #### C BC #### [facility] [address] [place] [address] Dr. Lupillo [place] Erythrocyte distribution width (RBC) [Ratio] 13.2 % Normal 11.0-15.0 [facility] Comment on above: Performed By: #### C BC #### [facility] [address] [place] [address] Dr. Lupillo [place] Hematocrit (Bld) [Volume fraction] 45.3 % Normal 36.0-48.0 [facility] Comment on above: Performed By: #### C BC #### [facility] [address] [place] [address] Dr. Lupillo [place] Hemoglobin (Bld) [Mass/Vol] 14.8 g/dL Normal 12.0-16.0 [facility] Comment on above: Performed By: #### C BC #### [facility] [address] [place] [address] Dr. Lupillo [place] IG # 0.02 10e3/ul Normal 0.00-0.03 [facility] Comment on above: Performed By: #### C BC #### [facility] [address] [place] [address] Dr. Lupillo [place] IG % 0.3 % Normal 0.0-0.5 [facility] Comment on above: Performed By: #### C BC #### [facility] [address] [place] [address] Dr. Lupillo [place] LYMPH # 1.4 103/ul Normal 1.2-3.8 [facility] Comment on above: Performed By: #### C BC #### [facility] [address] [place] [address] Dr. Lupillo [place] Lymphocytes/100 WBC (Bld) 22.5 % Normal 20.5-60.0 [facility] Comment on above: Performed By: #### C BC #### [facility] [address] [place] [address] Dr. Lupillo [place] MANUAL DIFF REQ NO Normal [facility] Comment on above: Performed By: #### C BC #### [facility] [address] [place] [address] Dr. Lupillo [place] MCH (RBC) [Entitic mass] 30.0 pg Normal 26.7-34.0 [facility] Comment on above: Performed By: #### C BC #### [facility] [address] [place] [address] Dr. Lupillo [place] MCHC (RBC) [Mass/Vol] 32.7 g/dL Normal 29.9-35.2 [facility] Comment on above: Performed By: #### C BC #### [facility] [address] [place] [address] Dr. Lupillo [place] MCV (RBC) [Entitic vol] 91.9 fL Normal 81.0-99.0 [facility] Comment on above: Performed By: #### C BC #### [facility] [address] [place] [address] Dr. Lupillo [place] MONO # 0.4 103/ul Normal 0.3-0.8 [facility] Comment on above: Performed By: #### C BC #### [facility] [address] [place] [address] Dr. Lupillo [place] Monocytes/100 WBC (Bld) 6.5 % Normal 1.7-12.0 [facility] Comment on above: Performed By: #### C BC #### [facility] [address] [place] [address] Dr. Lupillo [place] NEUT # 4.1 103/ul Normal 1.4-6.5 [facility] Comment on above: Performed By: #### C BC #### [facility] [address] [place] [address] Dr. Lupillo [place] Neutrophils/100 WBC (Bld) 64.4 % Normal 43.0-75.0 [facility] Comment on above: Performed By: #### C BC #### [facility] [address] [place] [address] Dr. Lupillo [place] Platelet mean volume (Bld) [Entitic vol] 12.0 fL Normal 9.5-13.5 [facility] Comment on above: Performed By: #### C BC #### [facility] [address] [place] [address] Dr. Lupillo [place] PLT 235 103/ul Normal 150-450 [facility] Comment on above: Performed By: #### C BC #### [facility] [address] [place] [address] Dr. Lupillo [place] RBC 4.93 106/ul Normal 4.20-5.40 [facility] Comment on above: Performed By: #### C BC #### [facility] [address] [place] [address] Dr. Lupillo [place] WBC 6.4 103/ul Normal 4.0-11.0 [facility] Comment on above: Performed By: #### C BC #### [facility] [address] [place] [address] Dr. Lupillo [place] PROF CHEM 8 (BAS METB)on Anion gap [Moles/Vol] 13.9 mmol/L Normal Th e [facility] Comment on above: Performed By: #### B MP #### [facility] [address] [place] [address] Dr. Lupillo [place] Calcium [Mass/Vol] 9.4 mg/dL Normal 8.5-10.1 [facility] Comment on above: Performed By: #### B MP #### [facility] [address] [place] [address] Dr. Lupillo [place] Chloride [Moles/Vol] 105 mmol/L Normal 98-107 [facility] Comment on above: Performed By: #### B MP #### [facility] [address] [place] [address] Dr. Lupillo [place] CO2 [Moles/Vol] 28.2 mmol/L Normal 21.0-32.0 [facility] Comment on above: Performed By: #### B MP #### [facility] [facility] [address] [place] [address] Dr. Lupillo Birmingham Creatinine [Mass/Vol] 0.66 mg/dL Normal 0.55-1.02 [facility] Comment on above: Performed By: #### B MP #### [facility] [address] [place] [address] Dr. Lupillo Birmingham EGFR-AF NORWEGIAN >60 Normal >=60 [facility] Comment on above: Performed By: #### B MP #### [facility] [address] [place] [address] Dr. Lupillo Birmingham EGFR-NON AF NORWEGIAN >60 Normal >=60 [facility] Comment on above: Performed By: #### B MP #### [facility] [address] [place] [address] Dr. Lupillo Birmingham Glucose [Mass/Vol] 101 mg/dL Normal 74-106 The [facility] Comment on above: Performed By: #### B MP #### [facility] [address] [place] [address] Dr. Lupillo Birmingham Potassium [Moles/Vol] 4.1 mmol/L Normal 3.5-5.1 [facility] Comment on above: Performed By: #### B MP #### [facility] [address] [address] [address] Lupillo Birmingham Sodium [Moles/Vol] 143 mmol/L Normal 136-145 [facility] Comment on above: Performed By: #### B MP #### [facility] [address] [place], [place] [address] Dr. Lupillo Birmingham Urea nitrogen [Mass/Vol] 13.0 mg/dL Normal 7.0-18.0 [facility] Comment on above: Performed By: #### B MP #### [facility] [address] [address] [address] Lupillo Birmingham Urea nitrogen/Creatinine [Mass ratio] 19.7 mg/mg Normal [facility] Comment on above: Performed By: #### B MP #### [facility] [address] [address] [address] Lupillo Birmingham TSHon 03-19-2022 TSH 1.514 uIU/mL Normal 0.358-3.740 [place] Comment on above: Performed By: #### T SH #### [facility] [address] [address] [address] Lupillo Birmingham XR KNEE LT 4V [...] by: DEMETRIA NAVARRETE Date: 2022-03-19 08:31 Normal [facility] US THYROIDon 12-05-2021 US THYROID EXAMINATION: [...] JEMMA ARAUZ Date: 2021-12-05 10:49 Normal [facility] TSHon 09-30-2021 TSH 3.645 uIU/mL Normal 0.358-3.740 [place] Comment on above: Performed By: #### T SH #### [facility] [id number] Lupillo Birmingham US THYROIDon 08-23-2021 US [...] JEMMA ARAUZ Date: 2021-08-23 13:03 Normal [facility] T3 UPTAKEon 08-19-2021 T3U 31.0 % Normal 30.0-39.0 [facility] Comment on above: Performed By: #### T 3UP, TSH, T4 ####[facility] [address] [place], [place] [address]WnDr. Lupillo Birmingham T4on 08-19-2021 T4 [Mass/Vol] 11.10 ug/dL Normal 4.80-13.90 The [facility] Comment on above: Performed By: #### T 3UP, TSH, T4 #### [facility] [address] [place], [place] [address] Dr. Lupillo Birmingham TSHon 08-19-2021 TSH 6.669 uIU/mL Critically high 0.358-3.740 [facility] Comment on above: Performed By: #### T 3UP, TSH, T4 ####[facility] [id number] [place], [place] [address]OvDr. Lupillo Birmingham US THYROIDon 04-25-2021 US THYROID [...] JEMMA ARAUZ Date: 2021-04-25 14:04 Normal [facility] TSHon 04-11-2021 TSH 2.911 uIU/mL Normal 0.470-4.680 The [facility] Comment on above: Performed By: #### T SH #### [facility] [address] [address] [address] Lupillo Birmingham TSH RANGE SEE BELOW Normal The [facility] Comment on above: Result Comment: <0.3 4 UIU/ml HYPERTHYROID 0.34-5.60 UIU/ml EUTHYROID >5.60 UIU/ml HYPOTHYROID Performed By: #### T SH #### [facility] [address] [address] [address] Lupillo Birmingham Basic Metabolic Panel w/ Ref johnna to MGOrdered By: Stephie Iverson on 06-08-2020 Anion gap [Moles/Vol] 8 mmol/L Low 9 - 17 mmol/L [employer] Phone: Calcium [Mass/Vol] 9.0 mg/dL 8.6 - 10. 4 mg/dL [employer] Phone: Chloride [Moles/Vol] 105 mmol/L 98 - 10 7 mmol/L [employer] Phone: CO2 [Moles/Vol] 24 mmol/L 20 - 31 mmol/L [employer] Phone: Creatinine [Mass/Vol] 0.49 mg/dL Low 0.50 - 0.90 mg/dL [employer] Phone: GFR >60 >60 mL/min [employer] Phone: GFR Non- >60 >60 mL/min [employer] Phone: GFR/1.73 sq M.predicted MDRD (S/P/Bld) [Vol rate/Area] [employer] Phone: Comment on above: Average GFR for 40-4 9 years old: 99 mL/min/1.73sq m Chronic Kidney Disease: <60 mL/min/1.73sq m Kidney failure: <15 mL/min/1.73sq m eGFR calculated using average adult body mass. Additional eGFR calculator available at: http://www.[employer]err[employer]/multiple_crcl_2012.htm GFR/1.73 sq M.predicted MDRD (S/P/Bld) [Vol rate/Area] NOT REPORTED [employer] Phone: Glucose [Mass/Vol] 107 mg/dL High 70 - 99 mg/dL [employer] Phone: Interpretation and review of laboratory results Abnormal [employer] Phone: Potassium [Moles/Vol] 3.7 mmol/L 3.7 - 5.3 mmol/L [employer] Phone: Sodium [Moles/Vol] 137 mmol/L 135 - 144 mmol/L [employer] Phone: Urea nitrogen (BldV) [Mass/Vol] 11 mg/dL 6 - 20 mg/dL [employer] Phone: Urea nitrogen/Creatinine (Bld) [Mass ratio] 22 High [employer] Phone: CBC Auto DifferentialOrdered By: Stephie Iverson on 06-08-2020 Absolute Eos # 0.30 [employer] [facility] Work Phone: Absolute Immature Granulocyte NOT REPORTED [employer] Work Phone: Absolute Lymph # 1.80 [employer] Work Phone: Absolute Clarke # 0.50 [employer] [facility] Work Phone: Basophils (Bld) [#/Vol] 0.00 10*3/uL [employer] Work Phone: Basophils/100 WBC (Bld) 1 % 0 - 2 % [employer] Work Phone: Differential Type YES [employer] Work Phone: Eosinophils/100 WBC (Bld) 5 % 0 - 5 % [employer] Phone: Hematocrit (Bld) [Volume fraction] 42.6 % 36 - 46 % [employer] Work Phone: Hemoglobin.gastrointes tinal spec 1 Ql (Stl) 14.4 g/dL 12.0 - 16.0 g/dL [employer] Work Phone: Immature Granulocytes NOT REPORTED 0 % [employer] Work Phone: Lymphocytes/100 WBC (Bld) 26 % 15 - 40 % [employer] Phone: MCH (RBC) [Entitic mass] 29.6 pg 26 - 34 pg [employer] Work Phone: MCHC (RBC) [Mass/Vol] 33.8 g/dL 31 - 37 g/dL [employer] Work Phone: MCV (RBC) [Entitic vol] 87.6 fL 80 - 100 fL [employer] Work Phone: Monocytes/100 WBC (Bld) 7 % 4 - 8 % [employer] Work Phone: NRBC Automated NOT REPORTED per 100 WBC [employer] Work Phone: Platelet distribution width (Bld) [Ratio] 13.3 % 12.1 - 15.2 % [employer] Phone: Platelet Estimate NOT REPORTED [employer] Phone: Platelet mean volume (Bld) [Entitic vol] NOT REPORTED 6.0 - 12.0 fL [employer] Phone: Platelets (Bld) [#/Vol] 252 10*3/uL [employer] Phone: RBC (Bld) [#/Vol] 4.87 10*6/uL 4.0 - 5.2 m/uL [employer] Phone: RBC (Bld) [#/Vol] NOT REPORTED [employer] Phone: Segmented neutrophils/100 WBC (Bld) 61 % 47 - 75 % [employer] Phone: Segs Absolute 4.40 PST [employer] Work Phone: WBC (Bld) [#/Vol] 7.0 10*3/uL [employer] Phone: WBC (Bld) [#/Vol] NOT REPORTED [employer] Phone: CTA CHEST W CONTRASTOrdered By: Stephie [...] nodules and thyromegaly. Consider outpatient thyroid ultrasound. [employer] Phone: EXAMINATION: CTA CHEST W CONTRAST HISTORY: [...] alone. The bone windows are normal. Cholecystectomy. [employer] Work Phone: [place], [facility] Incoming Radiant Results From [employer] - 06/08/2020 4:28 PM EDT EXAMINATION: CTA [...] nodules and thyromegaly. Consider outpatient thyroid ultrasound. [employer] Phone: D-Dimer, QuantitativeOrdered By: Stephie Iverson on 06-08-2020 [employer], Quant 0.61 [employer] Work Phone: Comment on above: When combined [...] Interpretation and review of laboratory results Abnormal [employer] Work Phone: VL DUP LOWER EXTREMITY VENOU S LEFTOrdered By: Stephie Iverson on 06-08-2020 [place], pn Incoming Cardio Results From [facility]/ - 06/08/2020 3:[address] [facility] Vascular Lower Extremities DVT Study Procedure Patient Name MISHRA Date of Study 06/08/2020 JUDY Yoon Date of 1970 Gender Female Age 50 year(s) Race Room Number 06 Height: 63 inch, 160.02 cm Corporate ID [id number] Weight: 200 pounds, 90.7 kg # Patient Acct [id number] BSA: 1.93 m^2 BMI: 35.43 kg/m^2 # MR # [id number] [employer] RT Prosper Interpreting Physician Gian Braga Referring Referring Physician Stephie Iverson Nurse Practitioner Procedure Type of Study: Veins: Lower Extremities DVT Study, DUP LOWER EXTREMITY VENOUS LEFT. Indications for Study:Leg Swelling. Patient Status:STAT. Comments:Left leg pain, no injury, since hx of covid 03/2020. Conclusions Summary Negative for DVT left lower extremity and right groin. Signature ---- ---- ---- ---- Findings: Right Impression: Left [...] !Phasic!No ! ! + --------+------+---- --+ + [employer] Phone: CNOVSPon 05-27-2018 CNOVS Visit (SP) Office (GYONDIPTI) JUDY MISHRA ([id number]) 1970 F Date Time Provider Department 05/27/18 8:20 AM RISA YOON During your visit today, we recorded the following information about you: Pulse Respiration Blood pressure Weight 71/minute 18/minute 117/58 89 kg Height 1.626 m Risa Yoon MD 05/27/2018 7:46 PM Signed Gynecologic Oncology [facility] Post-Op Visit Re: Judy Mishra [facility]#: [id number] 05/27/2018 PROBLEM: Judy Mishra returns to the [...] office note were sent to: Noah Woods [address] [place] [address] CC: Selvin Mack Sr, MD (PCP) Referring [...] by RISA YOON MD on 05/27/18 Normal [facility] PROGRESSon 05-23-2018 PROGRESS HNO ID: [id number] Author: Risa Yoon Service: ? Author Type: Physician Type: Progress Notes Filed: 05/27/2018 7:46 PM Note Text: Gynecologic Oncology [facility] Post-Op Visit Re: Judy Mishra [facility]#: [id number] 05/27/2018 PROBLEM: Judy Mishra returns to the [...] note were sent to: Noah Woods, DO [address] [place] [address] [place] [address] CC: Selvin Mack Sr, MD (PCP) Normal [facility] ANES Kj 05-09-2018 ANES POST HNO ID: [id number] Author: Constantin Gomez Service: Anesthesiology Author Type: [...] 09, 2018 TIME: 11:50 AM PAGER/CONTACT #: [phone] [facility] BRIEF OP NOTon 05-09-2018 BRIEF OP NOT HNO ID: [id number] Author: Carissa Liang (Fel) Service: Gynecology Oncology Author Type: Fellow Type: Brief Op Note Filed: 05/09/2018 8:29 AM Note Text: BRIEF OP NOTE LOG ID: [id number] Surgery/Procedure Date: 05/09/2018 Incision/Procedure Start Time: 8:11 AM Incision Close/Procedure End Time: 8:26 AM Surgeon(s)/Procedura list(s) and Social Media Manager(s): Surgeon(s) and Role: * Risa Yoon - Primary * Krys (Tristen Mueller - Resident - Assisting * Carissa Liang (Fel) - Fellow Procedure(s): Hysteroscopy and DANDC Anesthesia: Choice - Anesthesia Consult Findings: Polypoid tissue removed. Posterior uterine fibroid, submucosal Estimated Blood Loss: 5 mls Specimens: Specimen ID Type Site Comments Sent To path 1 Tissue [facility] Pathology Routine Complications: None Pre-Op/Pre-Procedure Diagnosis: Endometrial mass Post-Op/Post-Procedu re Diagnosis: Endometrial mass SIGNATURE: Carissa Liang MD PATIENT NAME: Judy Mishra DATE: May 09, 2018 TIME: 8:28 AM PAGER/CONTACT #: [phone] [facility] NURSING PROGon 05-09-2018 NURSING PROG HNO ID: [id number] Author: Opal Oswald (Adult Caregiver) Service: Pharmacy Author Type: ? Type: Nursing Progress Note Filed: 05/09/2018 9:20 AM Note Text: DIRECTIONAL SURVEY DRAFTER BEDSIDE DELIVERY SURVEY 1. Patient to use [facility] Bedside Delivery - NO prefer own pharmacy 2. If fax, patient would like us to fax prescriptions to Pharmacy of choice a. Pharmacy: b. Location: c. Phone: 3. Insurance card on file - NO 4. Credit card for payment - NO PRESCRIPTIONS WERE E-SCRIPTED TO LOCAL [facility]. [facility] NURSING PROG HNO ID: [id number] Author: Pallavi Ellsworth RN Service: ? Author [...] Ellsworth RN In Department: HOSP MAIN M023 [facility] NURSING PROG HNO ID: [id number] Author: Pallavi Ellsworth RN Service: ? Author Type: Registered Nurse Type: Nursing Progress Note Filed: 05/09/2018 5:46 AM Note Text: Dr. Yoon pagesohail for updated HANDP - M23-38, OR 8, Judy Mishra, patient's HANDP needs heart and lung sounds. Thank you, Trudy [phone] [facility] OPERATIVE NOon 05-09-2018 OPERATIVE NO HNO ID: [id number] Author: Risa Yoon Service: Gynecology Oncology Author Type: Physician Type: Operative Report Filed: 05/12/2018 10:21 PM Note Text: OPERATIVE/PROCEDURE REPORT LOG ID: [id number] SURGERY/PROCEDURE DATE: 05/09/2018 INCISION/PROCEDURE START TIME: 8:11 AM INCISION CLOSE/PROCEDURE END TIME: 8:29 AM SURGEON(S)/PROCEDURA LIST(S) AND PYROMETER MECHANIC(S): Surgeon(s) and Role: * Risa Yoon - Primary * Krys Mueller - Resident - Assisting * Carissa Liang (Fel) - Fellow No Additional Staff SURGEON(S)/PROCEDURA LIST(S) AND PYROMETER MECHANIC(S): Surgeon(s) and Role: * Risa Yoon - [...] findings.?Then the attention was directed to the [facility]. A speculum was placed in the vagina, [...] 12, 2018 TIME: 10:18 PM PAGER/CONTACT #: [facility] PT EDon 05-09-2018 PT ED HNO ID: [id number] Author: Marissa (Rn) MERY Ferreira Service: Nursing Author Type: Registered Nurse Type: Patient Education Filed: 05/09/2018 10:16 AM Note Text: PATIENT EDUCATION TOPIC: PROCEDURE / SURGERY: Procedure/Surgery: PATIENT NAME: Judy Mishra PATIENT LOCATION: [place] [address] READINESS TO LEARN COGNITIVE ABILITY: Alert and [...] None Electronically Signed By: Marissa Ferreira RN [facility] SURGICAL PATHOLOGYon 019 SURGICAL PATHOLOGY Specimen originated from [facility] Specimen #: [id number] Submitting Physician: RISA YOON MD FINAL DIAGNOSIS Endometrium, curettings - Disordered proliferative endometrium suggestive of benign endometrial polyp. ACV/dss 05/13/2018 Niles Geller M.D. (Electronic Signature) SPECIMEN SUBMITTED A: [facility] CLINICAL DATA ENDOMETRIAL MASS UTERINE BLEEDING GROSS DESCRIPTION A. Received in formalin on Telfa gauze are multiple red-brown, soft feathery segments of tissue aggregating to 2.5 x 2.0 x 0.3 cm. Totally submitted in one cassette. Gross examination performed at [facility], [address] [place] [address] 05/09/2018 4:54:51 PM Date of Report: 05/14/2018 Date of Procedure: 05/09/2018 Date of Receipt: 05/09/2018 Submitted by: RISA YOON MD Location: M22 Diagnostic interpretation performed at [facility], [address] [place] [address]. CLIA Number: [id number] Normal [facility] CNNURSEon 05-08-2018 CNNURSE Nurse Visit (REAGAN) JUDY MISHRA ([id number]) 1970 F Date Time Provider Department 05/08/18 8:00 AM CHILD WELFARE ASSISTANT ONC NURSE DIPTI KIRK During your visit today, we recorded the following information about you: Tono Giraldo LPN, ATTENDING PHYSICIAN 05/09/2018 4:47 PM Signed DATE OF SERVICE: [...] patient have an advanced directive: No Does [facility] have a copy of the patient's [...] prescribed by anesthesia, internal medicine, surgeon, or DUMPER OPERATOR Stop NSAIDs, Aspirin (ASA), vitamins, herbal supplements, [...] jewelry, body piercing, makeup, contacts, lotions, nail belizean on fingers, or anything in hair on arrival to surgery Wear low healed shoes and loose fitting clothing Leave all valuables at home or with a family member Directions to [facility] and the [facility] Parking/parking validation on the day prior to [...] - IV pain medication after surgery, IV LASTER HAND if ordered by MD, discharged home with [...] please send any FMLA papers to physician's social secretary. SYMPTOMS TO NOTIFY MD - Fever, [...] if after hours patient instructed to call yard loader operator and ask for commercial solar sales consultant sales and catering coordinator onc resident. SEAN program offered to patient: [...] None Educator: Tono Giraldo LPN [facility] Tono Giraldo LPN, LPN 05/08/2018 7:38 AM Signed GYNECOLOGY PHYSICIAN CONTACT INFORMATION Surgery Scheduling Office General Gynecology Gynecologic Oncology Dr. Kenia Long Dr. Shira Jackson Dr. Girma Moon Dr. Osman Yoon Dr. Shayy Landry Dr. Dimitris Nazario Dr. Helene Arias Dr. Judy Garcia Dr. Matthias Zeng Gynecology Nurse Practitioner Yudi Mejía, FAISAL Team Member Oncology Nurse Practitioners: Opal Delcid, COMMUNICATIONS SUPERINTENDENT Gertrude Phan, COMMUNICATIONS SUPERINTENDENT Yolanda Momin, COMMUNICATIONS SUPERINTENDENT Nithya Terrell, COMMUNICATIONS SUPERINTENDENT Urogynecology Nighat Burr, COMMUNICATIONS SUPERINTENDENT Dr. Stephie Mcdonnell Kiesha Curry, COMMUNICATIONS SUPERINTENDENT Dr. Trudy Callahan Dr. Tavo Ortega Dr. Ashley Martínez Fertility Dr. Girma Llamas Dr. Annia Wang Dr. Etienne Tatum Urogynecology Nurse Practitioner: Dr. Natalie Jeter Bruna Lester, FAISAL Zelaya, FAISAL [place], COMMUNICATIONS SUPERINTENDENT Fertility Nurse Practitioners: Yudi Higuera, FAISAL Post, FAISAL After 4:30 pm or on holidays or weekends, call: or . Ask the yard loader operator to page the ?sales and catering coordinator commercial solar sales consultant.' PRE-OPERATIVE CHECKLIST: PATIENT INSTRUCTIONS PRIOR TO SURGERYOur [...] not wear jewelry, body piercing(s), makeup, nail belizean, hairpins, or contacts on the day of surgery. I am to leave valuables and money at home or with family members. Unless my surgeon tells me differently, I will STOP THESE MEDICATIONS 7 DAYS PRIOR TO SURGERY: (Motrin/Ibuprofen/Na proxen/Aleve/Advil), Aspirin, vitamin E, herbal medications, diet pills, and jlfe-khe-embcdow medications. Tylenol (acetaminophen) is okay. If I [...] my Surgeon. Discuss medication changes with your web development instructor or primary care physician as well. If I stopped taking my blood-thinning medication, I will ask the surgeon when to resume taking it. If I am an outpatient, a responsible person will drive me home and it was suggested that someone stay with me for 24 hours. I understand that a business loan processor or cabdriver is NOT a responsible caregiver. [...] for surgery, I must call my surgical dressing maker after 2pm the day before surgery. Pain management education material found in Your Surgical Guide was reviewed with me. Preoperative instructions given by: CHILD WELFARE ASSISTANT PREOP INSTRUCTIONS PRE-OPERATIVE CHECKLIST ? See Pre-Operative [...] Guide Book for more information. [facility] TEAM ? At the [facility], we have a multidisciplinary team of caregivers that includes fellows, residents, nurse practitioners (carbon capture power plant manager), physician assistants (PAs), clinical nurse specialists (CNSs), nurses, medical assistants (MAs), patient care nursing assistants (PCNAs), social workers, telephonic nurse case manager and many others. We all [...] day prior to surgery. Phone number: [place] [phone]. ? No alcohol on the day before [...] ? Do not wear any jewelry, nail belizean, makeup, lotions, contact lenses, or anything in [...] Matthias Zeng Gynecology Nurse Practitioner Yudi Mejía, COMMUNICATIONS SUPERINTENDENT Team Member Oncology Nurse Practitioners: Opal Delcid, FAISAL Phan, FAISAL Momin, FAISAL Terrell, COMMUNICATIONS SUPERINTENDENT Urogynecology Nighat Burr, [facility] Dr. Stephie Mcdonnell Kiesha Curry COMMUNICATIONS SUPERINTENDENT Dr. Trudy Callahan Dr. Tavo Ortega Dr. Ashley Martínez Fertility Dr. Girma Llamas Dr. Annia Wang Dr. Etienne Tatum Urogynecology Nurse Practitioner: Dr. Natalie Jeter Bruna Lester, FAISAL Zelaya, FAISAL [place], [facility] Fertility Nurse Practitioners: Yudi Higuera, FAISAL Post, COMMUNICATIONS SUPERINTENDENT After 4:30 pm or on holidays or weekends, call: or . Ask the yard loader operator to page the ?sales and catering coordinator commercial solar sales consultant.' PRE-OPERATIVE CHECKLIST: PATIENT INSTRUCTIONS PRIOR TO SURGERYOur [...] not wear jewelry, body piercing(s), makeup, nail belizean, hairpins, or contacts on the day of surgery. I am to leave valuables and money at home or with family members. Unless my surgeon tells me differently, I will STOP THESE MEDICATIONS 7 DAYS PRIOR TO SURGERY: (Motrin/Ibuprofen/Na proxen/Aleve/Advil), Aspirin, vitamin E, herbal medications, diet pills, and pdwi-xwo-dmhbfgr medications. Tylenol (acetaminophen) is okay. If I [...] my Surgeon. Discuss medication changes with your web development instructor or primary care physician as well. If I stopped taking my blood-thinning medication, I will ask the surgeon when to resume taking it. If I am an outpatient, a responsible person will drive me home and it was suggested that someone stay with me for 24 hours. I understand that a business loan processor or cabdriver is NOT a responsible caregiver. [...] for surgery, I must call my surgical dressing maker after 2pm the day before surgery. Pain management education material found in Your Surgical Guide was reviewed with me. Preoperative instructions given by: CHILD WELFARE ASSISTANT PREOP INSTRUCTIONS PRE-OPERATIVE CHECKLIST ? See Pre-Operative [...] Guide Book for more information. [facility] TEAM ? At the [facility], we have a multidisciplinary team of caregivers that includes fellows, residents, nurse practitioners (carbon capture power plant manager), physician assistants (PAs), clinical nurse specialists (CNSs), nurses, medical assistants (MAs), patient care nursing assistants (PCNAs), social workers, telephonic nurse case manager and many others. We all [...] prior to surgery. Phone number: or ext [phone]. ? No alcohol on the day before [...] ? Do not wear any jewelry, nail belizean, makeup, lotions, contact lenses, or anything in [...] Encounter Status:Closed by TONO GIRALDO on 05/09/18 [facility] PROGRESSon 05-08-2018 PROGRESS HNO ID: [id number] Author: Tono Hernandez ([facility]) KEARA Giraldo Service: ? Author Type: LICENSED NURSE Type: Progress Notes Filed: 05/09/2018 4:47 PM Note Text: DATE OF SERVICE: 05/08/2018 PROBLEM: Judy Mishra presents for pre-op teaching. PRE-OP DIAGNOSIS: Abnormal uterine bleeding SCHEDULED SURGERY AND DATE: 05/09/2018 - [facility] and possible hysteroscopy PRIMARY SURGEON: Risa Yoon MD NURSING PREOP ASSESSMENT: Fevers, chills, cough, or nasal congestion: No Vaginal itching, burning, discharge, or odor: No Pain with urination, frequency, urgency, cloudy or foul smelling urine: No If yes to any of the above then MD notified: Not Applicable ADVANCED CARE PLANNING: Does the patient have an advanced directive: No Does [facility] have a copy of the patient's [...] prescribed by anesthesia, internal medicine, surgeon, or DUMPER OPERATOR Stop NSAIDs, Aspirin (ASA), vitamins, herbal supplements, [...] jewelry, body piercing, makeup, contacts, lotions, nail belizean on fingers, or anything in hair on arrival to surgery Wear low healed shoes and loose fitting clothing Leave all valuables at home or with a family member Directions to [facility] and the [facility] Parking/parking validation on the day prior to [...] - IV pain medication after surgery, IV LASTER HAND if ordered by MD, discharged home with [...] please send any FMLA papers to physician's social secretary. SYMPTOMS TO NOTIFY MD - Fever, [...] if after hours patient instructed to call yard loader operator and ask for commercial solar sales consultant sales and catering coordinator onc resident. SEAN program offered to patient: [...] None Educator: Tono Giraldo LPN [facility] Normal [facility] Basic Metabolic Panlon 05-06 Anion gap [Moles/Vol] 7 mmol/L Low 9-18 [facility] Comment on above: Performed By: #### C BCDIF, BMP #### [facility] [address] [place], [place] [address] Calcium [Mass/Vol] 8.7 mg/dL Normal 8.5-10.2 [facility] Comment on above: Performed By: #### C BCDIF, BMP #### [facility] [address] [place], [place] [address] Chloride [Moles/Vol] 107 mmol/L High 97-105 [facility] Comment on above: Performed By: #### C BCDIF, BMP #### [facility] [address] [place] [address] CO2 [Moles/Vol] 28 mmol/L Normal 22-30 [facility] Comment on above: Performed By: #### C BCDIF, BMP #### [facility] [address] [place] [address] Creatinine [Mass/Vol] 0.68 mg/dL Normal 0.58-0.96 [facility] Comment on above: Performed By: #### C BCDIF, BMP #### [facility] [address] [place] [address] eGFR- Amer. >60 Normal [facility] Comment on above: Performed By: #### C BCDIF, BMP #### [facility] [address] [place] [address] GFR/1.73 sq M predicted among non-blacks MDRD (S/P/Bld) [Vol rate/Area] mL/min/{1.73_m2} Normal [facility] Comment on above: Result Comment: eGFR [...] Performed By: #### C BCDIF, BMP #### [facility] [address] [place] [address] Glucose [Mass/Vol] 105 mg/dL High 74-99 [facility] Comment on above: Result Comment: The [place] Diabetes Association (ADA) provides guidance for cutoff [...] Standards of Medical Care in Diabetes 2016, [place] [employer] Association. Diabetes Care. 2016.39(Suppl 1). Performed By: #### C FRED BMP #### [facility] [place] [address] Potassium [Moles/Vol] 4.1 mmol/L Normal 3.7-5.1 [facility] Comment on above: Performed By: #### Naldo IBARRA BMP #### [place] [address] Sodium [Moles/Vol] 142 mmol/L Normal 136-144 [facility] Comment on above: Performed By: #### Naldo EISENBERGF, BMP #### [place] [address] [place] [phone] Urea nitrogen [Mass/Vol] 7 mg/dL Normal 7-21 [facility] Comment on above: Performed By: #### Naldo EISENBERGF BMP #### [place] [address] [place] [address] CBC and Differentialon 05-06 Abs Baso 0.04 k/uL Normal <0.11 [facility] Comment on above: Performed By: #### Naldo BCJABARIF, BMP #### [facility] [place] [address] Abs Clarke 0.47 k/uL Normal <0.87 [facility] Comment on above: Performed By: #### Naldo BCDIF, BMP #### [place] [address] [place] [address] Abs Neut 3.78 k/uL Normal 1.45-7.50 [facility] Comment on above: Performed By: #### C FRED BMP #### [place] [phone] Absolute nRBC <0.01 Normal <0.01 [facility] Comment on above: Performed By: #### C BCCYNTHIA, BMP #### [place] [phone] Basophils/100 WBC (Bld) 0.6 % Normal [facility] Comment on above: Performed By: #### C FRED, BMP #### [place] [phone] DTYPE Auto Diff Normal [facility] Comment on above: Performed By: #### C FRED, BMP #### [place] [phone] Eosinophils (Bld) [#/Vol] 0.25 10*3/uL Normal <0.46 [facility] Comment on above: Performed By: #### C FRED, BMP #### [place] [address] Eosinophils/100 WBC (Bld) 3.9 % Normal [facility] Comment on above: Performed By: #### C BCCYNTHIA, BMP #### [place] [phone] Erythrocyte distribution width (RBC) [Ratio] 12.7 % Normal 11.5-15.0 [facility] Comment on above: Performed By: #### C BCCYNTHIA, BMP #### [place] [phone] Hematocrit (Bld) [Volume fraction] 40.6 % Normal 36.0-46.0 [facility] Comment on above: Performed By: #### C BCDIF, BMP #### [facility] [address] [place], [place] [address] Hemoglobin (Bld) [Mass/Vol] 13.6 g/dL Normal 11.5-15.5 [facility] Comment on above: Performed By: #### C BCDIF, BMP #### [place] [address] [place], [place] [address] Lymphocytes (Bld) [#/Vol] 1.78 10*3/uL Normal 1.00-4.00 [facility] Comment on above: Performed By: #### C BCDIF, BMP #### [address] [address] Lymphocytes/100 WBC (Bld) 28.1 % Normal [facility] Comment on above: Performed By: #### C BCDIF, BMP #### [place] [address] MCH (RBC) [Entitic mass] 28.6 pG Normal 26.0-34.0 [facility] Comment on above: Performed By: #### C BCDIF, BMP #### [address] [address] MCHC (RBC) [Mass/Vol] 33.5 g/dL Normal 30.5-36.0 [facility] Comment on above: Performed By: #### C BCDIF, BMP #### [place] [address] [place], [place] [address] MCV (RBC) [Entitic vol] 85.3 fL Normal 80.0-100.0 [facility] Comment on above: Performed By: #### C BCDIF, BMP #### [address] [address] Monocytes/100 WBC (Bld) 7.4 % Normal [facility] Comment on above: Performed By: #### C BCDIF, BMP #### [address] [place], [place] [address] Neutrophils/100 WBC (Bld) 60.0 % Normal [facility] Comment on above: Performed By: #### Naldo IBARRA, BMP #### [place] [address] [place], [place] [address] NRBCs 0.0 /100 WBC Normal 0 [facility] Comment on above: Performed By: #### Naldo IBARRA, BMP #### [place] [address] [place], [place] [address] Platelet mean volume (Bld) [Entitic vol] 12.3 fL Normal 9.0-12.7 [facility] Comment on above: Performed By: #### Naldo IBARRA, BMP #### [address] [address] Platelets (Bld) [#/Vol] 217 10*3/uL Normal 150-400 [facility] Comment on above: Performed By: #### Naldo IBARRA, BMP #### [place] [address] [place], [place] [address] RBC (Bld) [#/Vol] 4.76 10*6/uL Normal 3.90-5.20 [facility] Comment on above: Performed By: #### Naldo IBARRA, BMP #### [place] [address] [place], [place] [address] WBC (Bld) [#/Vol] 6.33 10*3/uL Normal 3.70-11.00 [facility] Comment on above: Performed By: #### Naldo IBARRA, BMP #### [place] [address] [place], [place] [address] CNOVSPon 05-06-2018 CNOVSP Visit (SP) Office ([facility]) JUDY MISHRA ([id number]) 1970 F Date Time Provider Department 05/06/18 9:45 AM RISA YOON During your visit today, we recorded the following information about you: Pulse Respiration Blood pressure Weight 70/minute 18/minute 128/64 88.7 kg Height 1.6 m Risa Yoon MD 05/08/2018 4:15 PM Signed Gynecologic Oncology [facility] Follow up Re: Judy Mishra CCF#: [id number] 05/06/2018 Gynecologic Oncology [facility] Follow up visit Re: Judy Mishra CCF#: [id number] 05/06/2018 PROBLEM: Judy Mishra returns to the [...] note were sent to: Noah Woods DO [address] [place] [address] [place] [address] CC: Selvin Mack Sr, MD (PCP) Risa [...] Matthias Zeng Gynecology Nurse Practitioner Yudi Mejía, COMMUNICATIONS SUPERINTENDENT Team Member Oncology Nurse Practitioners: Opal Delcid, FAISAL Phan, FAISAL Momin, FAISAL Terrell, COMMUNICATIONS SUPERINTENDENT Urogynecology Nighat Burr, COMMUNICATIONS SUPERINTENDENT Dr. Stephie Mcdonnell Kiesha Curry, COMMUNICATIONS SUPERINTENDENT Dr. Trudy Callahan Dr. Tavo Ortega Dr. Ashley Martínez Fertility Dr. Girma Llamas Dr. Annia Wang Dr. Etienne Ttaum Urogynecology Nurse Practitioner: Dr. Natalie Jeter Bruna Lester, FAISAL Zelaya, FAISAL [place], COMMUNICATIONS SUPERINTENDENT Fertility Nurse Practitioners: Yudi Higuera, FAISAL Post, COMMUNICATIONS SUPERINTENDENT After 4:30 pm or on holidays or weekends, call: or . Ask the yard loader operator to page the ?sales and catering coordinator commercial solar sales consultant.' PRE-OPERATIVE CHECKLIST: PATIENT INSTRUCTIONS PRIOR TO SURGERYOur [...] not wear jewelry, body piercing(s), makeup, nail belizean, hairpins, or contacts on the day of surgery. I am to leave valuables and money at home or with family members. Unless my surgeon tells me differently, I will STOP THESE MEDICATIONS 7 DAYS PRIOR TO SURGERY: (Motrin/Ibuprofen/Na proxen/Aleve/Advil), Aspirin, vitamin E, herbal medications, diet pills, and zebr-loq-arxejfy medications. Tylenol (acetaminophen) is okay. If I [...] my Surgeon. Discuss medication changes with your web development instructor or primary care physician as well. If I stopped taking my blood-thinning medication, I will ask the surgeon when to resume taking it. If I am an outpatient, a responsible person will drive me home and it was suggested that someone stay with me for 24 hours. I understand that a business loan processor or cabdriver is NOT a responsible caregiver. [...] for surgery, I must call my surgical dressing maker after 2pm the day before surgery. Pain management education material found in Your Surgical Guide was reviewed with me. Preoperative instructions given by: CHILD WELFARE ASSISTANT PREOP INSTRUCTIONS PRE-OPERATIVE CHECKLIST ? See Pre-Operative [...] Guide Book for more information. [facility] TEAM ? At the [facility], we have a multidisciplinary team of caregivers that includes fellows, residents, nurse practitioners (carbon capture power plant manager), physician assistants (PAs), clinical nurse specialists (CNSs), nurses, medical assistants (MAs), patient care nursing assistants (PCNAs), social workers, telephonic nurse case manager and many others. We all have different roles and responsibilities but we are all here to help you. Referring Provider: RISA YOON [[id number]] Allergies As of Date: 05/06/2018 Noted Allergy Reaction BACTRIM (SULFAMETHOXAZOLE-TR IMETH*03/29/2018 4 - Hives PENICILLINS 03/29/2018 16 - Unknown PERCOCET (OXYCODONE-ACETAMINO PHEN)03/29/2018 11 - Vomiting Date Reviewed: 05/06/2018 Reviewed by: Calista Marquez - Fully Assessed Reason for Visit: Follow Up [171] Primary Visit Diagnosis:Abnormal uterine bleeding [N93.9] Other Visit Diagnoses:Endometria l mass [N94.89] Preoperative examination [Z01.818] Preop examination [Z01.818] Order(s):SURGICAL REQUEST - ELECTIVE [2600534] Order #: [id number]: 1 BASIC METABOLIC PNL [SQBMP] Order #: [id number] FUTURE CBC + DIFF [SQCBCDIF] Order #: [id number] FUTURE REFER FOR ADMIT INTERVIEW [[id number]] Order #: [id number] [facility] [[id number]] Order #: [id number] CONSULT TO PATIENT EDUCATION [[id number]] Order #: [id number]: 1 Prescriptions as of 05/06/2018 Sig: LORAZEPAM [...] Zeng Gynecology Nurse Practitioner Yudi Mejía, FAISAL Team Member Oncology Nurse Practitioners: Opal Delcid, COMMUNICATIONS SUPERINTENDENT Gertrude Phan, COMMUNICATIONS SUPERINTENDENT Yolanda Momin, FAISAL Terrell, COMMUNICATIONS SUPERINTENDENT Urogynecology Nighat Burr, FAISAL Mcdonnell Kiesha Curyr, FAISAL Callahan Dr. Tavo Ortega Dr. Ashley Martínez Fertility Dr. Girma Llamas Dr. Annia Wang Dr. Etienne Tatum Urogynecology Nurse Practitioner: Dr. Natalie Jeter Bruna Lester, FAISAL Zelaya, FAISAL [place], FAISAL Fertility Nurse Practitioners: Yudi Higuera, FAISAL Post, FAISAL After 4:30 pm or on holidays or weekends, call: or . Ask the yard loader operator to page the ?sales and catering coordinator commercial solar sales consultant.' PRE-OPERATIVE CHECKLIST: PATIENT INSTRUCTIONS PRIOR TO SURGERYOur [...] not wear jewelry, body piercing(s), makeup, nail belizean, hairpins, or contacts on the day of surgery. I am to leave valuables and money at home or with family members. Unless my surgeon tells me differently, I will STOP THESE MEDICATIONS 7 DAYS PRIOR TO SURGERY: (Motrin/Ibuprofen/Na proxen/Aleve/Advil), Aspirin, vitamin E, herbal medications, diet pills, and xrqb-ykx-rdojmqo medications. Tylenol (acetaminophen) is okay. If I [...] my Surgeon. Discuss medication changes with your web development instructor or primary care physician as well. If I stopped taking my blood-thinning medication, I will ask the surgeon when to resume taking it. If I am an outpatient, a responsible person will drive me home and it was suggested that someone stay with me for 24 hours. I understand that a business loan processor or cabdriver is NOT a responsible caregiver. [...] for surgery, I must call my surgical dressing maker after 2pm the day before surgery. Pain management education material found in Your Surgical Guide was reviewed with me. Preoperative instructions given by: CHILD WELFARE ASSISTANT PREOP INSTRUCTIONS PRE-OPERATIVE CHECKLIST ? See Pre-Operative [...] Guide Book for more information. [facility] TEAM ? At the [facility], we have a multidisciplinary team of caregivers that includes fellows, residents, nurse practitioners (carbon capture power plant manager), physician assistants (PAs), clinical nurse specialists (CNSs), nurses, medical assistants (MAs), patient care nursing assistants (PCNAs), social workers, telephonic nurse case manager and many others. We all have different roles and responsibilities but we are all here to help you. Encounter Status:Closed by RISA YOON MD on 05/08/18 Normal [facility] HOSPon 05-06-2018 HOSP Patient:Lacie Mishra MRN: Height:5' 3 [...] 40.6 % 05/06/2018 46.0 36.0 Progress Notes (CHILD WELFARE ASSISTANT ONC MAIN CA 4): Tono Giraldo LPN, ATTENDING PHYSICIAN 05/08/2018 8:38 AM Sign at close encounter DATE OF SERVICE: 05/08/2018 PROBLEM: Judy Mishra presents for pre-op teaching. PRE-OP DIAGNOSIS: Abnormal uterine bleeding SCHEDULED SURGERY AND DATE: 05/09/2018 - [facility] and possible hysteroscopy PRIMARY SURGEON: Risa Yoon MD NURSING PREOP ASSESSMENT: Fevers, chills, cough, or nasal congestion: No Vaginal itching, burning, discharge, or odor: No Pain with urination, frequency, urgency, cloudy or foul smelling urine: No If yes to any of the above then MD notified: Not Applicable ADVANCED CARE PLANNING: Does the patient have an advanced directive: No Does [facility] have a copy of the patient's [...] prescribed by anesthesia, internal medicine, surgeon, or DUMPER OPERATOR Stop NSAIDs, Aspirin (ASA), vitamins, herbal supplements, [...] jewelry, body piercing, makeup, contacts, lotions, nail belizean on fingers, or anything in hair on arrival to surgery Wear low healed shoes and loose fitting clothing Leave all valuables at home or with a family member Directions to [facility] and the [facility] Parking/parking validation on the day prior to [...] - IV pain medication after surgery, IV LASTER HAND if ordered by MD, discharged home with [...] please send any FMLA papers to physician's social secretary. SYMPTOMS TO NOTIFY MD - Fever, [...] if after hours patient instructed to call yard loader operator and ask for commercial solar sales consultant sales and catering coordinator onc resident. SEAN program offered to patient: [...] None Educator: Tono Giraldo LPN [facility] Tono Giraldo LPN, KEARA 05/08/2018 7:38 AM Signed GYNECOLOGY PHYSICIAN CONTACT INFORMATION Surgery Scheduling Office General Gynecology Gynecologic Oncology Dr. Kenia Long Dr. Shira Jackson Dr. Girma Moon Dr. Osman Yoon Dr. Shayy Landry Dr. Dimitris Nazario Dr. Helene Arias Dr. Judy Garcia Dr. Matthias Zeng Gynecology Nurse Practitioner Yudi Mejía, COMMUNICATIONS SUPERINTENDENT Team Member Oncology Nurse Practitioners: Opal Delcid, FAISAL Phan, FAISAL Momin, FAISAL Terrell, COMMUNICATIONS SUPERINTENDENT Urogynecology Nighat Burr, [place] [facility] Dr. Stephie Mcdonnell Kiesha Curry, COMMUNICATIONS SUPERINTENDENT Dr. Trudy Callahan Dr. Tavo Ortega Dr. Ashley Martínez Fertility Dr. Girma Llamas Dr. Annia Wang Dr. Etinene Tatum Urogynecology Nurse Practitioner: Dr. Natalie Jeter Bruna Lester, FAISAL Zelaya, FAISAL [place], [place] [employer] Fertility Nurse Practitioners: Yudi Higuera, FAISAL Post, COMMUNICATIONS SUPERINTENDENT After 4:30 pm or on holidays or weekends, call: or . Ask the yard loader operator to page the ?sales and catering coordinator commercial solar sales consultant.' PRE-OPERATIVE CHECKLIST: PATIENT INSTRUCTIONS PRIOR TO SURGERYOur [...] not wear jewelry, body piercing(s), makeup, nail belizean, hairpins, or contacts on the day of surgery. I am to leave valuables and money at home or with family members. Unless my surgeon tells me differently, I will STOP THESE MEDICATIONS 7 DAYS PRIOR TO SURGERY: (Motrin/Ibuprofen/Na proxen/Aleve/Advil), Aspirin, vitamin E, herbal medications, diet pills, and mjcv-jgx-jxptttq medications. Tylenol (acetaminophen) is okay. If I [...] my Surgeon. Discuss medication changes with your web development instructor or primary care physician as well. If I stopped taking my blood-thinning medication, I will ask the surgeon when to resume taking it. If I am an outpatient, a responsible person will drive me home and it was suggested that someone stay with me for 24 hours. I understand that a business loan processor or cabdriver is NOT a responsible caregiver. [...] for surgery, I must call my surgical dressing maker after 2pm the day before surgery. Pain management education material found in Your Surgical Guide was reviewed with me. Preoperative instructions given by: CHILD WELFARE ASSISTANT PREOP INSTRUCTIONS PRE-OPERATIVE CHECKLIST ? See Pre-Operative [...] Guide Book for more information. [facility] TEAM ? At the [facility], we have a multidisciplinary team of caregivers that includes fellows, residents, nurse practitioners (carbon capture power plant manager), physician assistants (PAs), clinical nurse specialists (CNSs), nurses, medical assistants (MAs), patient care nursing assistants (PCNAs), social workers, telephonic nurse case manager and many others. We all [...] prior to surgery. Phone number: or ext [phone]. ? No alcohol on the day before [...] ? Do not wear any jewelry, nail belizean, makeup, lotions, contact lenses, or anything in [...] or chest pain. Progress Notes ([facility] DEPT): Ccf Hq Provider 05/06/2018 10:42 AM Unsigned Machine Operator Replanter [employer] ONLINE PATIENT REPORT Mercury Washer: Pati Kaur Completion Time: 00:08 Location: [facility] Surgical Service: ELEVATOR OPERATOR FREIGHT Age: 48 yrs Height: 160 cm Weight: [...] at OV today Yolanda Momin APRN.CNP Normal [facility] PROGRESSon 05-06-2018 PROGRESS HNO ID: [id number] Author: Yolanda Momin Service: ? Author Type: Nurse Practitioner Type: Progress Notes Filed: 05/06/2018 2:38 PM Note Text: [facility] reviewed. There are no changes, cleared at OV today Yolanda Momin APRN.CNP [facility] PROGRESS HNO ID: [id number] Author: Risa Yoon Service: ? Author Type: [...] all questions to their stated satisfaction. Normal [facility] MRI FEMALE PELVIS WO/W IVCON on [...] Adenomyosis of the uterus. Numerous nabothian cysts. Shared Services And Outsourcing Manager: [facility] Transcribe Date/Time: Apr 29 2018 9:56A Dictated by : JEFFREY DUNN MD This examination was interpreted and the report reviewed and electronically signed by: JEFFREY DUNN MD on Apr 29 2018 2:47PM EST [id number] Normal [facility] PROGRESSon 04-29-2018 PROGRESS HNO ID: [id number] Author: Lavonne Lugo Service: ? Author Type: ? Type: Progress [...] April 29, 2018 TIME: 9:50 AM Normal [facility] PROGRESSon 04-24-2018 PROGRESS HNO ID: [id number] Author: Risa Yoon Service: ? Author Type: Physician Type: Progress Notes Filed: 05/08/2018 4:15 PM Note Text: Gynecologic Oncology [facility] Follow up Re: Judy Mishra CCF#: [id number] 05/06/2018 Gynecologic Oncology [facility] Follow up visit Re: Judy Mishra CCF#: [id number] 05/06/2018 PROBLEM: Judy Mishra returns to the [...] office note were sent to: Noah Woods, [address] [place] [address] CC: Selvin Mack Sr, MD (PCP) [facility] SURGICAL PATHOLOGYon 019 SURGICAL PATHOLOGY Specimen #: [id number]* Submitting Physician: RISA YOON MD FINAL DIAGNOSIS Consultation from [facility], [place], [place] ([id number], 8 H&E-stained slides labeled A, B, C, 03/11/2018): Endometrium, curettings (A) - Benign endometrial polyp of the isthmus type. Endometrium, curettings (B) - Benign endometrial and endocervical epithelium. Umbilical hernia sac, excision (C) - Benign fibroadipose tissue with focal mesothelial lining, consistent with hernia sac. BY/dcr 04/03/2018 Kaushik Benavides M.D. Ph.D. (Electronic Signature) SPECIMEN SUBMITTED A: 8 SLIDES ([id number]) CLINICAL DATA None provided. Date of Report: 04/04/2018 Date of Procedure: 04/01/2018 Date of Receipt: 04/02/2018 Submitted by: RISA YOON MD Location: [facility] Diagnostic interpretation performed at [facility], [facility] [place] [address]. Normal [facility] CNOVSPon 03-29-2018 CNOVSP Visit (SP) Office ([facility]) RENEE MISHRAHANIE ([id number]) 1970 F Date Time Provider Department 03/29/18 10:00 AM RISA YOON During your visit today, we recorded the following information about you: Temperature Pulse Respiration Blood pressure 98 degrees 70/minute 16/minute 141/78 Weight Height 86.2 kg 1.62 m Risa Yoon MD 04/05/2018 1:47 PM Signed Gynecologic Oncology [facility] [place] Consultation Re: Judy Mishra CC#: [id number] 03/29/[address] Woods for [...] lower extremity edema, or palpitations. No recent MA (within 6 months), cardiac stent, cardiac surgery, [...] exam ABDOMEN: Abdomen soft, non-tender, no hepatosplenomegaly. Shift Boss for exam: Was present PROCEDURES: None ASSESSMENT: [...] office note were sent to: Noah Woods [address] [place] [address] CC: Selvin Mack Sr, MD (PCP) Referring Provider: NOAH WOODS [[id number]] Allergies As of Date: 03/29/2018 Noted Allergy Reaction BACTRIM (SULFAMETHOXAZOLE-TR IMETH*03/29/2018 4 - Hives PENICILLINS 03/29/2018 16 - Unknown PERCOCET (OXYCODONE-ACETAMINO PHEN)03/29/2018 11 - Vomiting Date Reviewed: 03/29/2018 Reviewed by: Angela Guallpa - Fully Assessed Reason for Visit: Uterine mass [Other] Cmt: New patient consultation Primary Visit Diagnosis:Abnormal uterine bleeding [N93.9] Other Visit Diagnosis:Endometria l mass [N94.89] Order(s):OUTSIDE SURG PATH SLIDE REVIEW [[id number]] Order #: [id number] MRI FEMALE PELVIS WO/W IVCON [[id number]] Order #: [id number] FUTURE [] iv contrast (will be provided [...] Status:Closed by RISA YOON MD on 04/05/18 [facility] PROGRESSon 03-28-2018 PROGRESS HNO ID: [id number] Author: Christi Terrell Service: (none) Author Type: Nurse Practitioner Type: Progress Notes Filed: 03/28/2018 3:02 PM Note Text: Chart prepped for upcoming appt with Dr. Yoon. Christi Terrell APRN.COMMUNICATIONS SUPERINTENDENT [facility] PROGRESS HNO ID: [id number] Author: Risa Yoon Service: (none) Author Type: Physician Type: Progress Notes Filed: 04/05/2018 1:47 PM Note Text: Gynecologic Oncology [facility] Consultation Re: Judy Mishra CCF#: [id number] 03/29/[address] Woods for [...] lower extremity edema, or palpitations. No recent MA (within 6 months), cardiac stent, cardiac surgery, [...] exam ABDOMEN: Abdomen soft, non-tender, no hepatosplenomegaly. Shift Boss for exam: Was present PROCEDURES: None ASSESSMENT: [...] office note were sent to: Noah Woods, [address] [place] [address] CC: Selvin Mack Sr, MD (PCP) Normal [facility] US-US PELVIS TRANSVAG IMPORT on 01-24-2018 US-US PELVIS TRANSVAG IMPORT Images were obtained outside of [facility] [id number] CN Normal [facility] CT-CT ABD/PELVIS W CON IMPOR Ton 01-17-2018 CT-CT ABD/PELVIS W CON IMPORT Images were obtained outside of [facility] [id number] CN Normal [facility] Vital Signs Date Time Vital Sign Value Performing Clinician Facility 07-02-2023 00:34-0400 SaO2% (BldA) [Mass fraction] 99 % Sarah Frey MD Work Phone: [facility] 07-01-2023 22:23-0400 Body height 160 cm Sarah Frey MD Work Phone: [facility] 07-01-2023 22:23-0400 Body mass index (BMI) [Ratio] 36.14 kg/m2 Sarah Frey MD Work Phone: [facility] 07-01-2023 22:23-0400 Body temperature 98.29 [degF] Sarah Frey MD Work Phone: [facility] 07-01-2023 22:23-0400 Body weight 92.53 kg Sarah Frey MD Work Phone: [facility] 07-01-2023 22:23-0400 Diastolic blood pressure 74 mm[Hg] Sarah Frey MD Work Phone: [facility] 07-01-2023 22:23-0400 Heart rate 73 /min Sarah Frey MD Work Phone: [facility] 07-01-2023 22:23-0400 Respiratory rate 20 /min Sarah Frey MD Work Phone: [facility] 07-01-2023 22:23-0400 Systolic blood pressure 122 mm[Hg] Sarah Frey MD Work Phone: [facility] 03-20-2023 15:15-0500 Body height 160 cm Diogo Lux MD Work Phone: [facility] 03-20-2023 15:15-0500 Body mass index (BMI) [Ratio] 35.07 kg/m2 Diogo Lux MD Work Phone: [facility] 03-20-2023 15:15-0500 Body weight 89.81 kg Diogo Lux MD Work Phone: [facility] 03-20-2023 15:15-0500 Diastolic blood pressure 78 mm[Hg] Dioog Lux MD Work Phone: [facility] 03-20-2023 15:15-0500 Systolic blood pressure 123 mm[Hg] Diogo Lux MD Work Phone: [facility] 06-12-2022 11:17-0400 Diastolic blood pressure 88 mm[Hg] Qasim Hairston MD Work Phone: [facility] [employer] 06-12-2022 11:17-0400 Heart rate 71 /min [facility]asmi [facility]irston MD [facility] 06-12-2022 11:17-0400 Respiratory rate 23 /min Qasim [facility]irston MD [facility] 06-12-2022 11:17-0400 SaO2% (BldA) [Mass fraction] 97 % Qasim [facility]irston MD [facility] 06-12-2022 11:17-0400 Systolic blood pressure 110 mm[Hg] Qasim [facility]irston MD [facility] 06-12-2022 10:17-0400 Body height 160 cm Qasim Hairston MD [facility] 06-12-2022 10:17-0400 Body mass index (BMI) [Ratio] 34.37 kg/m2 Qasim Hairston MD [facility] 06-12-2022 10:17-0400 Body temperature 98.4 [degF] Qasim [facility]irston MD [facility] 06-12-2022 10:17-0400 Body weight 88 kg Qasim Hairston MD [facility] 06-08-2020 13:52-0400 Body temperature 98.01 [degF] Stephie Iverson MD Work Phone: [employer] Work Phone: 06-08-2020 13:52-0400 Body weight 90.49 kg Stephie Iverson MD Work Phone: [employer] Work Phone: 06-08-2020 13:52-0400 Diastolic blood pressure 71 mm[Hg] Stephie Iverson MD Work Phone: [facility] Work Phone: 06-08-2020 13:52-0400 Heart rate 85 /min Stephie Iverson MD Work Phone: [employer] Work Phone: 06-08-2020 13:52-0400 Respiratory rate 16 /min Stephie Iverson MD Work Phone: [employer] Work Phone: 06-08-2020 13:52-0400 SaO2% (BldA) [Mass fraction] 98 % Stephie Iverson MD Work Phone: [employer] Work Phone: 06-08-2020 13:52-0400 Systolic blood pressure 154 mm[Hg] Stephie Iverson MD Work Phone: [employer] Work Phone: Encounters Encounter Date Encounter Type Care Provider Facility Start: 10-10-2023 End: 10-10-2023 ambulatory DIOGO LUX Not Available Start: 08-31-2023 End: 08-31-2023 Emergency department patient visit MARKELL Deutsch [facility] Start: 07-02-2023 End: 07-02-2023 Emergency department patient visit [facility] Start: 07-01-2023 End: 07-02-2023 Emergency department patient visit Sarah Frey MD Work Phone: [facility] ED Comment on above: Back strain, initial encounter (Primary Dx); Fall, initial encounter Start: 03-21-2023 ambulatory JOSÉ MIGUEL [facility] Start: 03-21-2023 Encounter for genera l adult medical examination with abnormal findings JOSÉ MIGUEL [facility] Start: 03-21-2023 End: 03-21-2023 Patient encounter status José Miguel Jackman FERRY TERMINAL SUPERVISOR - COMMUNICATIONS SUPERINTENDENT Work Phone: [facility] Start: 03-21-2023 End: 03-23-2023 Subsequent hospital visit by physician José Miguel Jackman APRN - COMMUNICATIONS SUPERINTENDENT Work Phone: 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) Start: 03-20-2023 End: 03-20-2023 ambulatory DIOGO LUX Not Available Start: 03-20-2023 Chart abstracting Diogo wheatley MD Work Phone: [facility] Start: 03-12-2023 End: 03-12-2023 ambulatory DIOGO LUX Not Available Start: 10-19-2022 End: 10-19-2022 Emergency department patient visit Otf DAMON~[id number] [facility] Start: 07-13-2022 End: 07-14-2022 [facility] Start: 07-13-2022 End: 07-13-2022 Subsequent hospital visit by physician [facility] Comment on above: SOB (shortness of br eath); Palpitations; Chest pain, unspecified type Start: 06-12-2022 End: 06-12-2022 Emergency department patient visit Qasim Hairston MD Work Phone: [facility] ED Comment on above: [...] patient visit Stephie Iverson MD Work Phone: [facility] ED Comment on above: [...] ti me w/image limited José Miguel Jackman [facility] [employer] [facility] Work Phone: Start: 03-21-2023 Urnls dip stick/tabl et rgnt auto w/o microscopy José Miguel Mayatfried [facility] [employer] [facility] Work Phone: Start: 03-21-2023 Comprehensive metabo lic panel José Miguel Jackman [facility] [employer] [facility] Work Phone: Start: 03-21-2023 Lipid panel José Miguel roque [facility] [employer] [facility] Work Phone: Start: 06-12-2022 Radiologic exam ches [...] Detail Author Start: 03-21-2028 Lipid panel Lipids [facility] Start: 10-10-2023 End: 10-10-2023 Patient encounter procedure 10/10/2023 8:00 AM EDT Office Visit [facility] [address] [facility] [address] [place] [phone] Diogo Lux MD [address] [place] [address] [facility] Start: 09-18-2023 End: 09-18-2023 Patient encounter procedure 09/18/2023 8:00 AM EDT Office Visit [facility] [place] [address] José [place] [address] 6 mo [facility] Comment on above: 6 mo Start: 09-13-2023 Influenza vaccination Flu vaccine (S suinl Ended) [facility] Start: 03-20-2023 End: 03-20-2023 Patient encounter procedure 03/20/2023 3:30 PM EST Office Visit [facility] [address] [facility] [address] [place] [phone] Diogo Lux MD [address] [address] [facility] Start: 09-12-2022 Influenza vaccination [facility] Start: 02-22-2022 Screening for malignant neoplasm of breast Breast cancer screen [facility] Start: 02-22-2022 Shingles vaccine (1 of 2) Shingles vaccine (1 of 2) [facility] Start: 10-13-2020 Influenza vaccination Flu vaccine (S sunil Ended) [employer] Phone: Start: 02-22-2017 Screening for malignant neoplasm of colon [facility] Start: 2012 Lipid panel [place] [employer] Start: 02-22-1993 Screening for malignant neoplasm of cervix Cervical cancer screen [employer] Phone: Start: 02-22-1991 DTaP/Tdap/Td vaccine (1 - Tdap) DTaP/Tdap/Td vaccine (1 - Tdap) [facility] [employer] Start: 02-22-1990 Hepatitis C screening Hepatitis C sc tarah [facility] [employer] Start: 1988 COVID-19 Vaccine (1) COVID-19 Vaccin e (1) [employer] Phone: Start: 02-22-1987 HIV screening HIV screen [facility] [employer] Start: 1984 Depression Screen Depression Screen [facility] Start: 1972 COVID-19 Vaccine (#1) COVID-19 Vacci ne (#1) [facility] [employer] Start: 1972 Hepatitis B vaccine (1 of 3 - 3-dose series) Hepatitis B vaccine (1 of 3 - 3-dose series) [place] Start: 1972 Hepatitis C screening Hepatitis C [facility] [employer] Phone: Dup-scan xtr veins complete bilateral study VASCULAR REPORT Imaging Ordered: 06/08/2020 [employer] Phone: Comment on above: Ordered: 06/08/2020 End: 07-13-2022 ECHO Complete 2D W Doppler W Color ECHO Complete 2D W Doppler W Color Echocardiography Routine SOB (shortness of breath) Palpitations Chest pain, unspecified type 1 Occurrences starting 07/13/2022 until 07/13/2022 [facility] [employer] Phone: Comment on above: 1 Occurrences starti ng 07/13/2022 until 07/13/2022 EKG 12 Lead EKG 12 Lead ECG Routine 06/12/2022 10:27 AM EDT [facility] [employer] Phone: End: 07-13-2022 Exercise stress test study CARDIAC STRESS TEST EXERCISE ONLY [facility] Routine SOB (shortness of breath) Palpitations Chest pain, unspecified type 1 Occurrences starting 07/13/2022 until 07/13/2022 SHIRA LEW [employer] Work Phone: Comment on above: 1 Occurrences starti ng 07/13/2022 until 07/13/2022 Payers Date Payer Category Payer Medicaid [employer] [place] [employer] [id number] 2017-Present [address] [place] [address] [id number] 1972 Unknown [id number] [id number] 1972 Unknown [id number] 2.16.840.1.475110.3.579.2.593 1972 Unknown [id number] 2.16.840.1.824231.3.579.2.593 1972 Unknown [id number] 2.16.840.1.124828.3.579.2.593 1972 Unknown [id number] 2.16.840.1.597323.3.579.2.593 1972 Unknown [id number] 2.16.840.1.497220.3.579.2.593 1972 Unknown [id number] 2.16.840.1.134761.3.579.2.593 1972 Unknown [id number] 2.16.840.1.560963.3.579.2.174 1972 Unknown [id number] 2.16.840.1.184551.3.579.2.174 1972 Unknown [id number] 2.16.840.1.827850.3.579.2.174 1972 Unknown [id number] 2.16.840.1.387699.3.579.2.174 1972 Unknown [id number] 2.16.840.1.004644.3.579.2.754 1972 Unknown [id number] 2.16.840.1.975300.3.579.2.754 1972 Unknown [id number] 2.16.840.1.648558.3.579.2.173 1972 Unknown [id number] 2.16.840.1.961261.3.579.2.1259 1972 Unknown [id number] 2.16.840.1.656098.3.579.2.1259 1972 Unknown [id number] 2.16.840.1.222801.3.579.2.1259 1959 Unknown [id number] [id number] [id number] Social History Date Type Detail Facility Start: 06-08-2020 End: 10-19-2022 Tobacco smoking status [facility] Never smoker [facility] Start: 06-08-2020 End: 10-19-2022 Tobacco use and exposure Never used [employer] Start: 1970 Sex Assigned At Not on file [employer] Phone: Exposure to SARS-CoV -2 (event) Not sure [employer] Start: 06-12-2022 History SDOH Alcohol Frequency 1 [employer] Phone: Start: 06-12-2022 History SDOH Alcohol Std Drinks 0 [employer] Phone: Start: 03-19-2023 End: 03-20-2023 Alcohol intake Ex-drinker (finding) [facility] Start: 03-19-2023 End: 03-20-2023 History of Social function [facility] Start: 03-19-2023 End: 03-20-2023 Tobacco use panel [facility] How often to you hav e a drink containing alcohol? Never [employer] Work Phone: How many standard dr inks containing alcohol do you have on a typical day? 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 Lux UMBILICAL HERNIA REPAIR 2017 and 2017 Allergies Allergen Reactions Bee Venom [...] in a year. documented in this encounter [facility] 06-12-2022 Hospital Discharg e instructions Qasim Hairston MD - 06/12/2022 11:50 AM EDT Monitor for worsening pain shortness of breath or other problems. Call your primary care doctor for close follow-up. Referred to cardiology for further evaluation. The following attachments cannot be sent through Care Everywhere.Chest Pain ([place])documented in this encounter SHIRA [employer] Phone: 06-08-2020 Note [facility] Vascular Lower Extremities DVT Study Procedure Patient Name MISHRA Date of Study 06/08/2020 JUDY Yoon Date of 1970 Gender Female Age 50 year(s) Race Room Number 06 Height: 63 inch, 160.02 cm Corporate ID [id number] Weight: 200 pounds, 90.7 kg # Patient Acct [id number] BSA: 1.93 m^2 BMI: 35.43 kg/m^2 # MR # [id number] [employer] Carrie Haines, RT Interpreting Physician Gian rBaga Referring Referring Physician Stephie Iverson Nurse Practitioner Procedure Type of Study: Veins: Lower Extremities DVT Study, DUP LOWER EXTREMITY VENOUS LEFT. Indications for Study:Leg Swelling. Patient Status:STAT. Comments:Left leg pain, no injury, since hx of covid 03/2020. Conclusions Summary Negative for DVT left lower extremity and right groin. Signature ---- Electronically signed by OLGA LIDIA Cheng)(Otf)JanaCT)([facility])([employer] ) on 06/08/2020 03:09 PM ---- ---- [...] !None ! + (more content not included)... [employer] Phone: Evaluation note Diagnosis Dyspnea, unspecified type- Primary Anxiety state Anxiety state, unspecified History of 2019 novel coronavirus disease (COVID-19) Multiple thyroid nodules Nontoxic multinodular goiter Renal cyst, left Unspecified congenital cystic kidney disease Essential hypertension Unspecified essential hypertension Thyromegaly Goiter, unspecified documented in this encounter [employer] Phone: evaluation note* Diagnosis Atypical chest pain- Primary Other chest pain documented in this encounter [employer] Phone: evaluation note* Diagnosis SOB (shortness of breath) Shortness of breath Palpitations Chest pain, unspecified type documented in this encounter [employer] Phone: evaluation note* Diagnosis Papillary microcarcinoma of thyroid (CMS/HCC)- Primary [facility] Diagnosis Encounter for preventative adult health care exam with abnormal findings documented in this encounter [employer] Phone: evaluation note* Diagnosis Right upper quadrant pain Abdominal pain, right upper quadrant documented in this encounter [employer] Phone: evaluation note* Diagnosis Back strain, initial encounter- Primary Fall, initial encounter [facility] Attachments The following attachments cannot be sent through Care Everywhere. * Anxiety Disorders: General Info (Andorran) * SOB (Shortness of Breath) (Andorran) * Thyroid Nodules ([place]orran) * Hypertension: General Info (Andorran) * Goiter (Andorran) documented in this encounter[facility]Homes Phone: Hospital Discharge instructions* Attachments The following attachments cannot be sent through Care Everywhere. * Back: Strain ([place]ran) [facility] [employer] Summary Purpose Family History No Family History [...] STRESS TEST EXERCISE ONLY Brian Cottrell MD [address] [place] [address] Referral ID Status Reason Start Date Expiration Date V isits Requested Visits Authorized [id number] Not Required - RTA 06/13/2022 06/13/2023 1 1 Specialty Diagnoses / Procedures Referred By Contac t Referred To Contact Cardiology Diagnoses SOB (shortness of breath) Palpitations Chest pain, unspecified type Procedures ECHO Complete 2D W Doppler W Color Brian Cottrell MD [address] [place] [address] Referral ID Status Reason Start Date Expiration Date V isits Requested Visits Authorized [id number] Not Required - RTA 06/13/2022 06/13/2023 1 1 Specialty Diagnoses / Procedures Referred By Contac t Referred To Contact Radiology Diagnoses Right upper quadrant pain Procedures US GALLBLADDER RUQ Augustina, José Miguel, FERRY TERMINAL SUPERVISOR - COMMUNICATIONS SUPERINTENDENT [address] [place] [address] Referral ID Status Reason Start Date Expiration Date Visits Re quested Visits Authorized [id number] Closed 03/19/2023 03/18/2024 1 1 Additional Source Comments INFORMATION SOURCE (unrecogn ized section and content) DATE CREATED AUTHOR 11/23/2018 [facility] DATE CREATED AUTHOR AUTHOR'S ORGANIZ ATION 03/21/2022 [facility] DATE CREATED AUTHOR AUTHOR'S OR[facility]IZ ATION [facility] DATE CREATED AUTHOR AUTHOR'S ORGANIZ ATION 07/08/2023 [facility] DATE CREATED AUTHOR AUTHOR'S ORGANIZ ATION 09/03/2023 [facility] DATE CREATED AUTHOR AUTHOR'S ORGANIZ ATION 10/12/2023 [facility] Reason for Visit (unrecogniz ed section and [...] STRESS TEST EXERCISE ONLY Brian Cottrell MD [address] [place] [address] Referral ID Status Reason Start Date Expiration Date V isits Requested Visits Authorized [id number] Not Required - RTA 06/13/2022 06/13/2023 1 1 Specialty Diagnoses / Procedures Referred By Contac t Referred To Contact Cardiology Diagnoses SOB (shortness of breath) Palpitations Chest pain, unspecified type Procedures ECHO Complete 2D W Doppler W Color Brian Cottrell MD [address] [place] [address] Referral ID Status Reason Start Date Expiration Date V isits Requested Visits Authorized [id number] Not Required - RTA 06/13/2022 06/13/2023 1 1 Reason Comments History Of Thyroidectomy Lab results Specialty Diagnoses / Procedures Referred By Contac t Referred To Contact Radiology Diagnoses Right upper quadrant pain Procedures US GALLBLADDER RUQ José Miguel Jackman, LOUIE - COMMUNICATIONS SUPERINTENDENT [address] [place] [address] Referral ID Status Reason Start Date Expiration Date Visits Re quested Visits Authorized [id number] Closed 03/19/2023 03/18/2024 1 1 Reason Comments [...] Until Discontinued, Other 2303 (Given - Provider: Zlotan Jack) ondansetron (ZOFRAN) injection 4 mg 4 mg, IntraVENous, EVERY 1 HOUR PRN, 2 doses, Starting on 07/01/23 at 2235, Until Discontinued, Nausea, Vomiting 225 (Given - Provider: Radha Garcia, MERY) Care Teams (unrecognized sec tion and content) [employer] Relationship Specialty Start Date End Date Selvin Mack Sr., DO [address] [place] [address] PCP - General Family Medicine 06/08/20 [employer] Relationship Specialty Start Date End Date Selvin Mack Sr., DO [address] [place] [address] PCP - General Family Medicine 06/08/20 [employer] Relationship Specialty Start Date End Date José Miguel Jackman APRN - COMMUNICATIONS SUPERINTENDENT [address] [place] [address] PCP - General Nurse Practitioner 03/19/23 [employer] Relationship Specialty Start Date End Date José Miguel Jackman APRN - FAISAL [address] [place] [address] PCP - General Nurse Practitioner 03/19/23 [employer] Relationship Specialty Start Date End Date José Miguel Jackman APRN - FAISAL [address] [place] [address] PCP - General Nurse Practitioner 03/19/23 FOR [...] BE BASED ON THE PRIMARY CLINICAL RECORDS. [facility]. provides no warranty or guarantee of the accuracy or completeness of information in this document.
--- NOTE | 2024-02-22 09:36 | US_ITS ---
The [address] [address] Patient Name: MIRIAM DERAS MRN: [id number] date: 1970 Sex: F Assigned Patient Location: LAB Current Patient Location: LAB Accession/Order Number: [id number] Exam Date: 02/22/2024 09:40 Report Date: 02/22/2024 11:43 At the request of: DIOGO LUX Procedure: US thyroid EXAMINATION: US thyroid HISTORY: Papillary microcarcinoma of thyroid COMPARISON: No relevant comparison available. FINDINGS: RIGHT LOBE: Prior thyroidectomy. No appreciable residual tissue or suspicious findings. Incidental lymph node. Lobe size: LEFT LOBE: Stable slightly hypoechoic tissue within left thyroid bed, 10 x 7 x 5 mm; grossly stable allowing for slight differences in technique. Lobe size: ISTHMUS: Absent Thickness: US/US thyroid IMPRESSION: 1. Trace amount of residual thyroid tissue within left thyroid bed felt to be grossly stable. No suspicious findings. Electronically authenticated by: ARTEMIO العراقي Date: 02/22/2024 11:43
== END 2024-02-22 09:10 | disposition home or self-care (01) ==
LOC: LAB 09:10
PROVIDERS: Visit Provider Otolaryngology
DX: C73 Malignant neoplasm of thyroid gland (principal); E04.1 Nontoxic single thyroid nodule; E89.0 Postprocedural hypothyroidism
CPT/HCPCS: 36415; 76536; 84432

== ENCOUNTER 2024-02-29 11:29 | Outpatient (OUT) | payer OTHER, SELFPAY ==
--- OUTSIDE RECORDS SUMMARY | 2024-02-29 11:42 | XMS_ITS | CCD ---
Author Organization [facility] Care Team Providers Care Marketing Operations Assistant Name Role Phone House Sr Selvin SMITH Primary Care Provider FREDERICK, DR HERNÁNDEZ Primary [...] House Sr., Selvin SMITH Primary Care Provider Unavailable Primary Care Provider Unavaildestini Jackman APRN - José Miguel MALONE Primary Care Provide r Augustina PALMA - José Miguel MALONE Primary Care Provide r SELVIN MACK SR Primary Care Unavailable BRIAN COTTRELL Referring Unavailable AUGUSTINA, JOSÉ MIGUEL Primary Care Unavailable SARAH FREY Attending Unavailable DIAB Otf KAMARA~[id number] JARRED Attendi ng Unavailable HOUSE SR, SELVIN P Primary Care Unavailable BRIAN COTTRELL Referring Unavailable HOUSE SR, SELVIN P Primary Care Unavailable AUGUSTINA, JOSÉ MIGUEL Referring Unavailable AUGUSTINA, JOSÉ MIGUEL Primary Care Unavailable AUGUSTINA, JOSÉ MIGUEL Referring Unavailable AUGUSTINA, JOSÉ MIGUEL Attending Unavailable AUGUSTINA, JOSÉ MIGUEL Primary Care Unavailable MARKELL SOTO Attending Unavailable AUGUSTINA, JOSÉ MIGUEL Primary Care Unavailable DIOGO LUX Attending Unavailable DIOGO LUX Attending Unavailable DIOGO LUX H Attending Unavailable STEVENSON, JOSÉ MIGUEL Referring Unavailable José Miguel London MD Unavailable Allergies Allergy Classification Reported Allergen(s) Allergy Type Date of Onset Reaction(s) Facility (1 source) Acetaminophen / oxyCODONE Drug Allergy 10-20-19 17 [facility] Repository (1 source) Adhesive bandage Drug allergy (disorder) 07-31-19 21 [facility] Repository (1 source) bee venom Drug allergy (disorder) [facility] Repository (4 sources) Lymecycline Drug Allergy 10-20-19 23 Rash [facility] Repository (1 source) Penicillin Drug Allergy [facility] Repository (13 sources) Acetaminophen / oxyCODONE Drug Allergy 10-20-19 17 Nausea And [facility]omiting, GI [facility] Penicillins Propensity to adverse reactions to drug 03-29-19 19 [facility] Work Phone: (13 sources) Sulfamethoxazole / Trimethoprim Drug Allergy 03-29-19 19 Hives [facility] Work Phone: (7 sources) Honey bee venom Propensity to adverse reactions 10-20-19 23 [facility] Work Phone: (7 sources) Lymecycline Propensity to adverse reactions 10-20-19 23 [facility] Healthcare (7 sources) Penicillins Drug Intolerance 03-29-19 19 Rash, Unknown [facility] Healthcare (10 sources) Wound Dressing Adhesive Drug Intolerance 07-31-19 21 Other (See Comments) [facility] Healthcare (3 sources) bee venom Propensity to adverse reactions to drug 10-20-19 23 Anaphylaxis [facility] Work Phone: (3 sources) Penicillin G Drug Allergy 10-20-19 23 Rash [facility] [place] Work Phone: (3 sources) Silicone adhesive tape Propensity to adverse reactions to drug 07-31-19 21 Other (See Comments) [facility] Medications Current Medications Medication Drug Class(es) Dates [...] Active ascorbic acid 500 mg oral capsule (13 sources) Vitamin C take 1 capsule by mouth in the morning Ascorbic Acid (Vitamin C) 500 MG capsule Take 500 mg by mouth in the morning. Active busPIRone hydrochloride 15 mg oral tablet (2 sources) Start: 01-02-2024 busPIRone (Buspar) 15 MG tablet Take 15 mg by mouth 01/02/2024 Active cholecalciferol 0.05 mg oral tablet (3 sources) Vitamin D Cholecalciferol (VITAMIN D3) 50 MCG (2000 UT) TABS Take by mouth 0 Active Choline (3 sources) take 550 mg by mouth once daily CHOLINE BITARTRATE PO Take 550 mg by mouth daily 0 Active [id number] 0.3 ml EPINEPHrine 1 mg/ml auto-injector (3 sources) alpha-Adrenergic Agonist, beta-Adrenergic Agonist, Catecholamine Start: 03-19-2023 EPINEPHrine (EPIPEN) 0.3 MG/0.3ML SOAJ injection Indications: Allergy to honey bee venom Use as directed for allergic reaction 2 each 2 03/19/2023 Active famotidine 20 mg oral tablet (6 sources) Histamine-2 Receptor Antagonist Start: 10-10-2023 End: 02-29-2024 take 1 tablet by mouth at bedtime famotidine (Pepcid) 20 MG tablet Indications: LPRD (laryngopharyngeal reflux disease) Take 1 tablet (20 mg) by mouth at bedtime 90 tablet 10/10/2023 02/29/2024 Discontinued (Therapy completed) End: 06-12-2022 take 1 tablet by mouth twice daily famotidine (PEPCID) 20 MG tablet Take 20 mg by mouth 2 times daily 0 06/12/2022 Discontinued (LIST CLEANUP) levothyroxine sodium 0.088 mg oral tablet (11 sources) l-Thyroxine Start: 10-01-2023 take 1 tablet by mouth once daily in the morning levothyroxine (Synthroid, Levoxyl) 88 MCG tablet Indications: Acquired hypothyroidism (CMS/HCC) TAKE ONE TABLET BY MOUTH ONCE DAILY ON AN EMPTY STOMACH IN THE MORNING 30 tablet 11 10/01/2023 Active Start: 10-02-2022 take 1 tablet by marianna th once daily in the morning levothyroxine (SYNTHROID) 88 MCG tablet TAKE ONE TABLET BY MOUTH ONCE DAILY ON AN EMPTY STOMACH IN THE MORNING 0 10/02/2022 Active End: 06-12-2022 take 1 tablet by mouth once daily levothyroxine (SYNTHROID) 88 MCG tablet Take 1 tablet by mouth Daily 0 06/12/2022 Discontinued (LIST CLEANUP) loratadine 10 mg oral capsule (10 sources) take 1 capsule by mouth in the morning Loratadine 10 MG capsule Take 1 capsule by mouth in the morning. Active LORazepam 0.5 mg oral tablet (12 sources) Benzodiazepine Start: 03-19-2023 End: 04-03-2023 take 1 tablet by mouth every eight hours as needed for anxiety LORazepam (ATIVAN) 0.5 MG tablet Indications: Other mixed anxiety disorders Take 1 tablet by mouth every 8 hours as needed for Anxiety for up to 15 days. Max Daily Amount: 1.5 mg 45 tablet 0 03/19/2023 04/03/2023 Active End: 02-29-2024 take 1 tablet by mouth three times daily as needed LORazepam (Ativan) 0.5 MG tablet Take 1 tablet by mouth 3 (three) times a day as needed 02/29/2024 Discontinued (Therapy completed) Magnesium (1 source) magnesium (MAGNESIUM-OXIDE) 250 MG TABS tablet Take 480 mg by mouth daily 0 Active magnesium oxide 250 mg oral tablet (2 sources) magnesium (MAGNESIUM-OXIDE) 250 MG TABS tablet Take 480 mg by mouth daily 0 Active omeprazole 40 mg delayed release oral capsule (4 sources) Proton Pump Inhibitor Start: 10-10-19 End: 01-08-20 24 take 1 capsule by mouth before mealtime omeprazole (PriLOSEC) [address] capsule Indications: LPRD (laryngopharyngeal reflux disease) Take 1 capsule (40 mg) by mouth in the morning. Take before meals. Do not crush or chew.. 90 capsule 10/10/2023 Active 2 ml ondansetron 2 mg/ml injection (1 source) Serotonin-3 Receptor Antagonist Start: 07-01-19 ondansetron (ZOFRAN) injection 4 mg pantoprazole 40 mg delayed release oral tablet (4 sources) Proton Pump Inhibitor Start: 10-20-19 End: 10-10-19 take 1 tablet by mouth before mealtime pantoprazole (ProtoNix) 40 MG EC tablet Take 40 mg by mouth in the morning. Take before meals. 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] Onset: 09-30-2021 Resolved: 03-06-2023 Chronic E Codes: Fall (2 sources) Fall; 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: [Unspecified fall, initial encounter] Onset: 07-02-2023 07-02-2023 Episodic E Codes: Natural/environment (1 source) Exposure to other specified factors, initial encounter; 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: [EXPOSURE OTHER SPEC FACTORS INITIAL] Onset: 03-21-2022 Episodic Esophageal disorders (11 sources) Laryngopharyngeal reflux; 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: [Gastro-esophageal reflux disease without esophagitis] Onset: 03-06-2023 03-06-2023 Chronic Essential hypertension (1 source) Essential hypertension; 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: [Essential (primary) hypertension] Chronic Inflammation; infection of eye (except that caused by tuberculosis or sexually transmitteddisease) (1 source) Unspecified acute conjunctivitis, unspecified eye; 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: [Unspecified acute conjunctivitis, unspecified eye] Onset: 08-31-2023 Episodic Other aftercare (1 source) Other group home (current) drug therapy; 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: [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] Onset: 03-21-2022 Episodic Other diseases of kidney and ureters (1 source) Cyst of kidney; 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: [Cyst of kidney, acquired] Episodic Other ear and sense organ disorders (2 sources) Tinnitus of left ear; 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: [Tinnitus, left ear] 02-29-2024 Episodic Other infections; including parasitic (1 source) Personal history of other infectious and parasitic diseases; 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: [History of 2019 novel coronavirus disease (COVID-19)] Episodic Sprains and strains (6 sources) Sprain of unspecified site of left knee, initial encounter; 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: [Sprain of left knee] Onset: 03-21-2022 03-19-2023 Episodic Thyroid disorders (19 sources) Multinodular goiter; 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: [Nontoxic multinodular goiter] [...] for comparison films only. Final result Normal [facility] CT COMPARISON OF OUTSIDE FILMS RADRPT There is no result for this study. This is a placeholder for comparison films only. Final result Normal [facility] CT ABDOMEN PELVIS W IV CONTR Cindy [...] Rc Ramos MD 07/02/23 Final result Normal [facility] CT Abdomen and Pelvis W cont rast Parminder 07-02-2023 1. No acute traumatic change or other acute diagnostic abnormality in the abdomen or pelvis. 2. Prior cholecystectomy and hysterectomy. 3. Fat-containing midline supraumbilical and umbilical hernias. [facility] RIS CONSOLIDATED EXAMINATION: CT ABDOMEN PELVIS W [...] abnormality or suspicious bony lesion is seen. [facility] RIS CONSOLIDATED Rc Ramos MD - 07/02/2023 EXAMINATION: [...] 3. Fat-containing midline supraumbilical and umbilical hernias. [facility] CT Abdomen and Pelvis W cont rast IVOrdered By: Rc Ramso on 07-02-2023 [facility] Work Phone: CT LUMBAR SPINE WO [...] Carter Suggs MD 07/02/23 Final result Normal [facility] CT Lumbar spine WO contrasto n 07-02-2023 This is a negative CT scan of the lumbar spine with no fractures or loss of vertebral body height. PN RIS CONSOLIDATED EXAMINATION: CT LUMBAR SPINE WO [...] central canal stenosis throughout the lumbar spine. [facility] RIS Carter Dugan MD - 07/02/2023 EXAMINATION: CT LUMBAR SPINE [...] fractures or loss of vertebral body height. [facility] CT Lumbar spine WO contrastO rdered By: Carter Suggs on 07-02-2023 [facility] Work Phone: CT Abdomen and Pelvis W cont rast Parminder 07-01-2023 Radiology Study observation (narrative) [facility] CT Lumbar spine WO contrasto n 07-01-2023 Radiology Study observation (narrative) [facility] CBC with Auto Differentialon 03-21-2023 Basophils [...] Diffon 03-21-2023 BASO# BASO#: 0.0 Normal 0.0-0.1 [facility] Comment on above: Performed By: #### C BCAD, A1C #### [place] [id number] Ph. [phone] Basophils/100 WBC (Bld) 1 % Normal 0-1 [facility] Comment on above: Performed By: #### C BCAD, A1C #### [address] [address] Ph. [phone] Eosinophils (Bld) [#/Vol] 0.1 10*3/uL Normal 0.0-0.5 [facility] Comment on above: Performed By: #### C BCAD, A1C #### [place] [id number] Ph. [phone] Eosinophils/100 WBC (Bld) 3 % Normal 0-5 [facility] Comment on above: Performed By: #### C BCAD, A1C #### [place] [address] Ph. [phone] Erythrocyte distribution width (RBC) [Ratio] 12.5 % Normal 11.5-14.5 [facility] Comment on above: Performed By: #### C BCAD, A1C #### [place] [address] Ph. [phone] Hematocrit (Bld) [Volume fraction] 44.9 % Normal 36.0-47.0 [facility] Comment on above: Performed By: #### C BCAD, A1C #### [place] [address] Ph. [phone] Hemoglobin (Bld) [Mass/Vol] 15 g/dL Normal 12.0-16.0 [facility] Comment on above: Performed By: #### C BCAD, A1C #### [place] [id number] Ph. [phone] Lymphocytes (Bld) [#/Vol] 1.5 10*3/uL Normal 1.0-4.0 [facility] Comment on above: Performed By: #### C BCAD, A1C #### [place] [id number] Ph. [phone] Lymphocytes/100 WBC (Bld) 30 % Normal 20-40 [facility] Comment on above: Performed By: #### C BCAD, A1C #### [place] [id number] Ph. [phone] MCH (RBC) [Entitic mass] 29.6 pg Normal 27.0-35.0 [facility] Comment on above: Performed By: #### C BCAD, A1C #### [place] [id number] Ph. [phone] MCHC (RBC) [Mass/Vol] 33.4 g/dL Normal 32.0-36.0 [facility] Comment on above: Performed By: #### C BCAD, A1C #### [place] [id number] Ph. [phone] MCV (RBC) [Entitic vol] 88.6 fL Normal 80.0-100.0 [facility] Comment on above: Performed By: #### C BCAD, A1C #### [place] [address] Ph. [phone] Monocytes (Bld) [#/Vol] 0.3 10*3/uL Normal 0.3-1.0 [facility] Comment on above: Performed By: #### C BCAD, A1C #### [place] [address] Ph. [phone] Monocytes/100 WBC (Bld) 6 % Normal 1-15 [facility] Comment on above: Performed By: #### C BCAD, A1C #### [place] [address] Ph. [phone] Neutrophils (Bld) [#/Vol] 3.1 10*3/uL Normal 1.8-7.7 [facility] Comment on above: Performed By: #### C BCAD, A1C #### [place] [id number] Ph. [phone] Neutrophils/100 WBC (Bld) 60 % Normal 50-70 [facility] Comment on above: Performed By: #### C BCAD, A1C #### [address] [address] Ph. [phone] Platelet mean volume (Bld) [Entitic vol] 12.9 fL High 9.4-12.3 [facility] Comment on above: Performed By: #### C BCAD, A1C #### [address] [address] Ph. [phone] Platelets (Bld) [#/Vol] 201 10*3/uL Normal 150-450 [facility] Comment on above: Performed By: #### C BCAD, A1C #### [address] [address] Ph. [phone] RBC (Bld) [#/Vol] 5.07 10*6/uL Normal 4.20-5.40 [facility] Comment on above: Performed By: #### C BCAD, A1C #### [address] [address] Ph. [phone] WBC (Bld) [#/Vol] 5.2 10*3/uL Normal 3.7-11.0 [facility] Comment on above: Performed By: #### C BCAD, A1C #### [address] [address] Ph. [phone] Comprehensive Metabolic Pane simba 03-21-2023 Albumin [Mass/Vol] 4.3 g/dL Normal 3.5-5.0 [facility] Comment on above: Performed By: #### L IPD, PHOS, CMP #### [address] [address] Ph. [phone] ALP [Catalytic activity/Vol] 72 U/L Normal 38-126 [facility] Comment on above: Performed By: #### L IPD, PHOS, CMP #### [address] [address] Ph. [phone] ALT [Catalytic activity/Vol] 40 U/L High 0-35 [facility] Comment on above: Performed By: #### L IPD, PHOS, CMP #### [place] [address] Ph. [phone] AST [Catalytic activity/Vol] 30 U/L Normal 14-36 [facility] Comment on above: Performed By: #### L BELL PHOS, CMP #### [place] [address] Ph. [phone] Bilirubin [Mass/Vol] 0.8 mg/dL Normal 0.2-1.3 [facility] Comment on above: Performed By: #### L BELL PHOS, CMP #### [place] [address] Ph. [phone] Calcium [Mass/Vol] 9.5 mg/dL Normal 8.4-10.2 [facility] Comment on above: Performed By: #### L KAREEN LUU CMP #### [place] [address] Ph. [phone] Chloride [Moles/Vol] 108 mmol/L High 98-107 [facility] Comment on above: Performed By: #### L FRANKY LUUS, CMP #### [place] [address] Ph. [phone] CO2 [Moles/Vol] 22 mmol/L Normal 22-32 [facility] Comment on above: Performed By: #### L FRANKY LUUS, CMP #### [place] [address] Ph. [phone] Creatinine [Mass/Vol] 0.62 mg/dL Normal 0.52-1.04 [facility] Comment on above: Performed By: #### L BELL PHOS, CMP #### [place] [address] Ph. [phone] GFR/1.73 sq M.predicted among non-blacks MDRD (S/P/Bld) [Vol rate/Area] 108 mL/min/{1.73_m2} Normal >60 [facility] Comment on above: Result Comment: GFR calculated using CKD-EPI (2020) formula.\X0D0A\Stage 1 Kidney damage (e.g., protein in the urine) with normal GFR >=90\X0D0A\Stage 2 Kidney damage with mild decrease in GFR 60-89\X0D0A\Stage 3a Moderate decrease in GFR 45-59\X0D0A\Stage 3b Moderate decrease in GFR 30-44\X0D0A\Stage 4 Severe reduction in GFR 15-29\X0D0A\Stage 5 Kidney failure <15 Performed By: #### L KAREEN LUU, CMP #### [place] [address] Ph. [phone] Glucose [Mass/Vol] 92 mg/dL Normal 65-100 [facility] Comment on above: Performed By: #### L KAREEN LUU, CMP #### [place] [address] Ph. [phone] Potassium [Moles/Vol] 3.9 mmol/L Normal 3.6-5.0 [facility] Comment on above: Performed By: #### L KAREEN LUU, CMP #### [place] [address] Ph. [phone] Protein [Mass/Vol] 7.8 g/dL Normal 6.3-8.2 [facility] Comment on above: Performed By: #### L KAREEN LUU, CMP #### [place] [address] Ph. [phone] Sodium [Moles/Vol] 141 mmol/L Normal 135-145 [facility] Comment on above: Performed By: #### L KAREEN LUU, CMP #### [place] [address] Ph. [phone] Urea nitrogen [Mass/Vol] 10 mg/dL Normal 7-17 [facility] Comment on above: Performed By: #### L KAREEN LUU, CMP #### [place] [id number] [place] [address] Ph. [phone] Albumin [Mass/Vol] 4.3 g/dL 3.5 - 5.0 [...] mg/dL [facility] GFR, Estimated 108 - [facility]F [facility] Comment on above: GFR calculated using CKD-EPI [...] 8.2 g/dL [place] Sodium [Moles/Vol] 141 mmol/L [place] T Urea nitrogen (BldV) [Mass/Vol] 10 mg/dL 7 - 17 mg/dL [place] Hemoglobin A1Con 03-21-2023 EAG 113 mg/dL Normal [facility] Comment on above: Result Comment: Pascale mated Average Glucose is a caluculated value from Hemoglobin A1C and is sales representative canvas products of the average blood glucose level in the last 2-3 month period. Performed By: #### C BCAD, A1C #### [place] [id number] Ph. [phone] HbA1c (Bld) [Mass fraction] 5.6 % Normal 4.0-5.6 [facility] Comment on above: Result Comment: [facility] Diabetes Association guidelines indicate that patients with [...] Performed By: #### C BCAD, A1C #### [place] [address] Ph. [phone] Glucose [Mass/Vol] 113 mg/dL [facility] Comment on above: Estimated Average Glucose is a caluculated value from Hemoglobin A1C and is sales representative canvas products of the average blood glucose level in the last 2-3 month period. HbA1c (Bld) [Mass fraction] 5.6 % 4.0 - 5.6 % [facility] Comment on above: [place] Diabetes Association guidelines indicate that patients with [...] albumin should be considered for these patients. [facility] Lipid Panelon 03-21-2023 Cholesterol [Mass/Vol] 196 mg/dL Normal 100-200 [facility] Comment on above: Order Comment: Is Pa tient Fasting?/# of Hours->8 Result Comment: <200 mg/dL is recommended cholesterol level. Performed By: #### L KAREEN LUU, CMP #### [place] [address] Ph. [phone] Cholesterol in HDL [Mass/Vol] 55 mg/dL Low >60 [facility] Comment on above: Order Comment: Is Pa tient Fasting?/# of Hours->8 Performed By: #### L KAREEN LUU, CMP #### [place] [address] Ph. [phone] Cholesterol in LDL [Mass/Vol] 127 mg/dL High 20-100 [facility] Comment on above: Order Comment: Is Pa tient Fasting?/# of Hours->8 Performed By: #### L KAREEN LUU, CMP #### [place] [address] Ph. [phone] Cholesterol.total/Chol esterol in HDL [Mass ratio] 4 {ratio} Normal 1-5 [facility] Comment on above: Order Comment: Is Pa tient Fasting?/# of Hours->8 Performed By: #### L KAREEN LUU, CMP #### [place] [address] Ph. [phone] Triglyceride [Mass/Vol] 69 mg/dL Normal 10-150 [facility] Comment on above: Order Comment: Is Pa tient Fasting?/# of Hours->8 Performed By: #### L KAREEN LUU, CMP #### [place] [address] Ph. [phone] Cholesterol [Mass/Vol] 196 mg/dL 100 - 200 mg/dL [facility] Comment on above: <200 mg/dL is recommended cholesterol level. Cholesterol in HDL [Mass/Vol] 55 mg/dL Low 60 - PINF mg/dL [facility] Cholesterol in LDL [Mass/Vol] 127 mg/dL High 20 - 100 mg/dL [facility] CHOLESTEROL/HDL RELATIVE RISK 4 [facility] Triglyceride [Mass/Vol] 69 mg/dL 10 - 150 mg/dL [place] Is Patient Fasting?/# of Hours->8 [facility] No Panel Informationon 03-21 Interpretation and review of laboratory results Abnormal [facility] Phosphoruson 03-21-2023 Phosphate [Mass/Vol] 3.5 mg/dL Normal 2.5-4.5 [facility] Comment on above: Performed By: #### L IPD, PHOS, CMP #### [place] [id number] [place] [address] Ph. [phone] Phosphate [Mass/Vol] 3.5 mg/dL 2.5 - 4 .5 mg/dL [facility] US GALLBLADDER RUQon 024 US GALLBLADDER RUQ [...] David Bhatt MD 03/21/23 Final result Normal [facility] US Gallbladderon 03-21-2023 1. Hepatic steatosis without focal suspicious hepatic lesion. 2. Cholecystectomy. PN RIS CONSOLIDATED EXAM: US GALLBLADDER RUQ HISTORY: [...] Report electronically signed by: Dr. David Bhatt [facility] David Bhatt MD - 03/21/2023 EXAM: US [...] US GallbladderOrdered By: Paola Bhatt on 03-21-2023 [place] [...] [place] RBC, UA Rare #/HPF [place] Specific [place], Urine 1.015 1.005 - 1.030 [facility] Squam Epithel, UA None Seen #/LPF [place] Urobilinogen, Urine 0.2 E.U./dL NINF [place] DOT WBC, UA None Seen #/HPF [place] SPECIFY(EX-CATH,MIDS TREAM,CYSTO,ETC)?->m id [facility] Urinalysis, Complete reflex to cultureon 03-21-2023 BACT Trace Normal [facility] Comment on above: Order Comment: SPECI FY(EX-CATH,MIDSTREAM,CYSTO,ETC)?->mid Performed By: #### U COMP/WRCX #### [place] [address] Ph. [phone] CULTIND No [facility] Comment on above: Order Comment: SPECI FY(EX-CATH,MIDSTREAM,CYSTO,ETC)?->mid Performed By: #### U COMP/WRCX #### [place] [address] Ph. [phone] MUCS None Seen [facility] Comment on above: Order Comment: SPECI FY(EX-CATH,MIDSTREAM,CYSTO,ETC)?->mid Performed By: #### U COMP/WRCX #### [place] [address] Ph. [phone] SQEPI None Seen [facility] Comment on above: Order Comment: SPECI FY(EX-CATH,MIDSTREAM,CYSTO,ETC)?->mid Performed By: #### U COMP/WRCX #### [place] [address] Ph. [phone] UBIL Negative Normal Negative [facility] Comment on above: Order Comment: SPECI FY(EX-CATH,MIDSTREAM,CYSTO,ETC)?->mid Performed By: #### U COMP/WRCX #### [place] [address] Ph. [phone] UBLO Negative Normal Negative [facility] Comment on above: Order Comment: SPECI FY(EX-CATH,MIDSTREAM,CYSTO,ETC)?->mid Performed By: #### U COMP/WRCX #### [place] [id number] Ph. [phone] UCLAR Clear Normal [facility] Comment on above: Order Comment: SPECI FY(EX-CATH,MIDSTREAM,CYSTO,ETC)?->mid Performed By: #### U COMP/WRCX #### [place] [address] Ph. [phone] UCOL Light yellow Normal [facility] [facility] Comment on above: Order Comment: SPECI FY(EX-CATH,MIDSTREAM,CYSTO,ETC)?->mid Performed By: #### U COMP/WRCX #### [place] [address] Ph. [phone] UGLU Negative Normal Negative [facility] Comment on above: Order Comment: SPECI FY(EX-CATH,MIDSTREAM,CYSTO,ETC)?->mid Performed By: #### U COMP/WRCX #### [place] [address] Ph. [phone] UKET Trace Abnormal Negative [facility] Comment on above: Order Comment: SPECI FY(EX-CATH,MIDSTREAM,CYSTO,ETC)?->mid Performed By: #### U COMP/WRCX #### [place] [address] Ph. [phone] ULEU Negative Normal Negative [facility] Comment on above: Order Comment: SPECI FY(EX-CATH,MIDSTREAM,CYSTO,ETC)?->mid Performed By: #### U COMP/WRCX #### [place] [id number] Ph. [phone] UNIT Negative Normal Negative [facility] Comment on above: Order Comment: SPECI FY(EX-CATH,MIDSTREAM,CYSTO,ETC)?->mid Performed By: #### U COMP/WRCX #### [place] [address] Ph. [phone] UPH 7.0 Normal 5.0-7.0 [facility] Comment on above: Order Comment: SPECI FY(EX-CATH,MIDSTREAM,CYSTO,ETC)?->mid Performed By: #### U COMP/WRCX #### [place] [address] Ph. [phone] UPRO Negative Normal Negative [facility] Comment on above: Order Comment: SPECI FY(EX-CATH,MIDSTREAM,CYSTO,ETC)?->mid Performed By: #### U COMP/WRCX #### [place] [address] Ph. [phone] URBC Rare Normal [facility] Comment on above: Order Comment: SPECI FY(EX-CATH,MIDSTREAM,CYSTO,ETC)?->mid Performed By: #### U COMP/WRCX #### [place] [address] Ph. [phone] USG 1.015 Normal 1.005-1.030 [facility] Comment on above: Order Comment: SPECI FY(EX-CATH,MIDSTREAM,CYSTO,ETC)?->mid Performed By: #### U COMP/WRCX #### [place] [address] Ph. [phone] UURO 0.2 E.U./dL Normal <2.0 [facility] Comment on above: Order Comment: SPECI FY(EX-CATH,MIDSTREAM,CYSTO,ETC)?->mid Performed By: #### U COMP/WRCX #### [place] [address] Ph. [phone] UWBC None Seen Normal [facility] Comment on above: Order Comment: SPECI FY(EX-CATH,MIDSTREAM,CYSTO,ETC)?->mid Performed By: #### U COMP/WRCX #### [place] [id number] [place] [address] Ph. [phone] CBC with Diffon 10-19-2022 Abs. Basophil Normal 0.0-0.2 [facility] Comment on above: Performed By: #### L IP, CP, CDP, TROPI #### [facility] [address] [place], [place] [phone] Highway Painter Helper: Jemma Pierre MD Abs.Imm.Granulocyte Normal 0.00-0.30 [facility] Comment on above: Performed By: #### L IP, CP, CDP, TROPI #### [facility] [address] [place] [address] Highway Painter Helper: Jemma Pierre MD Abs.Neutrophil (Seg) 3.36 k/uL Normal 2.5-7.0 [facility] Comment on above: Performed By: #### L IP, CP, CDP, TROPI #### [facility] [address] [place], [place] [phone] Highway Painter Helper: Jemma Pierre MD Basophil Normal 0-2 [facility] Comment on above: Performed By: #### L IP, CP, CDP, TROPI #### [facility] [address] [place], [place] [phone] Highway Painter Helper: Jemma Pierre MD Eosinophils (Bld) [#/Vol] 0.12 10*3/uL Normal 0.0-0.4 [facility] Comment on above: Performed By: #### L IP, CP, CDP, TROPI #### [facility] [address] [place] [address] [address] Painter Helper: Jemma Pierre MD Eosinophils/100 WBC (Bld) 2 % Normal 0-5 [facility] Comment on above: Performed By: #### L IP, CP, CDP, TROPI #### [facility] [address] [place], [place] [id number] Highway Painter Helper: Jemma Pierre MD Immature Granulocyte Normal 0 [facility] Comment on above: Performed By: #### L IP, CP, CDP, TROPI #### [facility] [address] [place], [place] [phone] Painter Helper: Jemma Pierre MD Lymphocytes (Bld) [#/Vol] 2.07 10*3/uL Normal 1.0-4.8 [facility] Comment on above: Performed By: #### L IP, CP, CDP, TROPI #### [facility] [address] [place], [place] [phone] Painter Helper: Jemma Pierre MD Lymphocytes/100 WBC (Bld) 34 % Normal 15-40 [facility] Comment on above: Performed By: #### L IP, CP, CDP, TROPI #### [facility] [address] [place], [place] [phone] Painter Helper: Jemma Pierre MD Monocytes (Bld) [#/Vol] 0.55 10*3/uL Normal 0.0-1.0 [facility] Comment on above: Performed By: #### L IP, CP, CDP, TROPI #### [facility] [address] [place], [place] [phone] Highway Painter Helper: Jemma Pierre MD Monocytes/100 WBC (Bld) 9 % High 4-8 [facility] Comment on above: Performed By: #### L IP, CP, CDP, TROPI #### [facility] [address] [place] [address] Highway Painter Helper: Jemma Pierre MD Morphology Rodrick (Bld) [Interp] Manual Differential Performed Normal [facility] Comment on above: Performed By: #### L IP, CP, CDP, TROPI #### [facility] [address] [place], [place] [id number] Highway Painter Helper: Jemma Pierre MD Neutrophil (Seg) 55 % Normal 47-75 [facility] Comment on above: Performed By: #### L IP, CP, CDP, TROPI #### [facility] [address] [place] [address] Highway Painter Helper: Jemma Pierre MD Erythrocyte distribution width (RBC) [Ratio] 12.8 % Normal 12.1-15.2 [facility] Comment on above: Performed By: #### L IP, CP, CDP, TROPI #### [facility] [address] [place] [address] Highway Painter Helper: Jemma Pierre MD Hematocrit (Bld) [Volume fraction] 42.7 % Normal 36-46 [facility] Comment on above: Performed By: #### L IP, CP, CDP, TROPI #### [facility] [address] [place] [address] [address] Painter Helper: Jemma Pierre MD Hemoglobin (Bld) [Mass/Vol] 14.6 g/dL Normal 12.0-16.0 [facility] Comment on above: Performed By: #### L IP, CP, CDP, TROPI #### [facility] [address] [place] [address] Highway Painter Helper: Jemma Pierre MD MCH (RBC) [Entitic mass] 30.1 pg Normal 26-34 [facility] Comment on above: Performed By: #### L IP, CP, CDP, TROPI #### [facility] [address] [place] [address] [address] Painter Helper: Jemma Pierre MD MCHC (RBC) [Mass/Vol] 34.1 g/dL Normal 31-37 [facility] Comment on above: Performed By: #### L IP, CP, CDP, TROPI #### [facility] [address] [place] [address] [address] Painter Helper: Jemma Pierre MD MCV (RBC) [Entitic vol] 88.4 fL Normal 80-100 [facility] Comment on above: Performed By: #### L IP, CP, CDP, TROPI #### [facility] [address] [place], [place] [phone] Painter Helper: Jemma Pierre MD Platelets (Bld) [#/Vol] 209 10*3/uL Normal 140-450 [facility] Comment on above: Performed By: #### L IP, CP, CDP, TROPI #### [facility] [address] [place], [place] [phone] [address] Painter Helper: Jemma Pierre MD RBC (Bld) [#/Vol] 4.84 10*6/uL Normal 4.0-5.2 [facility] Comment on above: Performed By: #### L IP, CP, CDP, TROPI #### [facility] [address] [place] [address] [address] Painter Helper: Jemma Pierre MD WBC (Bld) [#/Vol] 6.1 10*3/uL Normal 3.5-11.0 [facility] Comment on above: Performed By: #### L IP, CP, CDP, TROPI #### [facility] [address] [place] [address] [address] Painter Helper: Jemma Pierre MD Comp Metabolic Profon 2022 Albumin [Mass/Vol] 4.4 g/dL Normal 3.5-5.2 [facility] Comment on above: Performed By: #### L IP, CP, CDP, TROPI #### [facility] [address] [place] [address] [address] Painter Helper: Jemma Pierre MD Alkaline Phos 77 U/L Normal 35-104 [facility] Comment on above: Performed By: #### L IP, CP, CDP, TROPI #### [facility] [address] [place] [address] [address] Painter Helper: Jemma Pierre MD ALT [Catalytic activity/Vol] 36 U/L High 5-33 [facility] Comment on above: Performed By: #### L IP, CP, CDP, TROPI #### [facility] [address] [place], [place] [phone] Painter Helper: Jemma Pierre MD Anion gap [Moles/Vol] 13 mmol/L Normal 9-17 [facility] Comment on above: Performed By: #### L IP, CP, CDP, TROPI #### [facility] [address] [place], [place] [phone] Painter Helper: Jemma Pierre MD AST [Catalytic activity/Vol] 24 U/L Normal <32 [facility] Comment on above: Performed By: #### L IP, CP, CDP, TROPI #### [facility] [address] [place], [place] [phone] Painter Helper: Jemma Pierre MD Bilirubin [Mass/Vol] 0.6 mg/dL Normal 0.3-1.2 [facility] Comment on above: Performed By: #### L IP, CP, CDP, TROPI #### [facility] [address] [place], [place] [phone] Painter Helper: Jemma Pierre MD BUN/CRE Ratio 20 Normal 9-20 [facility] Comment on above: Performed By: #### L IP, CP, CDP, TROPI #### [facility] [address] [place], [place] [phone] Painter Helper: Jemma Pierre MD Calcium [Mass/Vol] 9.6 mg/dL Normal 8.6-10.4 [facility] Comment on above: Performed By: #### L IP, CP, CDP, TROPI #### [facility] [address] [place], [place] [phone] Painter Helper: Jemma Pierre MD Chloride [Moles/Vol] 106 mmol/L Normal 98-107 [facility] Comment on above: Performed By: #### L IP, CP, CDP, TROPI #### [facility] [address] [place] [address] [address] Painter Helper: Jemma Pierre MD CO2 [Moles/Vol] 22 mmol/L Normal 20-31 [facility] Comment on above: Performed By: #### L IP, CP, CDP, TROPI #### [facility] [address] [place] [address] [address] Painter Helper: Jemma Pierre MD Creatinine [Mass/Vol] 0.6 mg/dL Normal 0.5-0.9 [facility] Comment on above: Performed By: #### L IP, CP, CDP, TROPI #### [facility] [address] [place] [address] Highway Painter Helper: Jemma Pierre MD GFR/1.73 sq M.predicted among non-blacks MDRD (S/P/Bld) [Vol rate/Area] mL/min/{1.73_m2} Normal >60 [facility] Comment on above: Result Comment: These [...] #### L IP, CP, CDP, TROPI #### [facility] [address] [place] [address] [address] Painter Helper: Jemma Pierre MD Glucose [Mass/Vol] 98 mg/dL Normal 70-99 [facility] Comment on above: Performed By: #### L IP, CP, CDP, TROPI #### [facility] [address] [place] [address] [address] Painter Helper: Jemma Pierre MD Potassium [Moles/Vol] 3.9 mmol/L Normal 3.7-5.3 [facility] Comment on above: Performed By: #### L IP, CP, CDP, TROPI #### [facility] [address] [place] [address] [address] Painter Helper: Jemma Pierre MD Protein [Mass/Vol] 7.2 g/dL Normal 6.4-8.3 [facility] Comment on above: Performed By: #### L IP, CP, CDP, TROPI #### [facility] [address] [place] [address] [address] Painter Helper: Jemma Pierre MD Sodium [Moles/Vol] 141 mmol/L Normal 135-144 [facility] Comment on above: Performed By: #### L IP, CP, CDP, TROPI #### [facility] [address] [place] [address] [address] Painter Helper: Jemma Pierre MD Urea nitrogen [Mass/Vol] 12 mg/dL Normal 6-20 [facility] Comment on above: Performed By: #### L IP, CP, CDP, TROPI #### [facility] [address] [place] [address] [address] Painter Helper: Jemma Pierre MD Lipaseon 10-19-2022 Lipase [Catalytic activity/Vol] 29 U/L Normal 13-60 [facility] Comment on above: Performed By: #### L IP, CP, CDP, TROPI #### [facility] [address] [place] [address] Highway Painter Helper: Jemma Pierre MD Troponinon 10-19-2022 Troponin, High Sens <6 Normal 0-14 [facility] Comment on above: Result Comment: High Sensitivity Troponin values cannot be compared with other Troponin methodologies. Performed By: #### L IP, CP, CDP, TROPI #### [facility] [address] [place], [place] [phone] Highway Painter Helper: Jemma Pierre MD Urinalysis, Routineon 2022 Bilirubin, SemiQt,Ur Negative Normal NEG [facility] Comment on above: Performed By: #### U A #### [facility] [address] [place], [place] [phone] Highway Painter Helper: Jemma Pierre MD Blood, Urine Negative Normal NEG [facility] Comment on above: Performed By: #### U A #### [facility] [address] [place], [place] [phone] Highway Painter Helper: Jemma Pierre MD Clarity (U) Clear Normal CLEAR [facility] Comment on above: Performed By: #### U A #### [facility] [address] [place], [place] [phone] Painter Helper: Jemma Pierre MD Color (U) Yellow Normal YEL [facility] Comment on above: Performed By: #### U A #### [facility] [address] [facility] [place] [phone] Painter Helper: Jemma Pierre MD Comment Normal [facility] Comment on above: Performed By: #### U A #### [facility] [address] [facility] [place] [phone] Painter Helper: Jemma Pierre MD Glucose Ql (U) Negative Normal NEG [facility] Comment on above: Performed By: #### U A #### [facility] [address] [facility] [place] [phone] Painter Helper: Jemma Pierre MD Ketones Ql (U) Negative Normal NEG [facility] Comment on above: Performed By: #### U A #### [facility] [address] [facility] [place] [phone] Painter Helper: Jemma Pierre MD Leukocyte esterase Test strip Ql (U) Negative Normal NEG [facility] Comment on above: Performed By: #### U A #### [facility] [address] [place], [place] [phone] Painter Helper: Jemma Pierre MD Nitrite,Ur Negative Normal NEG [facility] Comment on above: Performed By: #### U A #### [facility] [address] [place], [place] [phone] Highway Painter Helper: Jemma Pierre MD PH,Ur 8.0 Normal 5.0-8.0 [facility] Comment on above: Performed By: #### U A #### [facility] [address] [place] [address] [address] Painter Helper: Jemma Pierre MD Protein Ql (U) Negative Normal NEG [facility] Comment on above: Performed By: #### U A #### [facility] [address] [place] [address] Highway Painter Helper: Jemma Pierre MD Spec. [place],Ur 1.010 Normal 1.005-1.030 [facility] Comment on above: Performed By: #### U A #### [facility] [address] [place], [place] [phone] Highway Painter Helper: Jemma Pierre MD Urobilinogen,Ur Normal Normal 0.0-1.0 [facility] Comment on above: Performed By: #### U A #### [facility] [address] [place] [phone] Painter Helper: Jemma Pierre MD CARDIAC STRESS TESTon 2022 [place] [address] CARDIAC STRESS TEST PATIENT NAME: JUDY MISHRA : 1970 MED REC NO: [id number] ROOM: ACCOUNT NO: [id number] ADMIT DATE: 07/13/2022 PROVIDER: Jabier Cottrell MD [...] or angina. JABIER COTTRELL MD [id number] Doc#: [id number] CC: Normal [facility] Brain Natriuretic Peptideon 06-12-2022 Natriuretic peptide B (Bld) [Mass/Vol] pg/mL NINF - 300 pg/mL [facility] Comment on above: An age-independent cutoff point of 300 pg/ml has a 98% negative predictive value excluding acute heart failure. CBC with Auto Differentialon 06-12-2022 Absolute Eos # 0.20 [facility] Absolute Lymph # 1.60 [facility] Absolute Mitchell # 0.40 [facility] Basophils (Bld) [#/Vol] 0.00 10*3/uL [facility] Basophils/100 WBC (Bld) 1 % 0 - 2 % [facility] Differential Type YES [facility] Eosinophils/100 WBC (Bld) 4 % 0 - 5 % [facility] Hematocrit (Bld) [Volume fraction] 44.2 % 36 - 46 % [facility] Hemoglobin (Bld) [Mass/Vol] 14.8 g/dL 12.0 - 16.0 g/dL [facility] Lymphocytes/100 WBC (Bld) 26 % 15 - 40 % [facility] MCH (RBC) [Entitic mass] 29.9 pg 26 - 34 pg [facility] MCHC (RBC) [Mass/Vol] 33.6 g/dL 31 - 37 g/dL B ON [facility] MCV (RBC) [Entitic vol] 89.1 fL 80 - 100 fL [facility] Monocytes/100 WBC (Bld) 6 % 4 - 8 % [facility] Platelet distribution width (Bld) [Ratio] 12.7 % 12.1 - 15.2 % [facility] Platelets (Bld) [#/Vol] 210 10*3/uL [facility] RBC (Bld) [#/Vol] 4.96 10*6/uL 4.0 - 5.2 m/uL [facility] Segmented neutrophils/100 WBC (Bld) 63 % 47 - 75 % [facility] Segs Absolute 3.90 [facility] WBC (Bld) [#/Vol] 6.2 10*3/uL [facility] Comprehensive Metabolic Pane simba 06-12-2022 Albumin [Mass/Vol] 4.5 g/dL 3.5 - 5.2 g/dL [facility] ALP [Catalytic activity/Vol] 73 U/L 35 - 104 U/L [facility] ALT [Catalytic activity/Vol] 17 U/L 5 - 33 U/L [facility] Anion gap [Moles/Vol] 10 mmol/L 9 - 17 mmol/L [facility] AST [Catalytic activity/Vol] 16 U/L NINF - 32 U/L [facility] Bilirubin [Mass/Vol] 0.4 mg/dL 0.3 - 1 .2 mg/dL [facility] Calcium [Mass/Vol] 9.7 mg/dL 8.6 - 10. 4 mg/dL [facility] Chloride [Moles/Vol] 103 mmol/L 98 - 10 7 mmol/L [facility] CO2 [Moles/Vol] 27 mmol/L 20 - 31 mmol/L [facility] Creatinine [Mass/Vol] 0.69 mg/dL 0.50 - 0.90 mg/dL [facility] GFR/1.73 sq M.predicted MDRD (S/P/Bld) [Vol rate/Area] - PINF [facility] Comment on above: These results are [...] [Mass/Vol] 92 mg/dL 70 - 99 mg/dL [facility] Interpretation and review of laboratory results Abnormal [facility] Potassium [Moles/Vol] 3.4 mmol/L Low 3.7 - 5.3 mmol/L [facility] Protein [Mass/Vol] 7.1 g/dL 6.4 - 8.3 g/dL [facility] Sodium [Moles/Vol] 140 mmol/L 135 - 144 mmol/L [facility] Urea nitrogen [Mass/Vol] 10 mg/dL 6 - 20 mg/dL [facility] Urea nitrogen/Creatinine (Bld) [Mass ratio] 14 9 - 20 [facility] D-Dimer, Quantitativeon Fibrin D-dimer FEU IA (Bld) [Mass/Vol] 0.40 ug/mL [facility] Comment on above: When combined with [...] more prevalent in patients with distal DVT. [facility] Lipaseon 06-12-2022 Lipase [Catalytic activity/Vol] 25 U/L 13 - 60 U/L [facility] No Panel Informationon 06-12 [facility] TSH with Reflexon 06-12-2022 TSH Qn 2.81 m[IU]/L [facility] Troponinon 06-12-2022 Troponin I.cardiac DL <= 0.01 ng/mL [Mass/Vol] ng/L 0 - 14 ng/L [facility] Comment on above: High Sensitivity Tro ponin values cannot be compared with other Troponin methodologies. [facility] XR CHEST (2 VW)on 06-12-2022 1. Linear area of platelike atelectasis versus scarring in the lingula. 2. Remainder of lung piña are unremarkable. [facility] EXAM: Chest x-ray HISTORY: Chest pain COMPARISON: None. TECHNIQUE: Frontal and lateral chest FINDINGS: Vascularity are unremarkable. Lungs are expanded and free of focal infiltrates. There is a linear density in the lingula consistent with platelike atelectasis or scarring. No acute bony abnormality is appreciated. [facility] Jemma Boyd MD - [...] 2. Remainder of lung piña are unremarkable. [facility] Work Phone: Radiology Study observation (narrative) [facility] [employer] Work Phone: XR CHEST (2 VW)Ordered By: Sohail Boyd on 06-12-2022 [facility] [employer] Work Phone: CBC AUTO DIFFon 03-19-2022 BASO # 0.1 103/ul Normal 0.0-0.1 [facility] Comment on above: Performed By: #### C BC #### [facility] [address] [place] [address] Dr. Lupillo [place] Basophils/100 WBC (Bld) 0.8 % Normal 0.2-2.0 [facility] Comment on above: Performed By: #### C BC #### [facility] [address] [place] [address] Dr. Lupillo Birmingham EO # 0.4 103/ul Normal 0.0-0.7 [facility] Comment on above: Performed By: #### C BC #### [facility] [address] [place] [address] Dr. Lupillo Birmingham Eosinophils/100 WBC (Bld) 5.5 % Normal 0.9-7.0 [facility] Comment on above: Performed By: #### C BC #### [facility] [address] [place] [address] Dr. Lupillo Birmingham Erythrocyte distribution width (RBC) [Ratio] 13.2 % Normal 11.0-15.0 [facility] Comment on above: Performed By: #### C BC #### [facility] [address] [place] [address] Dr. Lupillo Birmingham Hematocrit (Bld) [Volume fraction] 45.3 % Normal 36.0-48.0 [facility] Comment on above: Performed By: #### C BC #### [facility] [address] [place] [address] Dr. Lupillo Birmingham Hemoglobin (Bld) [Mass/Vol] 14.8 g/dL Normal 12.0-16.0 [facility] Comment on above: Performed By: #### C BC #### [facility] [address] [place] [address] Dr. Lupillo Birmingham IG # 0.02 10e3/ul Normal 0.00-0.03 [facility] Comment on above: Performed By: #### C BC #### [facility] [address] [place] [address] Dr. Lupillo Birmingham IG % 0.3 % Normal 0.0-0.5 [facility] Comment on above: Performed By: #### C BC #### [facility] [address] [place] [address] Dr. Lupillo Birmingham LYMPH # 1.4 103/ul Normal 1.2-3.8 [facility] Comment on above: Performed By: #### C BC #### [facility] [address] [place] [address] Dr. Lupillo Birmingham Lymphocytes/100 WBC (Bld) 22.5 % Normal 20.5-60.0 [facility] Comment on above: Performed By: #### C BC #### [facility] [address] [place] [address] Dr. Lupillo Birmingham MANUAL DIFF REQ NO Normal [facility] Comment on above: Performed By: #### C BC #### [facility] [address] [place] [address] Dr. Lupillo Birmingham MCH (RBC) [Entitic mass] 30.0 pg Normal 26.7-34.0 [facility] Comment on above: Performed By: #### C BC #### [facility] [address] [place] [address] Dr. Lupillo Birmingham MCHC (RBC) [Mass/Vol] 32.7 g/dL Normal 29.9-35.2 [facility] Comment on above: Performed By: #### C BC #### [facility] [address] [place] [address] Dr. Lupillo Birmingham MCV (RBC) [Entitic vol] 91.9 fL Normal 81.0-99.0 [facility] Comment on above: Performed By: #### C BC #### [facility] [address] [place] [address] Dr. Lupillo Birmingham MONO # 0.4 103/ul Normal 0.3-0.8 [facility] Comment on above: Performed By: #### C BC #### [facility] [address] [place] [address] Dr. Lupillo Birmingham Monocytes/100 WBC (Bld) 6.5 % Normal 1.7-12.0 [facility] Comment on above: Performed By: #### C BC #### [facility] [address] [place] [address] Dr. Lupillo Birmingham NEUT # 4.1 103/ul Normal 1.4-6.5 [facility] Comment on above: Performed By: #### C BC #### [facility] [address] [address] [address] Lupillo Birmingham Neutrophils/100 WBC (Bld) 64.4 % Normal 43.0-75.0 [facility] Comment on above: Performed By: #### C BC #### [facility] [address] [place] [address] Dr. Lupillo Birmingham Platelet mean volume (Bld) [Entitic vol] 12.0 fL Normal 9.5-13.5 [facility] Comment on above: Performed By: #### C BC #### [facility] [address] [place] [address] Dr. Lupillo Birmingham PLT 235 103/ul Normal 150-450 [facility] Comment on above: Performed By: #### C BC #### [facility] [address] [place] [address] Dr. Lupillo Birmingham RBC 4.93 106/ul Normal 4.20-5.40 [facility] Comment on above: Performed By: #### C BC #### [facility] [address] [place] [address] Dr. Lupillo Birmingham WBC 6.4 103/ul Normal 4.0-11.0 [facility] Comment on above: Performed By: #### C BC #### [facility] [address] [place] [address] Dr. Lupillo Birmingham PROF CHEM 8 (BAS METB)on Anion gap [Moles/Vol] 13.9 mmol/L Normal [facility] Comment on above: Performed By: #### B MP #### [facility] [address] [place] [address] Dr. Lupillo Birmingham Calcium [Mass/Vol] 9.4 mg/dL Normal 8.5-10.1 [facility] Comment on above: Performed By: #### B MP #### [facility] [address] [place] [address] Dr. Lupillo Birmingham Chloride [Moles/Vol] 105 mmol/L Normal 98-107 [facility] Comment on above: Performed By: #### B MP #### [facility] [address] [address] [address] Lupillo Birmingham CO2 [Moles/Vol] 28.2 mmol/L Normal 21.0-32.0 [facility] Comment on above: Performed By: #### B MP #### [facility] [address] [address] [address] Lupillo Birmingham Creatinine [Mass/Vol] 0.66 mg/dL Normal 0.55-1.02 [facility] Comment on above: Performed By: #### B MP #### [facility] [address] [address] [address] Lupillo Birmingham EGFR-AF CHADIAN >60 Normal >=60 [facility] Comment on above: Performed By: #### B MP #### [facility] [address] [address] [address] Lupillo Birmingham EGFR-NON AF CHADIAN >60 Normal >=60 [facility] Comment on above: Performed By: #### B MP #### [facility] [address] [address] [address] Lupillo Birmingham Glucose [Mass/Vol] 101 mg/dL Normal 74-106 [facility] Comment on above: Performed By: #### B MP #### [facility] [address] [address] [address] Lupillo Birmingham Potassium [Moles/Vol] 4.1 mmol/L Normal 3.5-5.1 [facility] Comment on above: Performed By: #### B MP #### [facility] [address] [address] [address] Lupillo Birmingham Sodium [Moles/Vol] 143 mmol/L Normal 136-145 [facility] Comment on above: Performed By: #### B MP #### [facility] [address] [address] [address] Lupillo Birmingham Urea nitrogen [Mass/Vol] 13.0 mg/dL Normal 7.0-18.0 [facility] Comment on above: Performed By: #### B MP #### [facility] [address] [place] [address] Dr. Lupillo Birmingham Urea nitrogen/Creatinine [Mass ratio] 19.7 mg/mg Normal [facility] Comment on above: Performed By: #### B MP #### [facility] [address] [place] [address] Dr. Lupillo Birmingham TSHon 03-19-2022 TSH 1.514 uIU/mL Normal 0.358-3.740 [facility] Comment on above: Performed By: #### T SH #### [facility] [address] [place] [address] Dr. Lupillo Birmingham XR KNEE LT 4V [...] by: DEMETRIA NAVARRETE Date: 2022-03-19 08:31 Normal [facility] US THYROIDon 12-05-2021 US THYROID EXAMINATION: US [...] by: JEMMA ARAUZ Date: 2021-12-05 10:49 Normal [facility] TSHon 09-30-2021 TSH 3.645 uIU/mL Normal 0.358-3.740 [facility] Comment on above: Performed By: #### T SH #### [facility] [address] [place] [address] Dr. Lupillo Birmingham US THYROIDon 08-23-2021 US [...] by: JEMMA ARAUZ Date: 2021-08-23 13:03 Normal [facility] T3 UPTAKEon 08-19-2021 T3U 31.0 % Normal 30.0-39.0 [facility] Comment on above: Performed By: #### T 3UP, TSH, T4 ####[facility] [address] [address]Dr. Lupillo Birmingham T4on 08-19-2021 T4 [Mass/Vol] 11.10 ug/dL Normal 4.80-13.90 [facility] Comment on above: Performed By: #### T 3UP, TSH, T4 #### [facility] [address] [place], [place] [address] Dr. Lupillo Birmingham TSHon 08-19-2021 TSH 6.669 uIU/mL Critically high 0.358-3.740 [facility] Comment on above: Performed By: #### T 3UP, TSH, T4 ####[facility] [address] [place], [place] [address]WcDr. Lupillo Birmingham US THYROIDon 04-25-2021 US THYROID [...] JEMMA ARAUZ Date: 2021-04-25 14:04 Normal [facility] TSHon 04-11-2021 TSH 2.911 uIU/mL Normal 0.470-4.680 [facility] Comment on above: Performed By: #### T SH #### [facility] [address] [address] [address] Lupillo Birmingham TSH RANGE SEE BELOW Normal [facility] Comment on above: Result Comment: <0.3 4 UIU/ml HYPERTHYROID 0.34-5.60 UIU/ml EUTHYROID >5.60 UIU/ml HYPOTHYROID Performed By: #### T SH #### [facility] [address] [place] [address] Dr. Lupillo Birmingham Basic Metabolic Panel w/ Ref johnna to MGOrdered By: Stephie Iverson on 06-08-2020 Anion gap [Moles/Vol] 8 mmol/L Low 9 - 17 mmol/L [employer] Phone: Calcium [Mass/Vol] 9.0 mg/dL 8.6 - 10. 4 mg/dL [employer] Phone: Chloride [Moles/Vol] 105 mmol/L 98 - 10 7 mmol/L [employer] Phone: CO2 [Moles/Vol] 24 mmol/L 20 - 31 mmol/L [employer] Phone: Creatinine [Mass/Vol] 0.49 mg/dL Low 0.50 - 0.90 mg/dL [employer] Phone: GFR >60 >60 mL/min Yorn Phone: GFR Non- >60 >60 mL/min [employer] Phone: GFR/1.73 sq M.predicted MDRD (S/P/Bld) [Vol rate/Area] [employer] Phone: Comment on above: Average GFR for 40-4 9 years old: 99 mL/min/1.73sq m Chronic Kidney Disease: <60 mL/min/1.73sq m Kidney failure: <15 mL/min/1.73sq m eGFR calculated using average adult body mass. Additional eGFR calculator available at: http://www.D2S/multiple_crcl_2012.htm GFR/1.73 sq M.predicted MDRD (S/P/Bld) [Vol rate/Area] NOT REPORTED [employer] Phone: Glucose [Mass/Vol] 107 mg/dL High 70 - 99 mg/dL [employer] Phone: Interpretation and review of laboratory results Abnormal [employer] Phone: Potassium [Moles/Vol] 3.7 mmol/L 3.7 - 5.3 mmol/L [employer] Work Phone: Sodium [Moles/Vol] 137 mmol/L 135 - 144 mmol/L [employer] Phone: Urea nitrogen (BldV) [Mass/Vol] 11 mg/dL 6 - 20 mg/dL [employer] Phone: Urea nitrogen/Creatinine (Bld) [Mass ratio] 22 High [employer] Work Phone: CBC Auto DifferentialOrdered By: Stephie Iverson on 06-08-2020 Absolute Eos # 0.30 [facility] Work Phone: Absolute Immature Granulocyte NOT REPORTED [employer] Work Phone: Absolute Lymph # 1.80 [facility] Work Phone: Absolute Mitchell # 0.50 [facility] Work Phone: Basophils (Bld) [#/Vol] 0.00 10*3/uL [employer] Work Phone: Basophils/100 WBC (Bld) 1 % 0 - 2 % [employer] Phone: Differential Type YES [employer] Phone: Eosinophils/100 WBC (Bld) 5 % 0 - 5 % [employer] Phone: Hematocrit (Bld) [Volume fraction] 42.6 % 36 - 46 % [employer] Phone: Hemoglobin.gastrointes tinal spec 1 Ql (Stl) 14.4 g/dL 12.0 - 16.0 g/dL [employer] Phone: Immature Granulocytes NOT REPORTED 0 % M [employer] Phone: Lymphocytes/100 WBC (Bld) 26 % 15 - 40 % [employer] Phone: MCH (RBC) [Entitic mass] 29.6 pg 26 - 34 pg [employer] Phone: MCHC (RBC) [Mass/Vol] 33.8 g/dL 31 - 37 g/dL M [employer] Phone: MCV (RBC) [Entitic vol] 87.6 fL 80 - 100 fL [employer] Phone: Monocytes/100 WBC (Bld) 7 % 4 - 8 % [employer] Phone: NRBC Automated NOT REPORTED per 100 WBC [employer] Phone: Platelet distribution width (Bld) [Ratio] 13.3 % 12.1 - 15.2 % [employer] Phone: Platelet Estimate NOT REPORTED [employer] Phone: Platelet mean volume (Bld) [Entitic vol] NOT REPORTED 6.0 - 12.0 fL [employer] Phone: Platelets (Bld) [#/Vol] 252 10*3/uL [employer] Phone: RBC (Bld) [#/Vol] 4.87 10*6/uL 4.0 - 5.2 m/uL [employer] Phone: RBC (Bld) [#/Vol] NOT REPORTED [employer] Phone: Segmented neutrophils/100 WBC (Bld) 61 % 47 - 75 % [employer] Phone: Segs Absolute 4.40 [employer] Work Phone: WBC (Bld) [#/Vol] 7.0 10*3/uL [employer] Phone: WBC (Bld) [#/Vol] NOT REPORTED [employer] Phone: CTA CHEST W CONTRASTOrdered By: Stephie [...] nodules and thyromegaly. Consider outpatient thyroid ultrasound. [employer] Phone: EXAMINATION: CTA CHEST W CONTRAST HISTORY: [...] alone. The bone windows are normal. Cholecystectomy. [employer] Phone: Paolo, pn Incoming Radiant Results From [facility] - 06/08/2020 4:28 PM EDT EXAMINATION: CTA [...] nodules and thyromegaly. Consider outpatient thyroid ultrasound. [employer] Phone: D-Dimer, QuantitativeOrdered By: Stephie Iverson on 06-08-2020 D-Dimer, Quant 0.61 High [employer] Phone: Comment on above: When combined with [...] Interpretation and review of laboratory results Abnormal [employer] Work Phone: VL DUP LOWER EXTREMITY VENOU S LEFTOrdered By: Stephie Iverson on 06-08-2020 Paolo, Mhpn Incoming Cardio Results From [facility] - 06/08/2020 3:35 PM EDT [facility] Vascular Lower Extremities DVT Study Procedure Patient Name MISHRA Date of Study 06/08/2020 JUDY Yoon Date of 1970 Gender Female Age 50 year(s) Race Room Number 06 Height: 63 inch, 160.02 cm Corporate ID [id number] Weight: 200 pounds, 90.7 kg # Patient Acct [id number] BSA: 1.93 m^2 BMI: 35.43 kg/m^2 # MR # [id number] Casino Shift Manager Carrie Haines, RT Interpreting Physician Gian Braga Referring Referring Physician Stephie Iverson Nurse Practitioner Procedure Type of Study: Veins: Lower Extremities DVT Study, DUP LOWER EXTREMITY VENOUS LEFT. Indications for Study:Leg Swelling. Patient Status:STAT. Comments:Left leg pain, no injury, since hx of covid 03/2020. Conclusions Summary Negative for DVT left lower extremity and right groin. Signature ---- Electronically signed by BELA Cheng (R))(CT)([facility])(S onographer) on 06/08/2020 03:09 PM ---- [...] !Phasic!No ! ! + --------+------+---- --+ + [employer] Phone: NATHALIEOVSPon 05-27-2018 OVS Visit (SP) Office (EVAMARSHALLDIPTI) JUDY MISHRA ([id number]) 1970 F Date Time Provider Department 05/27/18 8:20 AM RISA YOON During your visit today, we recorded the following information about you: Pulse Respiration Blood pressure Weight 71/minute 18/minute 117/58 89 kg Height 1.626 m Risa Yoon MD 05/27/2018 7:46 PM Signed Gynecologic Oncology [facility] Post-Op Visit Re: Judy Mishra CCF#: [id number] 05/27/2018 PROBLEM: Judy Mishra returns to the [...] office note were sent to: Noah Woods, [address] [place] [address] CC: Selvin Mack Sr, MD (PCP) Referring [...] by RISA YOON MD on 05/27/18 Normal [facility] PROGRESSon 05-23-2018 PROGRESS HNO ID: [id number] Author: Risa Yoon Service: ? Author Type: Physician Type: Progress Notes Filed: 05/27/2018 7:46 PM Note Text: Gynecologic Oncology [facility] Post-Op Visit Re: Judy Mishra CCF#: [id number] 05/27/2018 PROBLEM: Judy Mishra returns to the [...] note were sent to: Noah Woods, DO [address] [place] [address] [place] [address] CC: Selvin Mack Sr, MD (PCP) [facility] ANES Kj 05-09-2018 ANES POST HNO ID: [id number] Author: Constantin Gomez Service: Anesthesiology Author Type: [...] 09, 2018 TIME: 11:50 AM PAGER/CONTACT #: [id number] [facility] BRIEF OP NOTon 05-09-2018 BRIEF OP NOT HNO ID: [id number] Author: Carissa Liang (Fel) Service: Gynecology Oncology Author Type: Fellow Type: Brief Op Note Filed: 05/09/2018 8:29 AM Note Text: BRIEF OP NOTE LOG ID: [id number] Surgery/Procedure Date: 05/09/2018 Incision/Procedure Start Time: 8:11 AM Incision Close/Procedure End Time: 8:26 AM Surgeon(s)/Procedura list(s) and Cloth Cutting Inspector(s): Surgeon(s) and Role: * Risa Yoon - Primary * Krys (Dariusz) Ervin - Resident - Assisting * Carissa Liang (Fel) - Fellow Procedure(s): Hysteroscopy and DANDC Anesthesia: Choice - Anesthesia Consult Findings: Polypoid tissue removed. Posterior uterine fibroid, submucosal Estimated Blood Loss: 5 mls Specimens: Specimen ID Type Site Comments Sent To path 1 Tissue [facility] Pathology Routine Complications: None Pre-Op/Pre-Procedure Diagnosis: Endometrial mass Post-Op/Post-Procedu re Diagnosis: Endometrial mass SIGNATURE: Carissa Liang MD PATIENT NAME: Judy Mishra DATE: May 09, 2018 TIME: 8:28 AM PAGER/CONTACT #: [phone] [facility] NURSING PROGon 05-09-2018 NURSING PROG HNO ID: [id number] Author: Opal Oswald (Laundry Attendant) Service: Pharmacy Author Type: ? Type: Nursing Progress Note Filed: 05/09/2018 9:20 AM Note Text: LENS EXAMINER BEDSIDE DELIVERY SURVEY 1. Patient to use [facility] Bedside Delivery - NO prefer own pharmacy 2. If fax, patient would like us to fax prescriptions to Pharmacy of choice a. Pharmacy: b. Location: c. Phone: 3. Insurance card on file - NO 4. Credit card for payment - NO PRESCRIPTIONS WERE E-SCRIPTED TO [facility]AL [facility]. Normal [facility] NURSING PROG HNO ID: [id number] Author: Pallavi Ellsworth RN Service: ? Author [...] RN In Department: HOSP MAIN M023 Normal [facility] NURSING PROG HNO ID: [id number] Author: Pallavi Ellsworth RN Service: ? Author Type: Registered Nurse Type: Nursing Progress Note Filed: 05/09/2018 5:46 AM Note Text: Dr. Yoon paged for updated HANDP - M23-38, OR 8, Judy Mishra, patient's HANDP needs heart and lung sounds. Thank you, Trudy [phone] [facility] OPERATIVE NOon 05-09-2018 OPERATIVE NO HNO ID: [id number] Author: Risa Yoon Service: Gynecology Oncology Author Type: Physician Type: Operative Report Filed: 05/12/2018 10:21 PM Note Text: OPERATIVE/PROCEDURE REPORT LOG ID: [id number] SURGERY/PROCEDURE DATE: 05/09/2018 INCISION/PROCEDURE START TIME: 8:11 AM INCISION CLOSE/PROCEDURE END TIME: 8:29 AM SURGEON(S)/PROCEDURA LIST(S) AND DEVOPS DEVELOPER(S): Surgeon(s) and Role: * Risa Yoon - Primary * Krys Mueller - Resident - Assisting * Carissa Liang (Fel) - Fellow No Additional Staff SURGEON(S)/PROCEDURA LIST(S) AND DEVOPS DEVELOPER(S): Surgeon(s) and Role: * Risa Yoon - [...] findings.?Then the attention was directed to the [facility]. A speculum was placed in [...] 12, 2018 TIME: 10:18 PM PAGER/CONTACT #: Hang [facility] PT EDon 05-09-2018 PT ED HNO ID: [id number] Author: Marissa (Rn) MERY Ferreira Service: Nursing Author Type: Registered Nurse Type: Patient Education Filed: 05/09/2018 10:16 AM Note Text: PATIENT EDUCATION TOPIC: PROCEDURE / SURGERY: Procedure/Surgery: PATIENT NAME: Judy Mishra PATIENT LOCATION: [place] [address] READINESS TO LEARN COGNITIVE ABILITY: Alert and [...] None Electronically Signed By: Marissa Ferreira RN [facility] SURGICAL PATHOLOGYon 019 SURGICAL PATHOLOGY Specimen originated from [facility] Specimen #: [id number] Submitting Physician: RISA YOON MD FINAL DIAGNOSIS Endometrium, curettings - Disordered proliferative endometrium suggestive of benign endometrial polyp. ACV/dss 05/13/2018 Niles Geller M.D. (Electronic Signature) SPECIMEN SUBMITTED A: [facility] CLINICAL DATA ENDOMETRIAL MASS UTERINE BLEEDING GROSS DESCRIPTION A. Received in formalin on Telfa gauze are multiple red-brown, soft feathery segments of tissue aggregating to 2.5 x 2.0 x 0.3 cm. Totally submitted in one cassette. Gross examination performed at [facility], [address] [place] [address] 05/09/2018 4:54:51 PM Date of Report: 05/14/2018 Date of Procedure: 05/09/2018 Date of Receipt: 05/09/2018 Submitted by: RISA YOON MD Location: M22 Diagnostic interpretation performed at [facility], [address] [place] [address]. CLIA Number: [id number] Normal [facility] CNNURSEon 05-08-2018 CNNURSE Nurse Visit (REAGAN) JUDY MISHRA ([id number]) 1970 F Date Time Provider Department 05/08/18 8:00 AM LAB RN ONC NURSE DIPTI KIRK During your visit today, we recorded the following information about you: Tono Giraldo, KEARA, RETAIL CUSTOMER SERVICE REPRESENTATIVE 05/09/2018 4:47 PM Signed DATE OF SERVICE: 05/08/2018 PROBLEM: Judy Mishra presents for pre-op teaching. PRE-OP DIAGNOSIS: Abnormal uterine bleeding [facility]ED[facility] PRIMARY SURGEON: Risa Yoon MD NURSING PREOP ASSESSMENT: Fevers, chills, cough, or nasal congestion: No Vaginal itching, burning, discharge, or odor: No Pain with urination, frequency, urgency, cloudy or foul smelling urine: No If yes to any of the above then MD notified: Not Applicable ADVANCED CARE PLANNING: Does the patient have an advanced directive: No Does [facility] have a copy of the patient's advanced [...] prescribed by anesthesia, internal medicine, surgeon, or PIGS FEET FINISHER Stop NSAIDs, Aspirin (ASA), vitamins, herbal [...] jewelry, body piercing, makeup, contacts, lotions, nail nigerian on fingers, or anything in hair on arrival to surgery Wear low healed shoes and loose fitting clothing Leave all valuables at home or with a family member Directions to [facility] and the [facility] Parking/parking validation on the day prior [...] - IV pain medication after surgery, IV BEAM BUILDER HELPER if ordered by MD, discharged home with [...] please send any FMLA papers to physician's placement secretary. SYMPTOMS TO NOTIFY MD - Fever, [...] if after hours patient instructed to call burning machine operator and ask for economics faculty member lead programmer onc resident. SEAN program offered to patient: [...] None Educator: Tono Giraldo LPN [facility] Tono Giraldo LPN, KEARA 05/08/2018 7:38 AM Signed GYNECOLOGY PHYSICIAN CONTACT INFORMATION Surgery Scheduling Office General Gynecology Gynecologic Oncology Dr. Kenia Long Dr. Shira Jackson Dr. Girma Moon ) [phone] Shayy Landry Dr. Dimitris Nazario Dr. Helene Arias Dr. Judy Garcia Dr. Matthias Zeng Gynecology Nurse Practitioner Yudi Mejía, ROUNDSMAN Recovery Room Rn Oncology Nurse Practitioners: Opal Delcid, FAISAL Phan, FAISAL Momin, ROUNDSMAN Nithya Terrell, [facility] Urogynecology Nighat Burr, [facility] Dr. Stephie Mcdonnell Kiesha Curry, [facility] Dr. Trudy Callahan Dr. Tavo Ortega Dr. Ashley Martínez Fertility Dr. Girma Llamas Dr. Annia Wang Dr. Etienne Tatum Urogynecology Nurse Practitioner: Dr. Natalie Jeter Bruna Lester, ROUNDSMAN Lizeth Zelaya, FAISAL [place], ROUNDSMAN Fertility Nurse Practitioners: Yudi Higuera, FAISAL Post, ROUNDSMAN After 4:30 pm or on holidays or weekends, call: or . Ask the burning machine operator to page the ?lead programmer economics faculty member.' PRE-OPERATIVE CHECKLIST: PATIENT INSTRUCTIONS PRIOR TO SURGERYOur [...] not wear jewelry, body piercing(s), makeup, nail nigerian, hairpins, or contacts on the day of surgery. I am to leave valuables and money at home or with family members. Unless my surgeon tells me differently, I will STOP THESE MEDICATIONS 7 DAYS PRIOR TO SURGERY: (Motrin/Ibuprofen/Na proxen/Aleve/Advil), Aspirin, vitamin E, herbal medications, diet pills, and jpha-idu-fweuyxr medications. Tylenol (acetaminophen) is okay. If I [...] my Surgeon. Discuss medication changes with your telegrapher agent or primary care physician as well. If I stopped taking my blood-thinning medication, I will ask the surgeon when to resume taking it. If I am an outpatient, a responsible person will drive me home and it was suggested that someone stay with me for 24 hours. I understand that a agri business agent or cabdriver is NOT a responsible caregiver. [...] for surgery, I must call my surgical rn after 2pm the day before surgery. Pain management education material found in Your Surgical Guide was reviewed with me. Preoperative instructions given by: LAB RN PREOP INSTRUCTIONS PRE-OPERATIVE CHECKLIST ? See Pre-Operative [...] Guide Book for more information. [facility] TEAM ? At the [facility], we have a multidisciplinary team of caregivers that includes fellows, residents, nurse practitioners (simulation tech), physician assistants (PAs), clinical nurse specialists (CNSs), nurses, medical assistants (MAs), patient care nursing assistants (PCNAs), social workers, shoe caser and many others. We all have different [...] prior to surgery. Phone number: or ext [phone]. ? No alcohol on the day before [...] ? Do not wear any jewelry, nail nigerian, makeup, lotions, contact lenses, or anything in [...] Matthias Zeng Gynecology Nurse Practitioner Yudi Mejía, ROUNDSMAN Recovery Room Rn Oncology Nurse Practitioners: Opal Delcid, FAISAL Phan, FAISAL Momin, FAISAL Terrell, ROUNDSMAN Urogynecology Nighat Burr, [facility] Dr. Stephie Mcdonnell Kiesha Curry, [facility] Dr. Trudy Callahan Dr. Tavo Ortega Dr. Ashley Martínez Fertility Dr. Girma Llamas Dr. Annia Wang Dr. Etienne Tatum Urogynecology Nurse Practitioner: Dr. Natalie Jeter Bruna Lester, ROUNDSMAN Lizeth Zelaya, ROUNDSMAN [place], [facility] Fertility Nurse Practitioners: Yudi Higuera, FAISAL Post, ROUNDSMAN After 4:30 pm or on holidays or weekends, call: or . Ask the burning machine operator to page the ?lead programmer economics faculty member.' PRE-OPERATIVE CHECKLIST: PATIENT INSTRUCTIONS PRIOR TO SURGERYOur [...] not wear jewelry, body piercing(s), makeup, nail nigerian, hairpins, or contacts on the day of surgery. I am to leave valuables and money at home or with family members. Unless my surgeon tells me differently, I will STOP THESE MEDICATIONS 7 DAYS PRIOR TO SURGERY: (Motrin/Ibuprofen/Na proxen/Aleve/Advil), Aspirin, vitamin E, herbal medications, diet pills, and sxxm-rev-oqokaop medications. Tylenol (acetaminophen) is okay. If I [...] my Surgeon. Discuss medication changes with your telegrapher agent or primary care physician as well. If I stopped taking my blood-thinning medication, I will ask the surgeon when to resume taking it. If I am an outpatient, a responsible person will drive me home and it was suggested that someone stay with me for 24 hours. I understand that a agri business agent or cabdriver is NOT a responsible caregiver. [...] for surgery, I must call my surgical rn after 2pm the day before surgery. Pain management education material found in Your Surgical Guide was reviewed with me. Preoperative instructions given by: LAB RN PREOP INSTRUCTIONS PRE-OPERATIVE CHECKLIST ? See Pre-Operative [...] Guide Book for more information. [facility] TEAM ? At the [facility], we have a multidisciplinary team of caregivers that includes fellows, residents, nurse practitioners (simulation tech), physician assistants (PAs), clinical nurse specialists (CNSs), nurses, medical assistants (MAs), patient care nursing assistants (PCNAs), social workers, shoe caser and many others. We all have different [...] prior to surgery. Phone number: or ext [phone]. ? No alcohol on the day before [...] ? Do not wear any jewelry, nail nigerian, makeup, lotions, contact lenses, or anything in [...] Status:Closed by TONO GIRALDO on 05/09/18 Normal [facility] PROGRESSon 05-08-2018 PROGRESS HNO ID: [id number] Author: Tono Hernandez (Crusher Supervisor) KEARA Giraldo Service: ? Author Type: LICENSED [...] patient have an advanced directive: No Does [facility] have a copy of the patient's advanced [...] prescribed by anesthesia, internal medicine, surgeon, or PIGS FEET FINISHER Stop NSAIDs, Aspirin (ASA), vitamins, herbal [...] jewelry, body piercing, makeup, contacts, lotions, nail nigerian on fingers, or anything in hair on arrival to surgery Wear low healed shoes and loose fitting clothing Leave all valuables at home or with a family member Directions to [facility] and the [facility] Parking/parking validation on the day prior [...] - IV pain medication after surgery, IV BEAM BUILDER HELPER if ordered by MD, discharged home with [...] please send any FMLA papers to physician's placement secretary. SYMPTOMS TO NOTIFY MD - Fever, [...] if after hours patient instructed to call burning machine operator and ask for economics faculty member lead programmer onc resident. SEAN program offered to patient: [...] None Educator: Tono Giraldo LPN [facility] Normal [facility] Basic Metabolic Panlon 05-06 Anion gap [Moles/Vol] 7 mmol/L Low 9-[address] [facility] Comment on above: Performed By: #### C BCCYNTHIA, BMP #### [facility] [address] [place], [place] [address] Calcium [Mass/Vol] 8.7 mg/dL Normal 8.5-10.2 [facility] Comment on above: Performed By: #### C BCDIF, BMP #### [facility] [address] [place], [place] [address] Chloride [Moles/Vol] 107 mmol/L High 97-105 [facility] Comment on above: Performed By: #### C BCDIF, BMP #### [facility] [address] [place], [place] [address] CO2 [Moles/Vol] 28 mmol/L Normal 22-30 [facility] Comment on above: Performed By: #### C BCDIF, BMP #### [facility] [address] [place], [place] [address] Creatinine [Mass/Vol] 0.68 mg/dL Normal 0.58-0.[address] [facility] Comment on above: Performed By: #### C FRED, BMP #### [facility] [address] [place], [place] [phone] eGFR- Amer. >60 Normal [facility] Comment on above: Performed By: #### C FRED, BMP #### [facility] [address] [place] [phone] GFR/1.73 sq M predicted among non-blacks MDRD (S/P/Bld) [Vol rate/Area] mL/min/{1.73_m2} Normal [facility] Comment on above: Result Comment: eGFR [...] Performed By: #### C FRED, BMP #### [facility] [address] [place] [id number] Glucose [Mass/Vol] 105 mg/dL High 74-99 [facility] Comment on above: Result Comment: The [place] Diabetes Association (ADA) provides guidance for cutoff [...] Standards of Medical Care in Diabetes 2016, [place] Diabetes Association. Diabetes Care. 2016.39(Suppl 1). Performed By: #### C BCDIF, BMP #### [place] [address] [place] [phone] Potassium [Moles/Vol] 4.1 mmol/L Normal 3.7-5.[address] [facility] Comment on above: Performed By: #### C BCDIF, BMP #### [place] [address] [place] [address] Sodium [Moles/Vol] 142 mmol/L Normal 136-144 [facility] Comment on above: Performed By: #### C BCDIF, BMP #### [place] [address] Urea nitrogen [Mass/Vol] 7 mg/dL Normal 7-21 [facility] Comment on above: Performed By: #### C BCDIF, BMP #### [place] [address] CBC and Differentialon 05-06 Abs Baso 0.04 k/uL Normal <0.11 [facility] Comment on above: Performed By: #### C BCDIF, BMP #### [place] [address] Abs Mitchell 0.47 k/uL Normal <0.87 [facility] Comment on above: Performed By: #### C BCDIF, BMP #### [place] [address] Abs Neut 3.78 k/uL Normal 1.45-7.50 [facility] Comment on above: Performed By: #### C BCDIF, BMP #### [place] [id number] Absolute nRBC <0.01 Normal <0.01 [facility] Comment on above: Performed By: #### C BCDIF, BMP #### [place] [address] [place] [address] Basophils/100 WBC (Bld) 0.6 % Normal [facility] Comment on above: Performed By: #### C BCCYNTHIA BMP #### [place] [address] [place] [address] DTYPE Auto Diff Normal [facility] Comment on above: Performed By: #### C BCCYNTHIA, BMP #### [place] [address] Eosinophils (Bld) [#/Vol] 0.25 10*3/uL Normal <0.46 [facility] Comment on above: Performed By: #### C FRED BMP #### [place] [address] Eosinophils/100 WBC (Bld) 3.9 % Normal [facility] Comment on above: Performed By: #### C BCCYNTHIA, BMP #### [place] [phone] Erythrocyte distribution width (RBC) [Ratio] 12.7 % Normal 11.5-15.0 [facility] Comment on above: Performed By: #### C BCCYNTHIA, BMP #### [place] [phone] [place] [address] Hematocrit (Bld) [Volume fraction] 40.6 % Normal 36.0-46.0 [facility] Comment on above: Performed By: #### C BCDIF, BMP #### [place] [address] [place] [address] Hemoglobin (Bld) [Mass/Vol] 13.6 g/dL Normal 11.5-15.5 [facility] Comment on above: Performed By: #### C BCDIF, BMP #### [place] [address] [place] [address] Lymphocytes (Bld) [#/Vol] 1.78 10*3/uL Normal 1.00-4.00 [facility] Comment on above: Performed By: #### C BCDIF, BMP #### [place] [address] [place] [address] Lymphocytes/100 WBC (Bld) 28.1 % Normal [facility] Comment on above: Performed By: #### C BCDIF, BMP #### [place] [address] [place] [address] MCH (RBC) [Entitic mass] 28.6 pG Normal 26.0-34.0 [facility] Comment on above: Performed By: #### C BCDIF, BMP #### [place] [address] MCHC (RBC) [Mass/Vol] 33.5 g/dL Normal 30.5-36.[address] [facility] Comment on above: Performed By: #### C BCDIF, BMP #### [place] [address] MCV (RBC) [Entitic vol] 85.3 fL Normal 80.0-100.0 [facility] Comment on above: Performed By: #### C BCDIF, BMP #### [place] [address] Monocytes/100 WBC (Bld) 7.4 % Normal [facility] Comment on above: Performed By: #### C BCDIF, BMP #### [place] [address] [place] [address] Neutrophils/100 WBC (Bld) 60.0 % Normal [facility] Comment on above: Performed By: #### C BCDIF, BMP #### [place] [address] NRBCs 0.0 /100 WBC Normal 0 [facility] Comment on above: Performed By: #### C BCDIF, BMP #### [place] [address] Platelet mean volume (Bld) [Entitic vol] 12.3 fL Normal 9.0-12.7 [facility] Comment on above: Performed By: #### C BCCYNTHIA, BMP #### [facility] [address] [place], [place] [address] Platelets (Bld) [#/Vol] 217 10*3/uL Normal 150-400 [facility] Comment on above: Performed By: #### C BCDIF, BMP #### [facility] [address] [place], [place] [address] RBC (Bld) [#/Vol] 4.76 10*6/uL Normal 3.90-5.20 [facility] Comment on above: Performed By: #### Nlado BCDIF, BMP #### [facility] [address] [place], [place] [address] WBC (Bld) [#/Vol] 6.33 10*3/uL Normal 3.70-11.00 [facility] Comment on above: Performed By: #### Naldo BCCYNTHIA, BMP #### [facility] [address] [place], [place] [address] CNOVSPon 05-06-2018 CNOVSP Visit (SP) Office ([place]) JUDY MISHRA ([id number]) 1970 F Date Time Provider Department 05/06/18 9:45 AM RISA YOON During your visit today, we recorded the following information about you: Pulse Respiration Blood pressure Weight 70/minute 18/minute 128/64 88.7 kg Height 1.6 m Risa Yoon MD 05/08/2018 4:15 PM Signed Gynecologic Oncology [facility] Follow up Re: Judy Mishra CCF#: [id number] 05/06/2018 Gynecologic Oncology [facility] Follow up visit Re: Judy Mishra CCF#: [id number] 05/06/2018 PROBLEM: Judy Mishra returns to the [...] office note were sent to: Noah Woods, [address] [place] [address] CC: Selvin Mack Sr, MD (PCP) Risa [...] questions to their stated satisfaction. Yolanda Momin APRN.ROUNDSMAN 05/06/2018 11:04 AM Signed GYNECOLOGY PHYSICIAN CONTACT INFORMATION Surgery Scheduling Office General Gynecology Gynecologic Oncology Dr. Kenia Long Dr. Shira Jackson Dr. Girma Moon Dr. Osman Yoon Dr. Shayy Landry Dr. Dimitris Nazario Dr. Helene Arias Dr. Judy Garcia Dr. Matthias Zeng Gynecology Nurse Practitioner Yudi Mejía, ROUNDSMAN Recovery Room Rn Oncology Nurse Practitioners: Opal Delcid, FAISAL Phan, FAISAL Momin, FAISAL Terrell, [facility] Urogynecology Nighat Burr, [facility] Dr. Stephie Mcdonnell Kiesha Curry, [facility] Dr. Trudy Callahan Dr. Tavo Ortega Dr. Ashley Martínez Fertility Dr. Girma Llamas Dr. Annia Wang Dr. Etienne Tatum Urogynecology Nurse Practitioner: Dr. Natalie Jeter Bruna Lester, FAISAL Zelaya, FAISAL [place], [facility] Fertility Nurse Practitioners: Yudi Higuera, FAISAL Post, ROUNDSMAN After 4:30 pm or on holidays or weekends, call: or . Ask the burning machine operator to page the ?lead programmer economics faculty member.' PRE-OPERATIVE CHECKLIST: PATIENT INSTRUCTIONS PRIOR TO SURGERYOur [...] not wear jewelry, body piercing(s), makeup, nail nigerian, hairpins, or contacts on the day of surgery. I am to leave valuables and money at home or with family members. Unless my surgeon tells me differently, I will STOP THESE MEDICATIONS 7 DAYS PRIOR TO SURGERY: (Motrin/Ibuprofen/Na proxen/Aleve/Advil), Aspirin, vitamin E, herbal medications, diet pills, and ensz-aja-yicdaeg medications. Tylenol (acetaminophen) is okay. If I [...] my Surgeon. Discuss medication changes with your telegrapher agent or primary care physician as well. If I stopped taking my blood-thinning medication, I will ask the surgeon when to resume taking it. If I am an outpatient, a responsible person will drive me home and it was suggested that someone stay with me for 24 hours. I understand that a agri business agent or cabdriver is NOT a responsible caregiver. [...] for surgery, I must call my surgical rn after 2pm the day before surgery. Pain management education material found in Your Surgical Guide was reviewed with me. Preoperative instructions given by: LAB RN PREOP INSTRUCTIONS PRE-OPERATIVE CHECKLIST ? See Pre-Operative [...] Guide Book for more information. [facility] TEAM ? At the [facility], we have a multidisciplinary team of caregivers that includes fellows, residents, nurse practitioners (simulation tech), physician assistants (PAs), clinical nurse specialists (CNSs), nurses, medical assistants (MAs), patient care nursing assistants (PCNAs), social workers, shoe caser and many others. We all have different roles and responsibilities but we are all here to help you. Referring Provider: RISA YOON [[id number]] Allergies As of Date: 05/06/2018 Noted Allergy Reaction BACTRIM (SULFAMETHOXAZOLE-TR IMETH*03/29/2018 4 - Hives PENICILLINS 03/29/2018 16 - Unknown PERCOCET (OXYCODONE-ACETAMINO PHEN)03/29/2018 11 - Vomiting Date Reviewed: 05/06/2018 Reviewed by: Calista Marquez - Fully Assessed Reason for Visit: Follow Up [171] Primary Visit Diagnosis:Abnormal uterine bleeding [N93.9] Other Visit Diagnoses:Endometria l mass [N94.89] Preoperative examination [Z01.818] Preop examination [Z01.818] Order(s):SURGICAL REQUEST - ELECTIVE [2646421] Order #: [id number]: 1 BASIC METABOLIC PNL [SQBMP] Order #: [id number] FUTURE CBC + DIFF [SQCBCDIF] Order #: [id number] FUTURE REFER FOR ADMIT INTERVIEW [3178000] Order #: [id number] [facility] [0698616] Order #: [id number] CONSULT TO PATIENT EDUCATION [19990318] Order #: [id number]: 1 Prescriptions as of 05/06/2018 Sig: LORAZEPAM [...] Zeng Gynecology Nurse Practitioner Yudi Mejía, FAISAL Recovery Room Rn Oncology Nurse Practitioners: Opal Delcid, FAISAL Phan, FAISAL Momin, FAISAL Terrell, ROUNDSMAN Urogynecology Nighat Burr, [facility] Dr. Stephie Mcdonnell Kiesha Curry, [facility] Dr. Trudy Callahan Dr. Tavo Ortega Dr. Ashley Martínez Fertility Dr. Girma Llamas Dr. Annia Wang Dr. Etienne Tatum Urogynecology Nurse Practitioner: Dr. Natalie Jeter Bruna Lester, ROUNDSMAN Lizeth Zelaya, ROUNDSMAN [place], ROUNDSMAN Fertility Nurse Practitioners: Yudi Higuera, FAISAL Post, FAISAL After 4:30 pm or on holidays or weekends, call: or . Ask the burning machine operator to page the ?lead programmer economics faculty member.' PRE-OPERATIVE CHECKLIST: PATIENT INSTRUCTIONS PRIOR TO SURGERYOur [...] not wear jewelry, body piercing(s), makeup, nail nigerian, hairpins, or contacts on the day of surgery. I am to leave valuables and money at home or with family members. Unless my surgeon tells me differently, I will STOP THESE MEDICATIONS 7 DAYS PRIOR TO SURGERY: (Motrin/Ibuprofen/Na proxen/Aleve/Advil), Aspirin, vitamin E, herbal medications, diet pills, and hfwh-qki-zjbvwmc medications. Tylenol (acetaminophen) is okay. If I [...] my Surgeon. Discuss medication changes with your telegrapher agent or primary care physician as well. If I stopped taking my blood-thinning medication, I will ask the surgeon when to resume taking it. If I am an outpatient, a responsible person will drive me home and it was suggested that someone stay with me for 24 hours. I understand that a agri business agent or cabdriver is NOT a responsible caregiver. [...] for surgery, I must call my surgical rn after 2pm the day before surgery. Pain management education material found in Your Surgical Guide was reviewed with me. Preoperative instructions given by: LAB RN PREOP INSTRUCTIONS PRE-OPERATIVE CHECKLIST ? See Pre-Operative [...] Guide Book for more information. [facility] TEAM ? At the [facility], we have a multidisciplinary team of caregivers that includes fellows, residents, nurse practitioners (simulation tech), physician assistants (PAs), clinical nurse specialists (CNSs), nurses, medical assistants (MAs), patient care nursing assistants (PCNAs), social workers, shoe caser and many others. We all have different roles and responsibilities but we are all here to help you. Encounter Status:Closed by RISA YOON MD on 05/08/18 Normal [facility] HOSPon 05-06-2018 HOSP Patient:Lacie Mishra MRN: [...] 40.6 % 05/06/2018 46.0 36.0 Progress Notes (LAB RN ONC MAIN CA 4): Tono Giraldo LPN, RETAIL CUSTOMER SERVICE REPRESENTATIVE 05/08/2018 8:38 AM Sign at close encounter DATE OF SERVICE: 05/08/2018 PROBLEM: Judy Mishra presents for pre-op teaching. PRE-OP DIAGNOSIS: Abnormal uterine bleeding SCHEDULED SURGERY AND DATE: 05/09/2018 - [facility] and possible hysteroscopy PRIMARY SURGEON: Risa Yoon MD NURSING PREOP ASSESSMENT: Fevers, chills, cough, or nasal congestion: No Vaginal itching, burning, discharge, or odor: No Pain with urination, frequency, urgency, cloudy or foul smelling urine: No If yes to any of the above then MD notified: Not Applicable ADVANCED CARE PLANNING: Does the patient have an advanced directive: No Does [facility] have a copy of the patient's advanced [...] prescribed by anesthesia, internal medicine, surgeon, or PIGS FEET FINISHER Stop NSAIDs, Aspirin (ASA), vitamins, herbal [...] jewelry, body piercing, makeup, contacts, lotions, nail nigerian on fingers, or anything in hair on arrival to surgery Wear low healed shoes and loose fitting clothing Leave all valuables at home or with a family member Directions to [facility] and the [facility] Parking/parking validation on the day prior [...] - IV pain medication after surgery, IV BEAM BUILDER HELPER if ordered by MD, discharged home with [...] please send any FMLA papers to physician's placement secretary. SYMPTOMS TO NOTIFY MD - Fever, [...] if after hours patient instructed to call burning machine operator and ask for economics faculty member lead programmer onc resident. SEAN program offered to patient: [...] None Educator: Tono Giraldo LPN [facility] Tono Giraldo LPN, LPN 05/08/2018 7:38 AM Signed GYNECOLOGY PHYSICIAN CONTACT INFORMATION Surgery Scheduling Office General Gynecology Gynecologic Oncology Dr. Kenia Long Dr. Shira Jackson Dr. Girma Moon Dr. Osman Yoon Dr. Shayy Landry Dr. Dimitris Nazario Dr. Helene Arias Dr. Judy Garcia Dr. Matthias Zeng Gynecology Nurse Practitioner Yudi Mejía, FAISAL Recovery Room Rn Oncology Nurse Practitioners: Opal Delcid, FAISAL Phan, FAISAL Momin, FAISAL Terrell, FAISAL Urogynecology Nighat Burr, FAISAL Mcdonnell FAISAL Partida Dr. Dr. Tavo Ortega Dr. Ashley Martínez Fertility Dr. Girma Llamas Dr. Annia Wang Dr. Etienne Tatum Urogynecology Nurse Practitioner: Dr. Natalie Jeter [phone] Bruna Lester, ROUNDSMAN Lizeth Zelaya, ROUNDSMAN [place], ROUNDSMAN Fertility Nurse Practitioners: Yudi Higuera, FAISAL Post, FAISAL After 4:30 pm or on holidays or weekends, call: or . Ask the burning machine operator to page the ?lead programmer economics faculty member.' PRE-OPERATIVE CHECKLIST: PATIENT INSTRUCTIONS PRIOR TO SURGERYOur [...] not wear jewelry, body piercing(s), makeup, nail nigerian, hairpins, or contacts on the day of surgery. I am to leave valuables and money at home or with family members. Unless my surgeon tells me differently, I will STOP THESE MEDICATIONS 7 DAYS PRIOR TO SURGERY: (Motrin/Ibuprofen/Na proxen/Aleve/Advil), Aspirin, vitamin E, herbal medications, diet pills, and zaft-utb-oyrqgkd medications. Tylenol (acetaminophen) is okay. If I [...] my Surgeon. Discuss medication changes with your telegrapher agent or primary care physician as well. If I stopped taking my blood-thinning medication, I will ask the surgeon when to resume taking it. If I am an outpatient, a responsible person will drive me home and it was suggested that someone stay with me for 24 hours. I understand that a agri business agent or cabdriver is NOT a responsible caregiver. [...] for surgery, I must call my surgical rn after 2pm the day before surgery. Pain management education material found in Your Surgical Guide was reviewed with me. Preoperative instructions given by: LAB RN PREOP INSTRUCTIONS PRE-OPERATIVE CHECKLIST ? See Pre-Operative [...] Guide Book for more information. [facility] TEAM ? At the [facility], we have a multidisciplinary team of caregivers that includes fellows, residents, nurse practitioners (simulation tech), physician assistants (PAs), clinical nurse specialists (CNSs), nurses, medical assistants (MAs), patient care nursing assistants (PCNAs), social workers, shoe caser and many others. We all have different [...] ? Do not wear any jewelry, nail nigerian, makeup, lotions, contact lenses, or anything in [...] or chest pain. Progress Notes ([facility] DEPT): Ccstevie Provider 05/06/2018 10:42 AM Unsigned Rodent Control Worker [employer] ONLINE PATIENT REPORT Sheep Killer: Pati Kaur Completion Time: 00:08 Location: [facility] Surgical Service: BUMPER STRAIGHTENER Age: 48 yrs Height: 160 cm Weight: [...] cleared at OV today Yolanda Momin APRN.CNP [facility] PROGRESSon 05-06-2018 PROGRESS HNO ID: [id number] Author: Yolanda Momin Service: ? Author Type: Nurse Practitioner Type: Progress Notes Filed: 05/06/2018 2:38 PM Note Text: [facility] reviewed. There are no changes, cleared at OV today Yolanda Momin APRN.CNP [facility] PROGRESS HNO ID: [id number] Author: Risa Yoon Service: ? Author Type: [...] all questions to their stated satisfaction. Normal [facility] MRI FEMALE PELVIS WO/W IVCON on [...] Adenomyosis of the uterus. Numerous nabothian cysts. Director Medical Economics: PSC[employer] Transcribe Date/Time: Apr 29 2018 9:56A Dictated by : JEFFREY DUNN MD This examination was interpreted and the report reviewed and electronically signed by: JEFFREY DUNN MD on Apr 29 2018 2:47PM EST [id number] Normal [facility] PROGRESSon 04-29-2018 PROGRESS HNO ID: [id number] Author: Lavonne Garcia Rt Service: ? Author [...] April 29, 2018 TIME: 9:50 AM Normal [facility] PROGRESSon 04-24-2018 PROGRESS HNO ID: [id number] Author: Risa Yoon Service: ? Author Type: Physician Type: Progress Notes Filed: 05/08/2018 4:15 PM Note Text: Gynecologic Oncology [facility] Follow up Re: Judy Mishra CCF#: [id number] 05/06/2018 Gynecologic Oncology [facility] Follow up visit Re: Judy Mishra CCF#: [id number] 05/06/2018 PROBLEM: Judy Mishra returns to the [...] office note were sent to: Noah Woods, [address] [place] [address] CC: Selvin Mack Sr, MD (PCP) [facility] SURGICAL PATHOLOGYon 019 SURGICAL PATHOLOGY Specimen #: [id number]* Submitting Physician: RISA YOON MD FINAL DIAGNOSIS Consultation from [facility] [place], [place] ([id number], 8 H&E-stained slides labeled A, B, C, 03/11/2018): Endometrium, curettings (A) - Benign endometrial polyp of the isthmus type. Endometrium, curettings (B) - Benign endometrial and endocervical epithelium. Umbilical hernia sac, excision (C) - Benign fibroadipose tissue with focal mesothelial lining, consistent with hernia sac. BY/dcr 04/03/2018 Kaushik Benavides M.D. Ph.D. (Electronic Signature) SPECIMEN SUBMITTED A: 8 SLIDES ([id number]) CLINICAL DATA None provided. Date of Report: 04/04/2018 Date of Procedure: 04/01/2018 Date of Receipt: 04/02/2018 Submitted by: RISA YOON MD Location: [facility] Diagnostic interpretation performed at [facility], [address] [place] [id number]. [facility] CNOVSPon 03-29-2018 CNOVSP Visit (SP) Office ([facility]) JUDY MISHRA ([id number]) 1970 F Date Time Provider Department 03/29/18 10:00 AM RISA YOON During your visit today, we recorded the following information about you: Temperature Pulse Respiration Blood pressure 98 degrees 70/minute 16/minute 141/78 Weight Height 86.2 kg 1.62 m Risa Yoon MD 04/05/2018 1:47 PM Signed Gynecologic Oncology [facility] Consultation Re: Judy Mishra CCF#: [id number] 03/29/[address] Woods for [...] exam ABDOMEN: Abdomen soft, non-tender, no hepatosplenomegaly. Audiovisual Equipment Operator for exam: Was present PROCEDURES: None ASSESSMENT: [...] office note were sent to: Noah Woods [address] [place] [address] CC: Selvin Mack Sr, MD (PCP) Referring Provider: NOAH WOODS [[id number]] Allergies As of Date: 03/29/2018 Noted Allergy Reaction BACTRIM (SULFAMETHOXAZOLE-TR IMETH*03/29/2018 4 - Hives PENICILLINS 03/29/2018 16 - Unknown PERCOCET (OXYCODONE-ACETAMINO PHEN)03/29/2018 11 - Vomiting Date Reviewed: 03/29/2018 Reviewed by: Angela Guallpa - Fully Assessed Reason for Visit: Uterine mass [Other] Cmt: New patient consultation Primary Visit Diagnosis:Abnormal uterine bleeding [N93.9] Other Visit Diagnosis:Endometria l mass [N94.89] Order(s):OUTSIDE SURG PATH SLIDE REVIEW [[id number]] Order #: [id number] MRI FEMALE PELVIS WO/W IVCON [2015113] Order #: [id number] FUTURE [] iv contrast (will be provided [...] Status:Closed by RISA YOON MD on 04/05/18 [facility] PROGRESSon 03-28-2018 PROGRESS HNO ID: [id number] Author: Christi Terrell Service: (none) Author Type: Nurse Practitioner Type: Progress Notes Filed: 03/28/2018 3:02 PM Note Text: Chart prepped for upcoming appt with Dr. Yoon. Christi Terrell, STRUCTURAL STEEL IRONWORKER.[facility] PROGRESS HNO ID: [id number] Author: Risa Yoon Service: (none) Author Type: Physician Type: Progress Notes Filed: 04/05/2018 1:47 PM Note Text: Gynecologic Oncology [facility] Consultation Re: Judy Mishra CCF#: [id number] 03/29/[address] Woods for [...] exam ABDOMEN: Abdomen soft, non-tender, no hepatosplenomegaly. Audiovisual Equipment Operator for exam: Was present PROCEDURES: None ASSESSMENT: [...] office note were sent to: Noah Woods, [address] [place] [address] CC: Selvin Mack Sr, MD (PCP) Normal [facility] US-US PELVIS TRANSVAG IMPORT on 01-24-2018 US-US PELVIS TRANSVAG IMPORT Images were obtained outside of [facility] [id number] CN Normal [facility] CT-CT ABD/PELVIS W CON IMPOR Ton 01-17-2018 CT-CT ABD/PELVIS W CON IMPORT Images were obtained outside of [facility] [id number] CN Normal [facility] Vital Signs Date Time Vital Sign Value Performing Clinician Facility 02-29-2024 08:47-0500 Body height 160 cm Diogo Lux MD Work Phone: [facility] 02-29-2024 08:47-0500 Body mass index (BMI) [Ratio] 37.2 kg/m2 Diogo Lux MD Work Phone: [facility] 02-29-2024 08:47-0500 Body weight 95.25 kg Diogo Lux MD Work Phone: [facility] 02-29-2024 08:47-0500 Diastolic blood pressure 78 mm[Hg] Diogo Lux MD Work Phone: [facility] 02-29-2024 08:47-0500 Heart rate 79 /min Diogo Lxu MD Work Phone: [facility] 02-29-2024 08:47-0500 Systolic blood pressure 104 mm[Hg] Diogo Lux MD Work Phone: [facility] 10-10-2023 07:54-0400 Body height 160 cm Diogo Lux MD Work Phone: [facility] 10-10-2023 07:54-0400 Body mass index (BMI) [Ratio] 36.67 kg/m2 Diogo Lux MD Work Phone: [facility] 10-10-2023 07:54-0400 Body weight 93.89 kg Diogo Lux MD Work Phone: [facility] 10-10-2023 07:54-0400 Diastolic blood pressure 76 mm[Hg] Diogo Lux MD Work Phone: [facility] 10-10-2023 07:54-0400 Systolic blood pressure 119 mm[Hg] Diogo Lux MD Work Phone: [facility] 07-02-2023 00:34-0400 SaO2% (BldA) [Mass fraction] 99 % Sarah Frey MD Work Phone: [facility] 07-01-2023 22:23-0400 Body height 160 cm Sarah Frey MD Work Phone: [facility] 07-01-2023 22:23-0400 Body mass index (BMI) [Ratio] 36.14 kg/m2 Saarh Frey MD Work Phone: [facility] 07-01-2023 22:23-0400 Body temperature 98.29 [degF] Sarah Frey MD Work Phone: [facility] 07-01-2023 22:23-0400 Body weight 92.53 kg Sarah Frey MD Work Phone: [facility] 07-01-2023 22:23-0400 Diastolic blood pressure 74 mm[Hg] Sarah Frey MD Work Phone: [facility] 07-01-2023 22:23-0400 Heart rate 73 /min Sarah Frey MD Work Phone: [facility] 07-01-2023 22:23-0400 Respiratory rate 20 /min Sarah Frey MD Work Phone: [facility] 07-01-2023 22:23-0400 Systolic blood pressure 122 mm[Hg] Sarah Frey MD Work Phone: [facility] 03-20-2023 15:15-0500 Body height 160 cm Diogo Lux MD Work Phone: [facility] 03-20-2023 15:15-0500 Body mass index (BMI) [Ratio] 35.07 kg/m2 Diogo Lux MD Work Phone: [facility] 03-20-2023 15:15-0500 Body weight 89.81 kg Diogo Lux MD Work Phone: [facility] 03-20-2023 15:15-0500 Diastolic blood pressure 78 mm[Hg] Diogo Lux MD Work Phone: [facility] 03-20-2023 15:15-0500 Systolic blood pressure 123 mm[Hg] Diogo Lux MD Work Phone: [facility] 06-12-2022 11:17-0400 Diastolic blood pressure 88 mm[Hg] Qasim Hairston MD Work Phone: [facility] 06-12-2022 11:17-0400 Heart rate 71 /min Qasim Hairston MD Work Phone: [facility] 06-12-2022 11:17-0400 Respiratory rate 23 /min Qasim Hairston MD Work Phone: [facility] 06-12-2022 11:17-0400 SaO2% (BldA) [Mass fraction] 97 % Qasim Hairston MD Work Phone: [facility] 06-12-2022 11:17-0400 Systolic blood pressure 110 mm[Hg] Qasim Hairston MD Work Phone: [facility] 06-12-2022 10:17-0400 Body height 160 cm Qasim Hairston MD Work Phone: [facility] 06-12-2022 10:17-0400 Body mass index (BMI) [Ratio] 34.37 kg/m2 Qasim [facility] MD [facility] 06-12-2022 10:17-0400 Body temperature 98.4 [degF] Qasim [facility]irston MD [facility] 06-12-2022 10:17-0400 Body weight 88 kg Qasim [facility]irston MD [facility] 06-08-2020 13:52-0400 Body temperature 98.01 [degF] Stephie Iverson MD Work Phone: [employer] Work Phone: 06-08-2020 13:52-0400 Body weight 90.49 kg Stephie Iverson MD Work Phone: [employer] Work Phone: 06-08-2020 13:52-0400 Diastolic blood pressure 71 mm[Hg] Stephie Iverson MD Work Phone: [employer] Work Phone: 06-08-2020 13:52-0400 Heart rate 85 /min Stephie Iverson MD Work Phone: [employer] Work Phone: 06-08-2020 13:52-0400 Respiratory rate 16 /min Stephie Iverson MD Work Phone: [employer] Work Phone: 06-08-2020 13:52-0400 SaO2% (BldA) [Mass fraction] 98 % Stephie Iverson MD Work Phone: [employer] Work Phone: 06-08-2020 13:52-0400 Systolic blood pressure 154 mm[Hg] Stephie Iverson MD Work Phone: [employer] Work Phone: Encounters Encounter Date Encounter Type Care Provider Facility Start: 02-29-2024 End: 02-29-2024 Bamboo flowsheet Diogo Lux MD [facility] Start: 02-29-2024 End: 02-29-2024 Bamtoribio Lux MD Work Phone: [facility] Start: 02-29-2024 End: 02-29-2024 Office outpatient visit 25 minutes Diogo Lux MD Work Phone: [facility] [place] Comment on above: 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); Postoperative hypothyroidism (CMS/HCC); Left-sided tinnitus Start: 10-10-2023 End: 10-10-2023 Office outpatient visit 25 minutes Diogo Lux MD Work Phone: [facility] Comment on above: 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); Postoperative hypothyroidism (CMS/HCC); LPRD (laryngopharyngeal reflux disease) Start: 10-10-2023 End: 10-10-2023 ambulatory DIOGO LUX Not Available Start: 08-31-2023 End: 08-31-2023 Emergency department patient visit MARKELL Deutsch [facility] Start: 07-02-2023 End: 07-02-2023 Emergency department patient visit [facility] Start: 07-01-2023 End: 07-02-2023 Emergency department patient visit Sarah Frey MD Work Phone: [facility] ED Comment on above: Back strain, initial encounter (Primary Dx); Fall, initial encounter Start: 03-21-2023 ambulatory [facility] Start: 03-21-2023 Encounter for genera l adult medical examination with abnormal findings [facility] Start: 03-21-2023 End: 03-21-2023 Patient encounter status José Miguel Jackson CNP Work Phone: [facility] Start: 03-21-2023 End: 03-23-2023 Subsequent hospital visit by physician José Miguel Jackson ROUNDSMAN Work Phone: [facility] Comment on above: Encounter for preven [...] Diogo wheatley MD Work Phone: [facility] [place] Start: 03-12-2023 End: 03-12-2023 ambulatory DIOGO LUX Not Available Start: 10-19-2022 End: 10-19-2022 Emergency department patient visit Otf DAMON~[id number] [facility] Start: 07-13-2022 End: 07-14-2022 ambulatory BRIAN COTTRELL [facility] Start: 07-13-2022 End: 07-13-2022 Subsequent hospital visit by physician [facility] Comment on above: SOB (shortness of br eath); Palpitations; Chest pain, unspecified type Start: 06-12-2022 End: 06-12-2022 Emergency department patient visit Qasim Hairston MD Work Phone: [facility] Comment on above: Atypical chest [...] patient visit Stephie Iverson MD Work Phone: [facility] Comment on above: Dyspnea, unspecified [...] real ti me w/image limited José Miguel Mayatfried [employer] - [facility] Work Phone: Start: 03-21-2023 Urnls dip stick/tabl et rgnt auto w/o microscopy José Miguel Mayatfried [employer] - [employer] Work Phone: Start: 03-21-2023 Comprehensive metabo lic panel José Miguel Mayatfried [employer] - [facility] Work Phone: Start: 03-21-2023 Lipid panel José Miguel roque [employer] - [employer] Work Phone: Start: 06-12-2022 Radiologic exam ches [...] Detail Author Start: 03-21-2028 Lipid panel Lipids [facility] Start: 02-29-2024 End: 02-29-2024 Patient encounter procedure 02/29/2024 9:00 AM EST [facility] [address] [place] [address] Diogo Lux MD [address] [facility] [address] [place] [address] Arrived [facility] [place] Comment on above: Arrived Start: 10-10-2023 End: 10-10-2023 Patient encounter procedure 10/10/2023 8:00 AM EDT Office Visit [facility] [address] [facility] [address] [place] [id number] Diogo Lux MD [address] [facility] [address] [place] [address] [facility] Start: 09-18-2023 End: 09-18-2023 Patient encounter procedure 09/18/2023 8:00 AM EDT Office Visit [facility] [address] [place] [address] José Miguel Jackman, [employer] - [place] [address] [place] [address] 6 mo [facility] Comment on above: 6 mo Start: 09-13-2023 Influenza vaccination Flu vaccine (S sunil Ended) [facility] Start: 03-20-2023 End: 03-20-2023 Patient encounter procedure 03/20/2023 3:30 PM EST Office Visit [facility] [address] [facility] [address] [place] [id number] Diogo Lux MD [address] [facility] [place] [facility] [address] [place] [address] [facility] Start: 09-12-2022 Influenza vaccination B [facility] [employer] Start: 02-22-2022 Screening for malignant neoplasm of breast Breast cancer screen [facility] [employer] Start: 02-22-2022 Shingles vaccine (1 of 2) Shingles vaccine (1 of 2) [facility] [employer] Start: 10-13-2020 Influenza vaccination Flu vaccine (S sunil Ended) [employer] Phone: Start: 02-22-2017 Screening for malignant neoplasm of colon [facility] [employer] Start: 2012 Lipid panel [facility] [employer] Start: 02-22-1993 Screening for malignant neoplasm of cervix Cervical cancer screen [employer] Phone: Start: 02-22-1991 DTaP/Tdap/Td vaccine (1 - Tdap) DTaP/Tdap/Td vaccine (1 - Tdap) [facility] [employer] Start: 02-22-1990 Hepatitis C screening Hepatitis C [facility] Start: 1988 COVID-19 Vaccine (1) COVID-19 Vaccin e (1) [employer] Phone: Start: 02-22-1987 HIV screening HIV screen [facility] [employer] Start: 1984 Depression Screen Depression Screen [facility] [employer] Start: 1972 COVID-19 Vaccine (#1) COVID-19 Vacci ne (#1) [facility] [employer] Start: 1972 Hepatitis B vaccine (1 of 3 - 3-dose series) Hepatitis B vaccine (1 of 3 - 3-dose series) [facility] Start: 1972 Hepatitis C screening [facility] Phone: Dup-scan xtr veins complete bilateral study VASCULAR REPORT Imaging Ordered: 06/08/2020 [employer] Phone: Comment on above: Ordered: 06/08/2020 End: 07-13-2022 ECHO Complete 2D W Doppler W Color ECHO Complete 2D W Doppler W Color Echocardiography Routine SOB (shortness of breath) Palpitations Chest pain, unspecified type 1 Occurrences starting 07/13/2022 until 07/13/2022 [employer] Phone: Comment on above: 1 Occurrences starti ng 07/13/2022 until 07/13/2022 EKG 12 Lead EKG 12 Lead ECG Routine 06/12/2022 10:27 AM EDT [employer] Phone: End: 07-13-2022 Exercise stress test study CARDIAC STRESS TEST EXERCISE ONLY [facility] Routine SOB (shortness of breath) Palpitations Chest pain, unspecified type 1 Occurrences starting 07/13/2022 until 07/13/2022 [employer] Phone: Comment on above: 1 Occurrences starti ng 07/13/2022 until 07/13/2022 Payers Date Payer Category Payer Medicaid [facility] MEDICAID [place] MEDICAID [id number] 2017-Present [address] [place] [phone] [id number] 2017 Medicaid (Managed Care) [facility] MEDICAID [id number] 1972 Unknown [id number] 2.16.840.1.191877.3.579.2. 593 1972 Unknown [id number] 2.16.840.1.639596.3.579.2. 593 1972 Unknown [id number] 2.16.840.1.214653.3.579.2. 593 1972 Unknown [id number] 2.16.840.1.884186.3.579.2. 593 1972 Unknown [id number] 2.16.840.1.163307.3.579.2. 593 1972 Unknown [id number] 2.16.840.1.118876.3.579.2. 593 1972 Unknown [id number] 2.16.840.1.280244.3.579.2. 593 1972 Unknown [id number] 2.16.840.1.905078.3.579.2. 174 1972 Unknown [id number] 2.16.840.1.290190.3.579.2. 174 1972 Unknown [id number] 2.16.840.1.973897.3.579.2. 174 1972 Unknown [id number] 2.16.840.1.021836.3.579.2. 174 1972 Unknown [id number] 2.16.840.1.625093.3.579.2. 754 1972 Unknown [id number] 2.16.840.1.505664.3.579.2. 754 1972 Unknown [id number] 2.16.840.1.071746.3.579.2. 173 1972 Unknown [id number] 2.16.840.1.704485.3.579.2. 1259 1972 Unknown [id number] 2.16.840.1.731633.3.579.2. 1259 1972 Unknown [id number] 2.16.840.1.915132.3.579.2. 1259 1959 Unknown [id number] [id number]. [id number] Social History Date Type Detail Facility Start: 06-08-2020 End: 03-06-2023 Tobacco smoking status PRIS Never smoker [facility] Start: 06-08-2020 End: 03-06-2023 Tobacco use and exposure Never used [employer] Start: 1970 Sex Assigned At Not on file M [employer] Work Phone: Exposure to SARS-CoV -2 (event) Not sure [employer] Start: 06-12-2022 History SDOH Alcohol Frequency 1 [employer] Phone: Start: 06-12-2022 History SDOH Alcohol Std Drinks 0 [employer] Phone: Start: 03-20-2023 End: 10-10-2023 Alcohol intake Ex-drinker (finding) [facility] Start: 03-20-2023 End: 10-10-2023 History of Social function [facility] Start: 03-20-2023 End: 10-10-2023 Tobacco use panel [facility] How often to you hav e a drink containing alcohol? Never [employer] Phone: How many standard dr inks containing alcohol do you have on a typical day? Patient does not drink [employer] Phone: Clinical Notes 06-08-2020 to 02-29-2024 Diogo Lux MD - 02/29/2024 9:00 AM Kosta Lux MD - 10/10/2023 8:00 AM Kavitha Lux MD - 03/20/2023 3:30 PM ESTDischarge InstructionsAttachments Note Date & Type Note Facility 02-29-2024 History of Presen t illness Narrative Subjective Patient ID: Judy Mishra is a 54 y.o. female who presents for Thyroid Cancer (Follow up labs/ultrasound 02/22/24 TB) Thyroglobulin <2.0. US showed a small amount of residual tissue on the left. Stable per radiology. Pt has also been having some left ear discomfort and rumbling . Takes 88mcg synthroid per day Family History Problem Relation Name Age of Onset No Known Problems Mother Heart failure Father Stroke Father Active Ambulatory Problems Diagnosis Date Noted LPRD (laryngopharyngeal reflux disease) 03/06/2023 Multinodular goiter ([facility]/HCC) 03/06/2023 Papillary microcarcinoma of thyroid ([facility]) 03/06/2023 Postoperative hypothyroidism ([facility]) 03/06/2023 Resolved Ambulatory Problems Diagnosis Date Noted Thyromegaly ([facility]) 03/06/2023 Past Medical History: Diagnosis Date Anxiety [...] 500 mg by mouth in the morning. busPIRone (Buspar) 15 MG tablet Take 15 mg by mouth levothyroxine (Synthroid, Levoxyl) 88 MCG tablet TAKE ONE TABLET BY MOUTH ONCE DAILY ON AN EMPTY STOMACH IN THE MORNING 30 tablet 11 Loratadine 10 MG capsule Take 1 capsule by mouth in the morning. omeprazole (PriLOSEC) [address] capsule Take 1 capsule (40 mg) by mouth in the morning. Take before meals. Do not crush or chew.. 90 capsule 0 Probiotic Product (PROBIOTIC BLEND PO) Probiotic [DISCONTINUED] LORazepam (Ativan) 0.5 MG tablet Take 1 tablet by mouth 3 (three) times a day as needed [DISCONTINUED] famotidine (Pepcid) 20 MG tablet Take 1 tablet (20 mg) by mouth at bedtime 90 tablet 0 No current facility-administered medications on file prior to visit. Objective Last Recorded Vitals Vitals: 02/29/24 0847 BP: 104/78 Pulse: 79 ENT Physical Exam Ear Ear Canals: left ear canal normal; Tympanic Membranes: left tympanic membrane normal; Neck Neck: neck normal; neck palpation normal; Thyroid: thyroid normal; Assessment/Plan Diagnoses and all orders for this visit: Papillary microcarcinoma of thyroid (CMS/HCC) Postoperative hypothyroidism (CMS/HCC) Left-sided tinnitus Thyroglobulin and US look good. Check TFTs. Audio to evaluate noise in left ear documented in this encounter [facility] 10-10-2023 History of Presen t illness Narrative Subjective Patient ID: Judy Mishra is a 53 y.o. female who presents for Thyroid Cancer (6 mo follow up with ultrasound and labs) F/U thyroid US. No change noted to residual ST and local normal sized and normal morphology LN per radiology. Thyroglobulin <2 and TSH 0.53 on synthroid 88mcg/d. Having throat sx similar to successfully treated LPRD sx in the past Family History Problem Relation Name Age of Onset No Known Problems Mother Heart failure Father Stroke Father Active Ambulatory Problems Diagnosis Date Noted LPRD (laryngopharyngeal reflux disease) 03/06/2023 Multinodular goiter (CMS/HCC) 03/06/2023 Papillary microcarcinoma of thyroid (CMS/HCC) 03/06/2023 Postoperative hypothyroidism (CMS/HCC) 03/06/2023 Resolved Ambulatory Problems Diagnosis Date Noted Thyromegaly (CMS/HCC) 03/06/2023 Past Medical History: Diagnosis Date Anxiety COVID-19 03/2020 Endometriosis Uterine mass Past Surgical History: Procedure Laterality Date SECTION, CLASSIC x 2 CHOLECYSTECTOMY 2016 THYROID SURGERY 08/24/2020 total thyroidectomy, Dr. Lux UMBILICAL HERNIA REPAIR 2017 and 2018 Allergies Allergen Reactions Bee Venom Lymecycline Sulfamethoxazole-Trimethoprim [...] 3 (three) times a day as needed Probiotic Product (PROBIOTIC BLEND PO) Probiotic [DISCONTINUED] pantoprazole (ProtoNix) 40 MG EC tablet Take 40 mg by mouth in the morning. Take before meals. No current facility-administered medications on file prior to visit. Objective Last Recorded Vitals Vitals: 10/10/23 0754 BP: 119/76 ENT Physical Exam Constitutional Appearance: patient appears well-developed, well-nourished and well-groomed, Communication/Voice: communication appropriate for developmental age; vocal quality normal; Assessment/Plan Diagnoses and all orders for this visit: Papillary microcarcinoma of thyroid (CMS/HCC) Postoperative hypothyroidism (CMS/HCC) LPRD (laryngopharyngeal reflux disease) - omeprazole (PriLOSEC) [address] capsule; Take 1 capsule (40 mg) by mouth in the morning. Take before meals. Do not crush or chew.. - famotidine (Pepcid) 20 MG tablet; Take 1 tablet (20 mg) by mouth at bedtime Stable US. Repeat US and thyroglobulin. Synthroid refilled. Restart LPRD tx documented in this encounter [facility] 03-20-2023 History of Presen t illness Narrative [...] Dr. Lux UMBILICAL HERNIA REPAIR 2017 and 2018 Allergies Allergen Reactions Bee Venom Lymecycline Sulfamethoxazole-Trimethoprim [...] in a year. documented in this encounter [facility] 06-12-2022 Hospital Discharg e instructions Qasim Hairston MD - 06/12/2022 11:50 AM EDT Monitor for worsening pain shortness of breath or other problems. Call your primary care doctor for close follow-up. Referred to cardiology for further evaluation. The following attachments cannot be sent through Care Everywhere.Chest Pain (Stateless)documented in this encounter [facility]IR[facility] LEW [employer] Work Phone: 06-08-2020 Note [facility] Vascular Lower Extremities DVT Study Procedure Patient Name MISHRA Date of Study 06/08/2020 JUDY Yoon Date of 1970 Gender Female Age 50 year(s) Race Room Number 06 Height: 63 inch, 160.02 cm Corporate ID [id number] Weight: 200 pounds, 90.7 kg # Patient Acct [id number] BSA: 1.93 m^2 BMI: 35.43 kg/m^2 # MR # [id number] [employer] Carrie Haines RT Interpreting Physician Gian Braga Referring Referring Physician Stephie Iverson Nurse Practitioner Procedure Type of Study: Veins: Lower Extremities DVT Study, DUP LOWER EXTREMITY VENOUS LEFT. Indications for Study:Leg Swelling. Patient Status:STAT. Comments:Left leg pain, no injury, since hx of covid 03/2020. Conclusions Summary Negative for DVT left lower extremity and right groin. Signature ---- Electronically signed by RT Prosper(Becky)(M)(CT)([facility])([employer] Shift Manager ) on 06/08/2020 03:09 PM ---- ---- [...] !None ! + (more content not included)... [employer] Phone: Evaluation note Diagnosis Dyspnea, unspecified type- Primary Anxiety state Anxiety state, unspecified History of 2019 novel coronavirus disease (COVID-19) Multiple thyroid nodules Nontoxic multinodular goiter Renal cyst, left Unspecified congenital cystic kidney disease Essential hypertension Unspecified essential hypertension Thyromegaly Goiter, unspecified documented in this encounter [employer] Phone: evaluation note* Diagnosis Atypical chest pain- Primary Other chest pain documented in this encounter [employer] Phone: evaluation note* Diagnosis SOB (shortness of breath) Shortness of breath Palpitations Chest pain, unspecified type documented in this encounter [employer] Phone: evaluation note* Diagnosis Papillary microcarcinoma of thyroid (CMS/HCC)- Primary documented in this encounter [facility]* Diagnosis Encounter for preventative adult health care exam with abnormal findings documented in this encounter [employer] Phone: evaluation note* Diagnosis Right upper quadrant pain Abdominal pain, right upper quadrant documented [facility] this [facility] Phone: evalxzrtik note* Diagnosis Back strain, initial encounter- Primary Fall, initial encounter [facility] Diagnosis Papillary microcarcinoma of thyroid (CMS/HCC)- Primary Postoperative hypothyroidism ([facility]/HCC) Postsurgical hypothyroidism LPRD (laryngopharyngeal reflux disease) Acute laryngitis, without mention of obstruction [facility] Diagnosis Papillary microcarcinoma of thyroid (CMS/HCC)- Primary Postoperative hypothyroidism ([facility]/HCC) Postsurgical hypothyroidism Left-sided tinnitus Unspecified tinnitus [facility]* Attachments The following attachments cannot be sent through Care Everywhere. * Anxiety Disorders: General Info (Stateless) * SOB (Shortness of Breath) (Stateless) * Thyroid Nodules (Stateless) * Hypertension: General Info (Stateless) * Goiter (Stateless) [facility] [employer] Phone: Hospital Discharge instructions* Attachments The following attachments cannot be sent through Care Everywhere. * Back: Strain (Stateless) [facility] Summary Purpose Family History No Family History [...] Specialty Diagnoses / Procedures Referred By Kevin sadler Referred To Contact Cardiology Diagnoses SOB (shortness of breath) Palpitations Chest pain, unspecified type Procedures CARDIAC STRESS TEST EXERCISE ONLY Brian Cottrell MD [address] [place] [address] Referral ID Status Reason Start Date Expiration Date V isits Requested Visits Authorized [id number] Not Required - RTA 06/13/2022 06/13/2023 1 1 Specialty Diagnoses / Procedures Referred By Kevin sadler Referred To Contact Cardiology Diagnoses SOB (shortness of breath) Palpitations Chest pain, unspecified type Procedures ECHO Complete 2D W Doppler W Color Brian Cottrell MD [address] [place] [address] Referral ID Status Reason Start Date Expiration Date V isits Requested Visits Authorized [id number] Not Required - RTA 06/13/2022 06/13/2023 1 1 Specialty Diagnoses / Procedures Referred By Contac t Referred To Contact Radiology Diagnoses Right upper quadrant pain Procedures US GALLBLADDER RUQ José Miguel Jackman, STRUCTURAL STEEL IRONWORKER - ROUNDSMAN [address] [place] [address] Referral ID Status Reason Start Date Expiration Date Visits Re quested Visits Authorized [id number] Closed 03/19/2023 03/18/2024 1 1 Additional Source Comments INFORMATION SOURCE (unrecogn ized section and content) DATE CREATED AUTHOR 11/23/2018 [facility] DATE CREATED AUTHOR AUTHOR'S ORGANIZ ATION 03/21/2022 [facility] DATE CREATED AUTHOR AUTHOR'S ORGANIZ ATION [facility] DATE CREATED AUTHOR AUTHOR'S ORGANIZ ATION 07/08/2023 [facility] DATE CREATED AUTHOR AUTHOR'S ORGANIZ ATION 09/03/2023 [facility] DATE CREATED AUTHOR AUTHOR'S ORGANIZ ATION 10/12/2023 [facility] EPIC Reason for Visit (unrecogniz ed section and [...] TEST EXERCISE ONLY Brian Cottrell MD [address] [place] [address] Referral ID Status Reason Start Date Expiration Date V isits Requested Visits Authorized [id number] Not Required - RTA 06/13/2022 06/13/2023 1 1 Specialty Diagnoses / Procedures Referred By Contac t Referred To Contact Cardiology Diagnoses SOB (shortness of breath) Palpitations Chest pain, unspecified type Procedures ECHO Complete 2D W Doppler W Color Brian Cottrell MD [address] [place] [address] Referral ID Status Reason Start Date Expiration Date V isits Requested Visits Authorized [id number] Not Required - RTA 06/13/2022 06/13/2023 1 1 Reason Comments History Of Thyroidectomy Lab results Specialty Diagnoses / Procedures Referred By Contac t Referred To Contact Radiology Diagnoses Right upper quadrant pain Procedures US GALLBLADDER RUQ José Miguel Jackman, STRU[employer]URAL [employer]ER - ROUNDSMAN [address] [place] [address] Referral ID Status Reason Start Date Expiration Date Visits Re quested Visits Authorized [id number] Closed 03/19/2023 03/18/2024 1 1 Reason Comments Back Pain Fall Pt states she was on a hammock swing when it broke and she fell. Lower back pain and R upper and lower abd pain. Reason Comments Thyroid Cancer 6 mo follow up with ultrasound and labs Reason Comments Thyroid Cancer Follow up labs/ultra sound 02/22/24 [facility] Scheduled Active and Recently Administ ered Medications [...] dose 2254 (New Bag - Provider: Radha Garcia RN) 0044 (Stopped - Provider: Analilia Parsons [...] 07/01/23 at 2235, Until Discontinued, Nausea, Vomiting 2252 (Given - Provider: Radha Garcia, MERY) Care Teams (unrecognized sec tion and content) Marketing Operations Assistant Relationship Specialty Start Date End Date Selvin Mack Sr., DO [address] [facility] [place] [address] PCP - General Family Medicine 06/08/20 Marketing Operations Assistant Relationship Specialty Start Date End Date Selvin Mack Sr., DO [address] [facility] [place] [address] PCP - General Family Medicine 06/08/20 Marketing Operations Assistant Relationship Specialty Start Date End Date José Miguel Jackman APRN - FAISAL [address] [place] [address] PCP - General Nurse Practitioner 03/19/23 Marketing Operations Assistant Relationship Specialty Start Date End Date José Miguel Jackman APRN - FAISAL [address] [place] [address] PCP - General Nurse Practitioner 03/19/23 Marketing Operations Assistant Relationship Specialty Start Date End Date José Miguel Jackman APRN - CNP [address] [place] [address] PCP - General Nurse Practitioner 03/19/23 Marketing Operations Assistant Relationship Specialty Start Date End Date José Miguel London [facility] [place] [address] Referring Physician Nurse Practitioner 10/10/23 Marketing Operations Assistant Relationship Specialty Start Date End Date José Miguel London MD [address] [facility] [place] [address] Referring Physician Nurse Practitioner 10/10/23 Marketing Operations Assistant Relationship Specialty Start Date End Date José Miguel London MD [address] [place] [address] Referring Physician Nurse Practitioner 10/10/23 FOR RECORDS PERTAINING TO PATIENTS WHO ARE [...] BE BASED ON THE PRIMARY CLINICAL RECORDS. [facility] [employer] [facility]. provides no warranty or guarantee of the accuracy or completeness of information in this document.
[2024-02-29 13:13] LABS: Free T4 1.07 ng/dL (0.76-1.46)
== END 2024-02-29 11:30 | disposition home or self-care (01) ==
LOC: LAB 11:34
PROVIDERS: Visit Provider Otolaryngology
DX: E89.0 Postprocedural hypothyroidism (principal)
CPT/HCPCS: 36415; 84439; 84443

== ENCOUNTER 2024-09-12 16:26 | Outpatient (OUT) | payer OTHER, SELFPAY ==
--- NOTE | 2024-09-12 16:40 | US_ITS ---
The [address] [address] Patient Name: MIRIAM DERAS MRN: [id number] date: 1970 Sex: F Assigned Patient Location: US Current Patient Location: US Accession/Order Number: [id number] Exam Date: 09/12/2024 23:25 Report Date: 09/12/2024 23:33 At the request of: DIOGO LUX MD Procedure: US thyroid Ultrasound thyroid gland INDICATION: Papillary carcinoma thyroid COMPARISON: 02/22/2024 FINDINGS: Prior thyroidectomy. Superior to the right thyroidectomy bed, there is a 1.5 x 0.5 x 1.2 cm lymph node. Within the left thyroid bed, there is hypoechoic soft tissue due to measuring 0.8 x 0.7 x 0.5 cm in size. This appears slightly smaller, although this may be related to technique. There is a lymph node just superior to the left thyroid fossa 1.0 x 0.4 x 1.0 cm in size. US/US thyroid IMPRESSION: Similar appearance of the postsurgical changes with residual soft tissue left thyroidectomy bed. Stable to perhaps slightly smaller in size. Continued surveillance is recommended. Impression dictated by: Michel Graham M.D. 09/12/2024 11:33 PM Dictation Location: [place] [address] Electronically authenticated by: [id number] Y Date: 09/12/2024 23:33
[2024-09-12 17:16] LABS: Thyroid Stimulating Hormone 0.563 uIU/mL (0.358-3.740)
== END 2024-09-12 16:27 | disposition home or self-care (01) ==
LOC: US 16:26
PROVIDERS: Visit Provider Otolaryngology
DX: C73 Malignant neoplasm of thyroid gland (principal); E89.0 Postprocedural hypothyroidism
CPT/HCPCS: 36415; 76536; 84439; 84443; 84481

== ENCOUNTER 2024-09-24 09:54 | Outpatient (OUT) | payer OTHER, SELFPAY ==
--- OUTSIDE RECORDS SUMMARY | 2024-09-24 10:03 | XMS_ITS | CCD ---
Author Organization [facility] Care Team Providers Care Cosmetic Sales Name Role Phone House Sr Selvin SMITH [...] Unavailable SARAH FREY Attending Unavailable DIAB Otf [id number] JARRED Attendi ng Unavailable HOUSE SR, SELVIN P Primary Care Unavailable BRIAN COTTRELL Referring Unavailable HOUSE SR, SELVIN P Primary Care Unavailable MARKELL SOTO Attending Unavailable AUGUSTINA, JOSÉ MIGUEL Primary Care Unavailable José Miguel London MD Unavailable TIMMIS, DIOGO H Attending Unavailable TIMMIS, DIOGO H Attending Unavailable TIMMIS, DIOGO H Attending Unavailable GOTTERFRIED, JOSÉ MIGUEL Referring Unavailable TIMMIS, DIOGO H Attending Unavailable GOTTERFRIED, JOSÉ MIGUEL Referring Unavailable Augustina GIS SOFTWARE ENGINEER - AERODYNAMIC CONSULTANT, José Miguel Primary Care Provide r AUGUSTINA, JOSÉ MIGUEL Referring Unavailable AUGUSTINA, JOSÉ MIGUEL Primary Care Unavailable AUGUSTINA, JOSÉ MIGUEL Primary Care Unavailable AUGUSTINA, JOSÉ MIGUEL Referring Unavailable AUGUSTINA, JOSÉ MIGUEL Referring Unavailable AUGUSTINA, JOSÉ MIGUEL Primary Care Unavailable Allergies Allergy Classification Reported Allergen(s) Allergy Type Date of Onset Reaction(s) Facility (1 source) Acetaminophen / oxyCODONE Drug Allergy 10-20-19 17 [facility] (1 source) Adhesive bandage Drug allergy (disorder) 07-31-19 21 [facility] (1 source) bee venom Drug allergy (disorder) [facility] (7 sources) Lymecycline Drug Allergy 10-20-19 23 Rash [facility] (1 source) Penicillin Drug Allergy [facility] (20 sources) Acetaminophen / oxyCODONE Drug Allergy 10-20-19 17 Nausea And Vomiting, GI intolerance [facility] Penicillins Propensity to adverse reactions to drug 03-29-19 19 [facility] Work Phone: (20 sources) Sulfamethoxazole / Trimethoprim Drug Allergy 03-29-19 19 Hives [facility] [employer] Work Phone: (14 sources) Honey bee venom Propensity to adverse reactions 10-20-19 23 [facility] Work Phone: (14 sources) Lymecycline Propensity to adverse reactions 10-20-19 23 [facility] (14 sources) Penicillins Drug Intolerance 03-29-19 19 Rash, Unknown [facility] (20 sources) Wound Dressing Adhesive Drug Intolerance 07-31-19 Other (See Comments) [facility] (6 sources) bee venom Propensity to adverse reactions to drug 10-20-19 [facility]aphyl[facility] Work Phone: (6 sources) Penicillin G Drug Allergy 10-20-19 Rash [facility] Work Phone: (6 sources) Silicone adhesive tape Propensity to adverse reactions to drug 07-31-19 Other (See Comments) [facility] Medications Current Medications Medication Drug Class(es) Dates [...] hours as needed for Headaches 0 Active ALPHA LIPOIC ACID PO (2 sources) take 600 mg by mouth once daily ALPHA LIPOIC ACID PO Take 600 mg by mouth daily Active ascorbic acid 500 mg oral capsule (20 sources) Vitamin C take 1 capsule by mouth once daily Ascorbic Acid (Vitamin C) 500 MG capsule Take 500 mg by mouth Daily Active busPIRone hydrochloride 15 mg oral tablet (10 sources) Start: 01-02-2024 End: 09-24-2024 busPIRone (Buspar) 15 MG tablet Take 15 mg by mouth 01/02/2024 09/24/2024 Discontinued (Therapy completed) cholecalciferol 0.05 mg oral tablet (6 sources) Vitamin D Cholecalciferol (VITAMIN D3) 50 MCG (1999 UT) TABS Take by mouth 88749 IU Active Cholecalciferol (VITAMIN D3) 50 MCG (1999 UT) TABS Take by mouth 0 Active Choline (4 sources) take 550 mg by mouth once daily CHOLINE BITARTRATE PO Take 550 mg by mouth daily Active take 550 mg by mouth once daily CHOLINE BITARTRATE PO Take 550 mg by mouth daily 0 Active [id number] 0.3 ml EPINEPHrine 1 mg/ml auto-injector (9 sources) alpha-Adrenergic Agonist, beta-Adrenergic Agonist, Catecholamine Start: 09-18-2023 EPINEPHrine (EPIP EN 2-MALATHI) 0.3 MG/0.3ML SOAJ injection Indications: Allergy to honey bee venom Use as directed for allergic reaction 1 each 1 11/08/2023 Active Start: 03-19-2023 EPINEPHrine (E PIPEN) 0.3 MG/0.3ML SOAJ injection Indications: Allergy to honey bee venom Use as directed for allergic reaction 2 each 2 03/19/2023 Active famotidine 20 mg oral tablet (8 sources) Histamine-2 Receptor Antagonist Start: 10-10-2023 End: 02-29-2024 take 1 tablet by mouth at bedtime famotidine (Pepcid) 20 MG tablet Indications: LPRD (laryngopharyngeal reflux disease) Take 1 tablet (20 mg) by mouth at bedtime 90 tablet 10/10/2023 02/29/2024 Discontinued (Therapy completed) take 1 tablet by marianna th once daily in the morning famotidine (PEPCID) 10 MG tablet Take 1 tablet by mouth every morning Active End: 06-12-2022 take 1 tablet by mouth twice daily famotidine (PEPCID) 20 MG tablet Take 20 mg by mouth 2 times daily 0 06/12/2022 Discontinued (LIST CLEANUP) levothyroxine sodium 0.088 mg oral tablet (20 sources) l-Thyroxine Start: 10-02-2022 End: 09-24-2025 take 1 tablet by mouth before mealtime levothyroxine (Synthroid) 88 MCG tablet Indications: Postoperative hypothyroidism Take 1 tablet (88 mcg) by mouth in the morning. Take before meals. 90 tablet 3 09/24/2024 09/24/2025 Active End: 06-12-2022 take 1 tablet by mouth once daily levothyroxine (SYNTHROID) 88 MCG tablet Take 1 tablet by mouth Daily 0 06/12/2022 Discontinued (LIST CLEANUP) loratadine 10 mg oral capsule (18 sources) take 1 capsule by mouth once daily Loratadine 10 MG capsule Take 1 capsule by mouth Daily Active LORazepam 0.5 mg oral tablet (12 [...] as needed 02/29/2024 Discontinued (Therapy completed) Magnesium (2 sources) magnesium (MAGNE SIUM-OXIDE) 250 MG TABS tablet Take 480 mg by mouth daily Active magnesium (MAGNE SIUM-OXIDE) 250 MG TABS tablet Take 480 mg by mouth daily 0 Active Magnesium glycinate (2 sources) take 15 mg by mouth once daily MAGNESIUM GLYCINATE PO Take 200 mg by mouth daily + malate, Vitamin d3 800IU, magnesium glycinate 200mg, pumpkin seeds 15mg, spinach 15mg, kale 15mg, broccoli 15mg Active magnesium oxide 250 mg oral tablet (2 sources) magnesium (MAGNESIUM-OXIDE) 250 MG TABS tablet Take 480 mg by mouth daily 0 Active Misc Natural Products (ELDERBERRY IMMUNE COMPLEX PO) (3 sources) Misc Natural Products (ELDERBERRY IMMUNE COMPLEX PO) Take by mouth Active NONFORMULARY (2 sources) NONFORMULARY EZ- Gest Active omeprazole 40 mg delayed release oral capsule (13 sources) Proton Pump Inhibitor Start: 4 End: 5 take 1 capsule by mouth before mealtime omeprazole (PriLOSEC) [address] capsule Indications: LPRD (laryngopharyngeal reflux disease) Take 1 capsule (40 mg) by mouth in the morning. Take before meals. Do not crush or chew.. 90 capsule 10/10/2023 09/24/2024 Discontinued (Therapy completed) 2 ml ondansetron 2 mg/ml injection (1 source) Serotonin-3 Receptor Antagonist Start: 4 ondansetron (ZOFRAN) injection 4 mg pantoprazole 40 mg delayed release oral tablet (4 sources) Proton Pump Inhibitor Start: 3 End: 4 take 1 tablet by mouth before mealtime pantoprazole (ProtoNix) 40 MG EC tablet Take 40 mg by mouth in the morning. Take before meals. 10/19/2022 10/10/2023 Discontinued potassium citrate (2 sources) take 200 mg by mouth once daily POTASSIUM CITRATE PO Take 200 mg by mouth daily Active Probiotic Product (PROBIOTIC ADVANCED PO) (4 sources) Probiotic Produc t (PROBIOTIC ADVANCED PO) Probiotic Active Probiotic Produc t (PROBIOTIC ADVANCED PO) Probiotic 0 Active Probiotic Product (PROBIOTIC BLEND PO) (14 sources) Probiotic Produc t (PROBIOTIC BLEND PO) Active Probiotic Produc t (PROBIOTIC BLEND PO) Probiotic Active Probiotic Produc t (PROBIOTIC BLEND PO) Probiotic 0 Active valerian root extract 250 mg oral capsule (3 sources) VALERIAN ROOT PO Take 250 mg by mouth 0 Active Zinc Sulfate (6 sources) Zinc Sulfate (ZI NC 15 PO) Take by mouth Calcium 120mg, zinc 15mg Active Zinc Sulfate (ZI NC 15 PO) Take [...] Problem Date Documented Date Episodic/Chronic Anxiety disorders (11 sources) Anxiety state; 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: [Generalized anxiety disorder] Onset: 03-21-2022 Chronic Cancer of thyroid (20 sources) Malignant neoplasm of thyroid gland; 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] Onset: 12-05-2021 Chronic Complications of surgical procedures or medical care (20 sources) Postprocedural hypothyroidism; 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: [Postoperative hypothyroidism] Onset: 09-30-2021 Resolved: 03-06-2023 Chronic E Codes: Fall (2 sources) Fall; 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: [Unspecified fall, initial encounter] Onset: 07-02-2023 07-02-2023 Episodic E Codes: Natural/environment (1 source) Exposure to other specified factors, initial encounter; 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: [EXPOSURE OTHER SPEC FACTORS INITIAL] Onset: 03-21-2022 Episodic Esophageal disorders (20 sources) Laryngopharyngeal reflux; 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: [Gastro-esophageal reflux disease without esophagitis] Onset: 03-06-2023 03-06-2023 Chronic Essential hypertension (1 source) Essential hypertension; 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: [Essential (primary) hypertension] Chronic Inflammation; infection of eye (except that caused by tuberculosis or sexually transmitteddisease) (1 source) Unspecified acute conjunctivitis, unspecified eye; 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: [Unspecified acute conjunctivitis, unspecified eye] Onset: 08-31-2023 Episodic Other aftercare (1 source) Other penitentiary (current) drug therapy; 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: [OTH ASSOCIATE SOFTWARE APPLICATION ENGINEER CURRENT DRUG THERAPY] Onset: 03-21-2022 Episodic Other [...] of 2019 novel coronavirus disease (COVID-19)] Episodic Thyroid disorders (20 sources) Multinodular goiter; 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: [Nontoxic multinodular goiter] Onset: 03-06-2023 Resolved: 03-06-2023 Chronic Past or Other Problems Problem Classification Problem Date Documented Da te Episodic/Chronic Abdominal pain (7 sources) Right upper quadrant pain; 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: [Right upper quadrant pain] Onset: 03-21-2023 03-21-2023 Episodic Cardiac dysrhythmias (12 sources) Palpitations; 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: [Palpitations] Onset: 07-13-2022 Episodic Gastritis and duodenitis (1 source) Acute gastritis without bleeding; 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: [Acute gastritis without bleeding] Onset: 10-19-2022 Episodic Menopausal disorders (10 sources) Hormone replacement therapy; 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: [Drug therapy status] Onset: 03-21-2022 03-19-2023 Episodic Nonspecific chest pain (15 sources) Atypical chest pain; 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: [Other chest pain] Onset: 07-13-2022 Episodic Other aftercare (10 sources) Long-term current use of drug therapy; 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: [Other terminal system operator (current) drug therapy] Onset: 03-21-2022 03-19-2023 Episodic Other lower respiratory disease (12 sources) Dyspnea; 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: [Dyspnea, unspecified] Onset: 03-19-2023 Episodic Other lower respiratory disease (1 source) Shortness of breath; 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: [Shortness of breath] Onset: 07-13-2022 Episodic Other non-traumatic joint disorders (12 sources) Pain in left knee; 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: [Pain in joint, lower leg] Onset: 03-19-2022 Episodic Sprains and strains (12 sources) Sprain of unspecified site of left knee, initial encounter; 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: [Sprain of left knee] Onset: 03-21-2022 03-19-2023 Episodic Results Test Name Value Interpretation Reference Range Facility ALL THYROID STIM HORMONEon 0 09-12-2024 TSH Qn 0.563 m[IU]/L [facility] [place] [address] Ultrasound Report Signed Patient: JUDY MISHRA MR#: [id number] : 1970 Acct:[id number] Age/Sex: 54 / F ADM Date: 09/12/24 Loc: US Attending Dr: Diogo Lux M.D. Ordering Physician: Diogo Lux M.D. Date of Service: 09/12/24 Procedure(s): US thyroid Accession Number(s): [id number] cc: Physician,Non-Staff Yohan; Diogo Lux M.D. [address] [address] Patient Name: JUDY MISHRA MRN: [id number] date: 1970 Sex: F Assigned Patient Location: US Current Patient Location: US Accession/Order Number: [id number] Exam Date: 09/12/2024 23:25 Report Date: 09/12/2024 23:33 At the request of: DIOGO LUX MD Procedure: US thyroid Ultrasound thyroid gland INDICATION: Papillary carcinoma thyroid COMPARISON: 02/22/2024 FINDINGS: Prior thyroidectomy. Superior to the right thyroidectomy bed, there is a 1.5 x 0.5 x 1.2 cm lymph node. Within the left thyroid bed, there is hypoechoic soft tissue due to measuring 0.8 x 0.7 x 0.5 cm in size. This appears slightly smaller, although this may be related to technique. There is a lymph node just superior to the left thyroid fossa 1.0 x 0.4 x 1.0 cm in size. US/US thyroid IMPRESSION: Similar appearance of the postsurgical changes with residual soft tissue left thyroidectomy bed. Stable to perhaps slightly smaller in size. Continued surveillance is recommended. Impression dictated by: Michel Graham M.D. 09/12/2024 11:33 PM Dictation Location: [place] [address] Electronically authenticated by: [id number] Y Date: 09/12/2024 23:33 Dictated By: Michel Graham M.D. Signed By: 09/12/245 DD/ TD/TT: Communications Tower Technician: [facility] Radiology, Radiologist, - 09/12/2024 [place] [address] Ultrasound Report Signed Patient: JUDY MISHRA MR#: [id number] : 1970 Acct:[id number] Age/Sex: 54 / F ADM Date: 09/12/24 Loc: US Attending Dr: Diogo Lux M.D. Ordering Physician: Diogo Lux M.D. Date of Service: 09/12/24 Procedure(s): US thyroid Accession Number(s): [id number] cc: Physician,Non-Staff Yohan; Diogo Lux M.D. [address] [address] Patient Name: JUDY MISHRA MRN: [id number] date: 1970 Sex: F Assigned Patient Location: US Current Patient Location: US Accession/Order Number: [id number] Exam Date: 09/12/2024 23:25 Report Date: 09/12/2024 23:33 At the request of: DIOGO LUX MD Procedure: US thyroid Ultrasound thyroid gland INDICATION: Papillary carcinoma thyroid COMPARISON: 02/22/2024 FINDINGS: Prior thyroidectomy. Superior to the right thyroidectomy bed, there is a 1.5 x 0.5 x 1.2 cm lymph node. Within the left thyroid bed, there is hypoechoic soft tissue due to measuring 0.8 x 0.7 x 0.5 cm in size. This appears slightly smaller, although this may be related to technique. There is a lymph node just superior to the left thyroid fossa 1.0 x 0.4 x 1.0 cm in size. US/US thyroid IMPRESSION: Similar appearance of the postsurgical changes with residual soft tissue left thyroidectomy bed. Stable to perhaps slightly smaller in size. Continued surveillance is recommended. Impression dictated by: Michel Graham M.D. 09/12/2024 11:33 PM Dictation Location: [place] [address] Electronically authenticated by: [id number] Y Date: 09/12/2024 23:33 Dictated By: Michel Graham M.D. Signed By: 09/12/242334 DD/ 32 TD/TT: Communications Tower Technician: [facility] Radiology Study observation (narrative) [facility] US Thyroid glandOrdered By: Radiologist Radiology on 09-12-2024 [facility] [employer] Work Phone: CBC with Auto Differentialon 06-05-2024 Basophils (Bld) [#/Vol] 0 10*3/uL [facility] Basophils/100 WBC (Bld) 1 % 0 - 1 % [facility] Eosinophils Absolute 0.2 [facility] Eosinophils/100 WBC (Bld) 3 % 0 - 5 % [facility] Erythrocyte distribution width (RBC) [Ratio] 12.5 % 11.5 - 14.5 % [facility] Hematocrit (Bld) [Volume fraction] 43.6 % 36.0 - 47.0 % [facility] Hemoglobin (Bld) [Mass/Vol] 14.4 g/dL 12.0 - 16.0 g/dL [facility] Immature Granulocytes # 0.01 0.00 - 0.30 [facility] Immature Granulocytes % 0.20 NINF - 5.00 [facility] Lymphocytes Absolute 1.7 [facility] Lymphocytes/100 WBC (Bld) 34 % 20 - 40 % [facility] MCH (RBC) [Entitic mass] 29.3 pg 27.0 - 35.0 pg [facility] MCHC (RBC) [Mass/Vol] 33 g/dL 32.0 - 36.0 g/dL [facility] MCV (RBC) [Entitic vol] 88.8 fL 80.0 - 100.0 fL [facility] Monocytes Absolute 0.4 [facility] Monocytes/100 WBC (Bld) 8 % 1 - 15 % [facility] Neutrophils Absolute 2.6 [facility] Neutrophils/100 WBC (Bld) 54 % 50 - 70 % [facility] Platelet mean volume (Bld) [Entitic vol] 12.9 fL High 9.4 - 12.3 fL [facility] Platelets (Bld) [#/Vol] 200 10*3/uL [facility] RBC (Bld) [#/Vol] 4.91 10*6/uL [facility] WBC (Bld) [#/Vol] 4.9 10*3/uL [facility] Complete Blood Count with Au to Diffon 06-05-2024 BASO# BASO#: 0.0 Normal 0.0-0.1 [facility] Comment on above: Performed By: #### O RD187, LIPD, PHOS, CMP #### [place] [address] [place] [address] Ph. [phone] Basophils/100 WBC (Bld) 1 % Normal 0-1 [facility] Comment on above: Performed By: #### O RD187, LIPD, PHOS, CMP #### [place] [address] Ph. [phone] Eosinophils (Bld) [#/Vol] 0.2 10*3/uL Normal 0.0-0.5 [facility] Comment on above: Performed By: #### O RD187, LIPD, PHOS, CMP #### [place] [address] Ph. [phone] Eosinophils/100 WBC (Bld) 3 % Normal 0-5 [facility] Comment on above: Performed By: #### O RD187, LIPD, PHOS, CMP #### [place] [address] Ph. [phone] Erythrocyte distribution width (RBC) [Ratio] 12.5 % Normal 11.5-14.5 [facility] Comment on above: Performed By: #### O RD187, LIPD, PHOS, CMP #### [place] [address] Ph. [phone] Hematocrit (Bld) [Volume fraction] 43.6 % Normal 36.0-47.0 [facility] Comment on above: Performed By: #### O RD187, LIPD, PHOS, CMP #### [place] [address] Ph. [phone] Hemoglobin (Bld) [Mass/Vol] 14.4 g/dL Normal 12.0-16.0 [facility] Comment on above: Performed By: #### O RD187, LIPD, PHOS, CMP #### [place] [address] Ph. [phone] IG# IG#: 0.01 Normal 0.00-0.30 [facility] Comment on above: Performed By: #### O RD187, LIPD, PHOS, CMP #### [address] [place] [address] Ph. [phone] IG% IG%: 0.20 Normal <5.00 [facility] Comment on above: Performed By: #### O RD187, LIPD, PHOS, CMP #### [place] [address] Ph. [phone] Lymphocytes (Bld) [#/Vol] 1.7 10*3/uL Normal 1.0-4.0 [facility] Comment on above: Performed By: #### O RD187, LIPD, PHOS, CMP #### [place] [address] Ph. [phone] Lymphocytes/100 WBC (Bld) 34 % Normal 20-40 [facility] Comment on above: Performed By: #### O RD187, LIPD, PHOS, CMP #### [place] [address] Ph. [phone] MCH (RBC) [Entitic mass] 29.3 pg Normal 27.0-35.0 [facility] Comment on above: Performed By: #### O RD187, LIPD, PHOS, CMP #### [place] [address] Ph. [phone] MCHC (RBC) [Mass/Vol] 33 g/dL Normal 32.0-36.0 [facility] Comment on above: Performed By: #### O RD187, LIPD, PHOS, CMP #### [place] [address] Ph. [phone] MCV (RBC) [Entitic vol] 88.8 fL Normal 80.0-100.0 [facility] Comment on above: Performed By: #### O RD187, LIPD, PHOS, CMP #### [place] [address] Ph. [phone] Monocytes (Bld) [#/Vol] 0.4 10*3/uL Normal 0.3-1.0 [facility] Comment on above: Performed By: #### O RD187, LIPD, PHOS, CMP #### [place] [address] Ph. [phone] Monocytes/100 WBC (Bld) 8 % Normal 1-15 [facility] Comment on above: Performed By: #### O RD187, LIPD, PHOS, CMP #### [place] [address] Ph. [phone] Neutrophils (Bld) [#/Vol] 2.6 10*3/uL Normal 1.8-7.7 [facility] Comment on above: Performed By: #### O RD187, LIPD, PHOS, CMP #### [place] [address] Ph. [phone] Neutrophils/100 WBC (Bld) 54 % Normal 50-70 [facility] Comment on above: Performed By: #### O RD187, LIPD, PHOS, CMP #### [place] [address] Ph. [phone] Platelet mean volume (Bld) [Entitic vol] 12.9 fL High 9.4-12.3 [facility] Comment on above: Performed By: #### O RD187, LIPD, PHOS, CMP #### [place] [address] Ph. [phone] Platelets (Bld) [#/Vol] 200 10*3/uL Normal 150-450 [facility] Comment on above: Performed By: #### O RD187, LIPD, PHOS, CMP #### [place] [address] Ph. [phone] RBC (Bld) [#/Vol] 4.91 10*6/uL Normal 4.20-5.40 [facility] Comment on above: Performed By: #### O RD187, LIPD, PHOS, CMP #### [place] [address] [place] [address] Ph. [phone] WBC (Bld) [#/Vol] 4.9 10*3/uL Normal 3.7-11.0 [facility] Comment on above: Performed By: #### O RD187, LIPD, PHOS, CMP #### [place] [address] [place] [address] Ph. [phone] Comprehensive Metabolic Pane simba 06-05-2024 Albumin [Mass/Vol] 4.4 g/dL 3.5 - 5.0 g/dL [facility] ALP (Bld) [Catalytic activity/Vol] 67 U/L 38 - 126 U/L [facility] ALT [Catalytic activity/Vol] 38 U/L High 0 - 35 U/L [facility] AST [Catalytic activity/Vol] 35 U/L 14 - 36 U/L [facility] Bilirubin [Mass/Vol] 0.9 mg/dL 0.2 - 1 .3 mg/dL [facility] Calcium [Mass/Vol] 8.9 mg/dL 8.4 - 10. 2 mg/dL [facility] Chloride [Moles/Vol] 108 mmol/L High [facility] CO2 [Moles/Vol] 25 mmol/L [facility] Creatinine [Mass/Vol] 0.61 mg/dL 0.52 - 1.04 mg/dL [facility] Est, Glom Filt Rate 107 - PINF [facility] Comment on above: GFR calculated using CKD-EPI (2020) formula. Stage 1 Kidney damage (e.g., protein in the urine) with normal GFR >=90 Stage 2 Kidney damage with mild decrease in GFR 60-89 Stage 3a Moderate decrease in GFR 45-59 Stage 3b Moderate decrease in GFR 30-44 Stage 4 Severe reduction in GFR 15-29 Stage 5 Kidney failure <15 Glucose [Mass/Vol] 94 mg/dL 65 - 100 mg/dL [facility] Potassium [Moles/Vol] 4 mmol/L [facility] Protein [Mass/Vol] 7.5 g/dL 6.3 - 8.2 g/dL [facility] Sodium [Moles/Vol] 141 mmol/L [facility] Urea nitrogen (BldV) [Mass/Vol] 11 mg/dL 7 - 17 mg/dL [facility] Albumin [Mass/Vol] 4.4 g/dL Normal 3.5-5.0 [facility] Comment on above: Performed By: #### O RD187, CMP #### [place] [address] Ph. [phone] ALP [Catalytic activity/Vol] 67 U/L Normal 38-126 [facility] Comment on above: Performed By: #### O RD187, CMP #### [address] [address] Ph. [phone] ALT [Catalytic activity/Vol] 38 U/L High 0-35 [facility] Comment on above: Performed By: #### O RD187, CMP #### [place] [id number] Ph. [phone] AST [Catalytic activity/Vol] 35 U/L Normal 14-36 [facility] Comment on above: Performed By: #### O RD187, CMP #### [address] [address] Ph. [phone] Bilirubin [Mass/Vol] 0.9 mg/dL Normal 0.2-1.3 [facility] Comment on above: Performed By: #### O RD187, CMP #### [address] [address] Ph. [phone] Calcium [Mass/Vol] 8.9 mg/dL Normal 8.4-10.2 [facility] Comment on above: Performed By: #### O RD187, CMP #### [address] [address] Ph. [phone] Chloride [Moles/Vol] 108 mmol/L High 98-107 [facility] Comment on above: Performed By: #### O RD187, CMP #### [place] [address] Ph. [phone] CO2 [Moles/Vol] 25 mmol/L Normal 22-32 [facility] Comment on above: Performed By: #### O RD187, CMP #### [place] [address] Ph. [phone] Creatinine [Mass/Vol] 0.61 mg/dL Normal 0.52-1.04 [facility] Comment on above: Performed By: #### O RD187, CMP #### [place] [address] Ph. [phone] GFR/1.73 sq M.predicted among non-blacks MDRD (S/P/Bld) [Vol rate/Area] 107 mL/min/{1.73_m2} Normal >60 [facility] Comment on above: Result Comment: GFR calculated using CKD-EPI (2020) formula.\X0D0A\Stage 1 Kidney damage (e.g., protein in the urine) with normal GFR >=90\X0D0A\Stage 2 Kidney damage with mild decrease in GFR 60-89\X0D0A\Stage 3a Moderate decrease in GFR 45-59\X0D0A\Stage 3b Moderate decrease in GFR 30-44\X0D0A\Stage 4 Severe reduction in GFR 15-29\X0D0A\Stage 5 Kidney failure <15 Performed By: #### O RD187, CMP #### [place] [address] Ph. [phone] Glucose [Mass/Vol] 94 mg/dL Normal 65-100 [facility] Comment on above: Performed By: #### O RD187, CMP #### [place] [address] Ph. [phone] Potassium [Moles/Vol] 4.0 mmol/L Normal 3.6-5.0 [facility] Comment on above: Performed By: #### O RD187, CMP #### [place] [address] Ph. [phone] Protein [Mass/Vol] 7.5 g/dL Normal 6.3-8.2 [facility] Comment on above: Performed By: #### O RD187, CMP #### [place] [address] Ph. [phone] Sodium [Moles/Vol] 141 mmol/L Normal 135-145 [facility] Comment on above: Performed By: #### O RD187, CMP #### [place] [address] Ph. [phone] Urea nitrogen [Mass/Vol] 11 mg/dL Normal 7-17 [facility] Comment on above: Performed By: #### O RD187, CMP #### [place] [address] Ph. [phone] No Panel Informationon 06-05 Interpretation and review of laboratory results Abnormal [facility] TSH Reflex FT4on 06-05-2024 TSH 0.643 mIU/mL Normal 0.470-4.680 [facility] Comment on above: Performed By: #### O RD187, CMP #### [place] [address] Ph. [phone] TSH reflex to FT4on 06-06-19 25 TSH Qn 0.643 m[IU]/L [facility] CBC with Auto Differentialon 03-06-2024 Basophils (Bld) [#/Vol] 0.1 10*3/uL [facility] Basophils/100 WBC (Bld) 1 % 0 - 1 % [facility] Eosinophils Absolute 0.3 [facility] Eosinophils/100 WBC (Bld) 6 % High 0 - 5 % [facility] Erythrocyte distribution width (RBC) [Ratio] 12.3 % 11.5 - 14.5 % [facility] Hematocrit (Bld) [Volume fraction] 46.5 % 36.0 - 47.0 % [facility] Hemoglobin (Bld) [Mass/Vol] 15.5 g/dL 12.0 - 16.0 g/dL [facility] Interpretation and review of laboratory results Abnormal [facility] Lymphocytes Absolute 1.4 [facility] Lymphocytes/100 WBC (Bld) 28 % 20 - 40 % [facility] MCH (RBC) [Entitic mass] 30.1 pg 27.0 - 35.0 pg [facility] MCHC (RBC) [Mass/Vol] 33.3 g/dL 32.0 - 36.0 g/dL [facility] MCV (RBC) [Entitic vol] 90.3 fL 80.0 - 100.0 fL [facility] Monocytes Absolute 0.4 [facility] Monocytes/100 WBC (Bld) 7 % 1 - 15 % [facility] Neutrophils Absolute 3.0 [facility] Neutrophils/100 WBC (Bld) 58 % 50 - 70 % [facility] Platelet mean volume (Bld) [Entitic vol] 13.6 fL High 9.4 - 12.3 fL [facility] Platelets (Bld) [#/Vol] 225 10*3/uL [facility] RBC (Bld) [#/Vol] 5.15 10*6/uL [facility] WBC (Bld) [#/Vol] 5.2 10*3/uL [facility] Complete Blood Count with Au to Diffon 03-06-2024 Basophils (Bld) [#/Vol] 0.1 10*3/uL Normal 0.0-0.1 [facility] Comment on above: Performed By: #### A 1C, CBCAD #### [place] [address] Ph. [phone] Basophils/100 WBC (Bld) 1 % Normal 0-1 [facility] Comment on above: Performed By: #### A 1C, CBCAD #### [place] [address] Ph. [phone] Eosinophils (Bld) [#/Vol] 0.3 10*3/uL Normal 0.0-0.5 [facility] Comment on above: Performed By: #### A 1C, CBCAD #### [place] [address] Ph. [phone] Eosinophils/100 WBC (Bld) 6 % High 0-5 [facility] Comment on above: Performed By: #### A 1C, CBCAD #### [place] [address] Ph. [phone] Erythrocyte distribution width (RBC) [Ratio] 12.3 % Normal 11.5-14.5 [facility] Comment on above: Performed By: #### A 1C, CBCAD #### [place] [address] Ph. [phone] Hematocrit (Bld) [Volume fraction] 46.5 % Normal 36.0-47.0 [facility] Comment on above: Performed By: #### A 1C, CBCAD #### [place] [address] Ph. [phone] Hemoglobin (Bld) [Mass/Vol] 15.5 g/dL Normal 12.0-16.0 [facility] Comment on above: Performed By: #### A 1C, CBCAD #### [place] [address] Ph. [phone] Lymphocytes (Bld) [#/Vol] 1.4 10*3/uL Normal 1.0-4.0 [facility] Comment on above: Performed By: #### A 1C, CBCAD #### [place] [address] Ph. [phone] Lymphocytes/100 WBC (Bld) 28 % Normal 20-40 [facility] Comment on above: Performed By: #### A 1C, CBCAD #### [place] [address] Ph. [phone] MCH (RBC) [Entitic mass] 30.1 pg Normal 27.0-35.0 [facility] Comment on above: Performed By: #### A 1C, CBCAD #### [place] [address] Ph. [phone] MCHC (RBC) [Mass/Vol] 33.3 g/dL Normal 32.0-36.0 [facility] Comment on above: Performed By: #### A 1C, CBCAD #### [place] [address] Ph. [phone] MCV (RBC) [Entitic vol] 90.3 fL Normal 80.0-100.0 [facility] Comment on above: Performed By: #### A 1C, CBCAD #### [address] [address] Ph. [phone] Monocytes (Bld) [#/Vol] 0.4 10*3/uL Normal 0.3-1.0 [facility] Comment on above: Performed By: #### A 1C, CBCAD #### [address] [address] Ph. [phone] Monocytes/100 WBC (Bld) 7 % Normal 1-15 [facility] Comment on above: Performed By: #### A 1C, CBCAD #### [address] [address] Ph. [phone] Neutrophils (Bld) [#/Vol] 3 10*3/uL Normal 1.8-7.7 [facility] Comment on above: Performed By: #### A 1C, CBCAD #### [address] [address] Ph. [phone] Neutrophils/100 WBC (Bld) 58 % Normal 50-70 [facility] Comment on above: Performed By: #### A 1C, CBCAD #### [address] [address] Ph. [phone] Platelet mean volume (Bld) [Entitic vol] 13.6 fL High 9.4-12.3 [facility] Comment on above: Performed By: #### A 1C, CBCAD #### [place] [id number] Ph. [phone] Platelets (Bld) [#/Vol] 225 10*3/uL Normal 150-450 [facility] Comment on above: Performed By: #### A 1C, CBCAD #### [address] [address] Ph. [phone] RBC (Bld) [#/Vol] 5.15 10*6/uL Normal 4.20-5.40 [facility] Comment on above: Performed By: #### A 1C, CBCAD #### [address] [address] Ph. [phone] WBC (Bld) [#/Vol] 5.2 10*3/uL Normal 3.7-11.0 [facility] Comment on above: Performed By: #### A 1C, CBCAD #### [address] [address] Ph. [phone] Comprehensive Metabolic Pane simba 03-06-2024 Albumin [Mass/Vol] 4.7 g/dL 3.5 - 5.0 g/dL [facility] ALP (Bld) [Catalytic activity/Vol] 65 U/L 38 - 126 U/L [facility] ALT [Catalytic activity/Vol] 62 U/L High 0 - 35 U/L [facility] AST [Catalytic activity/Vol] 40 U/L High 14 - 36 U/L [facility] Bilirubin [Mass/Vol] 1.1 mg/dL 0.2 - 1 .3 mg/dL [facility] Calcium [Mass/Vol] 9.4 mg/dL 8.4 - 10. 2 mg/dL [facility] Chloride [Moles/Vol] 104 mmol/L [facility] CO2 [Moles/Vol] 29 mmol/L [facility] Creatinine [Mass/Vol] 0.66 mg/dL 0.52 - 1.04 mg/dL [facility] Est, Glom Filt Rate 105 - PINF [facility] Comment on above: GFR calculated using CKD-EPI (2020) formula. Stage 1 Kidney damage (e.g., protein in the urine) with normal GFR >=90 Stage 2 Kidney damage with mild decrease in GFR 60-89 Stage 3a Moderate decrease in GFR 45-59 Stage 3b Moderate decrease in GFR 30-44 Stage 4 Severe reduction in GFR 15-29 Stage 5 Kidney failure <15 Glucose [Mass/Vol] 95 mg/dL 65 - 100 mg/dL [facility] Potassium [Moles/Vol] 3.8 mmol/L [facility] Protein [Mass/Vol] 7.7 g/dL 6.3 - 8.2 g/dL [facility] Sodium [Moles/Vol] 142 mmol/L [facility] Urea nitrogen (BldV) [Mass/Vol] 12 mg/dL 7 - 17 mg/dL [facility] Albumin [Mass/Vol] 4.7 g/dL Normal 3.5-5.0 [facility] Comment on above: Performed By: #### O RD187, LIPD, PHOS, CMP #### [place] [address] Ph. [phone] ALP [Catalytic activity/Vol] 65 U/L Normal 38-126 [facility] Comment on above: Performed By: #### O RD187, LIPD, PHOS, CMP #### [place] [address] Ph. [phone] ALT [Catalytic activity/Vol] 62 U/L High 0-35 [facility] Comment on above: Performed By: #### O RD187, LIPD, PHOS, CMP #### [place] [id number] Ph. [phone] AST [Catalytic activity/Vol] 40 U/L High 14-36 [facility] Comment on above: Performed By: #### O RD187, LIPD, PHOS, CMP #### [address] [address] Ph. [phone] Bilirubin [Mass/Vol] 1.1 mg/dL Normal 0.2-1.3 [facility] Comment on above: Performed By: #### O RD187, LIPD, PHOS, CMP #### [place] [address] Ph. [phone] Calcium [Mass/Vol] 9.4 mg/dL Normal 8.4-10.2 [facility] Comment on above: Performed By: #### O RD187, LIPD, PHOS, CMP #### [place] [id number] Ph. [phone] Chloride [Moles/Vol] 104 mmol/L Normal 98-107 [facility] Comment on above: Performed By: #### O RD187, LIPD, PHOS, CMP #### [place] [id number] Ph. [phone] CO2 [Moles/Vol] 29 mmol/L Normal 22-32 [facility] Comment on above: Performed By: #### O RD187, LIPD, PHOS, CMP #### [place] [id number] Ph. [phone] Creatinine [Mass/Vol] 0.66 mg/dL Normal 0.52-1.04 [facility] Comment on above: Performed By: #### O RD187, LIPD, PHOS, CMP #### [place] [address] Ph. [phone] GFR/1.73 sq M.predicted among non-blacks MDRD (S/P/Bld) [Vol rate/Area] 105 mL/min/{1.73_m2} Normal >60 [facility] Comment on above: Result Comment: GFR calculated using CKD-EPI (2020) formula.\X0D0A\Stage 1 Kidney damage (e.g., protein in the urine) with normal GFR >=90\X0D0A\Stage 2 Kidney damage with mild decrease in GFR 60-89\X0D0A\Stage 3a Moderate decrease in GFR 45-59\X0D0A\Stage 3b Moderate decrease in GFR 30-44\X0D0A\Stage 4 Severe reduction in GFR 15-29\X0D0A\Stage 5 Kidney failure <15 Performed By: #### O RD187, LIPD, PHOS, CMP #### [place] [address] Ph. [phone] Glucose [Mass/Vol] 95 mg/dL Normal 65-100 [facility] Comment on above: Performed By: #### O RD187, LIPD, PHOS, CMP #### [place] [address] Ph. [phone] Potassium [Moles/Vol] 3.8 mmol/L Normal 3.6-5.0 [facility] Comment on above: Performed By: #### O RD187, LIPD, PHOS, CMP #### [place] [address] Ph. [phone] Protein [Mass/Vol] 7.7 g/dL Normal 6.3-8.2 [facility] Comment on above: Performed By: #### O RD187, LIPD, PHOS, CMP #### [place] [address] Ph. [phone] Sodium [Moles/Vol] 142 mmol/L Normal 135-145 [facility] Comment on above: Performed By: #### O RD187, LIPD, PHOS, CMP #### [address] [address] Ph. [phone] Urea nitrogen [Mass/Vol] 12 mg/dL Normal 7-17 [facility] Comment on above: Performed By: #### O RD187, LIPDKAREEN, CMP #### [address] [address] Ph. [phone] Hemoglobin A1Con 03-06-2024 Glucose [Mass/Vol] 106 mg/dL [facility] Comment on above: Estimated Average Glucose is a caluculated value from Hemoglobin A1C and is telesales representative of the average blood glucose level in the last 2-3 month period. HbA1c (Bld) [Mass fraction] 5.3 % 4.0 - 5.6 % [facility] Comment on above: [place] [employer] guidelines indicate that patients with [...] albumin should be considered for these patients. [facility] EAG 106 mg/dL Normal [facility] Comment on above: Result Comment: Pascale mated Average Glucose is a caluculated value from Hemoglobin A1C and is telesales representative of the average blood glucose level in the last 2-3 month period. Performed By: #### A 1C, CBCAD #### [address] [address] Ph. [phone] HbA1c (Bld) [Mass fraction] 5.3 % Normal 4.0-5.6 [facility] Comment on above: Result Comment: Amer ican [...] considered for these patients. Performed By: #### A 1C, CBCAD #### [place] [address] Ph. [phone] Lipid Panelon 03-06-2024 Cholesterol [Mass/Vol] 208 mg/dL High 100 - 200 mg/dL [facility] Comment on above: <200 mg/dL is recommended cholesterol level. Cholesterol in HDL [Mass/Vol] 61 mg/dL 60 - PINF mg/dL [facility] Cholesterol in LDL [Mass/Vol] 128 mg/dL High 20 - 100 mg/dL [facility] CHOLESTEROL/HDL RELATIVE RISK 3 [facility] Triglyceride [Mass/Vol] 93 mg/dL 10 - 150 mg/dL [facility] Is Patient Fasting?/# of Hours->8 [facility] Cholesterol [Mass/Vol] 208 mg/dL High 100-200 [facility] Comment on above: Order Comment: Is Pa tient Fasting?/# of Hours->8 Result Comment: <200 mg/dL is recommended cholesterol level. Performed By: #### O RD187, LIPD, PHOS, CMP #### [place] [address] Ph. [phone] Cholesterol in HDL [Mass/Vol] 61 mg/dL Normal >60 [facility] Comment on above: Order Comment: Is Pa tient Fasting?/# of Hours->8 Performed By: #### O RD187, LIPD, PHOS, CMP #### [place] [address] Ph. [phone] Cholesterol in LDL [Mass/Vol] 128 mg/dL High 20-100 [facility] Comment on above: Order Comment: Is Pa tient Fasting?/# of Hours->8 Performed By: #### O RD187, LIPD, PHOS, CMP #### [address] [address] Ph. [phone] Cholesterol.total/Chol esterol in HDL [Mass ratio] 3 {ratio} Normal 1-5 [facility] Comment on above: Order Comment: Is Pa tient Fasting?/# of Hours->8 Performed By: #### O RD187, LIPD, PHOS, CMP #### [place] [id number] Ph. [phone] Triglyceride [Mass/Vol] 93 mg/dL Normal 10-150 [facility] Comment on above: Order Comment: Is Pa tient Fasting?/# of Hours->8 Performed By: #### O RD187, LIPSohail, PHOS, CMP #### [place] [address] Ph. [phone] No Panel Informationon 03-06 Interpretation and review of laboratory results Abnormal [facility] Phosphoruson 03-06-2024 Phosphate [Mass/Vol] 3.9 mg/dL 2.5 - 4 .5 mg/dL [facility] Phosphate [Mass/Vol] 3.9 mg/dL Normal 2.5-4.5 [facility] Comment on above: Performed By: #### O RD187, LIPSohail, PHOS, CMP #### [place] [address] Ph. [phone] TSH Reflex FT4on 03-06-2024 TSH 1.430 mIU/mL Normal 0.470-4.680 [facility] Comment on above: Performed By: #### O RD187, LIPSohail, PHOS, CMP #### [place] [id number] Ph. [phone] TSH with Reflexon 03-06-2024 TSH Qn 1.430 m[IU]/L [facility] Urinalysis with Reflex to Cu ltureon 03-06-2024 Amorphous Crystal 4+ [facility] BACTERIA, URINE 1+ [facility] Bilirubin, Urine Negative Negative [facility] Blood, Urine Negative Negative [facility] Clarity, UA Hazy [facility] Color, UA Yellow [facility] Culture Indicated? No [facility] Glucose, Ur Negative Negative mg/dL [facility] Interpretation and review of laboratory results Abnormal [facility] Ketones Ql (U) Negative Negative mg/dL [facility] Leukocyte esterase Test strip Ql (U) Negative Negative [facility] MUCUS, URINE None Seen [facility] Nitrate, UA Negative Negative [facility] pH (U) 7.5 [pH] Abnormal 5.0 - 7.0 [facility] Protein, Ur (gm/dL) Trace Abnormal Negative mg/dL [facility] RBC, UA None Seen #/HPF [facility] Specific Warren, UA 1.020 1.005 - 1.030 [facility] Squam Epithel, UA None Seen #/LPF [facility] Urobilinogen, Urine 0.2 E.U./dL NINF [facility] WBC, UA Rare #/HPF [facility] SPECIFY(EX-CATH,MIDS TREAM,CYSTO,ETC)?->m id [facility] Urinalysis, Complete reflex to cultureon 03-06-2024 JENNY 4+ Normal [facility] Comment on above: Order Comment: SPECI FY(EX-CATH,MIDSTREAM,CYSTO,ETC)?->mid Performed By: #### U COMP/WRCX #### [place] [address] Ph. [phone] BACT 1+ Normal [facility] Comment on above: Order Comment: SPECI FY(EX-CATH,MIDSTREAM,CYSTO,ETC)?->mid Performed By: #### U COMP/WRCX #### [address] [address] Ph. [phone] CULTIND No Normal [facility] Comment on above: Order Comment: SPECI FY(EX-CATH,MIDSTREAM,CYSTO,ETC)?->mid Performed By: #### U COMP/WRCX #### [place] [address] Ph. [phone] MUCS None Seen [facility] Comment on above: Order Comment: SPECI FY(EX-CATH,MIDSTREAM,CYSTO,ETC)?->mid Performed By: #### U COMP/WRCX #### [place] [address] Ph. [phone] SQEPI None Seen [facility] Comment on above: Order Comment: SPECI FY(EX-CATH,MIDSTREAM,CYSTO,ETC)?->mid Performed By: #### U COMP/WRCX #### [place] [address] Ph. [phone] UBIL Negative Normal Negative [facility] Comment on above: Order Comment: SPECI FY(EX-CATH,MIDSTREAM,CYSTO,ETC)?->mid Performed By: #### U COMP/WRCX #### [place] [address] Ph. [phone] UBLO Negative Normal Negative [facility] Comment on above: Order Comment: SPECI FY(EX-CATH,MIDSTREAM,CYSTO,ETC)?->mid Performed By: #### U COMP/WRCX #### [place] [address] Ph. [phone] UCLAR Hazy [facility] Comment on above: Order Comment: SPECI FY(EX-CATH,MIDSTREAM,CYSTO,ETC)?->mid Performed By: #### U COMP/WRCX #### [place] [address] Ph. [phone] UCOL Yellow [facility] Comment on above: Order Comment: SPECI FY(EX-CATH,MIDSTREAM,CYSTO,ETC)?->mid Performed By: #### U COMP/WRCX #### [place] [address] Ph. [phone] UGLU Negative Normal Negative [facility] Comment on above: Order Comment: SPECI FY(EX-CATH,MIDSTREAM,CYSTO,ETC)?->mid Performed By: #### U COMP/WRCX #### [place] [address] Ph. [phone] UKET Negative Normal Negative [facility] Comment on above: Order Comment: SPECI FY(EX-CATH,MIDSTREAM,CYSTO,ETC)?->mid Performed By: #### U COMP/WRCX #### [place] [address] Ph. [phone] ULEU Negative Normal Negative [facility] Comment on above: Order Comment: SPECI FY(EX-CATH,MIDSTREAM,CYSTO,ETC)?->mid Performed By: #### U COMP/WRCX #### [place] [address] Ph. [phone] UNIT Negative Normal Negative [facility] Comment on above: Order Comment: SPECI FY(EX-CATH,MIDSTREAM,CYSTO,ETC)?->mid Performed By: #### U COMP/WRCX #### [place] [address] Ph. [phone] UPH 7.5 Abnormal 5.0-7.0 [facility] Comment on above: Order Comment: SPECI FY(EX-CATH,MIDSTREAM,CYSTO,ETC)?->mid Performed By: #### U COMP/WRCX #### [place] [address] Ph. [phone] UPRO Trace Abnormal Negative [facility] Comment on above: Order Comment: SPECI FY(EX-CATH,MIDSTREAM,CYSTO,ETC)?->mid Performed By: #### U COMP/WRCX #### [place] [address] Ph. [phone] URBC None Seen Normal [facility] Comment on above: Order Comment: SPECI FY(EX-CATH,MIDSTREAM,CYSTO,ETC)?->mid Performed By: #### U COMP/WRCX #### [place] [address] Ph. [phone] USG 1.020 Normal 1.005-1.030 [facility] Comment on above: Order Comment: SPECI FY(EX-CATH,MIDSTREAM,CYSTO,ETC)?->mid Performed By: #### U COMP/WRCX #### [place] [address] Ph. [phone] UURO 0.2 E.U./dL Normal <2.0 [facility] Comment on above: Order Comment: SPECI FY(EX-CATH,MIDSTREAM,CYSTO,ETC)?->mid Performed By: #### U COMP/WRCX #### [place] [address] Ph. [phone] UWBC Rare Normal [facility] Comment on above: Order Comment: SPECI FY(EX-CATH,MIDSTREAM,CYSTO,ETC)?->mid Performed By: #### U COMP/WRCX #### [place] [address] Ph. [phone] ALL THYROID STIM HORMONEon 0 02-29-2024 TSH Qn 1.14 m[IU]/L [facility] are [facility] e CT COMPARISON OF OUTSIDE KEMAL MSon 07-05-2023 CT COMPARISON OF OUTSIDE FILMS RADRPT There is no result for this study. This is a placeholder for comparison films only. Final result Normal [facility] CT COMPARISON OF OUTSIDE FILMS RADRPT There is no result for this study. This is a placeholder for comparison films only. Final result Normal [facility] CT ABDOMEN PELVIS W IV CONTR Cindy [...] Rc Ramos MD 07/02/23 Final result Normal [facility] CT Abdomen and Pelvis W cont [...] abnormality or suspicious bony lesion is seen. [facility] Rc Ramos MD [...] 3. Fat-containing midline supraumbilical and umbilical hernias. [facility] CT Abdomen and Pelvis W cont rast IVOrdered By: Rc Ramos on 07-02-2023 [facility] Work Phone: CT LUMBAR SPINE WO [...] Carter Suggs MD 07/02/23 Final result Normal [facility] CT Lumbar spine WO contrasto n [...] central canal stenosis throughout the lumbar spine. [facility] Carter Dugan MD - 07/02/2023 EXAMINATION: CT [...] fractures or loss of vertebral body height. [facility] CT Lumbar spine WO contrastO rdered By: Carter Suggs on 07-02-2023 [facility] Work Phone: CT Abdomen and Pelvis W cont rast Parminder 07-01-2023 Radiology Study observation (narrative) [facility] CT Lumbar spine WO contrasto n 07-01-2023 Radiology Study observation (narrative) [facility] CBC with Auto Differentialon 03-21-2023 Basophils [...] (Bld) [#/Vol] 5.2 10*3/uL [facility] Comprehensive Metabolic Pane simba 03-21-2023 Albumin [Mass/Vol] 4.3 g/dL 3.5 - 5.0 [...] [Mass/Vol] 0.62 mg/dL 0.52 - 1.04 mg/dL [facility] GFR, Estimated 108 - PINF [facility] Comment on above: GFR calculated using CKD-EPI [...] 8.2 g/dL [facility] Sodium [Moles/Vol] 141 mmol/L [facility] Urea nitrogen (BldV) [Mass/Vol] 10 mg/dL 7 - 17 mg/dL [facility] Hemoglobin A1Con 03-21-2023 Glucose [Mass/Vol] 113 mg/dL NATHANIEL Garcia Comment on above: Estimated Average Glucose is a caluculated value from Hemoglobin A1C and is telesales representative of the average blood glucose level in the last 2-3 month period. HbA1c (Bld) [Mass fraction] 5.6 % 4.0 - 5.6 % [facility] Comment on above: [place] [employer] guidelines indicate that patients with [...] albumin should be considered for these patients. [facility] Lipid Panelon 03-21-2023 Cholesterol [Mass/Vol] 196 mg/dL 100 - 200 mg/dL [facility] Comment on above: <200 mg/dL is recommended cholesterol level. Cholesterol in HDL [Mass/Vol] 55 mg/dL Low 60 - PINF mg/dL [facility] Cholesterol in LDL [Mass/Vol] 127 mg/dL High 20 - 100 mg/dL [facility] CHOLESTEROL/HDL RELATIVE RISK 4 [facility] Triglyceride [Mass/Vol] 69 mg/dL 10 - 150 mg/dL [facility] Is Patient Fasting?/# of Hours->8 [facility] No Panel Informationon 03-21 Interpretation and review of laboratory results Abnormal [facility] Phosphoruson 03-21-2023 Phosphate [Mass/Vol] 3.5 mg/dL 2.5 - 4 .5 mg/dL [facility] US Gallbladderon 03-21-2023 1. Hepatic steatosis without focal suspicious hepatic lesion. 2. Cholecystectomy. [facility] EXAM: US GALLBLADDER RUQ HISTORY: 53 [...] Report electronically signed by: Dr. David Bhatt [facility] David Bhatt MD - 03/21/2023 EXAM: [...] without focal suspicious hepatic lesion. 2. Cholecystectomy. [facility] Work Phone: Radiology Study observation (narrative) [facility] Work Phone: US GallbladderOrdered By: Paola Bhatt [...] [facility] RBC, UA Rare #/HPF [facility] Specific Warren, Urine 1.015 1.005 - 1.030 [facility] Squam Epithel, UA None Seen #/LPF [facility] Urobilinogen, Urine 0.2 E.U./dL NINF [facility] WBC, UA None Seen #/HPF [facility] SPECIFY(EX-CATH,MIDS TREAM,CYSTO,ETC)?->m id [facility] CBC with Diffon 10-19-2022 Abs. Basophil Normal 0.0-0.2 [facility] Comment on above: Performed By: #### L IP, CP, CDP, TROPI #### [facility] [address] [place] [address] Taxation Economist: Jemma Pierre MD Abs.Imm.Granulocyte Normal 0.00-0.30 [facility] Comment on above: Performed By: #### L IP, CP, CDP, TROPI #### [facility] [address] [place] [address] Taxation Economist: Jemma Pierre MD Abs.Neutrophil (Seg) 3.36 k/uL Normal 2.5-7.0 [facility] Comment on above: Performed By: #### L IP, CP, CDP, TROPI #### [facility] [address] [place] [address] Taxation Economist: Jemma Pierre MD Basophil Normal 0-2 [facility] Comment on above: Performed By: #### L IP, CP, CDP, TROPI #### [facility] [address] [place], [place] [phone] Taxation Economist: Jemma Pierre MD Eosinophils (Bld) [#/Vol] 0.12 10*3/uL Normal 0.0-0.4 [facility] Comment on above: Performed By: #### L IP, CP, CDP, TROPI #### [facility] [address] [place] [address] Taxation Economist: Jemma Pierre MD Eosinophils/100 WBC (Bld) 2 % Normal 0-5 [facility] Comment on above: Performed By: #### L IP, CP, CDP, TROPI #### [facility] [address] [place] [address] Taxation Economist: Jemma Pierre MD Immature Granulocyte Normal 0 [facility] Comment on above: Performed By: #### L IP, CP, CDP, TROPI #### [facility] [address] [place] [address] Taxation Economist: Jemma Pierre MD Lymphocytes (Bld) [#/Vol] 2.07 10*3/uL Normal 1.0-4.8 [facility] Comment on above: Performed By: #### L IP, CP, CDP, TROPI #### [facility] [address] [place] [address] Taxation Economist: Jemma Pierre MD Lymphocytes/100 WBC (Bld) 34 % Normal 15-40 [facility] Comment on above: Performed By: #### L IP, CP, CDP, TROPI #### [facility] [address] [place] [address] Taxation Economist: Jemma Pierre MD Monocytes (Bld) [#/Vol] 0.55 10*3/uL Normal 0.0-1.0 [facility] Comment on above: Performed By: #### L IP, CP, CDP, TROPI #### [facility] [address] [place], [place] [id number] Taxation Economist: Jemma Pierre MD Monocytes/100 WBC (Bld) 9 % High 4-8 [facility] Comment on above: Performed By: #### L IP, CP, CDP, TROPI #### [facility] [address] [place], [place] [phone] Taxation Economist: Jemma Pierre MD Morphology Rodrick (Bld) [Interp] Manual Differential Performed Normal [facility] Comment on above: Performed By: #### L IP, CP, CDP, TROPI #### [facility] [address] [place] [address] Taxation Economist: Jemma Pierre MD Neutrophil (Seg) 55 % Normal 47-75 [facility] Comment on above: Performed By: #### L IP, CP, CDP, TROPI #### [facility] [address] [place] [address] Taxation Economist: Jemma Pierre MD Erythrocyte distribution width (RBC) [Ratio] 12.8 % Normal 12.1-15.2 [facility] Comment on above: Performed By: #### L IP, CP, CDP, TROPI #### [facility] [address] [place], [place] [id number] Taxation Economist: Jemma Pierre MD Hematocrit (Bld) [Volume fraction] 42.7 % Normal 36-46 [facility] Comment on above: Performed By: #### L IP, CP, CDP, TROPI #### [facility] [address] [place], [place] [phone] Taxation Economist: Jemma Pierre MD Hemoglobin (Bld) [Mass/Vol] 14.6 g/dL Normal 12.0-16.0 [facility] Comment on above: Performed By: #### L IP, CP, CDP, TROPI #### [facility] [address] [place] [address] Taxation Economist: Jemma Pierre MD MCH (RBC) [Entitic mass] 30.1 pg Normal 26-34 [facility] Comment on above: Performed By: #### L IP, CP, CDP, TROPI #### [facility] [address] [place] [address] Taxation Economist: Jemma Pierre MD MCHC (RBC) [Mass/Vol] 34.1 g/dL Normal 31-37 [facility] Comment on above: Performed By: #### L IP, CP, CDP, TROPI #### [facility] [address] [place] [address] Taxation Economist: Jemma Pierre MD MCV (RBC) [Entitic vol] 88.4 fL Normal 80-100 [facility] Comment on above: Performed By: #### L IP, CP, CDP, TROPI #### [facility] [address] [place] [address] Taxation Economist: Jemma Pierre MD Platelets (Bld) [#/Vol] 209 10*3/uL Normal 140-450 [facility] Comment on above: Performed By: #### L IP, CP, CDP, TROPI #### [facility] [address] [place] [address] Taxation Economist: Jemma Pierre MD RBC (Bld) [#/Vol] 4.84 10*6/uL Normal 4.0-5.2 [facility] Comment on above: Performed By: #### L IP, CP, CDP, TROPI #### [facility] [address] [place] [address] Taxation Economist: Jemma Pierre MD WBC (Bld) [#/Vol] 6.1 10*3/uL Normal 3.5-11.0 [facility] Comment on above: Performed By: #### L IP, CP, CDP, TROPI #### [facility] [address] [place], [place] [phone] Taxation Economist: Jemma Pierre MD Comp Metabolic Profon 2022 Albumin [Mass/Vol] 4.4 g/dL Normal 3.5-5.2 [facility] Comment on above: Performed By: #### L IP, CP, CDP, TROPI #### [facility] [address] [place], [place] [id number] Taxation Economist: Jemma Pierre MD Alkaline Phos 77 U/L Normal 35-104 [facility] Comment on above: Performed By: #### L IP, CP, CDP, TROPI #### [facility] [address] [place] [address] Taxation Economist: Jemma Pierre MD ALT [Catalytic activity/Vol] 36 U/L High 5-33 [facility] Comment on above: Performed By: #### L IP, CP, CDP, TROPI #### [facility] [address] [place], [place] [phone] Taxation Economist: Jemma Pierre MD Anion gap [Moles/Vol] 13 mmol/L Normal 9-17 [facility] Comment on above: Performed By: #### L IP, CP, CDP, TROPI #### [facility] [address] [place], [place] [id number] Taxation Economist: Jemma Pierre MD AST [Catalytic activity/Vol] 24 U/L Normal <32 [facility] Comment on above: Performed By: #### L IP, CP, CDP, TROPI #### [facility] [address] [place], [place] [phone] Taxation Economist: Jemma Pierre MD Bilirubin [Mass/Vol] 0.6 mg/dL Normal 0.3-1.2 [facility] Comment on above: Performed By: #### L IP, CP, CDP, TROPI #### [facility] [address] [place] [address] Taxation Economist: Jemma Pierre MD BUN/CRE Ratio 20 Normal 9-20 [facility] Comment on above: Performed By: #### L IP, CP, CDP, TROPI #### [facility] [address] [place] [phone] Taxation Economist: Jemma Pierre MD Calcium [Mass/Vol] 9.6 mg/dL Normal 8.6-10.4 [facility] Comment on above: Performed By: #### L IP, CP, CDP, TROPI #### [facility] [address] [place] [address] Taxation Economist: Jemma Pierre MD Chloride [Moles/Vol] 106 mmol/L Normal 98-107 [facility] Comment on above: Performed By: #### L IP, CP, CDP, TROPI #### [facility] [address] [place] [address] Taxation Economist: Jemma Pierre MD CO2 [Moles/Vol] 22 mmol/L Normal 20-31 [facility] Comment on above: Performed By: #### L IP, CP, CDP, TROPI #### [facility] [address] [place] [address] Taxation Economist: Jemma Pierre MD Creatinine [Mass/Vol] 0.6 mg/dL Normal 0.5-0.9 [facility] Comment on above: Performed By: #### L IP, CP, CDP, TROPI #### [facility] [address] [place] [address] Taxation Economist: Jemma Pierre MD GFR/1.73 sq M.predicted among non-blacks MDRD (S/P/Bld) [Vol rate/Area] mL/min/{1.73_m2} Normal >60 [facility] Comment on above: Result Comment: These [...] #### L IP, CP, CDP, TROPI #### [facility] [address] [place], [place] [phone] Taxation Economist: Jemma Pierre MD Glucose [Mass/Vol] 98 mg/dL Normal 70-99 [facility] Comment on above: Performed By: #### L IP, CP, CDP, TROPI #### [facility] [address] [place], [place] [phone] Taxation Economist: Jemma Pierre MD Potassium [Moles/Vol] 3.9 mmol/L Normal 3.7-5.3 [facility] Comment on above: Performed By: #### L IP, CP, CDP, TROPI #### [facility] [address] [place], [place] [id number] Taxation Economist: Jemma Pierre MD Protein [Mass/Vol] 7.2 g/dL Normal 6.4-8.3 [facility] Comment on above: Performed By: #### L IP, CP, CDP, TROPI #### [facility] [address] [place], [place] [id number] Taxation Economist: Jemma Pierre MD Sodium [Moles/Vol] 141 mmol/L Normal 135-144 [facility] Comment on above: Performed By: #### L IP, CP, CDP, TROPI #### [facility] [address] [place], [place] [phone] Taxation Economist: Jemma Pierre MD Urea nitrogen [Mass/Vol] 12 mg/dL Normal 6-20 [facility] Comment on above: Performed By: #### L IP, CP, CDP, TROPI #### [facility] [address] [place], [place] [phone] Taxation Economist: Jemma Pierre MD Lipaseon 10-19-2022 Lipase [Catalytic activity/Vol] 29 U/L Normal 13-60 [facility] Comment on above: Performed By: #### L IP, CP, CDP, TROPI #### [facility] [address] [place] [address] Taxation Economist: Jemma Pierre MD Troponinon 10-19-2022 Troponin, High Sens <6 Normal 0-14 [facility] Comment on above: Result Comment: High Sensitivity Troponin values cannot be compared with other Troponin methodologies. Performed By: #### L IP, CP, CDP, TROPI #### [facility] [address] [place], [place] [phone] Taxation Economist: Jemma Pierre MD Urinalysis, Routineon 2022 Bilirubin, SemiQt,Ur Negative Normal NEG [facility] Comment on above: Performed By: #### U A #### [facility] [address] [place], [place] [phone] Taxation Economist: Jemma Pierre MD Blood, Urine Negative Normal NEG [facility] Comment on above: Performed By: #### U A #### [facility] [address] [place], [place] [phone] Taxation Economist: Jemma Pierre MD Clarity (U) Clear Normal CLEAR [facility] Comment on above: Performed By: #### U A #### [facility] [address] [place], [place] [id number] Taxation Economist: Jemma Pierre MD Color (U) Yellow Normal YEL [facility] Comment on above: Performed By: #### U A #### [facility] [address] [place], [place] [phone] Taxation Economist: Jemma Pierre MD Comment Normal [facility] Comment on above: Performed By: #### U A #### [facility] [address] [place], [place] [phone] Taxation Economist: Jemma Pierre MD Glucose Ql (U) Negative Normal NEG [facility] Comment on above: Performed By: #### U A #### [facility] [address] [place], [place] [phone] Taxation Economist: Jemma Pierre MD Ketones Ql (U) Negative Normal NEG [facility] Comment on above: Performed By: #### U A #### [facility] [address] [place], [place] [phone] Taxation Economist: Jemma Pierre MD Leukocyte esterase Test strip Ql (U) Negative Normal NEG [facility] Comment on above: Performed By: #### U A #### [facility] [address] [place] [address] Taxation Economist: Jemma Pierre MD Nitrite,Ur Negative Normal NEG [facility] Comment on above: Performed By: #### U A #### [facility] [address] [place], [place] [phone] Taxation Economist: Jemma Pierre MD PH,Ur 8.0 Normal 5.0-8.0 [facility] Comment on above: Performed By: #### U A #### [facility] [address] [place], [place] [phone] Taxation Economist: Jemma Pierre MD Protein Ql (U) Negative Normal NEG [facility] Comment on above: Performed By: #### U A #### [facility] [address] [place], [place] [phone] Taxation Economist: Jemma Pierre MD Spec. Warren,Ur 1.010 Normal 1.005-1.030 [facility] Comment on above: Performed By: #### U A #### [facility] [address] [place] [address] Taxation Economist: Jemma Pierre MD Urobilinogen,Ur Normal Normal 0.0-1.0 [facility] Comment on above: Performed By: #### U A #### [facility] [address] [place] [address] Taxation Economist: Jemma Pierre MD CARDIAC STRESS TESTon 2022 CARDIAC STRESS TEST [address] [address] CARDIAC STRESS TEST PATIENT NAME: JUDY MISHRA : 1970 MED REC NO: [id number] ROOM: ACCOUNT NO: [id number] ADMIT DATE: 07/13/2022 PROVIDER: Jabier Cottrell MD [...] or angina. JABIER COTTRELL MD [id number] Doc#: [id number] CC: Normal [facility] Brain Natriuretic Peptideon 06-12-2022 Natriuretic peptide B (Bld) [Mass/Vol] pg/mL NINF - 300 pg/mL [facility] Comment on above: An age-independent cutoff point of 300 pg/ml has a 98% negative predictive value excluding acute heart failure. CBC with Auto Differentialon 06-12-2022 Absolute Eos # 0.20 [facility] Absolute Lymph # 1.60 [facility] Absolute Ross # 0.40 [facility] Basophils (Bld) [#/Vol] 0.00 10*3/uL [facility] Basophils/100 WBC (Bld) 1 % 0 - 2 % [facility] Differential Type [facility] Eosinophils/100 WBC (Bld) 4 % 0 - 5 % [facility] Hematocrit (Bld) [Volume fraction] 44.2 % 36 - 46 % [facility] Hemoglobin (Bld) [Mass/Vol] 14.8 g/dL 12.0 - 16.0 g/dL [facility] Lymphocytes/100 WBC (Bld) 26 % 15 - 40 % [facility] MCH (RBC) [Entitic mass] 29.9 pg 26 - 34 pg [facility] MCHC (RBC) [Mass/Vol] 33.6 g/dL 31 - 37 g/dL [facility] MCV (RBC) [Entitic vol] 89.1 fL 80 - 100 fL [facility] Monocytes/100 WBC (Bld) 6 % 4 - 8 % [facility] Platelet distribution width (Bld) [Ratio] 12.7 % 12.1 - 15.2 % [facility] Platelets (Bld) [#/Vol] 210 10*3/uL [facility] RBC (Bld) [#/Vol] 4.96 10*6/uL 4.0 - 5.2 m/uL [facility] Segmented neutrophils/100 WBC (Bld) 63 % 47 - 75 % [facility] Segs Absolute 3.90 [facility] WBC (Bld) [#/Vol] 6.2 10*3/uL [facility] Comprehensive Metabolic Pane simba 06-12-2022 Albumin [Mass/Vol] 4.5 g/dL 3.5 - 5.2 g/dL [facility] ALP [Catalytic activity/Vol] 73 U/L 35 - 104 U/L [facility] ALT [Catalytic activity/Vol] 17 U/L 5 - 33 U/L [facility] Anion gap [Moles/Vol] 10 mmol/L 9 - 17 mmol/L [facility] AST [Catalytic activity/Vol] 16 U/L NINF - 32 U/L [facility] Bilirubin [Mass/Vol] 0.4 mg/dL 0.3 - 1 .2 mg/dL [facility] Calcium [Mass/Vol] 9.7 mg/dL 8.6 - 10. 4 mg/dL [facility] Chloride [Moles/Vol] 103 mmol/L 98 - 10 7 mmol/L [facility] CO2 [Moles/Vol] 27 mmol/L 20 - 31 mmol/L [facility] Creatinine [Mass/Vol] 0.69 mg/dL 0.50 - 0.90 mg/dL [facility] GFR/1.73 sq M.predicted MDRD (S/P/Bld) [Vol rate/Area] - PINF [facility] Comment on above: These results are [...] [Mass/Vol] 92 mg/dL 70 - 99 mg/dL [facility] Interpretation and review of laboratory results Abnormal [facility] Potassium [Moles/Vol] 3.4 mmol/L Low 3.7 - 5.3 mmol/L [facility] Protein [Mass/Vol] 7.1 g/dL 6.4 - 8.3 g/dL [facility] Sodium [Moles/Vol] 140 mmol/L 135 - 144 mmol/L [facility] Urea nitrogen [Mass/Vol] 10 mg/dL 6 - 20 mg/dL [facility] Urea nitrogen/Creatinine (Bld) [Mass ratio] 14 9 - 20 [facility] D-Dimer, Quantitativeon 05-0 Fibrin D-dimer FEU IA (Bld) [Mass/Vol] 0.40 ug/mL [facility] Comment on above: When combined with [...] more prevalent in patients with distal DVT. [facility] Lipaseon 06-12-2022 Lipase [Catalytic activity/Vol] 25 U/L 13 - 60 U/L [facility] No Panel Informationon 06-12 [facility] TSH with Reflexon 06-12-2022 TSH Qn 2.81 m[IU]/L [facility] Troponinon 06-12-2022 Troponin I.cardiac DL <= 0.01 ng/mL [Mass/Vol] ng/L 0 - 14 ng/L [facility] Comment on above: High Sensitivity Tro ponin values cannot be compared with other Troponin methodologies. [facility] XR CHEST (2 VW)on 06-12-2022 1. Linear area of platelike atelectasis versus scarring in the lingula. 2. Remainder of lung piña are unremarkable. [facility] EXAM: Chest x-ray HISTORY: Chest pain COMPARISON: None. TECHNIQUE: Frontal and lateral chest FINDINGS: Vascularity are unremarkable. Lungs are expanded and free of focal infiltrates. There is a linear density in the lingula consistent with platelike atelectasis or scarring. No acute bony abnormality is appreciated. [facility] Jemma Boyd MD [...] 2. Remainder of lung piña are unremarkable. [facility] Phone: Radiology Study observation (narrative) [facility] Phone: XR CHEST (2 VW)Ordered By: Sohail Boyd on 06-12-2022 [facility] Phone: CBC AUTO DIFFon 03-19-2022 BASO # 0.1 103/ul Normal 0.0-0.1 [facility] Comment on above: Performed By: #### C BC #### [facility] [address] [place] [address] Dr. Lupillo [place] Basophils/100 WBC (Bld) 0.8 % Normal 0.2-2.0 [facility] Comment on above: Performed By: #### C BC #### [facility] [address] [place] [address] Dr. Lupillo [place] EO # 0.4 103/ul Normal 0.0-0.7 [facility] Comment on above: Performed By: #### C BC #### [facility] [address] [place] [address] Dr. Lupillo [place] Eosinophils/100 WBC (Bld) 5.5 % Normal 0.9-7.0 [facility] Comment on above: Performed By: #### C BC #### [facility] [address] [place] [address] Dr. Lupillo [place] Erythrocyte distribution width (RBC) [Ratio] 13.2 % Normal 11.0-15.0 [facility] Comment on above: Performed By: #### C BC #### [facility] [address] [place] [address] Dr. Lupillo [place] Hematocrit (Bld) [Volume fraction] 45.3 % Normal 36.0-48.0 [facility] Comment on above: Performed By: #### C BC #### [facility] [address] [place] [address] Dr. Lupillo [place] Hemoglobin (Bld) [Mass/Vol] 14.8 g/dL Normal 12.0-16.0 [facility] Comment on above: Performed By: #### C BC #### [facility] [address] [place] [address] Dr. Lupillo [place] IG # 0.02 10e3/ul Normal 0.00-0.03 [facility] Comment on above: Performed By: #### C BC #### [facility] [address] [place] [address] Dr. Lupillo [place] IG % 0.3 % Normal 0.0-0.5 [facility] Comment on above: Performed By: #### C BC #### [facility] [address] [place] [address] Dr. Lupillo [place] LYMPH # 1.4 103/ul Normal 1.2-3.8 [facility] Comment on above: Performed By: #### C BC #### [facility] [address] [place] [address] Dr. Lupillo [place] Lymphocytes/100 WBC (Bld) 22.5 % Normal 20.5-60.0 [facility] Comment on above: Performed By: #### C BC #### [facility] [address] [place] [address] Dr. Lupillo [place] MANUAL DIFF REQ NO Normal [facility] Comment on above: Performed By: #### C BC #### [facility] [address] [place] [address] Dr. Lupillo [place] MCH (RBC) [Entitic mass] 30.0 pg Normal 26.7-34.0 [facility] Comment on above: Performed By: #### C BC #### [facility] [address] [place] [address] Dr. Lupillo [place] MCHC (RBC) [Mass/Vol] 32.7 g/dL Normal 29.9-35.2 [facility] Comment on above: Performed By: #### C BC #### [facility] [address] [place] [address] Dr. Lupillo [place] MCV (RBC) [Entitic vol] 91.9 fL Normal 81.0-99.0 [facility] Comment on above: Performed By: #### C BC #### [facility] [address] [place] [address] Dr. Lupillo [place] MONO # 0.4 103/ul Normal 0.3-0.8 [facility] Comment on above: Performed By: #### C BC #### [facility] [address] [place] [address] Dr. Lupillo [place] Monocytes/100 WBC (Bld) 6.5 % Normal 1.7-12.0 [facility] Comment on above: Performed By: #### C BC #### [facility] [address] [place] [address] Dr. Lupillo [place] NEUT # 4.1 103/ul Normal 1.4-6.5 [facility] Comment on above: Performed By: #### C BC #### [facility] [address] [place] [address] Dr. Lupillo [place] Neutrophils/100 WBC (Bld) 64.4 % Normal 43.0-75.0 [facility] Comment on above: Performed By: #### C BC #### [facility] [address] [place] [address] Dr. Lupillo [place] Platelet mean volume (Bld) [Entitic vol] 12.0 fL Normal 9.5-13.5 [facility] Comment on above: Performed By: #### C BC #### [facility] [address] [place] [address] Dr. Lupillo [place] PLT 235 103/ul Normal 150-450 [facility] Comment on above: Performed By: #### C BC #### [facility] [address] [place] [address] Dr. Lupillo [place] RBC 4.93 106/ul Normal 4.20-5.40 [facility] Comment on above: Performed By: #### C BC #### [facility] [address] [place] [address] [address] Lupillo [place] WBC 6.4 103/ul Normal 4.0-11.0 [facility] Comment on above: Performed By: #### C BC #### [facility] [address] [place] [address] [address] Lupillo [place] PROF CHEM 8 (BAS METB)on Anion gap [Moles/Vol] 13.9 mmol/L Normal [facility] Comment on above: Performed By: #### B MP #### [facility] [address] [place] [address] Dr. Lupillo [place] Calcium [Mass/Vol] 9.4 mg/dL Normal 8.5-10.1 [facility] Comment on above: Performed By: #### B MP #### [facility] [address] [place] [address] Dr. Lupillo [place] Chloride [Moles/Vol] 105 mmol/L Normal 98-107 [facility] Comment on above: Performed By: #### B MP #### [facility] [address] [place] [address] Dr. Lupillo [place] CO2 [Moles/Vol] 28.2 mmol/L Normal 21.0-32.0 [facility] Comment on above: Performed By: #### B MP #### [facility] [address] [place] [address] Dr. Lupillo [place] Creatinine [Mass/Vol] 0.66 mg/dL Normal 0.55-1.02 [facility] Comment on above: Performed By: #### B MP #### [facility] [address] [place] [address] Dr. Lupillo [place] EGFR-AF TAIWANESE >60 Normal >=60 [facility] Comment on above: Performed By: #### B MP #### [facility] [address] [place] [address] Dr. Lupillo [place] EGFR-NON AF TAIWANESE >60 Normal >=60 [facility] Comment on above: Performed By: #### B MP #### [facility] [address] [place] [address] [address] Lupillo [place] Glucose [Mass/Vol] 101 mg/dL Normal 74-106 [facility] Comment on above: Performed By: #### B MP #### [facility] [address] [place] [address] [address] Lupillo [place] Potassium [Moles/Vol] 4.1 mmol/L Normal 3.5-5.1 [facility] Comment on above: Performed By: #### B MP #### [facility] [address] [place] [address] [address] Lupillo [place] Sodium [Moles/Vol] 143 mmol/L Normal 136-145 [facility] Comment on above: Performed By: #### B MP #### [facility] [address] [place] [address] [address] Lupillo [place] Urea nitrogen [Mass/Vol] 13.0 mg/dL Normal 7.0-18.0 [facility] Comment on above: Performed By: #### B MP #### [facility] [address] [place] [address] [address] Lupillo [place] Urea nitrogen/Creatinine [Mass ratio] 19.7 mg/mg Normal [facility] Comment on above: Performed By: #### B MP #### [facility] [address] [place] [address] [address] Lupillo [place] TSHon 03-19-2022 TSH 1.514 uIU/mL Normal 0.358-3.740 [facility] Comment on above: Performed By: #### T SH #### [facility] [address] [place] [address] [address] Lupillo [place] XR KNEE LT 4V [...] DEMETRIA NAVARRETE Date: 2022-03-19 08:31 Normal [facility] THYROIDon 12-05-2021 US THYROID EXAMINATION: [...] JEMMA ARAUZ Date: 2021-12-05 10:49 Normal [facility] TSHon 09-30-2021 TSH 3.645 uIU/mL Normal 0.358-3.740 [facility] Comment on above: Performed By: #### T SH #### [facility] [address] [address] [address] Lupillo [place] US THYROIDon 08-23-2021 US [...] JEMMA ARAUZ Date: 2021-08-23 13:03 Normal [facility] T3 UPTAKEon 08-19-2021 T3U 31.0 % Normal 30.0-39.0 [facility] Comment on above: Performed By: #### T 3UP, TSH, T4 ####[facility] [address] [place], [place] [address]PiDr. Lupillo [place] T4on 08-19-2021 T4 [Mass/Vol] 11.10 ug/dL Normal 4.80-13.90 [facility] Comment on above: Performed By: #### T 3UP, TSH, T4 #### [facility] [address] [place], [place] [address] Dr. Lupillo [place] TSHon 08-19-2021 TSH 6.669 uIU/mL Critically high 0.358-3.740 [facility] Comment on above: Performed By: #### T 3UP, TSH, T4 ####[facility] [address] [place], [place] [address]TwDr. Lupillo [place] US THYROIDon 04-25-2021 US THYROID [...] JEMMA ARAUZ Date: 2021-04-25 14:04 Normal [facility] TSHon 04-11-2021 TSH 2.911 uIU/mL Normal 0.470-4.680 [facility] Comment on above: Performed By: #### T SH #### [facility] [address] [address] [address] Lupillo [place] TSH RANGE SEE BELOW Normal [facility] Comment on above: Result Comment: <0.3 4 UIU/ml HYPERTHYROID 0.34-5.60 UIU/ml EUTHYROID >5.60 UIU/ml HYPOTHYROID Performed By: #### T SH #### [facility] [address] [address] [address] Lupillo [place] Basic Metabolic Panel w/ Ref johnna to MGOrdered By: Stephie Iverson on 06-08-2020 Anion gap [Moles/Vol] 8 mmol/L Low 9 - 17 mmol/L Tucker Blair Phone: Calcium [Mass/Vol] 9.0 mg/dL 8.6 - 10. 4 mg/dL Tucker Blair Phone: Chloride [Moles/Vol] 105 mmol/L 98 - 10 7 mmol/L Tucker Blair Phone: CO2 [Moles/Vol] 24 mmol/L 20 - 31 mmol/L Tucker Blair Phone: Creatinine [Mass/Vol] 0.49 mg/dL Low 0.50 - 0.90 mg/dL Tucker Blair Phone: GFR >60 >60 mL/min [employer] Phone: GFR Non- >60 >60 mL/min Tucker Blair Phone: GFR/1.73 sq M.predicted MDRD (S/P/Bld) [Vol rate/Area] Tucker Blair Phone: Comment on above: Average GFR for 40-4 9 years old: 99 mL/min/1.73sq m Chronic Kidney Disease: <60 mL/min/1.73sq m Kidney failure: <15 mL/min/1.73sq m eGFR calculated using average adult body mass. Additional eGFR calculator available at: http://www.Solarmass.3Jam/multiple_crcl_2012.htm GFR/1.73 sq M.predicted MDRD (S/P/Bld) [Vol rate/Area] NOT REPORTED Tucker Blair Phone: Glucose [Mass/Vol] 107 mg/dL High 70 - 99 mg/dL Tucker Blair Phone: Interpretation and review of laboratory results Abnormal Tucker Blair Phone: Potassium [Moles/Vol] 3.7 mmol/L 3.7 - 5.3 mmol/L Tucker Blair Phone: Sodium [Moles/Vol] 137 mmol/L 135 - 144 mmol/L [employer] Work Phone: Urea nitrogen (BldV) [Mass/Vol] 11 mg/dL 6 - 20 mg/dL [employer] Work Phone: Urea nitrogen/Creatinine (Bld) [Mass ratio] 22 High [employer] Work Phone: CBC Auto DifferentialOrdered By: Stephie Iverson on 06-08-2020 Absolute Eos # 0.30 [facility] Work Phone: Absolute Immature Granulocyte NOT REPORTED [employer] Work Phone: Absolute Lymph # 1.80 [facility] Work Phone: Absolute Ross # 0.50 [facility] Work Phone: Basophils (Bld) [#/Vol] 0.00 10*3/uL [employer] Work Phone: Basophils/100 WBC (Bld) 1 % 0 - 2 % [employer] Work Phone: Differential Type YES [facility] Work Phone: Eosinophils/100 WBC (Bld) 5 % 0 - 5 % [employer] Work Phone: Hematocrit (Bld) [Volume fraction] 42.6 % 36 - 46 % [employer] Work Phone: Hemoglobin.gastrointes tinal spec 1 Ql (Stl) 14.4 g/dL 12.0 - 16.0 g/dL [employer] Work Phone: Immature Granulocytes NOT REPORTED 0 % [facility] Work Phone: Lymphocytes/100 WBC (Bld) 26 % 15 - 40 % [employer] Work Phone: MCH (RBC) [Entitic mass] 29.6 pg 26 - 34 pg [employer] Work Phone: MCHC (RBC) [Mass/Vol] 33.8 g/dL 31 - 37 g/dL [facility] Work Phone: MCV (RBC) [Entitic vol] 87.6 fL 80 - 100 fL Tucker Blair Phone: Monocytes/100 WBC (Bld) 7 % 4 - 8 % Tucker Blair Phone: NRBC Automated NOT REPORTED per 100 WBC [employer] Work Phone: Platelet distribution width (Bld) [Ratio] 13.3 % 12.1 - 15.2 % Tucker Blair Phone: Platelet Estimate NOT REPORTED Tucker Blair Phone: Platelet mean volume (Bld) [Entitic vol] NOT REPORTED 6.0 - 12.0 fL Tucker Blair Phone: Platelets (Bld) [#/Vol] 252 10*3/uL Tucker Blair Phone: RBC (Bld) [#/Vol] 4.87 10*6/uL 4.0 - 5.2 m/uL Tucker Blair Phone: RBC (Bld) [#/Vol] NOT REPORTED Tucker Blair Phone: Segmented neutrophils/100 WBC (Bld) 61 % 47 - 75 % Tucker Blair Phone: Segs Absolute 4.40 [employer] Work Phone: WBC (Bld) [#/Vol] 7.0 10*3/uL Tucker Blair Phone: WBC (Bld) [#/Vol] NOT REPORTED Tucker Blair Phone: CTA CHEST W CONTRASTOrdered By: Stephie [...] nodules and thyromegaly. Consider outpatient thyroid ultrasound. Tucker Blair Phone: EXAMINATION: CTA CHEST W CONTRAST HISTORY: [...] alone. The bone windows are normal. Cholecystectomy. Tucker Blair Phone: Pa[place], [facility] Incoming Radiant Results From EVIIVO/Wheely - 06/08/2020 4:28 PM EDT EXAMINATION: CTA [...] nodules and thyromegaly. Consider outpatient thyroid ultrasound. Tucker Blair Phone: D-Dimer, QuantitativeOrdered By: Stephie Iverson on 06-08-2020 D-Dimer, Quant 0.61 High [employer] Phone: Comment on above: When combined with [...] Interpretation and review of laboratory results Abnormal Tucker Blair Phone: VL DUP LOWER EXTREMITY VENOU S LEFTOrdered By: Stephie Iverson on 06-08-2020 [place], [facility] Incoming Cardio Results From Cpacs/Ge - 06/08/2020 3:35 PM EDT [facility] Vascular Lower Extremities DVT Study Procedure Patient Name MISHRA Date of Study 06/08/2020 JUDY Yoon Date of 1970 Gender Female Age 50 year(s) Race Room Number 06 Height: 63 inch, 160.02 cm Corporate ID [id number] Weight: 200 pounds, 90.7 kg # Patient Acct [id number] BSA: 1.93 m^2 BMI: 35.43 kg/m^2 # MR # [id number] In House Cra Carrie Haines RT Interpreting Physician Gian Braga [...] !Phasic!No ! ! + --------+------+---- --+ + Tucker Blair Phone: CNOVSPon 05-27-2018 [facility] Office ([place]) JUDY MISHRA ([id number]) 1970 F Date Time Provider Department 05/27/18 8:20 AM RISA YOON During your visit today, we recorded the following information about you: Pulse Respiration Blood pressure Weight 71/minute 18/minute 117/58 89 kg Height 1.626 m Risa Yoon MD 05/27/2018 7:46 PM Signed Gynecologic Oncology [facility] Post-Op Visit Re: Judy Mishra [facility]#: [id number] 05/27/2018 PROBLEM: Judy Mishra returns to the [...] office note were sent to: Noah Woods, [address] [place] [address] CC: Selvin Mack Sr, MD (PCP) Referring [...] Status:Closed by RISA YOON MD on 05/27/18 [facility] PROGRESSon 05-23-2018 PROGRESS HNO ID: [id number] Author: Risa Yoon Service: ? Author Type: Physician Type: Progress Notes Filed: 05/27/2018 7:46 PM Note Text: Gynecologic Oncology [facility] Post-Op Visit Re: Judy Mishra [facility]#: [id number] 05/27/2018 PROBLEM: Judy Mishra returns to the [...] office note were sent to: Noah Woods [address] [place] [address] CC: Selvin Mack Sr, MD (PCP) [facility] ANES jK 05-09-2018 ANES POST HNO ID: [id number] Author: Constantin Gomez Service: Anesthesiology Author Type: [...] 09, 2018 TIME: 11:50 AM PAGER/CONTACT #: [phone] [facility] BRIEF OP NOTon 05-09-2018 BRIEF OP NOT HNO ID: [id number] Author: Carissa Liang (Fel) Service: Gynecology Oncology Author Type: Fellow Type: Brief Op Note Filed: 05/09/2018 8:29 AM Note Text: BRIEF OP NOTE LOG ID: [id number] Surgery/Procedure Date: 05/09/2018 Incision/Procedure Start Time: 8:11 AM Incision Close/Procedure End Time: 8:26 AM Surgeon(s)/Procedura list(s) and Tripe Scraper(s): Surgeon(s) and Role: * Risa Yoon - Primary * Krys (Tristen Mueller - Resident - Assisting * Carissa Liang (Fel) - Fellow Procedure(s): Hysteroscopy and DANDC Anesthesia: Choice - Anesthesia Consult Findings: Polypoid tissue removed. Posterior uterine fibroid, submucosal Estimated Blood Loss: 5 mls Specimens: Specimen ID Type Site Comments Sent To [facility] Pathology Routine Complications: None Pre-Op/Pre-Procedure Diagnosis: Endometrial mass Post-Op/Post-Procedu re Diagnosis: Endometrial mass SIGNATURE: Carissa Liang MD PATIENT NAME: Judy Mishra DATE: May 09, 2018 TIME: 8:28 AM PAGER/CONTACT #: [phone] [facility] NURSING PROGon 05-09-2018 NURSING PROG HNO ID: [id number] Author: Opal Oswald (Roentgenology Teacher) Service: Pharmacy Author Type: ? 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 Patient to use [facility] Bedside Delivery - NO prefer own pharmacy 2. If fax, patient would like us to fax prescriptions to Pharmacy of choice a. Pharmacy: b. Location: c. Phone: 3. Insurance card on file - NO 4. Credit card for payment - NO PRESCRIPTIONS WERE E-SCRIPTED TO [facility]. Normal [facility] NURSING PROG HNO ID: [id number] Author: Pallavi Ellsworth RN Service: ? Author [...] RN In Department: HOSP MAIN M023 Normal [facility] NURSING PROG HNO ID: [id number] Author: Pallavi Beltran) MERY Ellsworth Service: ? Author Type: Registered Nurse Type: Nursing Progress Note Filed: 05/09/2018 5:46 AM Note Text: Dr. Yoon paged for updated HANDP - [id number], OR 8, Judy Mishra, patient's HANDP needs heart and lung sounds. Thank you, Trudy [phone] Normal [facility] OPERATIVE NOon 05-09-2018 OPERATIVE NO HNO ID: [id number] Author: Risa Yoon Service: Gynecology Oncology Author Type: Physician Type: Operative Report Filed: 05/12/2018 10:21 PM Note Text: OPERATIVE/PROCEDURE REPORT LOG ID: [id number] SURGERY/PROCEDURE DATE: 05/09/2018 INCISION/PROCEDURE START TIME: 8:11 AM INCISION CLOSE/PROCEDURE END TIME: 8:29 AM SURGEON(S)/PROCEDURA LIST(S) AND DIGITAL EDITOR(S): Surgeon(s) and Role: * Risa Yoon - Primary * Krys Mueller - Resident - Assisting * Carissa Liang (Fel) - Fellow No Additional Staff SURGEON(S)/PROCEDURA LIST(S) AND DIGITAL EDITOR(S): Surgeon(s) and Role: * Risa Yoon - [...] findings.?Then the attention was directed to the [facility]. A speculum was placed in the [...] 2018 TIME: 10:18 PM PAGER/CONTACT #: Hang [facility] PT EDon 05-09-2018 PT ED HNO ID: [id number] Author: Marissa Beltran) MERY Ferreira Service: Nursing Author Type: Registered Nurse Type: Patient Education Filed: 05/09/2018 10:16 AM Note Text: PATIENT EDUCATION TOPIC: PROCEDURE / SURGERY: Procedure/Surgery: PATIENT NAME: Judy Mishra PATIENT LOCATION: [place] [address] READINESS TO LEARN COGNITIVE ABILITY: Alert and [...] Electronically Signed By: Marissa Ferreira RN Normal [facility] SURGICAL PATHOLOGYon 019 SURGICAL PATHOLOGY Specimen originated from [facility] Specimen #: [id number] Submitting Physician: RISA YOON MD FINAL DIAGNOSIS Endometrium, curettings - Disordered proliferative endometrium suggestive of benign endometrial polyp. ACV/dss 05/13/2018 Niles Geller M.D. (Electronic Signature) SPECIMEN SUBMITTED A: [facility]ICAL DATA ENDOMETRIAL MASS UTERINE BLEEDING GROSS DESCRIPTION A. Received in formalin on Telfa gauze are multiple red-brown, soft feathery segments of tissue aggregating to 2.5 x 2.0 x 0.3 cm. Totally submitted in one cassette. Gross examination performed at [facility], [address] [place] [address] 05/09/2018 4:54:51 PM Date of Report: 05/14/2018 Date of Procedure: 05/09/2018 Date of Receipt: 05/09/2018 Submitted by: RISA YOON MD Location: 2 Diagnostic interpretation performed at [place] [address]. CLIA Number: [id number] [facility] CNNURSEon 05-08-2018 CNNURSE Nurse Visit (REAGAN) JUDY MISHRA ([id number]) 1970 F Date Time Provider Department 05/08/18 8:00 AM CAPSULE MACHINE OPERATOR ONC NURSE DIPTI KIRK During your visit today, we recorded the following information about you: Tono Giraldo LPN, AIRCRAFT CHARTER DISPATCHER 05/09/2018 4:47 PM Signed DATE OF SERVICE: 05/08/2018 PROBLEM: Judy Mishra presents for pre-op teaching. PRE-OP DIAGNOSIS: Abnormal uterine bleeding SCHEDULED SURGERY AND DATE: 05/09/2018 - [facility] and possible hysteroscopy PRIMARY SURGEON: iRsa Yoon MD NURSING PREOP ASSESSMENT: Fevers, chills, cough, or nasal congestion: No Vaginal itching, burning, discharge, or odor: No Pain with urination, frequency, urgency, cloudy or foul smelling urine: No If yes to any of the above then MD notified: Not Applicable ADVANCED CARE PLANNING: Does the patient have an advanced directive: No Does [facility] have a copy of the patient's [...] prescribed by anesthesia, internal medicine, surgeon, or BUNDLE WRAPPER Stop NSAIDs, Aspirin (ASA), vitamins, herbal supplements, [...] jewelry, body piercing, makeup, contacts, lotions, nail icelandic on fingers, or anything in hair on arrival to surgery Wear low healed shoes and loose fitting clothing Leave all valuables at home or with a family member Directions to [facility] and the [facility] Parking/parking validation on the day prior to [...] - IV pain medication after surgery, IV RAILCAR BRAKE OPERATOR if ordered by MD, discharged home with [...] please send any FMLA papers to physician's assistant secretary. SYMPTOMS TO NOTIFY MD - Fever, [...] if after hours patient instructed to call gear hobber set up operator and ask for harmonica maker product info specialist onc resident. SEAN program offered to patient: [...] None Educator: Tono Giraldo LPN [facility] Tono Giraldo LPN, KEARA 05/08/2018 7:38 AM Signed GYNECOLOGY PHYSICIAN CONTACT INFORMATION Surgery Scheduling Office General Gynecology Gynecologic Oncology Dr. Kenia Long Dr. Shira Jackson Dr. Girma Moon Dr. Osman Yoon Dr. Shayy Landry Dr. Dimitris Nazario Dr. Helene Arias Dr. Judy Garcia Dr. Matthias Zeng Gynecology Nurse Practitioner Yudi Mejía, FAISAL [employer] Technician Oncology Nurse Practitioners: Opal Delcid, FAISAL Phan, FAISAL Momin, FAISAL Terrell, AERODYNAMIC CONSULTANT Urogynecology Nighat Burr, FAISAL Mcdonnell FAISAL Partida Dr. Dr. Tavo Ortega Dr. Ashley Martínez Fertility Dr. Girma Llamas Dr. Annia Wang Dr. Etienne Tatum Urogynecology Nurse Practitioner: Dr. Natalie Jeter Bruna Lester, FAISAL Zelaya, FAISAL [place], FAISAL Fertility Nurse Practitioners: Yudi Higuera, FAISAL Post, FAISAL After 4:30 pm or on holidays or weekends, call: or . Ask the gear hobber set up operator to page the ?product info specialist harmonica maker.' PRE-OPERATIVE CHECKLIST: PATIENT INSTRUCTIONS PRIOR TO SURGERYOur [...] not wear jewelry, body piercing(s), makeup, nail icelandic, hairpins, or contacts on the day of surgery. I am to leave valuables and money at home or with family members. Unless my surgeon tells me differently, I will STOP THESE MEDICATIONS 7 DAYS PRIOR TO SURGERY: (Motrin/Ibuprofen/Na proxen/Aleve/Advil), Aspirin, vitamin E, herbal medications, diet pills, and cmmn-dwh-iclwcya medications. Tylenol (acetaminophen) is okay. If I [...] my Surgeon. Discuss medication changes with your mail distribution clerk or primary care physician as well. If I stopped taking my blood-thinning medication, I will ask the surgeon when to resume taking it. If I am an outpatient, a responsible person will drive me home and it was suggested that someone stay with me for 24 hours. I understand that a business intelligence manager or cabdriver is NOT a responsible caregiver. [...] for surgery, I must call my surgical aide after 2pm the day before surgery. Pain management education material found in Your Surgical Guide was reviewed with me. Preoperative instructions given by: CAPSULE MACHINE OPERATOR PREOP INSTRUCTIONS PRE-OPERATIVE CHECKLIST ? See Pre-Operative [...] Your Surgical Guide Book for more information. [facility] TEAM ? At the [facility], we have a multidisciplinary team of caregivers that includes fellows, residents, nurse practitioners (community outreach manager), physician assistants (PAs), clinical nurse specialists (CNSs), nurses, medical assistants (MAs), patient care nursing assistants (PCNAs), social workers, medical case manager and many others. We all [...] day prior to surgery. Phone number: [place] [phone]. ? No alcohol on the day before [...] ? Do not wear any jewelry, nail icelandic, makeup, lotions, contact lenses, or anything in [...] Zeng Gynecology Nurse Practitioner Yudi Mejía, FAISAL [employer] Technician Oncology Nurse Practitioners: Opal Delcid, FAISAL Phan, FAISAL Momin, FAISAL Terrell, AERODYNAMIC CONSULTANT Urogynecology Nighat Burr, [facility] Dr. Stephie Mcdonnell FAISAL Partida Dr. Dr. Tavo Ortega Dr. Ashley Martínez Fertility Dr. Girma Llamas Dr. Annia Wang Dr. Etienne Tatum Urogynecology Nurse Practitioner: Dr. Natalie Jeter Bruna Lester, FAISAL Zelaya, FAISAL [place], AERODYNAMIC CONSULTANT Fertility Nurse Practitioners: Yudi Higuera, FAISAL Post, FAISAL After 4:30 pm or on holidays or weekends, call: or . Ask the gear hobber set up operator to page the ?product info specialist harmonica maker.' PRE-OPERATIVE CHECKLIST: PATIENT INSTRUCTIONS PRIOR TO SURGERYOur [...] not wear jewelry, body piercing(s), makeup, nail icelandic, hairpins, or contacts on the day of surgery. I am to leave valuables and money at home or with family members. Unless my surgeon tells me differently, I will STOP THESE MEDICATIONS 7 DAYS PRIOR TO SURGERY: (Motrin/Ibuprofen/Na proxen/Aleve/Advil), Aspirin, vitamin E, herbal medications, diet pills, and wikn-ijl-zjidnzi medications. Tylenol (acetaminophen) is okay. If I [...] my Surgeon. Discuss medication changes with your mail distribution clerk or primary care physician as well. If I stopped taking my blood-thinning medication, I will ask the surgeon when to resume taking it. If I am an outpatient, a responsible person will drive me home and it was suggested that someone stay with me for 24 hours. I understand that a business intelligence manager or cabdriver is NOT a responsible caregiver. [...] for surgery, I must call my surgical aide after 2pm the day before surgery. Pain management education material found in Your Surgical Guide was reviewed with me. Preoperative instructions given by: CAPSULE MACHINE OPERATOR PREOP INSTRUCTIONS PRE-OPERATIVE CHECKLIST ? See Pre-Operative [...] Your Surgical Guide Book for more information. [facility] TEAM ? At the [facility], we have a multidisciplinary team of caregivers that includes fellows, residents, nurse practitioners (community outreach manager), physician assistants (PAs), clinical nurse specialists (CNSs), nurses, medical assistants (MAs), patient care nursing assistants (PCNAs), social workers, medical case manager and many others. We all [...] prior to surgery. Phone number: or ext [phone]. ? No alcohol on the day before [...] ? Do not wear any jewelry, nail icelandic, makeup, lotions, contact lenses, or anything in [...] Status:Closed by TONO GIRALDO on 05/09/18 Normal [facility] PROGRESSon 05-08-2018 PROGRESS HNO ID: [id number] Author: Tono Hernandez (Crop And Soil Technician) KEARA Giraldo Service: ? Author Type: LICENSED NURSE Type: Progress Notes Filed: 05/09/2018 4:47 PM Note Text: DATE OF SERVICE: 05/08/2018 PROBLEM: Judy Mishra presents for pre-op teaching. PRE-OP DIAGNOSIS: Abnormal uterine bleeding SCHEDULED SURGERY AND DATE: 05/09/2018 - [facility] and possible hysteroscopy PRIMARY SURGEON: Risa Yoon MD NURSING PREOP ASSESSMENT: Fevers, chills, cough, or nasal congestion: No Vaginal itching, burning, discharge, or odor: No Pain with urination, frequency, urgency, cloudy or foul smelling urine: No If yes to any of the above then MD notified: Not Applicable ADVANCED CARE PLANNING: Does the patient have an advanced directive: No Does [facility] have a copy of the patient's [...] prescribed by anesthesia, internal medicine, surgeon, or BUNDLE WRAPPER Stop NSAIDs, Aspirin (ASA), vitamins, herbal supplements, [...] jewelry, body piercing, makeup, contacts, lotions, nail icelandic on fingers, or anything in hair on arrival to surgery Wear low healed shoes and loose fitting clothing Leave all valuables at home or with a family member Directions to [facility] and the [facility] Parking/parking validation on the day prior to [...] - IV pain medication after surgery, IV RAILCAR BRAKE OPERATOR if ordered by MD, discharged home with [...] please send any FMLA papers to physician's assistant secretary. SYMPTOMS TO NOTIFY MD - Fever, [...] if after hours patient instructed to call gear hobber set up operator and ask for harmonica maker product info specialist onc resident. SEAN program offered to patient: [...] None Educator: Tono Giraldo LPN [facility] Normal [facility] Basic Metabolic Panlon 05-06 Anion gap [Moles/Vol] 7 mmol/L Low 9-18 [facility] Comment on above: Performed By: #### C BCDIF, BMP #### [facility] [address] [place] [address] Calcium [Mass/Vol] 8.7 mg/dL Normal 8.5-10.2 [facility] Comment on above: Performed By: #### C BCDIF, BMP #### [facility] [address] [place], [place] [address] Chloride [Moles/Vol] 107 mmol/L High 97-105 [facility] Comment on above: Performed By: #### C BCDIF, BMP #### [place] [address] [place] [address] CO2 [Moles/Vol] 28 mmol/L Normal 22-30 [facility] Comment on above: Performed By: #### Naldo BCDIF, BMP #### [place] [address] Creatinine [Mass/Vol] 0.68 mg/dL Normal 0.58-0.96 [facility] Comment on above: Performed By: #### Naldo BCDIF, BMP #### [place] [address] eGFR- Amer. >60 Normal [facility] Comment on above: Performed By: #### Naldo BCDIF, BMP #### [place] [address] GFR/1.73 sq M predicted among non-blacks MDRD (S/P/Bld) [Vol rate/Area] mL/min/{1.73_m2} Normal [facility] Comment on above: Result Comment: [...] reflect actual GFR. Performed By: #### C FRED BMP #### [facility] [employer] [address] [place], [place] [address] Glucose [Mass/Vol] 105 mg/dL High 74-99 [facility] Comment on above: Result Comment: The [place] Diabetes Association (ADA) provides guidance for cutoff [...] Standards of Medical Care in Diabetes 2016, [place] [employer]. Diabetes Care. 2016.39(Suppl 1). Performed By: #### C FRED, BMP #### [facility] [employer] [address] [place], [place] [address] Potassium [Moles/Vol] 4.1 mmol/L Normal 3.7-5.1 [facility] Comment on above: Performed By: #### Naldo IBARRA BMP #### [facility] [address] [place], [place] [address] Sodium [Moles/Vol] 142 mmol/L Normal 136-144 [facility] Comment on above: Performed By: #### C FRED, BMP #### [facility] [address] [place], [place] [address] Urea nitrogen [Mass/Vol] 7 mg/dL Normal 7-21 [facility] Comment on above: Performed By: #### C FRED, BMP #### [facility] [address] [place], [place] [address] CBC and Differentialon 05-06 Abs Baso 0.04 k/uL Normal <0.11 [facility] Comment on above: Performed By: #### C BCDIF, BMP #### [place] [address] [place] [phone] Abs Ross 0.47 k/uL Normal <0.87 [facility] Comment on above: Performed By: #### C BCDIF, BMP #### [place] [id number] Abs Neut 3.78 k/uL Normal 1.45-7.50 [facility] Comment on above: Performed By: #### C BCDIF, BMP #### [place] [phone] Absolute nRBC <0.01 Normal <0.01 [facility] Comment on above: Performed By: #### C BCDIF, BMP #### [place] [id number] Basophils/100 WBC (Bld) 0.6 % Normal [facility] Comment on above: Performed By: #### C BCDIF, BMP #### [place] [id number] DTYPE Auto Diff Normal [facility] Comment on above: Performed By: #### C BCDIF, BMP #### [phone] Eosinophils (Bld) [#/Vol] 0.25 10*3/uL Normal <0.46 [facility] Comment on above: Performed By: #### C BCDIF, BMP #### [place] [id number] [place] [phone] Eosinophils/100 WBC (Bld) 3.9 % Normal [facility] Comment on above: Performed By: #### C BCDIF, BMP #### [place] [phone] Erythrocyte distribution width (RBC) [Ratio] 12.7 % Normal 11.5-15.0 [facility] Comment on above: Performed By: #### C BCDIF, BMP #### [place] [address] [place], [place] [address] Hematocrit (Bld) [Volume fraction] 40.6 % Normal 36.0-46.0 [facility] Comment on above: Performed By: #### C BCDIF, BMP #### [place] [address] Hemoglobin (Bld) [Mass/Vol] 13.6 g/dL Normal 11.5-15.5 [facility] Comment on above: Performed By: #### C BCDIF, BMP #### [place] [address] Lymphocytes (Bld) [#/Vol] 1.78 10*3/uL Normal 1.00-4.00 [facility] Comment on above: Performed By: #### C BCDIF, BMP #### [place] [address] Lymphocytes/100 WBC (Bld) 28.1 % Normal [facility] Comment on above: Performed By: #### C BCDIF, BMP #### [place] [address] MCH (RBC) [Entitic mass] 28.6 pG Normal 26.0-34.0 [facility] Comment on above: Performed By: #### C BCDIF, BMP #### [place] [address] MCHC (RBC) [Mass/Vol] 33.5 g/dL Normal 30.5-36.0 [facility] Comment on above: Performed By: #### C BCDIF, BMP #### [place] [address] MCV (RBC) [Entitic vol] 85.3 fL Normal 80.0-100.0 [facility] Comment on above: Performed By: #### C BCCYNTHIA, BMP #### [place] [address] [place], [place] [address] Monocytes/100 WBC (Bld) 7.4 % Normal [facility] Comment on above: Performed By: #### C BCDIF, BMP #### [address] [address] Neutrophils/100 WBC (Bld) 60.0 % Normal [facility] Comment on above: Performed By: #### C BCCYNTHIA, BMP #### [address] [address] NRBCs 0.0 /100 WBC Normal 0 [facility] Comment on above: Performed By: #### C BCCYNTHIA, BMP #### [address] [address] Platelet mean volume (Bld) [Entitic vol] 12.3 fL Normal 9.0-12.7 [facility] Comment on above: Performed By: #### C BCCYNTHIA, BMP #### [address] [address] Platelets (Bld) [#/Vol] 217 10*3/uL Normal 150-400 [facility] Comment on above: Performed By: #### C BCDIF, BMP #### [address] [address] RBC (Bld) [#/Vol] 4.76 10*6/uL Normal 3.90-5.20 [facility] Comment on above: Performed By: #### C BCDIF, BMP #### [place] [address] [place], [place] [address] WBC (Bld) [#/Vol] 6.33 10*3/uL Normal 3.70-11.00 [facility] Comment on above: Performed By: #### C DI, [facility] #### [facility] [address] [place], [place] [address] CNOVSPon 05-06-2018 CNOVSP Visit (SP) Office ([place]) JUDY MISHRA ([id number]) 1970 F Date Time Provider Department 05/06/18 9:45 AM RISA YOON During your visit today, we recorded the following information about you: Pulse Respiration Blood pressure Weight 70/minute 18/minute 128/64 88.7 kg Height 1.6 m Risa Yoon MD 05/08/2018 4:15 PM Signed Gynecologic Oncology [facility] Follow up Re: Judy Mishra [facility]#: [id number] 05/06/2018 Gynecologic Oncology [facility] Follow up visit Re: Judy Mishra [facility]#: [id number] 05/06/2018 PROBLEM: Judy Mishra returns to the [...] note were sent to: Noah Woods, DO [address] [place] [address] [place] [address] CC: Selvin Mack Sr, MD (PCP) Risa [...] Matthias Zeng Gynecology Nurse Practitioner Yudi Mejía, AERODYNAMIC CONSULTANT [employer] Technician Oncology Nurse Practitioners: Opal Delcid, FAISAL Phan, FAISAL Momin, FAISAL Terrell, AERODYNAMIC CONSULTANT Urogynecology Nighat Burr, AERODYNAMIC CONSULTANT Dr. Stephie Mcdonnell FAISAL Partida Dr. Dr. Tavo Ortega Dr. Ashley Martínez Fertility Dr. Girma Llamas Dr. Annia Wang Dr. Etienne Tatum Urogynecology Nurse Practitioner: Dr. Natalie Jeter Bruna Lester, FAISAL Zelaya, FAISAL [place], AERODYNAMIC CONSULTANT Fertility Nurse Practitioners: Yudi Higuera, FAISAL Post CNP After 4:30 pm or on holidays or weekends, call: or . Ask the gear hobber set up operator to page the ?product info specialist harmonica maker.' PRE-OPERATIVE CHECKLIST: PATIENT INSTRUCTIONS PRIOR TO SURGERYOur [...] not wear jewelry, body piercing(s), makeup, nail icelandic, hairpins, or contacts on the day of surgery. I am to leave valuables and money at home or with family members. Unless my surgeon tells me differently, I will STOP THESE MEDICATIONS 7 DAYS PRIOR TO SURGERY: (Motrin/Ibuprofen/Na proxen/Aleve/Advil), Aspirin, vitamin E, herbal medications, diet pills, and rfrp-qwc-hpjxbhf medications. Tylenol (acetaminophen) is okay. If I [...] my Surgeon. Discuss medication changes with your mail distribution clerk or primary care physician as well. If I stopped taking my blood-thinning medication, I will ask the surgeon when to resume taking it. If I am an outpatient, a responsible person will drive me home and it was suggested that someone stay with me for 24 hours. I understand that a business intelligence manager or cabdriver is NOT a responsible caregiver. [...] for surgery, I must call my surgical aide after 2pm the day before surgery. Pain management education material found in Your Surgical Guide was reviewed with me. Preoperative instructions given by: CAPSULE MACHINE OPERATOR PREOP INSTRUCTIONS PRE-OPERATIVE CHECKLIST ? See Pre-Operative [...] Your Surgical Guide Book for more information. [facility] TEAM ? At the [facility], we have a multidisciplinary team of caregivers that includes fellows, residents, nurse practitioners (community outreach manager), physician assistants (PAs), clinical nurse specialists (CNSs), nurses, medical assistants (MAs), patient care nursing assistants (PCNAs), social workers, medical case manager and many others. We all have different roles and responsibilities but we are all here to help you. Referring Provider: RISA YOON [[id number]] Allergies As of Date: 05/06/2018 Noted Allergy Reaction BACTRIM (SULFAMETHOXAZOLE-TR IMETH*03/29/2018 4 - Hives PENICILLINS 03/29/2018 16 - Unknown PERCOCET (OXYCODONE-ACETAMINO PHEN)03/29/2018 11 - Vomiting Date Reviewed: 05/06/2018 Reviewed by: Calista Marquez - Fully Assessed Reason for Visit: Follow Up [171] Primary Visit Diagnosis:Abnormal uterine bleeding [N93.9] Other Visit Diagnoses:Endometria l mass [N94.89] Preoperative examination [Z01.818] Preop examination [Z01.818] Order(s):SURGICAL REQUEST - ELECTIVE [5911847] Order #: [id number]: 1 BASIC METABOLIC PNL [SQBMP] Order #: [id number] FUTURE CBC + DIFF [SQCBCDIF] Order #: [id number] FUTURE REFER FOR ADMIT INTERVIEW [] Order #: [id number] [facility] [] Order #: [id number] CONSULT TO PATIENT EDUCATION [[id number]] Order #: [id number]: 1 Prescriptions as of 05/06/2018 Sig: LORAZEPAM [...] Zeng Gynecology Nurse Practitioner Yudi Mejía, FAISAL [employer] Technician Oncology Nurse Practitioners: Opal Delcid, FAISAL Phan, FAISAL Momin, FAISAL Terrell, AERODYNAMIC CONSULTANT Urogynecology Nighat Burr, FAISAL Mcdonnell Kiesha Curry, [facility] Dr. Trudy Callahan Dr. Tavo Ortega Dr. Ashley Martínez Fertility Dr. Girma Llamas Dr. Annia Wang Dr. Etienne Tatum Urogynecology Nurse Practitioner: Dr. Natalie Jeter Bruna Lester, FAISAL Zelaya, FAISAL [place], AERODYNAMIC CONSULTANT Fertility Nurse Practitioners: Yudi Higuera, FAISAL Post CNP After 4:30 pm or on holidays or weekends, call: or . Ask the gear hobber set up operator to page the ?product info specialist harmonica maker.' PRE-OPERATIVE CHECKLIST: PATIENT INSTRUCTIONS PRIOR TO SURGERYOur [...] not wear jewelry, body piercing(s), makeup, nail icelandic, hairpins, or contacts on the day of surgery. I am to leave valuables and money at home or with family members. Unless my surgeon tells me differently, I will STOP THESE MEDICATIONS 7 DAYS PRIOR TO SURGERY: (Motrin/Ibuprofen/Na proxen/Aleve/Advil), Aspirin, vitamin E, herbal medications, diet pills, and cprf-rjf-hwictdp medications. Tylenol (acetaminophen) is okay. If I [...] my Surgeon. Discuss medication changes with your mail distribution clerk or primary care physician as well. If I stopped taking my blood-thinning medication, I will ask the surgeon when to resume taking it. If I am an outpatient, a responsible person will drive me home and it was suggested that someone stay with me for 24 hours. I understand that a business intelligence manager or cabdriver is NOT a responsible caregiver. [...] for surgery, I must call my surgical aide after 2pm the day before surgery. Pain management education material found in Your Surgical Guide was reviewed with me. Preoperative instructions given by: CAPSULE MACHINE OPERATOR PREOP INSTRUCTIONS PRE-OPERATIVE CHECKLIST ? See Pre-Operative [...] Your Surgical Guide Book for more information. [facility] TEAM ? At the [facility], we have a multidisciplinary team of caregivers that includes fellows, residents, nurse practitioners (community outreach manager), physician assistants (PAs), clinical nurse specialists (CNSs), nurses, medical assistants (MAs), patient care nursing assistants (PCNAs), social workers, medical case manager and many others. We all have different roles and responsibilities but we are all here to help you. Encounter Status:Closed by RISA YOON MD on 05/08/18 Normal [facility] HOSPon 05-06-2018 HOSP Patient:Lacie Mishra MRN: Height:5' [...] 40.6 % 05/06/2018 46.0 36.0 Progress Notes (CAPSULE MACHINE OPERATOR ONC MAIN CA 4): Tono Giraldo LPN, AIRCRAFT CHARTER DISPATCHER 05/08/2018 8:38 AM Sign at close encounter DATE OF SERVICE: 05/08/2018 PROBLEM: Judy Mishra presents for pre-op teaching. PRE-OP DIAGNOSIS: Abnormal uterine bleeding SCHEDULED SURGERY AND DATE: 05/09/2018 - [facility] and possible hysteroscopy PRIMARY SURGEON: Risa Yoon MD NURSING PREOP ASSESSMENT: Fevers, chills, cough, or nasal congestion: No Vaginal itching, burning, discharge, or odor: No Pain with urination, frequency, urgency, cloudy or foul smelling urine: No If yes to any of the above then MD notified: Not Applicable ADVANCED CARE PLANNING: Does the patient have an advanced directive: No Does [facility] have a copy of the patient's [...] prescribed by anesthesia, internal medicine, surgeon, or BUNDLE WRAPPER Stop NSAIDs, Aspirin (ASA), vitamins, herbal supplements, [...] jewelry, body piercing, makeup, contacts, lotions, nail icelandic on fingers, or anything in hair on arrival to surgery Wear low healed shoes and loose fitting clothing Leave all valuables at home or with a family member Directions to [facility] and the [facility] Parking/parking validation on the day prior to [...] - IV pain medication after surgery, IV RAILCAR BRAKE OPERATOR if ordered by MD, discharged home with [...] please send any FMLA papers to physician's assistant secretary. SYMPTOMS TO NOTIFY MD - Fever, [...] if after hours patient instructed to call gear hobber set up operator and ask for harmonica maker product info specialist onc resident. SEAN program offered to patient: [...] None Educator: Tono Giraldo LPN [facility] Tono Giraldo LPN, KEARA 05/08/2018 7:38 AM Signed GYNECOLOGY PHYSICIAN CONTACT INFORMATION Surgery Scheduling Office General Gynecology Gynecologic Oncology Dr. Kenia Long Dr. Shira Jackson Dr. Girma Moon Dr. Osman Yoon Dr. Shayy Landry Dr. Dimitris Nazario Dr. Helene Arias Dr. Judy Garcia Dr. Matthias Zeng Gynecology Nurse Practitioner Yudi Mejía, AERODYNAMIC CONSULTANT [employer] Technician Oncology Nurse Practitioners: Opal Delcid, FAISAL Phan, FAISAL Momin, FAISAL Terrell, AERODYNAMIC CONSULTANT Urogynecology Nighat Burr, AERODYNAMIC CONSULTANT Dr. Stephie Mcdonnell Kiesha Curry AERODYNAMIC CONSULTANT Dr. Trudy Callahan Dr. Tavo Ortega Dr. Ashley Martínez Fertility Dr. Girma Llamas Dr. Annia Wang Dr. Etienne Tatum Urogynecology Nurse Practitioner: Dr. Natalie Jeter Bruna Lester, FAISAL Zelaya, FAISAL [place], [facility] Fertility Nurse Practitioners: Yudi Higuera, FAISAL Post, AERODYNAMIC CONSULTANT After 4:30 pm or on holidays or weekends, call: or . Ask the gear hobber set up operator to page the ?product info specialist harmonica maker.' PRE-OPERATIVE CHECKLIST: PATIENT INSTRUCTIONS PRIOR TO SURGERYOur [...] not wear jewelry, body piercing(s), makeup, nail icelandic, hairpins, or contacts on the day of surgery. I am to leave valuables and money at home or with family members. Unless my surgeon tells me differently, I will STOP THESE MEDICATIONS 7 DAYS PRIOR TO SURGERY: (Motrin/Ibuprofen/Na proxen/Aleve/Advil), Aspirin, vitamin E, herbal medications, diet pills, and jzat-vze-schpdan medications. Tylenol (acetaminophen) is okay. If I [...] my Surgeon. Discuss medication changes with your mail distribution clerk or primary care physician as well. If I stopped taking my blood-thinning medication, I will ask the surgeon when to resume taking it. If I am an outpatient, a responsible person will drive me home and it was suggested that someone stay with me for 24 hours. I understand that a business intelligence manager or cabdriver is NOT a responsible caregiver. [...] for surgery, I must call my surgical aide after 2pm the day before surgery. Pain management education material found in Your Surgical Guide was reviewed with me. Preoperative instructions given by: CAPSULE MACHINE OPERATOR PREOP INSTRUCTIONS PRE-OPERATIVE CHECKLIST ? See Pre-Operative [...] Your Surgical Guide Book for more information. [facility] TEAM ? At the [facility], we have a multidisciplinary team of caregivers that includes fellows, residents, nurse practitioners (community outreach manager), physician assistants (PAs), clinical nurse specialists (CNSs), nurses, medical assistants (MAs), patient care nursing assistants (PCNAs), social workers, medical case manager and many others. We all [...] prior to surgery. Phone number: or ext [phone]. ? No alcohol on the day before [...] ? Do not wear any jewelry, nail icelandic, makeup, lotions, contact lenses, or anything in [...] of breath or chest pain. Progress Notes ([facility] DEPT): Ccf Hq Provider 05/06/2018 10:42 AM Unsigned Still [email or web address] ONLINE PATIENT REPORT Active Directory Architect: Pati Kaur Completion Time: 00:08 Location: [facility] Surgical Service: FLUID POWER MECHANIC Age: 48 yrs Height: 160 cm Weight: [...] Consult (HQS:2) End of Report Yolanda Momin APRN.FAISAL 05/06/2018 2:38 PM Signed [facility] reviewed. There are no changes, cleared at OV today Yolanda Momin APRN.AERODYNAMIC CONSULTANT Normal [facility] PROGRESSon 05-06-2018 PROGRESS HNO ID: [id number] Author: Yolanda Vanessa (Hospice Entrance Attendant) Merrill Service: ? Author Type: Nurse Practitioner Type: Progress Notes Filed: 05/06/2018 2:38 PM Note Text: [facility] reviewed. There are no changes, cleared at OV today Yolanda Momin APRN.AERODYNAMIC CONSULTANT Normal [facility] PROGRESS HNO ID: [id number] Author: Risa Yoon Service: ? Author Type: [...] all questions to their stated satisfaction. Normal [facility] MRI FEMALE PELVIS WO/W IVCON on 04-29-2018 MRI FEMALE PELVIS WO/W IVCON * * *Final Report* * * DATE OF EXAM: Apr 29 2018 9:21AM BRM [id number] - MRI FEMALE PELVIS WO/W IVCON / PROCEDURE REASON: Abnormal uterine bleeding * * * * Physician Interpretation * * * * HISTORY: abnormal uterine bleeding, fibroids vs mass outside c 12/6/18, outside us 01/24/18 MRI of the PELVIS: [...] Adenomyosis of the uterus. Numerous nabothian cysts. Communications Tower Technician: PSCB Transcribe Date/Time: Apr 29 2018 9:56A Dictated by : JEFFREY DUNN MD This examination was interpreted and the report reviewed and electronically signed by: JEFFREY DUNN MD on Apr 29 2018 2:47PM EST [id number] Normal [facility] PROGRESSon 04-29-2018 PROGRESS HNO ID: [id number] Author: Lavonne Garcia Rt Service: ? Author [...] April 29, 2018 TIME: 9:50 AM Normal [facility] PROGRESSon 04-24-2018 PROGRESS HNO ID: [id number] Author: Risa Yoon Service: ? Author Type: Physician Type: Progress Notes Filed: 05/08/2018 4:15 PM Note Text: Gynecologic Oncology [facility] Follow up Re: Judy Mishra CCF#: [id number] 05/06/2018 Gynecologic Oncology [facility] Follow up visit Re: Judy Mishra CCF#: [id number] 05/06/2018 PROBLEM: Judy Mishra returns to the [...] office note were sent to: Noah Woods, [address] [place] [address] CC: Selvin Mack Sr, MD (PCP) [facility] SURGICAL PATHOLOGYon 019 SURGICAL PATHOLOGY Specimen #: [id number]* Submitting Physician: RISA YOON MD FINAL DIAGNOSIS Consultation from [facility], [place], [place] ([id number], 8 H&E-stained slides labeled A, B, C, 03/11/2018): Endometrium, curettings (A) - Benign endometrial polyp of the isthmus type. Endometrium, curettings (B) - Benign endometrial and endocervical epithelium. Umbilical hernia sac, excision (C) - Benign fibroadipose tissue with focal mesothelial lining, consistent with hernia sac. BY/dcr 04/03/2018 Kaushik Benavides M.D. Ph.D. (Electronic Signature) SPECIMEN SUBMITTED A: 8 SLIDES ([id number]) CLINICAL DATA None provided. Date of Report: 04/04/2018 Date of Procedure: 04/01/2018 Date of Receipt: 04/02/2018 Submitted by: RISA YOON MD Location: [facility] Diagnostic interpretation performed at [facility], [address] [place] [address]. Normal [facility] CNOVSPon 03-29-2018 CNOVSP Visit (SP) Office (GYNOSA) JUDY MISHRA ([id number]) 1970 F Date Time Provider Department 03/29/18 10:00 AM RISA YOON During your visit today, we recorded the following information about you: Temperature Pulse Respiration Blood pressure 98 degrees 70/minute 16/minute 141/78 Weight Height 86.2 kg 1.62 m Risa Yoon MD 04/05/2018 1:47 PM Signed Gynecologic Oncology [facility] Consultation Re: Judy Tad [facility]#: [id number] 03/29/[address] Woods for [...] lower extremity edema, or palpitations. No recent [place] (within 6 months), cardiac stent, cardiac surgery, [...] exam ABDOMEN: Abdomen soft, non-tender, no hepatosplenomegaly. Ion Exchange Operator for exam: Was present PROCEDURES: None [...] of this office note were sent to: Naoh Woods DO [address] [place] [address] [place] [address] CC: Selvin Mack Sr, MD (PCP) Referring Provider: NOAH WOODS [[id number]] Allergies As of Date: 03/29/2018 Noted Allergy Reaction BACTRIM (SULFAMETHOXAZOLE-TR IMETH*03/29/2018 4 - Hives PENICILLINS 03/29/2018 16 - Unknown PERCOCET (OXYCODONE-ACETAMINO PHEN)03/29/2018 11 - Vomiting Date Reviewed: 03/29/2018 Reviewed by: Angela Guallpa - Fully Assessed Reason for Visit: Uterine mass [Other] Cmt: New patient consultation Primary Visit Diagnosis:Abnormal uterine bleeding [N93.9] Other Visit Diagnosis:Endometria l mass [N94.89] Order(s):OUTSIDE SURG PATH SLIDE REVIEW [[id number]] Order #: [id number] MRI FEMALE PELVIS WO/W IVCON [[id number]] Order #: [id number] FUTURE [] iv contrast (will be provided [...] Status:Closed by RISA YOON MD on 04/05/18 [facility] PROGRESSon 03-28-2018 PROGRESS HNO ID: [id number] Author: Christi Terrell Service: (none) Author Type: Nurse Practitioner Type: Progress Notes Filed: 03/28/2018 3:02 PM Note Text: Chart prepped for upcoming appt with Dr. Yoon. Christi Terrell, GIS SOFTWARE ENGINEER.AERODYNAMIC CONSULTANT [facility] PROGRESS HNO ID: [id number] Author: Risa Yoon Service: (none) Author Type: Physician Type: Progress Notes Filed: 04/05/2018 1:47 PM Note Text: Gynecologic Oncology [facility] Consultation Re: Judy Mishra CC#: [id number] 03/29/[address] Woods for [...] lower extremity edema, or palpitations. No recent [place] (within 6 months), cardiac stent, cardiac surgery, [...] exam ABDOMEN: Abdomen soft, non-tender, no hepatosplenomegaly. Ion Exchange Operator for exam: Was present PROCEDURES: None [...] office note were sent to: Noah Woods, [address] [place] [address] CC: Selvin Mack Sr, MD (PCP) Normal [facility] US-US PELVIS TRANSVAG IMPORT on 01-24-2018 US-US PELVIS TRANSVAG IMPORT Images were obtained outside of [facility] [id number] CN Normal [facility] CT-CT ABD/PELVIS W CON IMPOR Ton 01-17-2018 CT-CT ABD/PELVIS W CON IMPORT Images were obtained outside of [facility] [id number] CN Normal [facility] Vital Signs Date Time Vital Sign Value Performing Clinician Facility 09-24-2024 08:56-0400 Body height 160 cm Diogo Lux MD Work Phone: [facility] 09-24-2024 08:56-0400 Diastolic blood pressure 72 mm[Hg] Diogo Lux MD Work Phone: [facility] 09-24-2024 08:56-0400 Heart rate 75 /min Diogo Lux MD Work Phone: [facility] 09-24-2024 08:56-0400 Systolic blood pressure 113 mm[Hg] Diogo Lux MD Work Phone: [facility] 02-29-2024 08:47-0500 Body height 160 cm Diogo Lux MD Work Phone: [facility] 02-29-2024 08:47-0500 Body mass index (BMI) [Ratio] 37.2 kg/m2 Diogo Lux MD Work Phone: [facility] 02-29-2024 08:47-0500 Body weight 95.25 kg Diogo Lux MD Work Phone: [facility] 02-29-2024 08:47-0500 Diastolic blood pressure 78 mm[Hg] Diogo Lux MD Work Phone: [facility] 02-29-2024 08:47-0500 Heart rate 79 /min Diogo Lux MD Work Phone: [facility] 02-29-2024 08:47-0500 Systolic blood pressure 104 mm[Hg] Diogo Lux MD Work Phone: [facility] 10-10-2023 07:54-0400 Body height 160 cm Diogo Lux MD Work Phone: [facility] 10-10-2023 07:54-0400 Body mass index (BMI) [Ratio] 36.67 kg/m2 Diogo Lux MD Work Phone: [facility] 10-10-2023 07:54-0400 Body weight 93.89 kg Diogo Lux MD Work Phone: [facility] 10-10-2023 07:54-0400 Diastolic blood pressure 76 mm[Hg] Dioog Lux MD Work Phone: [facility] 10-10-2023 07:54-0400 Systolic blood pressure 119 mm[Hg] Diogo Lux MD Work Phone: [facility] 07-02-2023 00:34-0400 SaO2% (BldA) [Mass fraction] 99 % Sarah Frey MD Work Phone: [facility] 07-01-2023 22:23-0400 Body height 160 cm Sarah Frey MD Work Phone: [facility] 07-01-2023 22:23-0400 Body mass index (BMI) [Ratio] 36.14 kg/m2 Sarah Frey MD Work Phone: [facility] 07-01-2023 22:23-0400 Body temperature 98.29 [degF] Sarah Frey MD Work Phone: [facility] 07-01-2023 22:23-0400 Body weight 92.53 kg Sarah Frey MD Work Phone: [facility] 07-01-2023 22:23-0400 Diastolic blood pressure 74 mm[Hg] Sarah Frey MD Work Phone: [facility] 07-01-2023 22:23-0400 Heart rate 73 /min Sarah Frey MD Work Phone: [facility] 07-01-2023 22:23-0400 Respiratory rate 20 /min Sarah Frey MD Work Phone: [facility] 07-01-2023 22:23-0400 Systolic blood pressure 122 mm[Hg] Sarah Frey MD Work Phone: [facility] 03-20-2023 15:15-0500 Body height 160 cm Diogo Lux MD Work Phone: [facility] 03-20-2023 15:15-0500 Body mass index (BMI) [Ratio] 35.07 kg/m2 Diogo Lux MD Work Phone: [facility] 03-20-2023 15:15-0500 Body weight 89.81 kg Diogo Lux MD Work Phone: [facility] 03-20-2023 15:15-0500 Diastolic blood pressure 78 mm[Hg] Diogo Lux MD Work Phone: [facility] 03-20-2023 15:15-0500 Systolic blood pressure 123 mm[Hg] Diogo Lux MD Work Phone: [facility] 06-12-2022 11:17-0400 Diastolic blood pressure 88 mm[Hg] Qasim Hairston MD Work Phone: [facility] 06-12-2022 11:17-0400 Heart rate 71 /min Qasim Hairston MD Work Phone: [facility] 06-12-2022 11:17-0400 Respiratory rate 23 /min Qasim Hairston MD Work Phone: [facility] 06-12-2022 11:17-0400 SaO2% (BldA) [Mass fraction] 97 % Qasim Hairston MD Work Phone: [facility] 06-12-2022 11:17-0400 Systolic blood pressure 110 mm[Hg] Qasim Hairston MD Work Phone: [facility] 06-12-2022 10:17-0400 Body height 160 cm Qasim Hairston MD Work Phone: [facility] 06-12-2022 10:17-0400 Body mass index (BMI) [Ratio] 34.37 kg/m2 Qasim Hairston MD Work Phone: [facility] 06-12-2022 10:17-0400 Body temperature 98.4 [degF] Qasim Hairston MD Work Phone: [facility] 06-12-2022 10:17-0400 Body weight 88 kg Qasim Hairston MD Work Phone: [facility] [employer] 06-08-2020 13:52-0400 Body temperature 98.01 [degF] Stephie Iverson MD Work Phone: [employer] Work Phone: 06-08-2020 13:52-0400 Body weight 90.49 kg Stephie Iverson MD Work Phone: [employer] Work Phone: 06-08-2020 13:52-0400 Diastolic blood pressure 71 mm[Hg] Stephie Iverson MD Work Phone: [employer] Work Phone: 06-08-2020 13:52-0400 Heart rate 85 /min Stephie Iverson MD Work Phone: [employer] Work Phone: 06-08-2020 13:52-0400 Respiratory rate 16 /min Stephie Iverson MD Work Phone: [employer] Work Phone: 06-08-2020 13:52-0400 SaO2% (BldA) [Mass fraction] 98 % Stephie Iverson MD Work Phone: [employer] Work Phone: 06-08-2020 13:52-0400 Systolic blood pressure 154 mm[Hg] Stephie Iverson MD Work Phone: [employer] Work Phone: Encounters Encounter Date Encounter Type Care Provider Facility Start: 09-24-2024 End: 09-24-2024 Donta Lux MD Work Phone: [facility] Start: 09-24-2024 End: 09-24-2024 Donta Lux MD Work Phone: [facility] Start: 09-24-2024 End: 09-24-2024 Office outpatient visit 25 minutes Diogo Lux MD Work Phone: [facility] Comment on above: Gastroesophageal ref lux disease with esophagitis, unspecified whether hemorrhage (Primary Dx); Papillary microcarcinoma of thyroid (HCC); Postoperative hypothyroidism Start: 09-12-2024 End: 09-12-2024 Clinisync Result Encounter Diogo Lux MD Work Phone: [facility] Unsolicited Start: 09-12-2024 End: 09-12-2024 Clinisync Result Encounter Diogo Lux MD Work Phone: [facility] Unsolicited Start: 06-05-2024 ambulatory [facility] Start: 06-05-2024 End: 06-05-2024 Subsequent hospital visit by physician José Miguel Jackman APRN - AERODYNAMIC CONSULTANT Work Phone: [facility] Laboratory Comment on above: Other terminal system operator (cur rent) drug therapy Start: 03-10-2024 End: 03-10-2024 Subsequent hospital visit by physician [facility] Cardiology Nurse Schedule [facility] Cardiology Comment on above: Chest pain, unspecif ied type Start: 03-10-2024 End: 03-10-2024 ambulatory [facility] Start: 03-06-2024 [facility] Start: 03-06-2024 End: 03-06-2024 Patient encounter status [facility] GIS SOFTWARE ENGINEER - AERODYNAMIC CONSULTANT Work Phone: [facility] Start: 03-06-2024 End: 03-06-2024 Subsequent hospital visit by physician José Miguel Jackman GIS SOFTWARE ENGINEER - AERODYNAMIC CONSULTANT Work Phone: [facility] Laboratory Comment on above: Encounter for wellne ss examination in adult Start: 02-29-2024 End: 02-29-2024 Bamboo flowsheet Diogo Lux MD Work Phone: [facility] Start: 02-29-2024 End: 02-29-2024 Bamboo flowsheet Diogo Lux MD Work Phone: [facility] Start: 02-29-2024 End: 02-29-2024 Clinisync Result Encounter Diogo Lux MD Work Phone: [facility] External [facility] Unsolicited Start: 02-29-2024 End: 02-29-2024 Telephone encounter Diogo Lux MD Work Phone: [facility] Start: 02-29-2024 End: 02-29-2024 Office outpatient visit 25 minutes Diogo Lux MD Work Phone: [facility] Comment on above: 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); Postoperative hypothyroidism (CMS/HCC); Left-sided tinnitus Start: 02-29-2024 End: 02-29-2024 ambulatory [facility] Not Available Start: 10-10-2023 End: 10-10-2023 Office outpatient visit 25 minutes Diogo Lux MD Work Phone: [facility] ENT Comment on above: 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); Postoperative hypothyroidism (CMS/HCC); LPRD (laryngopharyngeal reflux disease) Start: 10-10-2023 End: 10-10-2023 ambulatory [facility]IO[facility] LUX Not Available Start: 08-31-2023 End: 08-31-2023 Emergency department patient visit MARKELL SOTO [facility] Start: 07-02-2023 End: 07-02-2023 Emergency department [facility] Start: 07-01-2023 End: 07-02-2023 Emergency department patient visit Sarah Frey MD Work Phone: [facility] ED Comment on above: Back strain, initial encounter (Primary Dx); Fall, initial encounter Start: 03-21-2023 End: 03-21-2023 Patient encounter status José Miguel Jackman GIS SOFTWARE ENGINEER - AERODYNAMIC CONSULTANT Work Phone: [facility] Start: 03-21-2023 End: 03-23-2023 Subsequent hospital visit by physician José Miguel Jackman GIS SOFTWARE ENGINEER - AERODYNAMIC CONSULTANT Work Phone: [facility] Comment on above: [...] Diogo wheatley MD Work Phone: [facility] [place] Start: 03-12-2023 End: 03-12-2023 ambulatory DIOGO LUX Not Available Start: 10-19-2022 End: 10-19-2022 Emergency department patient visit Otf DAMON~[id number] [facility] Start: 07-13-2022 End: 07-14-2022 ambulatory BRIAN COTTRELL [facility] Start: 07-13-2022 End: 07-13-2022 Subsequent hospital visit by physician [facility] Comment on above: SOB (shortness of br eath); Palpitations; Chest pain, unspecified type Start: 06-12-2022 End: 06-12-2022 Emergency department patient visit Qasim Hairston MD Work Phone: [facility] ED Comment on above: Atypical chest [...] patient visit Stephie Iverson MD Work Phone: [facility] ED Comment on above: Dyspnea, unspecified type (Primary Dx); Anxiety state; History of 2019 novel coronavirus disease (COVID-19); Multiple thyroid nodules; Renal cyst, left; Essential hypertension; Thyromegaly Procedures Date Procedure Procedure Detail Performing Clinician Start: 09-12-2024 Us soft tissue head & neck real time imge docm Diogo Lux MD Work Phone: Start: 09-12-2024 ALL THYROID STIM HORMONE Diogo Lux MD Work Phone: Start: 06-05-2024 Comprehensive metabo lic panel José Miguel Jackman GIS SOFTWARE ENGINEER - [facility] Work Phone: Start: 03-06-2024 Comprehensive metabo lic panel José Miguel Jackman GIS SOFTWARE ENGINEER - [facility] Work Phone: Start: 03-06-2024 Lipid panel José Miguel roque GIS SOFTWARE ENGINEER - [facility] Work Phone: Start: 03-06-2024 Urnls dip stick/tabl et rgnt auto w/o microscopy José Miguel Jackman GIS SOFTWARE ENGINEER - [facility] Work Phone: Start: 02-29-2024 ALL THYROID STIM HORMONE Diogo Lux MD Work Phone: Start: 07-01-2023 Ct lumbar spine w/o contrast material Sarah Frey MD Work Phone: Start: 07-01-2023 Ct abdomen & pelvis w/contrast material Sarah Frey MD Work Phone: Start: 03-21-2023 Us abdominal real ti me w/image limited José Miguel Jackman GIS SOFTWARE ENGINEER - [facility] Work Phone: Start: 03-21-2023 Urnls dip stick/tabl et rgnt auto w/o microscopy José Miguel Jackman GIS SOFTWARE ENGINEER - AERODYNAMIC CONSULTANT Work Phone: Start: 03-21-2023 Comprehensive metabo lic panel José Miguel Jackman GIS SOFTWARE ENGINEER - AERODYNAMIC CONSULTANT Work Phone: Start: 03-21-2023 Lipid panel José Miguel roque GIS SOFTWARE ENGINEER - AERODYNAMIC CONSULTANT Work Phone: Start: 06-12-2022 Radiologic exam ches [...] Treatment Date Care Activity Detail Author Start: 03-06-2029 Lipid panel Lipids [facility] Start: 03-21-2028 Lipid panel Lipids [facility] Start: 09-24-2024 End: 09-24-2024 Patient encounter procedure [facility] Comment on above: Arrived Start: 09-12-2024 Influenza vaccination Flu vaccine (Season Ended) [facility] Start: 06-09-2024 End: 06-09-2024 Patient encounter procedure 06/09/2024 8:30 AM EDT Office Visit [facility] [address] [place] [id number] José Miguel Jackman GIS SOFTWARE ENGINEER - AERODYNAMIC CONSULTANT [address] [place] [address] 3 mo [facility] Comment on above: 3 mo Start: 04-09-2024 End: 04-09-2024 Patient encounter procedure 04/09/2024 9:10 AM EST Office Visit [facility] [address] [facility] [address] [place] [address] Diogo Lux MD [address] [facility] [address] [place] [address] [facility] Start: 04-07-2024 End: 04-07-2024 Clinical Support 04/07/2024 9:00 AM EST Clinical Support [facility] [address] [place] [address] Lavonne Coyle, [facility] [address] [place] [address] [facility] Start: 03-20-2024 End: 03-20-2024 Patient encounter procedure 03/20/2024 8:30 AM EST Office Visit [facility] [address] [place] [address] José Miguel Jackman, GIS SOFTWARE ENGINEER - AERODYNAMIC CONSULTANT [address] [place] [address] 6 mo [facility] Comment on above: 6 mo Start: 03-10-2024 End: 03-10-2024 Patient encounter procedure 03/10/2024 8:30 AM EST Office Visit [facility] [address] [place] [address] José Miguel Jackman, GIS SOFTWARE ENGINEER - AERODYNAMIC CONSULTANT [address] [place] [address] 1 mo [facility] Primary Care Comment on above: 1 mo Start: 02-29-2024 End: 02-29-2024 Patient encounter procedure 02/29/2024 9:00 AM EST Office Visit [facility] [address] [place] [address] [place] [id number] Diogo Lux MD [address] [facility] [address] [place] [address] Arrived [facility] Comment on above: Arrived Start: 10-14-2023 COVID-19 Vaccine ( season) COVID-19 Vaccine ( season) [facility] Start: 10-14-2023 COVID-19 Vaccine ( season) COVID-19 Vaccine () [facility] Start: 10-10-2023 End: 10-10-2023 Patient encounter procedure 10/10/2023 8:00 AM EDT Office Visit [facility] [address] [facility] [address] [place] [id number] Diogo Lux MD [address] [facility] [address] [place] [address] [facility] Start: 09-18-2023 End: 09-18-2023 Patient encounter procedure 09/18/2023 8:00 AM EDT Office Visit [facility] [address] [place] [address] José Miguel Jackman APRN - [facility] [address] [place] [address] 6 mo [facility] Comment on above: 6 mo Start: 09-13-2023 Influenza vaccination [facility] Start: 03-20-2023 End: 03-20-2023 Patient encounter procedure 03/20/2023 3:30 PM EST Office Visit [facility] [address] [place] [address] Diogo Lux MD 112 [facility] [address] [place] [address] [facility] Start: 09-12-2022 Influenza vaccination [facility] Start: 02-22-2022 Pneumococcal 50+ years Vaccine (1 of 1 - PCV) Pneumococcal 50+ years Vaccine (1 of 1 - PCV) [facility] Start: 02-22-2022 Screening for malignant neoplasm of breast Breast cancer screen [facility] [employer] Start: 02-22-2022 Shingles vaccine (1 of 2) Shingles vaccine (1 of 2) [facility] [employer] Start: 10-13-2020 Influenza vaccination Flu vaccine (Season Ended) [facility] Blair Phone: Start: 02-22-2017 Screening for malignant neoplasm of colon [facility] Start: 2012 Lipid panel [facility] [employer] Start: 2012 Screening for malignant neoplasm of breast Breast cancer screen [facility] Start: 02-22-1993 Screening for malignant neoplasm of cervix Cervical cancer screen [facility] Phone: Start: 02-22-1991 DTaP/Tdap/Td vaccine (1 - Tdap) DTaP/Tdap/Td vaccine (1 - Tdap) [facility] Start: 02-22-1991 Hepatitis B vaccine (1 of 3 - 19+ 3-dose series) Hepatitis B vaccine (1 of 3 - 19+ 3-dose series) [facility] Start: 02-22-1990 Hepatitis C screening Hepatitis C screen [facility] [employer] Start: 1988 COVID-19 Vaccine (1) COVID-19 Vaccine (1) [facility] Phone: Start: 02-22-1987 HIV screening HIV screen [facility] Start: 1984 Depression Screen Depression Screen [facility] Start: 1972 COVID-19 Vaccine (#1) COVID-19 Vaccine (#1) [facility] Start: 1972 Hepatitis B vaccine (1 of 3 - 3-dose series) Hepatitis B vaccine (1 of 3 - 3-dose series) [facility] Start: 1972 Hepatitis C screening Hepatitis C screen [facility] Phone: Dup-scan xtr veins complete bilateral study VASCULAR REPORT Imaging Ordered: 06/08/2020 Tucker Blair Phone: Comment on above: Ordered: 06/08/2020 End: 07-13-2022 ECHO Complete 2D W Doppler W Color ECHO Complete 2D W Doppler W Color Echocardiography Routine SOB (shortness of breath) Palpitations Chest pain, unspecified type 1 Occurrences starting 07/13/2022 until 07/13/2022 [employer] Phone: Comment on above: 1 Occurrences starting 07/13/2022 until 07/13/2022 EKG 12 Lead EKG 12 Lead ECG Routine 06/12/2022 10:27 AM EDT [employer] Phone: End: 07-13-2022 Exercise stress test study CARDIAC STRESS TEST EXERCISE ONLY [facility] Routine SOB (shortness of breath) Palpitations Chest pain, unspecified type 1 Occurrences starting 07/13/2022 until 07/13/2022 [employer] Phone: Comment on above: 1 Occurrences starting 07/13/2022 until 07/13/2022 Payers Date Payer Category Payer Medicaid [employer] [place] [employer] [id number] 2017-Present [address] [place] [id number] 2017 Medicaid (Managed Care) [facility] MEDICAID [id number] 1972 Unknown [id number] 2.16.840.1.637881.3.579.2. 593 1972 Unknown [id number] 2.16.840.1.314415.3.579.2. 593 1972 Unknown [id number] 2.16.840.1.766873.3.579.2. 593 1972 Unknown [id number] 2.16.840.1.639268.3.579.2. 593 1972 Unknown [id number] 2.16.840.1.111880.3.579.2. 593 1972 Unknown [id number] 2.16.840.1.760567.3.579.2. 593 1972 Unknown [id number] 2.16.840.1.559723.3.579.2. 593 1972 Unknown [id number] 2.16.840.1.709586.3.579.2. 174 1972 Unknown [id number] 2.16.840.1.551535.3.579.2. 174 1972 Unknown [id number] 2.16.840.1.783037.3.579.2. 174 1972 Unknown [id number] 2.16.840.1.152723.3.579.2. 174 1972 Unknown [id number] 2.16.840.1.326616.3.579.2. 173 1972 Unknown [id number] 2.16.840.1.145906.3.579.2. 1259 1972 Unknown [id number] 2.16.840.1.357883.3.579.2. 1259 1972 Unknown [id number] 2.16.840.1.568744.3.579.2. 1259 1972 Unknown [id number] 2.16.840.1.030832.3.579.2. 1259 1972 Unknown [id number] 2.16.840.1.742100.3.579.2. 754 1972 Unknown [id number] 2.16.840.1.991254.3.579.2. 754 1972 Unknown [id number] 2.16.840.1.883625.3.579.2. 754 1959 Unknown [id number] 1.2.840.396971.1.13.239.2. [id number] Social History Date Type Detail Facility Start: 06-08-2020 End: 03-06-2023 Tobacco smoking status [facility] Never smoker [facility] Start: 06-08-2020 End: 03-06-2023 Tobacco use and exposure Never used [employer] Start: 1970 Sex Assigned At Not on file [employer] Phone: Exposure to SARS-CoV -2 (event) Not sure [employer] Start: 06-12-2022 History SDOH Alcohol Frequency 1 [employer] Phone: Start: 06-12-2022 History SDOH Alcohol Std Drinks 0 [employer] Phone: Start: 03-20-2023 End: 09-24-2024 Alcohol intake Ex-drinker (finding) [facility] Start: 03-20-2023 End: 09-24-2024 History of Social function [facility] Start: 03-20-2023 End: 09-24-2024 Tobacco use panel [facility] How often to you hav e a drink containing alcohol? Never [employer] Phone: How many standard dr inks containing alcohol do you have on a typical day? Patient does not drink [employer] Work Phone: Has the [employer], [employer], or [employer] threatened to shut off services in your home in past 12Mo No [facility] Work Phone: Are you now , , , , never or living with a partner? [facility] Work Phone: How often to you hav e a drink containing alcohol? Monthly or less [facility] Work Phone: How hard is it for y ou to pay for the very basics like food, housing, medical care, and heating Not very hard [facility] Work Phone: Do you feel stress - tense, restless, nervous, or anxious, or unable to sleep at night because your mind is troubled all the time - these days [OSQ] Rather much [facility] Work Phone: (I/We) worried wheth er (my/our) food would run out before (I/we) got money to buy more. Never true [facility] Work Phone: Start: 03-24-2012 Sex Female (finding) [facility] Clinical Notes 06-08-2020 to 09-24-2024 Diogo Lux MD - 09/24/2024 9:10 AM EDTTelephone Encounter - Marilinalix Lux - 02/29/2024 1:51 PM ESTTelephone Encounter - Marilin Usman - 02/29/2024 1:51 PM ESTDischarge InstructionsAttachments Note Date & Type Note Facility 09-24-2024 History of Presen t illness Narrative Subjective Patient ID: Judy Mishra is a 54 y.o. female who presents for Thyroid Cancer (Follow up ultrasound/labs/) US shows no sig changes. TSH 0.563. No thyroglobulin done. Did not get audio because sx resolved. Pt notes that she has chronic heartburn. 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 03/21/2022 Pain in left knee 03/19/2022 Palpitations 03/19/2023 Right upper quadrant pain 03/21/2023 Shortness of breath 03/19/2023 Sprain of unspecified site of left knee, initial encounter 03/21/2022 Resolved Ambulatory Problems Diagnosis Date Noted Thyromegaly 03/06/2023 Past Medical History: Diagnosis Date Anxiety [...] MG capsule Take 500 mg by mouth Daily levothyroxine (Synthroid, Levoxyl) 88 MCG tablet TAKE ONE TABLET BY MOUTH ONCE DAILY ON AN EMPTY STOMACH IN THE MORNING 30 tablet 11 Loratadine 10 MG capsule Take 1 capsule by mouth Daily Probiotic Product (PROBIOTIC BLEND PO) [DISCONTINUED] busPIRone (Buspar) 15 MG tablet Take 15 mg by mouth [DISCONTINUED] omeprazole (PriLOSEC) [address] capsule Take 1 capsule (40 mg) by mouth in the morning. Take before meals. Do not crush or chew.. 90 capsule 0 No current facility-administered medications on file prior to visit. Objective Last Recorded Vitals Vitals: 09/24/24 0856 BP: 113/72 Pulse: 75 ENT Physical Exam Constitutional Appearance: patient appears well-developed, well-nourished and well-groomed, Communication/Voice: communication appropriate for developmental age; vocal quality normal; Assessment/Plan Diagnoses and all orders for this visit: Gastroesophageal reflux disease with esophagitis, unspecified whether hemorrhage Papillary microcarcinoma of thyroid (HCC) Postoperative hypothyroidism US reassuring. I will check a thyroglobulin and plan to go to annual US, TSH and thyroglobulin if low. Synthroid refilled Pt should be referred to GI for possible EGD due to chronic GERD documented in this encounter [facility] 02-29-2024 Telephone encounter Note Called pt/pt verbalized understanding. [facility] 02-29-2024 Miscellaneous Notes Called pt/pt verbalized understanding. Tell pt thyroid test normal documented in this encounter [facility] 02-29-2024 Telephone encounter Note Tell pt thyroid test normal [facility] 02-29-2024 History of Presen t illness Narrative Subjective Patient ID: Judy Mishra is a 54 y.o. female who presents for Thyroid Cancer (Follow up labs/ultrasound 02/22/24 [facility]) Thyroglobulin <2.0. US showed a small amount [...] in left ear documented in this encounter [facility] 10-10-2023 History of Presen t illness Narrative [...] Resolved Ambulatory Problems Diagnosis Date Noted Thyromegaly ([facility]) 03/06/2023 Past Medical History: Diagnosis Date Anxiety [...] Restart LPRD tx documented in this encounter [facility] 03-20-2023 History of Presen t illness Narrative [...] in a year. documented in this encounter [facility] 06-12-2022 Hospital Discharg e instructions Qasim Hairston MD - 06/12/2022 11:50 AM EDT Monitor for worsening pain shortness of breath or other problems. Call your primary care doctor for close follow-up. Referred to cardiology for further evaluation. The following attachments cannot be sent through Care Everywhere.Chest Pain (Australian)documented in this encounter [facility] [employer] Work Phone: 06-08-2020 Note [facility] Extrem[facility] DVT Study Procedure Patient Name MISHRA Date of Study 06/08/2020 JUDY Yoon Date of 1970 Gender Female Age 50 year(s) Race Room Number 06 Height: 63 inch, 160.02 cm Corporate ID [id number] Weight: 200 pounds, 90.7 kg # Patient Acct [id number] BSA: 1.93 m^2 BMI: 35.43 kg/m^2 # MR # [id number] In House Cra RT Prosper Interpreting Physician Gian Braga Referring [...] !None ! + (more content not included)... [facility] Phone: Evaluation note Diagnosis Dyspnea, unspecified type- Primary Anxiety state Anxiety state, unspecified History of 2019 novel coronavirus disease (COVID-19) Multiple thyroid nodules Nontoxic multinodular goiter Renal cyst, left Unspecified congenital cystic kidney disease Essential hypertension Unspecified essential hypertension Thyromegaly Goiter, unspecified documented in this encounter [facility] Phone: evaluation note* Diagnosis Atypical chest pain- Primary Other chest pain documented in this encounter [employer] Phone: evaluation note* Diagnosis SOB (shortness of breath) Shortness of breath Palpitations Chest pain, unspecified type documented in this encounter [employer] Phone: [email or web address] note* Diagnosis Papillary microcarcinoma of thyroid (CMS/HCC)- Primary documented in this encounter [facility] Healthcare[facility] note* Diagnosis Encounter for preventative adult health care exam with abnormal findings documented in this encounter [employer] Phone: evaluation note* Diagnosis Right upper quadrant pain Abdominal pain, right upper quadrant documented in this encounter [employer] Phone: evaluation note* Diagnosis Back strain, initial encounter- Primary Fall, initial encounter documented in this encounter [facility] note* Diagnosis Papillary microcarcinoma of thyroid (CMS/HCC)- Primary Postoperative hypothyroidism (CMS/HCC) Postsurgical hypothyroidism LPRD (laryngopharyngeal reflux disease) Acute laryngitis, without mention of obstruction documented in this encounter [facility] HealthcareEvaluation note* Diagnosis Papillary microcarcinoma of thyroid (CMS/HCC)- Primary Postoperative hypothyroidism (CMS/HCC) Postsurgical hypothyroidism Left-sided tinnitus Unspecified tinnitus documented in this encounter [facility] HealthcareEvaluation note* Diagnosis Encounter for wellness examination in adult documented in this encounter [facility] Work Phone: evaluation note* Diagnosis Chest pain, unspecified type documented in this encounter [facility] Work Phone: evaluation note* Diagnosis Other penitentiary (current) drug therapy documented in this encounter [facility] Work Phone: evaluation note* Diagnosis Gastroesophageal reflux disease with esophagitis, unspecified whether hemorrhage- Primary Papillary microcarcinoma of thyroid (HCC) Postoperative hypothyroidism Postsurgical hypothyroidism documented in this encounter [facility] HealthcareHospital Discharge instructions* Attachments The following attachments cannot be sent through Care Everywhere. * Anxiety Disorders: General Info (Australian) * SOB (Shortness of Breath) (Australian) * Thyroid Nodules (Australian) * Hypertension: General Info (Australian) * Goiter (Australian) [facility]* Attachments The following attachments cannot be sent through Care Everywhere. * Back: Strain (Australian) [facility] Purpose Family History No Family History [...] STRESS TEST EXERCISE ONLY Brian Cottrell MD [address] [place] [address] Referral ID Status Reason Start Date Expiration Date V isits Requested Visits Authorized [id number] Not Required - RTA 06/13/2022 06/13/2023 1 1 Specialty Diagnoses / Procedures Referred By Contjosué t Referred To Contact Cardiology Diagnoses SOB (shortness of breath) Palpitations Chest pain, unspecified type Procedures ECHO Complete 2D W Doppler W Color Brian Cottrell MD [address] [place] [address] Referral ID Status Reason Start Date Expiration Date V isits Requested Visits Authorized [id number] Not Required - RTA 06/13/2022 06/13/2023 1 1 Specialty Diagnoses / Procedures Referred By Contac t Referred To Contact Radiology Diagnoses Right upper quadrant pain Procedures US GALLBLADDER RUQ José Miguel Jackman, LOUIE - AERODYNAMIC CONSULTANT [address] [place] [address] Referral ID Status Reason Start Date Expiration Date Visits Re quested Visits Authorized [id number] Closed 03/19/2023 03/18/2024 1 1 Specialty Diagnoses / Procedures Referred By Contac t Referred To Contact Diagnoses Chest pain, unspecified type Procedures Cardiac event monitor José Miguel Jackman, GIS SOFTWARE ENGINEER - AERODYNAMIC CONSULTANT [address] [place] [address] Referral ID Status Reason Start Date Expiration Date Visits Re quested Visits Authorized [id number] Closed 03/10/2024 03/10/2025 1 1 Additional Source Comments INFORMATION SOURCE (unrecogn ized section and content) DATE CREATED AUTHOR 11/23/2018 [facility] DATE CREATED AUTHOR AUTHOR'S ORGANIZ ATION 03/21/2022 [facility] DATE CREATED AUTHOR AUTHOR'S ORGANIZ ATION 07/03/2023 [facility] DATE CREATED AUTHOR AUTHOR'S ORGANIZ ATION [facility] DATE CREATED AUTHOR AUTHOR'S ORGANIZ ATION 03/03/2024 [facility] DATE CREATED AUTHOR AUTHOR'S ORGANIZ ATION 06/06/2024 [facility] Reason for Visit (unrecogniz ed section and [...] TEST EXERCISE ONLY Brian Cottrell MD [address] [place] [address] Referral ID Status Reason Start Date Expiration Date V isits Requested Visits Authorized [id number] Not Required - RTA 06/13/2022 06/13/2023 1 1 Specialty Diagnoses / Procedures Referred By Contac t Referred To Contact Cardiology Diagnoses SOB (shortness of breath) Palpitations Chest pain, unspecified type Procedures ECHO Complete 2D W Doppler W Color Brian Cottrell MD [address] [place] [address] Referral ID Status Reason Start Date Expiration Date V isits Requested Visits Authorized [id number] Not Required - RTA 06/13/2022 06/13/2023 1 1 Reason Comments History Of Thyroidectomy Lab results Specialty Diagnoses / Procedures [facility] Referred To Contact Radiology Diagnoses Right upper quadrant pain Procedures US GALLBLADDER RUQ José Miguel Jackman APRN - CNP [address] [place] [address] Referral ID Status Reason Start Date Expiration Date Visits Re quested Visits Authorized [id number] Closed 03/19/2023 03/18/2024 1 1 Reason Comments Back Pain Fall Pt states she was on a hammock swing when it broke and she fell. Lower back pain and R upper and lower abd pain. Reason Comments Thyroid Cancer 6 mo follow up with ultrasound and labs Reason Comments Thyroid Cancer Follow up labs/ultra sound 02/22/24 [facility] Specialty Diagnoses / Procedures Referred By Contac t Referred To Contact Diagnoses Chest pain, unspecified type Procedures Cardiac event monitor José Miguel Jackman APRN - CNP [address] [place] [address] Referral ID Status Reason Start Date Expiration Date Visits Re quested Visits Authorized [id number] Closed 03/10/2024 03/10/2025 1 1 Reason Comments Thyroid Cancer Follow up ultrasound /labs Scheduled Active and Recently Administ ered Medications [...] IMG ONCE PRN, 1 dose, Starting on Sun07/01/23 at 2239, Until Discontinued, Other 2303 (Given - Provider: Zoltan Jack) ondansetron (ZOFRAN) injection 4 mg 4 mg, IntraVENous, EVERY 1 HOUR PRN, 2 doses, Starting on 07/01/23 at 2235, Until Discontinued, Nausea, Vomiting 2252 (Given - Provider: Radha Garcia, MERY) Care Teams (unrecognized sec tion and content) Cosmetic Sales Relationship Specialty Start Date End Date Selvin Mack Sr., DO [address] [place] [address] PCP - General Family Medicine 06/08/20 Cosmetic Sales Relationship Specialty Start Date End Date Selvin Mack Sr., DO [address] [place] [address] PCP - General Family Medicine 06/08/20 Cosmetic Sales Relationship Specialty Start Date End Date José Miguel Jackman, LOUIE - AERODYNAMIC CONSULTANT [address] [place] [address] PCP - General Nurse Practitioner 03/19/23 Cosmetic Sales Relationship Specialty Start Date End Date José Miguel Jackman APRN - FAISAL [address] [place], [place] [id number] PCP - General Nurse Practitioner 03/19/23 Cosmetic Sales Relationship Specialty Start Date End Date José Miguel Jackman APRN - AERODYNAMIC CONSULTANT [address] [place] [address] PCP - General Nurse Practitioner 03/19/23 Cosmetic Sales Relationship Specialty Start Date End Date José Miguel London MD [address] [place], [place] [id number] Referring Physician Nurse Practitioner 10/10/23 Cosmetic Sales Relationship Specialty Start Date End Date José Miguel London MD [address] [place], [place] [id number] Referring Physician Nurse Practitioner 10/10/23 Cosmetic Sales Relationship Specialty Start Date End Date José Miguel London MD [address] [place], [place] [id number] Referring Physician Nurse Practitioner 10/10/23 Cosmetic Sales Relationship Specialty Start Date End Date José Miguel London MD [address] [place], [place] [id number] Referring Physician Nurse Practitioner 10/10/23 Cosmetic Sales Relationship Specialty Start Date End Date José Miguel London MD [address] [place], [place] [id number] Referring Physician Nurse Practitioner 10/10/23 Cosmetic Sales Relationship Specialty Start Date End Date José Miguel Jackman APRN - AERODYNAMIC CONSULTANT [address] [place] [address] PCP - General Nurse Practitioner 03/19/23 Cosmetic Sales Relationship Specialty Start Date End Date José Miguel Jackman GIS SOFTWARE ENGINEER - AERODYNAMIC CONSULTANT [address] [place] [address] PCP - General Nurse Practitioner 03/19/23 Cosmetic Sales Relationship Specialty Start Date End Date José Miguel Jackman GIS SOFTWARE ENGINEER - AERODYNAMIC CONSULTANT [address] [place] [address] PCP - General Nurse Practitioner 03/19/23 Cosmetic Sales Relationship Specialty Start Date End Date José Miguel London MD [address] [place] [address] Referring Physician Nurse Practitioner 10/10/23 Cosmetic Sales Relationship Specialty Start Date End Date José Miguel London MD [address] [place] [address] Referring Physician Nurse Practitioner 10/10/23 Cosmetic Sales Relationship Specialty Start Date End Date José Miguel London MD [address] [place] [address] Referring Physician Nurse Practitioner 10/10/23 FOR RECORDS [...] BE BASED ON THE PRIMARY CLINICAL RECORDS. [facility] provides no warranty or guarantee of the accuracy or completeness of information in this document.
== END 2024-09-24 09:55 | disposition home or self-care (01) ==
PROVIDERS: Visit Provider Otolaryngology
DX: C73 Malignant neoplasm of thyroid gland (principal); E89.0 Postprocedural hypothyroidism
CPT/HCPCS: 36415; 84432